=== PATIENT | male | born 1960 | race Caucasian/White ===

== ENCOUNTER → 2018-10-13 | Outpatient (CLI) | payer OTHER ==
--- NOTE | 2018-10-13 15:28 | XR ---
EXAMINATION TYPE: XR shoulder complete RT DATE OF EXAM: 10/13/2018 CLINICAL HISTORY: Right shoulder pain. TECHNIQUE: Three views of the right shoulder are obtained. COMPARISON: None. FINDINGS: There is no acute fracture/dislocation evident in the right shoulder. Moderate narrowing a cromioclavicular joint is present. Distal acromion morphology is unremarkable. Mild to moderate narro wing glenohumeral joint with subchondral cystic change osseous glenoid is identified. The visualized ribs are intact and unremarkable. IMPRESSION: As above.
== END | disposition home or self-care (01) ==
LOC: RADXRMAIN 15:12
PROVIDERS: ATTEND Family Medicine
DX: M25.811 Other specified joint disorders, right shoulder (principal); M85.611 Other cyst of bone, right shoulder

== ENCOUNTER → 2022-03-27 | Outpatient (CLI) | payer BC ==
--- NOTE | 2022-03-27 15:19 | P.SLEEP ---
History of Present Illness DATE: 03/27/2022 CONSULTATION/NEW PATIENT EVALUATION HISTORY OF PRESENT ILLNESS/SLEEP-WAKE EVALUATION: 61year old gentleman had b een evaluated in the sleep center for possible obstructive sleep apnea hypopnea syndrome. SLEEP SCHEDULE: Usually sleep schedule on weekdays 9:30 PM to 7:30 AM, during days off, 10 PM to 8:30 AM. FALLING ASLEEP: No problems with falling asleep. DURING SLEEP: Patient snores loudly and wakes up from sleep 3 times with one episode of nocturia No history of hypnogogical hallucinations, sleep paralysis, or cataplexy. DURING THE DAY/WAKE STATE: In the morning patient wake up tired, has episodes of irritability. Dorena sleepiness scale is 9.. Patient takes 1 nap at 4 PM. PAST MEDICAL HISTORY: . Hypertension, diabetes mellitus, episodes of atrial fibrillation,. Femoral neuropathy. PAST SURGICAL HISTORY: None. MEDICATIONS: , Metformin 500 mg 4 times a day, metoprolol 100 mg once a day, xarelto 20 mg once a day, Lipitor 20 mg once a day, gabapentin 800 mg 3 times a day, Actos. SOCIAL HISTORY: Positive history of smoking cigars , alcohol consumption occasional. FAMILY HISTORY: Hypertension. REVIEW OF SYSTEMS: , Loud snoring, multiple awakenings from sleep. No fevers. No double vision. No recent chest pain. No shortness of breath. No abdominal pain. No bleeding episodes. No blood in urine. No seizure episodes. PHYSICAL EXAMINATION: GENERAL: A pleasant patient without any distress. VITAL SIGNS: BP 149/61 , HR , 53 , RR 16 , weight 263.8 pounds, height 5 foot 9-1/2 inches, body mass index 38.2 . HEENT: PERRLA, EOMI. Evaluation of oropharynx showed tongue protrudes midline, low position of soft palate Mallampati 4. NECK: Supple. No JVD. Thyroid is not palpable. 21-1/2 inches in circumference. LUNGS: Clear to percussion and to auscultation. Good air exchange. No wheezing or rhonchi. HEART: S1, S2 regular. No murmurs, gallops or rubs. ABDOMEN: Soft and nontender. Bowel sounds are present. No organomegaly appreciated. Obese EXTREMITIES: No clubbing or cyanosis. SHAKE FEEDER: Awake, alert, and oriented x3. Cranial nerves 2 to 7 intact. There is no fasciculation or atrophy noted. No focal deficits observed. ASSESSMENT: 1. . Loud snoring, multiple awakenings from sleep, extremely low position of soft palate Mallampati 4, extremely wide neck 21-1/2 inches in circumference, episodes of sleepiness. Obstructive sleep apnea hypopnea syndrome. 2. Obesity, BMI 38.2. 3 Hypertension. 4. History of atrial fibrillation. 5 diabetes mellitus. 6. Peripheral neuropathy. PLAN: 1. Polysomnography for evaluation of patient's breathing during sleep. 2. CPAP/BiPAP titration if sleep study confirms obstructive sleep apnea- hypopnea syndrome. 3. Preferable position during sleep on the side. 4. No driving if patient feels any sleepiness. Patient is aware of civil and criminal liability for unsafe driving. 5. Sleep hygiene with regular sleep time for at least 7.5-8 hours. 6. Watching and losing weight. Thank you very much for referring this patient for consultation. Sincerely, Ángel Lane MD, PhD, FAASM. Diplomat of [place] [employer], Sleep Medicine Board by [place] [employer] [place] [employer] [facility] Past Medical History Past Medical History: Atrial Fibrillation, Diabetes Mellitus, Hypertension Additional Past Medical History / Comment(s): 08/03/14 EPISODE OF A-FIB, TACHYCARDIA, W/U NL. NIDDM. OFF HTN RX NOW. BENIGN COLON POLYPS 2012. History of Any Multi-Drug Resistant Organisms: None Reported Past Surgical History: Adenoidectomy, Tonsillectomy Additional Past Surgical History / Comment(s): Tailbone Cystectomy. Vasectomy. COLONOSCOPY. Past Anesthesia/Blood Transfusion Reactions: No Reported Reaction Additional Past Anesthesia/Blood Transfusion Reaction / Comment(s): Pt has never recieved blood. Past Psychological History: No Psychological Hx Reported Past Alcohol Use History: Daily Additional Past Alcohol Use History / Comment(s): OCC CIGAR USE, STOPPED RECENTLY. 1 ALCOHOL DRINK DAILY. Past Drug Use History: None Reported - Past Family History Father Family Medical History: Congestive Heart Failure (CHF) Additional Family Medical History / Comment(s): Father of CHF Mother Additional Family Medical History / Comment(s): Mother had cirrhosis of the liver. Medications and Allergies Home Medications Medication Instructions Recorded Confirmed Type Cholecalciferol [Vitamin D3 (25 1 tab PO DAILY 02/19/15 05/10/16 History Mcg = 1000 Iu)] Gabapentin [Neurontin] 800 mg PO TID 08/03/14 10/23/15 History Vitamin B Complex 1 each PO DAILY 08/03/14 10/23/15 History sitaGLIPtin PHOSPHATE [Januvia] 100 mg PO DAILY 08/03/14 10/23/15 History Atorvastatin Calcium [Lipitor] 40 mg PO HS #30 tab 08/04/14 10/23/15 Rx Aspirin 81 mg PO HS 10/23/15 10/23/15 History Empagliflozin [Jardiance] 25 mg PO AC-SUPPER 10/23/15 10/23/15 History Metoprolol Tartrate [Lopressor] 25 mg PO DAILY 10/23/15 10/23/15 History Rivaroxaban [Xarelto] 20 mg PO HS 10/23/15 10/23/15 History metFORMIN HCL [Glucophage] 1,000 mg PO AC-SUPPER 10/23/15 10/23/15 History metFORMIN HCL [Glucophage] 1,000 mg PO AC-SUPPER 10/23/15 10/23/15 History Allergies Allergy/AdvReac Type Severity Reaction Status Date / Time clarithromycin [From Biaxin] Allergy Severe Rash/Hives Verified 10/23/15 10:32 Sleep Note - Sleep Note Sleep Note: Temperature: Pulse Rate: Respiratory Rate: Blood Pressure: SpO2: Height: Weight: BMI: Neck Circumference:
== END | disposition home or self-care (01) ==
LOC: SLEEP 14:20
PROVIDERS: ATTEND Internal Medicine
DX: G47.33 Obstructive sleep apnea (adult) (pediatric) (principal); I10 Essential (primary) hypertension; I48.91 Unspecified atrial fibrillation; E66.9 Obesity, unspecified; Z68.38 Body mass index [BMI] 38.0-38.9, adult; E11.42 Type 2 diabetes mellitus with diabetic polyneuropathy; Z87.891 Personal history of nicotine dependence; Z88.1 Allergy status to other antibiotic agents
CPT/HCPCS: 99202

== ENCOUNTER 2022-09-04 12:35 | Inpatient (IN) | payer BC ==
[2022-09-04] MEDS ORDERED: DILTIAZEM DRIP BOLUS FROM BAG 1 MG SOLN IV ONE (13:06)
[2022-09-04] MEDS: MORPHINE SULFATE 4 MG/ML SYRINGE IV STA ×2 (13:08→15:16)
[2022-09-04] MEDS ORDERED: DILTIAZEM 125 MG in SODIUM CHLORIDE 0.9% 100 ML IV SCH (13:15)
[2022-09-04 13:45] LABS: Basophils % (A) 0 %; Eosinophils # (A) 0.1 k/uL (0-0.7); Eosinophils % (A) 1 %; HCT 40.9 % (39.0-53.0); HGB 13.4 gm/dL (13.0-17.5); Hypochromasia Slight; Lymphocytes # (A) 1.3 k/uL (1.0-4.8); Lymphocytes % (A) 13 %; MCHC 32.7 g/dL (31.0-37.0); Mean Platelet Volume 8.5; Monocytes # (A) 0.6 k/uL (0-1.0); Monocytes % (A) 6 %; Neutrophils # (A) 7.6 k/uL (1.3-7.7); Neutrophils % (A) 77 %; Platelet Count 302 k/uL (150-450); RBC 4.45 m/uL (4.30-5.90); RDW 14.4 % (11.5-15.5); WBC 9.8 k/uL (3.8-10.6)
[2022-09-04] MEDS ORDERED: fentaNYL (PF) 50 MCG/ML 2 ML AMP IVP STA (13:56)
--- NOTE | 2022-09-04 14:02 | ED ---
General Adult HPI - General Chief complaint: Chest Pain Stated complaint: revisit- lt sided abd pain Time Seen by Provider: 09/04/22 12:50 Source: patient, family, RN notes reviewed, old records reviewed Mode of arrival: wheelchair Limitations: no limitations - History of Present Illness Initial comments: 61-year-old male presenting for evaluation of left-sided lateral chest pain which is been present for the past week. Patient states that he was discharged from the hospital with new diagnosis of atrial fibrillation. He was started on multiple medications which she's been compliant with. He developed the left- sided chest pain shortly after this admission and it has been constant since that time. No fever or cough, mild dyspnea. Pain does not radiate. - Related Data Home Medications Medication Instructions Recorded Confirmed Rivaroxaban [Xarelto] 20 mg PO DAILY 10/23/15 09/04/22 Aspirin EC [Ecotrin Low Dose] 81 mg PO DAILY 08/13/22 09/04/22 Atorvastatin [Lipitor] 20 mg PO HS 08/13/22 09/04/22 Linagliptin [Tradjenta] 5 mg PO DAILY 08/13/22 09/04/22 Lisinopril-Hctz 20-12.5 mg 1 tab PO DAILY 08/13/22 09/04/22 [Zestoretic 20-12.5] Metoprolol Succinate (ER) [Toprol 100 mg PO HS 08/13/22 09/04/22 XL] Pioglitazone [Actos] 45 mg PO DAILY 08/13/22 09/04/22 [id number] 2 tab PO Q6H PRN 09/04/22 09/04/22 [Excedrin] Midodrine [ProAmatine] 10 mg PO TID@0730,1200,1730 09/04/22 09/04/22 Tamsulosin [Flomax] 0.4 mg PO HS 09/04/22 09/04/22 Previous Rx's Medication Instructions Recorded Amiodarone [Cordarone] 400 mg PO BID 30 Days #60 tab 08/29/22 Dapagliflozin Propanediol [Farxiga] 10 mg PO DAILY 30 Days #30 tab 08/29/22 Gabapentin [Neurontin] 200 mg PO BID 5 Days #20 cap 08/29/22 Spironolactone [Aldactone] 12.5 mg PO DAILY 30 Days #30 tab 08/29/22 Allergies Allergy/AdvReac Type Severity Reaction Status Date / Time clarithromycin [From Biaxin] Allergy Severe Rash/Hives Verified 09/04/22 13:44 Review of Systems ROS Statement: Those systems with pertinent positive or pertinent negative responses have been documented in the HPI. ROS Other: All systems not noted in ROS Statement are negative. Past Medical History Past Medical History: Atrial Fibrillation, Diabetes Mellitus, Hypertension Additional Past Medical History / Comment(s): 08/03/14 EPISODE OF A-FIB, TACHYCARDIA, W/U NL. NIDDM. OFF HTN RX NOW. BENIGN COLON POLYPS 2012. History of Any Multi-Drug Resistant Organisms: None Reported Past Surgical History: Adenoidectomy, Tonsillectomy Additional Past Surgical History / Comment(s): Tailbone Cystectomy. Vasectomy. COLONOSCOPY. Past Anesthesia/Blood Transfusion Reactions: No Reported Reaction Additional Past Anesthesia/Blood Transfusion Reaction / Comment(s): Pt has never recieved blood. Past Psychological History: No Psychological Hx Reported Smoking Status: Former smoker Past Alcohol Use History: Daily Past Drug Use History: None Reported - Past Family History Father Family Medical History: Congestive Heart Failure (CHF) Additional Family Medical History / Comment(s): Father of CHF Mother Additional Family Medical History / Comment(s): Mother had cirrhosis of the liver. General Exam Limitations: no limitations General appearance: alert, in distress Head exam: Present: atraumatic, normocephalic Eye exam: Present: normal appearance, PERRL ENT exam: Present: normal exam Neck exam: Present: normal inspection. Absent: tenderness, meningismus Respiratory exam: Present: normal lung sounds bilaterally. Absent: respiratory distress, wheezes Cardiovascular Exam: Present: tachycardia, irregular rhythm GI/Abdominal exam: Present: soft. Absent: distended, tenderness, guarding Extremities exam: Present: normal inspection, normal capillary refill. Absent: pedal edema Neurological exam: Present: alert, oriented X3, CN II-XII intact. Absent: motor sensory deficit Psychiatric exam: Present: normal affect, normal mood Skin exam: Present: warm, dry, intact, normal color. Absent: cyanosis, diaphoretic Course Vital Signs 09/04/22 09/04/22 09/04/22 12:37 13:40 14:00 Temperature 97.9 F Pulse Rate 66 133 H 117 H Respiratory 20 19 20 Rate Blood Pressure 99/60 88/73 102/69 O2 Sat by Pulse 99 96 96 Oximetry EKG Findings - EKG Comments: EKG Findings:: EKG: Atrial fibrillation with RVR rate 140 QRS duration 117, QTC [address] segment elevation Medical Decision Making - Medical Decision Making Was pt. sent in by a medical professional or institution (, PA, THERMO PROCESSOR, urgent care, hospital, or longterm...) When possible be specific @ -No Did you speak to anyone other than the patient for history (EMS, parent, family, police, friend...)? What history was obtained from this source @ -No Did you review nursing and triage notes (agree or disagree)? Why? @ -I reviewed and agree with nursing and triage notes Were old charts reviewed (outside hosp., previous admission, EMS record, old EKG, old radiological studies, urgent care reports/EKG's, longterm records)? Report findings @ -Reviewed previous laboratory testing, previous EKGs, previous x-rays Differential Diagnosis (chest pain, altered mental status, abdominal pain women, abdominal pain men, vaginal bleeding, weakness, fever, dyspnea, syncope, headache, dizziness, GI bleed, back pain, seizure, CVA, palpatations, mental health, musculoskeletal)? @ -Differential Chest Pain: Stable Angina, Unstable Angina, STEMI, NSTEMI Aortic Dissection, Pneumothorax, Musculoskeletal, Esophageal Spasm GERD, Cholecystitis, Pancreatitis, Zoster, this is not meant to be an all-inclusive list. EKG interpreted by me (3pts min.). @ -As above X-rays interpreted by me (1pt min.). @ -Chest x-ray showing a left-sided pleural effusion improved aeration. CT interpreted by me (1pt min.). @ -None done U/S interpreted by me (1pt. min.). @ -None done What testing was considered but not performed or refused? (CT, X-rays, U/S, labs)? Why? @ -None What meds were considered but not given or refused? Why? @ -None Did you discuss the management of the patient with other professionals (professionals i.e. , GUILLAUME, THERMO PROCESSOR, lab, RT, psych nurse, social work manager, 911 telecommunicator, teacher, legal compliance officer, home health care case manager)? Give summary @ -Case discussed with the admitting physician Dr. Beatty Was smoking cessation discussed for >3mins.? @ -No Was critical care preformed (if so, how long)? @ -No Were there social determinants of health that impacted care today? How? (Homelessness, low income, unemployed, alcoholism, drug addiction, transportat ion, low edu. Level, literacy, decrease access to med. care, half-way, rehab)? @ -No Was there de-escalation of care discussed even if they declined (Discuss DNR or withdrawal of care, Hospice)? DNR status @ -No What co-morbidities impacted this encounter? (DM, HTN, Smoking, COPD, CAD, Cancer, CVA, ARF, Chemo, Hep., AIDS, mental health diagnosis, sleep apnea, morbid obesity)? @ -Hypertension, chronic kidney disease, H fibrillation Was patient admitted / discharged? Hospital course, mention meds given and route, prescriptions, significant lab abnormalities, going to OR and other perti nent info. @ -61-year-old male presenting with left lateral chest pain. Pain is atypical. EKG is atrial fibrillation with RVR. The patient is anticoagulated at baseline. Repeat chest x-ray shows left-sided pleural effusion which is likely the cause of patient's pain. He has significant rate improvement on Cardizem with all in the emergency department. Laboratory testing is stable including improved kidney function, stable hemoglobin, negative troponin he will be admitted to internal medicine with cardiology on consult Undiagnosed new problem with uncertain prognosis? @ -No Drug Therapy requiring intensive monitoring for toxicity (Heparin, Nitro, Insulin, Cardizem)? @ -No Were any procedures done? @ -No Diagnosis/symptom? @ -A fibrillation with RVR, pleural effusion Acute, or Chronic, or Acute on Chronic? @ -acute Uncomplicated (without systemic symptoms) or Complicated (systemic symptoms)? @ -complicated Side effects of treatment? @ -No Exacerbation, Progression, or Severe Exacerbation? @ -No Poses a threat to life or bodily function? How? (Chest pain, [place], MT, pneumonia, PE, COPD, DKA, ARF, appy, cholecystitis, CVA, Diverticulitis, Homicidal, Suicidal, threat to staff... and all critical care pts) @ -yes, arrhythmia, hypoperfusion - Lab Data Result diagrams: 09/04/22 13:16 09/04/22 13:16 Lab Results 09/04/22 09/04/22 09/04/22 Range/Units 13:16 13:16 13:16 WBC 9.8 (3.8-10.6) k/uL RBC 4.45 (4.30-5.90) m/uL Hgb 13.4 (13.0-17.5) gm/dL Hct 40.9 (39.0-53.0) % MCV 92.0 (80.0-100.0) fL MCH 30.0 (25.0-35.0) pg MCHC 32.7 (31.0-37.0) g/dL RDW 14.4 (11.5-15.5) % Plt Count 302 (150-450) k/uL MPV 8.5 Neutrophils % 77 % Lymphocytes % 13 % Monocytes % 6 % Eosinophils % 1 % Basophils % 0 % Neutrophils # 7.6 (1.3-7.7) k/uL Lymphocytes # 1.3 (1.0-4.8) k/uL Monocytes # 0.6 (0-1.0) k/uL Eosinophils # 0.1 (0-0.7) k/uL Basophils # 0.0 (0-0.2) k/uL Hypochromasia Slight PT 17.4 H (9.0-12.0) sec INR 1.8 H (<1.2) APTT 42.0 H (22.0-30.0) sec Sodium 133 L (137-145) mmol/L Potassium 4.2 (3.5-5.1) mmol/L Chloride 91 L (98-107) mmol/L Carbon Dioxide 32 H (22-30) mmol/L Anion Gap 10 mmol/L BUN 42 H (9-20) mg/dL Creatinine 1.67 H (0.66-1.25) mg/dL Est GFR (CKD-EPI)AfAm 50 (>60 ml/min/1.73 sqM) Est GFR (CKD-EPI)NonAf 43 (>60 ml/min/1.73 sqM) Glucose 152 H (74-99) mg/dL Calcium 10.0 (8.4-10.2) mg/dL Magnesium 1.9 (1.6-2.3) mg/dL Total Bilirubin 1.6 H (0.2-1.3) mg/dL AST 39 (17-59) U/L ALT 76 H (4-49) U/L Alkaline Phosphatase 128 H (38-126) U/L Troponin I (0.000-0.034) ng/mL NT-Pro-B Natriuret Pep pg/mL Total Protein 7.3 (6.3-8.2) g/dL Albumin 4.1 (3.5-5.0) g/dL 09/04/22 09/04/22 Range/Units 13:16 13:16 WBC (3.8-10.6) k/uL RBC (4.30-5.90) m/uL Hgb (13.0-17.5) gm/dL Hct (39.0-53.0) % MCV (80.0-100.0) fL MCH (25.0-35.0) pg MCHC (31.0-37.0) g/dL RDW (11.5-15.5) % Plt Count (150-450) k/uL MPV Neutrophils % % Lymphocytes % % Monocytes % % Eosinophils % % Basophils % % Neutrophils # (1.3-7.7) k/uL Lymphocytes # (1.0-4.8) k/uL Monocytes # (0-1.0) k/uL Eosinophils # (0-0.7) k/uL Basophils # (0-0.2) k/uL Hypochromasia PT (9.0-12.0) sec INR (<1.2) APTT (22.0-30.0) sec Sodium (137-145) mmol/L Potassium (3.5-5.1) mmol/L Chloride (98-107) mmol/L Carbon Dioxide (22-30) mmol/L Anion Gap mmol/L BUN (9-20) mg/dL Creatinine (0.66-1.25) mg/dL Est GFR (CKD-EPI)AfAm (>60 ml/min/1.73 sqM) Est GFR (CKD-EPI)NonAf (>60 ml/min/1.73 sqM) Glucose (74-99) mg/dL Calcium (8.4-10.2) mg/dL Magnesium (1.6-2.3) mg/dL Total Bilirubin (0.2-1.3) mg/dL AST (17-59) U/L ALT (4-49) U/L Alkaline Phosphatase (38-126) U/L Troponin I <0.012 (0.000-0.034) ng/mL NT-Pro-B Natriuret Pep 3240 pg/mL Total Protein (6.3-8.2) g/dL Albumin (3.5-5.0) g/dL Disposition Clinical Impression: Atrial fibrillation with rapid ventricular response Disposition: ADMITTED IP TO THIS HOSP Condition: Stable Is patient prescribed a controlled substance at d/c from ED?: No Referrals: Vargas Vann DO [Primary Care Provider] - 1-2 days Time of Disposition: 14:54
[2022-09-04 14:05] LABS: INR 1.8 (<1.2); Prothrombin Time 17.4 sec (9.0-12.0)
[2022-09-04] MEDS ORDERED: ONDANSETRON 4 MG/2 ML VIAL IVP STA (14:27)
--- NOTE | 2022-09-04 14:27 | XR ---
EXAMINATION TYPE: XR chest 2V DATE OF EXAM: 09/04/2022 2:22 PM COMPARISON: Chest radiographs from 08/20/2022 TECHNIQUE: XR chest 2V Frontal and lateral views of the chest. CLINICAL INDICATION:Male, 61 years old with history of Chest Pain; FINDINGS: Lungs/Pleura: Small left pleural effusion with adjacent airspace opacity. No pneumothorax. Improved a eration of the right base from earlier examination on 08/20/2022. Pulmonary vascularity: Unremarkable. Heart/mediastinum: Cardiomediastinal silhouette is unremarkable. Musculoskeletal: No acute osseous pathology. IMPRESSION: Similar small left pleural effusion with adjacent airspace opacity which may represent atelectasis an d/or infiltrate. Improved aeration in the right lung base from prior examination on 08/20/2022.
[2022-09-04 14:38] LABS: Albumin 4.1 g/dL (3.5-5.0); Magnesium 1.9 mg/dL (1.6-2.3); Potassium 4.2 mmol/L (3.5-5.1); Total Bilirubin 1.6 mg/dL (0.2-1.3); Total Protein 7.3 g/dL (6.3-8.2)
[2022-09-04] MEDS ORDERED: NALOXONE 0.4 MG/ML 1 ML VIAL IV PRN (14:44)
[2022-09-04] MEDS ORDERED: ACETAMINOPHEN TAB 325 MG TAB PO STA (14:50)
[2022-09-04] MEDS ORDERED: SODIUM CHLORIDE 0.9% 500 ML 500 ML IV ONE (15:38)
[2022-09-04] MEDS: HYDROmorphone 0.5 MG/0.5 ML SYRINGE IVP PRN ×2 (15:41→21:52)
[2022-09-04] MEDS ORDERED: ASPIRIN-ACET-CAFF 250-250-65MG 1 EACH TAB PO PRN (15:47)
[2022-09-04] MEDS ORDERED: DEXTROSE 50% SYRINGE 50 ML IVP PRN ×2 (15:50)
[2022-09-04] MEDS ORDERED: AMIODARONE 200 MG TAB PO STA (17:12)
[2022-09-04 17:32] LABS: Glucose,Whole Blood 128 mg/dL (70-110)
[2022-09-04] MEDS: INSULIN ASPART (NovoLOG) 100 UNIT/ML VIAL SQ SCH ×2 (17:36→21:01)
[2022-09-04] MEDS: MIDODRINE 5 MG TAB PO SCH (17:56)
[2022-09-04] MEDS: HYDROcodone/APAP 5-325MG 1 EACH TAB PO PRN ×2 (17:57→23:50)
--- NOTE | 2022-09-04 18:16 | CT ---
EXAMINATION TYPE: CT chest abdomen wo con DATE OF EXAM: 09/04/2022 COMPARISON: CT chest 08/03/2014 HISTORY: left side pleural effusion CT DLP: 864.6 mGycm Automated exposure control for dose reduction was used. Images obtained from the thoracic inlet to the iliac crests with no contrast. There is mild left pleural effusion. There is left lower lobe airspace 8 cm consolidation and atelect asis posteriorly and laterally. The right lung is clear. No mediastinal adenopathy. There are no nelly r masses. Thoracic aorta is intact. No aneurysm. There is some mild coronary artery calcification. Th e ascending aorta measures 3.6 cm. Liver spleen and stomach pancreas appear intact. Gallbladder is intact. The bile base are not dilated . There is no adrenal mass. Kidneys have normal size and contour. No hydronephrosis. Ureters are not di lated. No retroperitoneal adenopathy. There is no mesenteric edema. No ascites or free air. No sign of a bowel obstruction. No intestinal w all thickening. The thoracic and lumbar vertebra appear intact. There is multilevel lumbar spondylotic changes with d isc space narrowing and vacuum disc. No compression fracture. No focal bone destruction. Sternum is i ntact. No evidence of rib fracture. IMPRESSION: There is left pleural effusion and left lower lobe airspace consolidation and atelectasis. Lung abnor malities appear new compared to old exam. No significant abnormality within the abdomen.
[2022-09-04 19:55] LABS: Glucose,Whole Blood 124 mg/dL (70-110)
[2022-09-04] MEDS ORDERED: METOPROLOL SUCCINATE (ER) 100 MG TAB.ER.24H PO SCH (21:00)
[2022-09-04] MEDS: TAMSULOSIN 0.4 MG CAP.ER.24H PO SCH (21:06)
[2022-09-04] MEDS: AMIODARONE 200 MG TAB PO SCH (21:06)
[2022-09-04] MEDS: GABAPENTIN 100 MG CAP PO SCH (21:06)
[2022-09-04] MEDS: ATORVASTATIN 20 MG TAB PO SCH (21:06)
[2022-09-05] MEDS ORDERED: LACTATED RINGERS 1,000 ML IV ONE (00:16)
--- NOTE | 2022-09-05 02:58 | HP ---
HISTORY AND PHYSICAL CHIEF COMPLAINT: Atrial fibrillation with fast ventricular rate, hypotension as well as left-sided chest pain and left pleural effusion. HISTORY OF PRESENT ILLNESS: This is a 61-year-old gentleman with a past medical history of multiple medical problems, was recently admitted with atrial fibrillation associated complications. The patient apparently was cardioverted. The patient also had a cardiomyopathy, ejection fraction of 30% to 35%. Currently, the patient is complaining of left-sided chest pain, which is acute on chronic in character of the left lower chest on the lateral part. The patient was found to have atrial fibrillation with fast ventricular rate and some hypotension. Cardizem was initiated. The patient is closely monitored at this time. There is no history of any fever, rigors, or chills at this time. Chest x-ray showed left pleural effusion. PAST MEDICAL HISTORY: Reviewed include atrial fibrillation, diabetes mellitus. The rest of the history and rest of the chart is also noted. HOME MEDICATIONS: Reviewed include Flomax, dose and rest of medication noted. ALLERGIES: Reviewed include Biaxin. FAMILY HISTORY: History of CHF. SOCIAL HISTORY: Previous history of smoking. REVIEW OF SYSTEMS: Fourteen-point review of systems negative except as mentioned earlier. PHYSICAL EXAMINATION: VITAL SIGNS: Pulse is 112 and irregular, blood pressure 90/70, respirations 20. HEENT: Conjunctivae normal. NECK: No jugular venous distention. CARDIOVASCULAR: S1, S2 muffled. RESPIRATIONS: Breath sounds diminished at the bases. A few scattered rhonchi and crackles. ABDOMEN: Soft, nontender. LEGS: No edema. NERVOUS SYSTEM: No focal deficits. Some tenderness in the left lower chest also present. LABORATORY DATA: Labs are reviewed. ASSESSMENT: 1. Atrial fibrillation with fast ventricular rate with hypotension. 2. Left-sided chest pain. 3. Left pleural effusion. 4. Chronic kidney disease, stage 3. 5. Diabetes mellitus, type 2. 6. Hypertension. 7. Multiple medical issues. 8. Cardiomyopathy with ejection fraction of 30% to 35%. RECOMMENDATIONS: This is a 61-year-old gentleman who presented with multiple complex medical issues. We will continue the current medications. Continue symptomatic treatment. Otherwise, I would also recommend a CT scan of the chest and monitor blood sugars closely. The patient is on Cardizem. I would recommend fluid bolus of 500 mL and if the patient's blood pressure is not improving, the patient might be a candidate for amiodarone drip and we will closely follow with Cardiology. Discussed with staff. Discussed with family. Further recommendations to follow. MMODL / IJN: [id number] /
[2022-09-05] MEDS: HYDROmorphone 0.5 MG/0.5 ML SYRINGE IVP PRN ×3 (03:40→16:35)
[2022-09-05 06:04] LABS: Glucose,Whole Blood 145 mg/dL (70-110)
[2022-09-05] MEDS: INSULIN ASPART (NovoLOG) 100 UNIT/ML VIAL SQ SCH ×4 (06:04→22:00)
[2022-09-05] MEDS: MIDODRINE 5 MG TAB PO SCH ×3 (06:14→16:43)
[2022-09-05 07:56] LABS: Basophils # (A) 0.1 k/uL (0-0.2); Basophils % (A) 1 %; Eosinophils # (A) 0.1 k/uL (0-0.7); Eosinophils % (A) 1 %; HCT 40.4 % (39.0-53.0); Hypochromasia Slight; Lymphocytes # (A) 1.4 k/uL (1.0-4.8); Lymphocytes % (A) 16 %; MCH 29.9 pg (25.0-35.0); MCHC 32.1 g/dL (31.0-37.0); MCV 93.2 fL (80.0-100.0); Monocytes # (A) 0.6 k/uL (0-1.0); Monocytes % (A) 7 %; Neutrophils # (A) 6.4 k/uL (1.3-7.7); Neutrophils % (A) 73 %; Platelet Count 262 k/uL (150-450); RBC 4.33 m/uL (4.30-5.90); RDW 14.8 % (11.5-15.5); WBC 8.8 k/uL (3.8-10.6)
[2022-09-05 08:18] LABS: Calcium 9.9 mg/dL (8.4-10.2); Potassium 4.2 mmol/L (3.5-5.1)
[2022-09-05] MEDS ORDERED: RIVAROXABAN 20 MG TAB PO SCH (09:00)
[2022-09-05] MEDS: ASPIRIN 81 MG PO SCH (09:03)
[2022-09-05] MEDS: GABAPENTIN 100 MG CAP PO SCH ×2 (09:03→22:00)
[2022-09-05] MEDS: ONDANSETRON 4 MG/2 ML VIAL IVP PRN ×2 (09:03→16:58)
[2022-09-05] MEDS: SPIRONOLACTONE 25 MG TAB PO SCH (09:04)
[2022-09-05] MEDS: HYDROcodone/APAP 5-325MG 1 EACH TAB PO PRN ×2 (09:04→16:35)
[2022-09-05] MEDS: PIOGLITAZONE 45 MG TAB PO SCH (09:04)
[2022-09-05] MEDS: AMIODARONE 200 MG TAB PO SCH ×2 (09:04→22:00)
[2022-09-05] MEDS: LINAGLIPTIN 5 MG TABLET PO SCH (09:04)
[2022-09-05] MEDS: DAPAGLIFLOZIN PROPANEDIOL 10 MG TABLET PO SCH (09:05)
--- NOTE | 2022-09-05 10:15 | P.CRDCN ---
History of Present Illness Consult date: 09/05/22 History of present illness: HISTORY OF PRESENT ILLNESS: This is a 61-year-old male with a past medical history significant for paroxysmal atrial fibrillation, hyperlipidemia, hypertension, and diabetes. Patient was last seen in the office by Dr. Robert in 2014. We have been asked to see the patient in consultation for chest pain. Patient examined at the bedside. Patient presented to the hospital with a chief complaint of back pain. Patient was found to be in A. fib with RVR. Patient was started on IV Cardizem. This morning the patient remains in atrial fibrillation with a heart rate in the 80s. * EKG reveals atrial fibrillation with RVR with heart rate of 140 * Chest xray similar small left pleural effusion with adjacent airspace opacity which may represent atelectasis and/or infiltrate. Improved aeration in the right lung base from prior exam * Laboratory data: W BC 8.8. Hemoglobin 13.0. Platelet count 262. INR 1.8. Sodium 133. Potassium 4.2. BUN 42. Creatinine 1.67. ProBNP 3420. Troponin negative 1. * Current home cardiac medications include amiodarone 400 mg twice a day, aspirin 81 mg twice a day, Zestoretic 20-12.5mg daily, Xarelto 20 mg daily, spironolactone 2.5 mg daily, Lipitor 20mg at night, metoprolol succinate 100 mg at night, and Midodrine 10mg BID * Most recent echocardiogram obtained in August 2022 revealed ejection fraction 30-35% REVIEW OF SYSTEMS: At the time of my exam: CONSTITUTIONAL: Denies fever or chills. HEENT: Denies blurred vision, vision changes, or eye pain. Denies hemoptysis CARDIOVASCULAR: Denies chest pain. Denies orthopnea. Denies PND. Denies pal pitations RESPIRATORY: Denies shortness of breath. GASTROINTESTINAL: Denies abdominal pain. Denies nausea or vomiting. HEMATOLOGIC: Denies bleeding disorders. GENITOURINARY: Denies any blood in urine. SKIN: Denies pruitis. Denies rash. PHYSICAL EXAM: VITAL SIGNS: Reviewed. GENERAL: Well-developed in no acute distress. HEENT: Head is normocephalic. Pupils are equal, round. Sclerae anicteric. Mucous membranes of the mouth are moist. Neck supple. No JVD or thyromegaly LUNGS: Respirations even and unlabored. Lungs essentially clear to auscultation bilaterally. HEART: Irregular rate and rhythm. S1 and S2 heard. ABDOMEN: Soft. Nondistended. Nontender. EXTREMITIES: Normal range of motion. No clubbing or cyanosis. Peripheral pulses intact. Trace bilateral lower extremity edema NEUROLOGIC: Awake and alert. Oriented x 3. ASSESSMENT: Back pain, noncardiac Paroxysmal atrial fibrillation Recent A. fib cardioversion, 08/13/2022 Cardiomyopathy, ejection fraction 3035%, possibly tachycardia induced Chronic heart failure with reduced EF Acute kidney injury Hypertension Hyperlipidemia Diabetes PLAN: No need to repeat echocardiogram Increase metoprolol tartrate to 100 mg twice a day Discontinue IV Cardizem Continue telemetry monitoring Further recommendations pending patient's course Nurse practitioner note has been reviewed by physician. Signing provider agrees with the documented findings, assessment, and plan of care. Past Medical History Past Medical History: Atrial Fibrillation, Diabetes Mellitus, Hypertension Additional Past Medical History / Comment(s): 08/03/14 EPISODE OF A-FIB, TACHYCARDIA, W/U NL. NIDDM. OFF HTN RX NOW. BENIGN COLON POLYPS 2012. History of Any Multi-Drug Resistant Organisms: None Reported Past Surgical History: Adenoidectomy, Tonsillectomy Additional Past Surgical History / Comment(s): Tailbone Cystectomy. Vasectomy. COLONOSCOPY. Past Anesthesia/Blood Transfusion Reactions: No Reported Reaction Additional Past Anesthesia/Blood Transfusion Reaction / Comment(s): Pt has never recieved blood. Past Psychological History: No Psychological Hx Reported Additional Psychological History / Comment(s): Pt lives in his home with his . Pt is independent. He drives a car. Smoking Status: Former smoker Past Alcohol Use History: Daily Additional Past Alcohol Use History / Comment(s): OCC CIGAR USE, STOPPED RECENTLY. 1 ALCOHOL DRINK DAILY. Past Drug Use History: None Reported - Past Family History Father Family Medical History: Congestive Heart Failure (CHF) Additional Family Medical History / Comment(s): Father of CHF Mother Additional Family Medical History / Comment(s): Mother had cirrhosis of the liver. Medications and Allergies Home Medications Medication Instructions Recorded Confirmed Type Rivaroxaban [Xarelto] 20 mg PO DAILY 10/23/15 09/04/22 History Aspirin EC [Ecotrin Low Dose] 81 mg PO DAILY 08/13/22 09/04/22 History Atorvastatin [Lipitor] 20 mg PO HS 08/13/22 09/04/22 History Linagliptin [Tradjenta] 5 mg PO DAILY 08/13/22 09/04/22 History Lisinopril-Hctz 20-12.5 mg 1 tab PO DAILY 08/13/22 09/04/22 History [Zestoretic 20-12.5] Metoprolol Succinate (ER) [Toprol 100 mg PO HS 08/13/22 09/04/22 History XL] Pioglitazone [Actos] 45 mg PO DAILY 08/13/22 09/04/22 History Amiodarone [Cordarone] 400 mg PO BID 30 Days #60 tab 08/29/22 09/04/22 Rx Dapagliflozin Propanediol [Farxiga] 10 mg PO DAILY 30 Days #30 tab 08/29/22 09/04/22 Rx Gabapentin [Neurontin] 200 mg PO BID 5 Days #20 cap 08/29/22 09/04/22 Rx Spironolactone [Aldactone] 12.5 mg PO DAILY 30 Days #30 tab 08/29/22 09/04/22 Rx [id number]-Gpdj-Vvyd [id number] 2 tab PO Q6H PRN 09/04/22 09/04/22 History [Excedrin] Midodrine [ProAmatine] 10 mg PO TID@0730,1200,1730 09/04/22 09/04/22 History Tamsulosin [Flomax] 0.4 mg PO HS 09/04/22 09/04/22 History Allergies Allergy/AdvReac Type Severity Reaction Status Date / Time clarithromycin [From Biaxin] Allergy Severe Rash/Hives Verified 09/04/22 13:44 Physical Exam Vitals: Vital Signs Temp Pulse Pulse Resp BP BP Pulse Ox 09/05/22 07:35 97.5 F L 88 20 111/48 98 09/05/22 03:34 97.9 F 105 H 20 96/59 96 09/05/22 01:05 20 09/04/22 23:49 98.0 F 106 H 20 99/64 96 09/04/22 21:20 110 H 20 09/04/22 20:00 97.9 F 110 H 20 101/61 98 09/04/22 16:10 97.4 F L 131 H 16 104/55 98 09/04/22 15:34 124 H 20 90/71 98 09/04/22 15:22 112 H 19 84/55 98 09/04/22 14:00 117 H 20 102/69 96 09/04/22 13:40 133 H 19 88/73 96 09/04/22 12:37 97.9 F 66 20 99/60 99 Intake and Output 09/04/22 09/05/22 09/05/22 22:59 06:59 14:59 Intake Total 236 Balance 236 Intake: Oral 236 Other: Voiding Method Toilet Toilet # Voids 1 1 Weight 110.677 kg 110 kg Results 09/05/22 07:21 09/05/22 07:21 Cardiac Enzymes 09/04/22 09/04/22 Range/Units 13:16 13:16 AST 39 (17-59) U/L Troponin I <0.012 (0.000-0.034) ng/mL Coagulation 09/04/22 Range/Units 13:16 PT 17.4 H (9.0-12.0) sec APTT 42.0 H (22.0-30.0) sec CBC 09/04/22 09/05/22 Range/Units 13:16 07:21 WBC 9.8 8.8 (3.8-10.6) k/uL RBC 4.45 4.33 (4.30-5.90) m/uL Hgb 13.4 13.0 (13.0-17.5) gm/dL Hct 40.9 40.4 (39.0-53.0) % Plt Count 302 262 (150-450) k/uL Comprehensive Metabolic Panel 09/04/22 Range/Units 13:16 Sodium 133 L (137-145) mmol/L Potassium 4.2 (3.5-5.1) mmol/L Chloride 91 L (98-107) mmol/L Carbon Dioxide 32 H (22-30) mmol/L BUN 42 H (9-20) mg/dL Creatinine 1.67 H (0.66-1.25) mg/dL Glucose 152 H (74-99) mg/dL Calcium 10.0 (8.4-10.2) mg/dL AST 39 (17-59) U/L ALT 76 H (4-49) U/L Alkaline Phosphatase 128 H (38-126) U/L Total Protein 7.3 (6.3-8.2) g/dL Albumin 4.1 (3.5-5.0) g/dL Current Medications Generic Name Dose Route Start Last Admin Trade Name Freq PRN Reason Stop Dose Admin Acetaminophen/Aspirin/Caffeine 2 each 09/04/22 15:47 Oegefvg-[id number]-Pxpc [id number] 1 Each Tab PO Q6H PRN Headache Hydrocodone Bitart/Acetaminophen 1 each 09/04/22 15:51 09/04/22 23:50 Hydrocodone/Apap 5-325mg 1 Each Tab PO 1 each Q6HR PRN Administration Pain Amiodarone HCl 400 mg 09/04/22 21:00 09/04/22 21:06 Amiodarone 200 Mg Tab PO 400 mg BID [facility]O Administration Aspirin 81 mg 09/05/22 09:00 Aspirin 81 Mg PO DAILY [facility] Atorvastatin Calcium 20 mg 09/04/22 21:00 09/04/22 21:06 Atorvastatin 20 Mg Tab PO 20 mg HS [facility]O Administration Dapagliflozin 10 mg 09/05/22 09:00 Dapagliflozin Propanediol 10 Mg Tablet PO DAILY [facility] Dextrose/Water 25 ml 09/04/22 15:50 Dextrose 50% Syringe 50 Ml IVP PER PROTOCOL PRN Hypoglycemia Protocol Dextrose/Water 50 ml 09/04/22 15:50 Dextrose 50% Syringe 50 Ml IVP PER PROTOCOL PRN Hypoglycemia Protocol Gabapentin 200 mg 09/04/22 21:00 09/04/22 21:06 Gabapentin 100 Mg Cap PO 200 mg BID [facility]O Administration Hydromorphone HCl 0.5 mg 09/04/22 15:38 09/05/22 03:40 Hydromorphone 0.5 Mg/0.5 Ml Syringe IVP 0.5 mg Q6HR PRN Administration Pain Diltiazem HCl 125 mg/ Sodium 125 mls @ 5 mls/hr 09/04/22 13:15 09/04/22 13:37 Chloride IV 5 mg/hr .Q24H AL[facility]O 5 mls/hr Administration 5 MG/HR Insulin Aspart 0 unit 09/04/22 17:30 09/05/22 06:04 Insulin Aspart (Novolog) 100 Unit/Ml Vial SQ Not Given ACHS [facility] Protocol Linagliptin 5 mg 09/05/22 09:00 Linagliptin 5 Mg Tablet PO DAILY [facility] Metoprolol Succinate 100 mg 09/04/22 21:00 09/04/22 21:05 Metoprolol Succinate (Er) 100 Mg Tab.Er.24h PO 100 mg HS [facility] Administration Midodrine 10 mg 09/04/22 17:30 09/05/22 06:14 Midodrine 5 Mg Tab PO 10 mg TID@0730,1200,1730 [facility] Administration Naloxone HCl 0.2 mg 09/04/22 14:44 Naloxone 0.4 Mg/Ml 1 Ml Vial IV Q2M PRN Opioid Reversal Pioglitazone HCl 45 mg 09/05/22 09:00 Pioglitazone 45 Mg Tab PO DAILY [facility] Rivaroxaban 20 mg 09/05/22 09:00 Rivaroxaban 20 Mg Tab PO DAILY [facility] Protocol Spironolactone 12.5 mg 09/05/22 09:00 Spironolactone 25 Mg Tab PO DAILY [facility] Tamsulosin HCl 0.4 mg 09/04/22 21:00 09/04/22 21:06 Tamsulosin 0.4 Mg Cap.Er.24h PO 0.4 mg HS [facility]VARO Administration Intake and Output 09/04/22 09/05/22 09/05/22 22:59 06:59 14:59 Intake Total 236 Balance 236 Intake: Oral 236 Other: Voiding Method Toilet Toilet # Voids 1 1 Weight 110.677 kg 110 kg 09/05/22 07:21 09/04/22 13:16
[2022-09-05 11:52] LABS: Glucose,Whole Blood 142 mg/dL (70-110)
[2022-09-05 13:25] LABS: Erythrocyte Sedimentation Rate 69 mm/hr (0-15)
[2022-09-05] MEDS: METOPROLOL TARTRATE 50 MG TAB PO SCH ×2 (13:33→16:32)
[2022-09-05 16:45] LABS: Glucose,Whole Blood 179 mg/dL (70-110)
[2022-09-05] MEDS ORDERED: RX INFO: IV CONTRAST WAS GIVEN 1 EACH MISC MISCELLANE PRN (17:30)
[2022-09-05 18:03] LABS: Glucose,Whole Blood 183 mg/dL (70-110)
[2022-09-05 18:29] LABS: Glucose,Whole Blood 181 mg/dL (70-110)
[2022-09-05] MEDS ORDERED: HUMAN PROTHROMBIN COMPLX 500 UNIT/16 ML VIAL IV ONE (19:30)
[2022-09-05] MEDS ORDERED: Kcentra PER PHARMACY 1 EACH MISC MISCELLANE PRN (19:32)
[2022-09-05] MEDS ORDERED: EMPTY BAG 1 BAG with HUMAN PROTHROMBIN COMPLX 2,220 UNIT IV STA (19:37)
[2022-09-05] MEDS ORDERED: HYDROmorphone 1 MG/ML 1 ML SYRINGE IVP STA (19:59)
[2022-09-05 20:01] LABS: Basophils % (A) 0 %; Eosinophils # (A) 0.1 k/uL (0-0.7); Eosinophils % (A) 1 %; HCT 49.3 % (39.0-53.0); HGB 15.6 gm/dL (13.0-17.5); Hypochromasia Slight; Lymphocytes # (A) 0.6 k/uL (1.0-4.8); Lymphocytes % (A) 7 %; MCHC 31.6 g/dL (31.0-37.0); MCV 94.9 fL (80.0-100.0); Mean Platelet Volume 9.4; Monocytes # (A) 0.2 k/uL (0-1.0); Monocytes % (A) 2 %; Neutrophils # (A) 7.9 k/uL (1.3-7.7); Neutrophils % (A) 89 %; Platelet Count 306 k/uL (150-450); RBC 5.19 m/uL (4.30-5.90); RDW 14.6 % (11.5-15.5); WBC 8.9 k/uL (3.8-10.6)
[2022-09-05 20:03] LABS: Calcium 9.5 mg/dL (8.4-10.2); Potassium 4.4 mmol/L (3.5-5.1)
[2022-09-05] MEDS ORDERED: DILTIAZEM DRIP BOLUS FROM BAG 1 MG SOLN IV ONE (20:17)
[2022-09-05] MEDS ORDERED: NOREPINEPHRIN 4 MG-0.9% NS PMX 4 MG/250 ML ML IV ONE (20:17)
[2022-09-05] MEDS: NOREPINEPHRINE 4 MG in SODIUM CHLORIDE 0.9% 250 ML IV SCH ×2 (20:20→22:52)
--- NOTE | 2022-09-05 20:49 | XR ---
EXAMINATION TYPE: XR chest 1V portable DATE OF EXAM: 09/05/2022 COMPARISON: Yesterday HISTORY: Chest pain TECHNIQUE: FINDINGS: There is some blunting left costophrenic angle. There is evidence of airspace infiltrate an d atelectasis left lung base. Right lung is clear. There is old right-sided healed rib fractures. The re are no hilar masses. There is left-sided central venous catheter with tip in the superior vena cav a. IMPRESSION: Left lower lobe infiltrate and atelectasis without change. Catheter appears in good posit ion.
[2022-09-05] MEDS: DILTIAZEM 125 MG in SODIUM CHLORIDE 0.9% 100 ML IV SCH (20:57)
[2022-09-05 21:44] LABS: Glucose,Whole Blood 181 mg/dL (70-110)
[2022-09-05] MEDS: ATORVASTATIN 20 MG TAB PO SCH (22:00)
[2022-09-05] MEDS: TAMSULOSIN 0.4 MG CAP.ER.24H PO SCH (22:00)
[2022-09-06] MEDS: NOREPINEPHRINE 32 MG in SODIUM CHLORIDE 0.9% 218 ML IV SCH ×3 (00:11→18:00)
[2022-09-06] MEDS: LACTATED RINGERS 1,000 ML IV SCH ×3 (00:12→00:16)
[2022-09-06] MEDS: VASOPRESSIN 60 UNIT in SODIUM CHLORIDE 0.9% 150 ML IV SCH ×2 (00:12→18:04)
[2022-09-06 00:49] LABS: Appearance,Urine Cloudy (Clear); Bacteria,Urine Rare /hpf; Bilirubin,Urine 1+ (Negative); Blood,Urine Small (Negative); Color,Urine Dark Brown; Glucose,Urine (UA) 3+ (Negative); Hyaline Casts,Urine 29 /lpf (0-2); Ketones,Urine Negative (Negative); Leukocyte Esterase,Urine Negative (Negative); Mucus,Urine Few /hpf; Nitrite,Urine Negative (Negative); Protein,Urine 1+ (Negative); RBC,Urine 2 /hpf (0-5); Specific Gravity,Urine 1.023 (1.001-1.035); Squamous Epithelial Cell,Urine 1 /hpf (0-4); WBC,Urine 4 /hpf (0-5)
--- NOTE | 2022-09-06 03:17 | OP ---
OPERATIVE REPORT DATE OF SERVICE : These are two procedures. FIRST PROCEDURE: A right radial arterial line. PREOPERATIVE DIAGNOSIS: Hypotension. POSTOPERATIVE DIAGNOSIS: Hypotension. ARTERIAL LINE PLACEMENT: Indications: Hemodynamic monitoring. A time-out was completed verifying correct patient, procedure, site, positioning, and implant(s) or special equipment if applicable. Chuck's test was performed to ensure adequate perfusion. The patient's right/left wrist or right/left groin was prepped and draped in sterile fashion. 1% Lidocaine was used to anesthetize the area. An 18G Arrow arterial line was introduced into the radial/femoral artery. The catheter was threaded over the guide wire and the needle was removed with appropriate pulsatile blood return. Blood loss was minimal. The catheter was then sutured in place to the skin and a sterile dressing applied. Perfusion to the extremity distal to the point of catheter insertion was checked and found to be adequate. There was good blood return and waveform. The catheter was sutured in place. There was no immediate complication. Again, the patient tolerated the procedure well without any complication. SECOND PROCEDURE: A left internal jugular triple-lumen catheter. PREOPERATIVE DIAGNOSES: Hypotension, fluid administration, pressors. POSTOPERATIVE DIAGNOSES: Hypotension, fluid administration, pressors. There was informed consent and universal timeout. We used the left internal jugular vein. TRIPLE LUMEN CATHETER PLACEMENT: Indication: Hemodynamic monitoring/Intravenous access. A time-out was completed verifying correct patient, procedure, site, positioning, and implant(s) or special equipment if applicable. The patient was placed in a dependent position appropriate for triple lumen catheter placement based on the vein to be cannulated. The patient's right/left shoulder or right/left neck or right/left groin was prepped and draped in sterile fashion. 1% Lidocaine was used to anesthetize the surrounding skin area. A triple lumen 9F Cordis catheter was introduced into the left subclavian or internal jugular or common femoral vein using Seldinger technique. The catheter was threaded smoothly over the guide wire and appropriate blood return was obtained. Each lumen of the catheter was evacuated of air and flushed with sterile saline. The catheter was then sutured in place to the skin and a sterile dressing applied. Perfusion to the extremity distal to the point of catheter insertion was checked and found to be adequate. We went via the posterior approach. There was no immediate complication. There was good blood return from all 3 ports. The catheter was sutured in place. Sterile dressing was applied by the nurse. The tip of the catheter was seen in the superior vena cava, right atrium. Again, there was no immediate complication. Chest x-ray was ordered. BETHANY / JENNIFER: [id number] /
--- NOTE | 2022-09-06 03:21 | CT ---
EXAMINATION TYPE: CT brain wo con DATE OF EXAM: 09/06/2022 COMPARISON: None HISTORY: Syncope with fall CT DLP: 1202.1 mGycm Automated exposure control for dose reduction was used. Images of the brain obtained with no contrast. Ventricles of normal size. There is no mass effect or midline shift. No sign of intracranial hemorrha ge. No evidence of cerebral edema. Calvarium is intact. Skull base is intact. There are small mucous retention cyst left maxillary sinus. IMPRESSION: Negative unenhanced head CT scan.
--- NOTE | 2022-09-06 04:31 | PN ---
PROGRESS NOTE DATE OF SERVICE: 09/05/2022 SUBJECTIVE: This is a 61-year-old gentleman admitted with atrial fibrillation with fast ventricular rate with hypotension, also had some significant chest pain. CAT scan of the abdomen and pelvis which I reviewed personally showed pleural effusions, some consolidation. Otherwise, no other abnormalities have been noted. PAST MEDICAL HISTORY: Reviewed. REVIEW OF SYSTEMS: A 14-point review is negative as mentioned. MEDICATIONS: Reviewed. PHYSICAL EXAMINATION: VITAL SIGNS: Pulse is 68, blood pressure n, respirations 18. HEENT: Conjunctivae normal. NECK: No JVD. CARDIOVASCULAR: S1, S2. RESPIRATIONS: Breath sounds diminished at the bases. A few scattered rhonchi. ABDOMEN: Soft, nontender. NERVOUS SYSTEM: No focal deficits. LABORATORY DATA: Creatinine 1.5. The rest of the labs are noted. ASSESSMENT: 1. Atrial fibrillation with fast ventricular rate, hypotension. 2. Left-sided chest pain. 3. Left pleural effusion. 4. Chronic kidney disease, stage 3. 5. Diabetes mellitus, type 2. 6. Hypertension. 7. Multiple medical issues. 8. Cardiomyopathy with ejection fraction of 30% to 35%. 9. Rule out pneumonia. RECOMMENDATIONS: Recommend to continue current medications. Continue symptomatic treatment. Recommend pulmonary consultation for the left pleural effusion and possible pneumonia. Continue the rest of the medications that the patient is on. Check 8 a.m. cortisol as well. MMODL / IJN: [id number] / MTDD
[2022-09-06 04:56] LABS: Basophils % (A) 0 %; Eosinophils % (A) 0 %; HCT 43.5 % (39.0-53.0); HGB 13.6 gm/dL (13.0-17.5); Lymphocytes # (A) 0.7 k/uL (1.0-4.8); Lymphocytes % (A) 5 %; MCH 28.8 pg (25.0-35.0); MCHC 31.2 g/dL (31.0-37.0); MCV 92.2 fL (80.0-100.0); Monocytes # (A) 1.4 k/uL (0-1.0); Monocytes % (A) 9 %; Neutrophils # (A) 13.5 k/uL (1.3-7.7); Neutrophils % (A) 85 %; Platelet Count 317 k/uL (150-450); RBC 4.72 m/uL (4.30-5.90); RDW 14.7 % (11.5-15.5)
[2022-09-06 05:05] LABS: Calcium 8.8 mg/dL (8.4-10.2); Potassium 4.2 mmol/L (3.5-5.1)
[2022-09-06] MEDS: MIDODRINE 5 MG TAB PO SCH ×3 (06:49→16:42)
[2022-09-06 06:50] LABS: Glucose,Whole Blood 186 mg/dL (70-110)
[2022-09-06] MEDS: INSULIN ASPART (NovoLOG) 100 UNIT/ML VIAL SQ SCH ×4 (06:53→20:34)
[2022-09-06] MEDS ORDERED: PIPERACILLIN-TAZOBACTAM 3.375 GM in SODIUM CHLORIDE 0.9% 100 ML IVPB SCH (07:00)
[2022-09-06] MEDS: DILTIAZEM 125 MG in SODIUM CHLORIDE 0.9% 100 ML IV SCH ×2 (07:15→18:00)
--- NOTE | 2022-09-06 07:57 | XR ---
EXAMINATION TYPE: XR chest 1V portable DATE OF EXAM: 09/06/2022 COMPARISON: 09/05/2022 INDICATION: Above baseline O2 demands,: TECHNIQUE: Single frontal view of the chest is obtained. FINDINGS: The heart size is enlarged. The pulmonary vasculature is normal. Mild infiltrates at the left base. This appears similar to comparison. Left central venous catheter i s present in superior vena cava region. IMPRESSION: 1. Mild stable left lower lobe infiltrate. 2. Left central venous catheter.
--- NOTE | 2022-09-06 08:05 | P.PN ---
Subjective Progress Note Date: 09/06/22 Principal diagnosis: Persistent atrial fibrillation The patient is a pleasant 62-year-old gentleman who is known to our service from before with a past medical history significant for persistent atrial fibrillation status post cardioversion recently as well as history of cardiom yopathy likely to be nonischemic as well as multiple comorbid conditions who was admitted to the hospital initially with back pain and he was found to be in A. fib with RVR. Subsequently he developed gastrointestinal bleeding of for that reason was transferred to the intensive care unit. September 062022 The patient remains in atrial fibrillation with uncontrolled heart rate. Currently is on Cardizem IV and his annual by mouth and metoprolol by mouth. Anticoagulation is on hold at this point giving the GI bleeding and the patient is in process of being evaluated by the surgical team. Knowing the patient from before the only way to control his heart rate is performed cardioversion which we cannot do at this point giving that anticoagulation is on hold. We'll await for the surgical evaluation and further recommendation to follow that. Assessment Gastrointestinal bleeding Atrial fibrillation with uncontrolled heart rate Nonischemic cardiomyopathy Multiple comorbid conditions Plan Await the surgical evaluation regarding the workup/ regarding the gastrointestinal bleeding Further recommendations to follow Meanwhile continue the current medical regimen Objective - Vital Signs Vital signs: Vital Signs Temp 100.2 F H 09/06/22 04:00 Pulse 137 H 09/06/22 07:15 Resp 21 09/06/22 07:15 BP 118/66 09/05/22 23:45 Pulse Ox 98 09/06/22 07:15 FiO2 Intake & Output 09/05/22 09/06/22 09/06/22 18:59 06:59 18:59 Intake Total 240 1026.616 133.5 Output Total 665 210 Balance 240 361.616 -76.5 Weight 115.7 kg Intake: IV 300 36 Arterial & CVP Lines 60 6 KVO 240 30 Intake, IV Titration 526.616 97.5 Amount Diltiazem 125 mg In 2.75 97.5 Sodium Chloride 0.9% 100 ml @ Per Protocol IV .Q0M ALVARO Rx#:[id number] Norepinephrine 32 mg In 140.853 Sodium Chloride 0.9% 218 ml @ 0.5 MCG/KG/MIN 25. 781 mls/hr IV .Q9H42M [facility]VARO Rx#:[id number] Norepinephrine 4 mg In 383.013 Sodium Chloride 0.9% 250 ml @ 0.03 MCG/KG/MIN 12. 573 mls/hr IV .[id number] [facility] Rx#:[id number] Oral 240 200 Output: Urine 665 210 Other: # Bowel Movements 1 ABP, PAP, CO, CI - Last Documented Arterial Blood Pressure 94/54 - Labs CBC & Chem 7: 09/06/22 04:30 09/06/22 04:30 Labs: Abnormal Lab Results - Last 24 Hours (Table) 09/05/22 09/05/22 09/05/22 Range/Units 06:59 07:21 07:21 WBC (3.8-10.6) k/uL Neutrophils # (1.3-7.7) k/uL Lymphocytes # (1.0-4.8) k/uL Monocytes # (0-1.0) k/uL ESR 69 H (0-15) mm/hr Sodium 134 L (137-145) mmol/L Chloride 94 L (98-107) mmol/L Carbon Dioxide 31 H (22-30) mmol/L BUN 42 H (9-20) mg/dL Creatinine 1.57 H (0.66-1.25) mg/dL Glucose 122 H (74-99) mg/dL POC Glucose (mg/dL) (70-110) mg/dL Hemoglobin A1c 8.3 H (0.0-6.0) % Plasma Lactic Acid Manolo (0.7-2.0) mmol/L Procalcitonin (0.02-0.09) ng/mL Urine Protein (Negative) Urine Glucose (UA) (Negative) Urine Blood (Negative) Urine Bilirubin (Negative) Urine Bacteria (None) /hpf Hyaline Casts (0-2) /lpf Urine Mucus (None) /hpf Coronavirus (PCR) (Not Detectd) Crossmatch 09/05/22 09/05/22 09/05/22 Range/Units 11:50 15:08 16:43 WBC (3.8-10.6) k/uL Neutrophils # (1.3-7.7) k/uL Lymphocytes # (1.0-4.8) k/uL Monocytes # (0-1.0) k/uL ESR (0-15) mm/hr Sodium (137-145) mmol/L Chloride (98-107) mmol/L Carbon Dioxide (22-30) mmol/L BUN (9-20) mg/dL Creatinine (0.66-1.25) mg/dL Glucose (74-99) mg/dL POC Glucose (mg/dL) 142 H 179 H (70-110) mg/dL Hemoglobin A1c (0.0-6.0) % Plasma Lactic Acid Manolo (0.7-2.0) mmol/L Procalcitonin 0.30 H (0.02-0.09) ng/mL Urine Protein (Negative) Urine Glucose (UA) (Negative) Urine Blood (Negative) Urine Bilirubin (Negative) Urine Bacteria (None) /hpf Hyaline Casts (0-2) /lpf Urine Mucus (None) /hpf Coronavirus (PCR) (Not Detectd) Crossmatch 09/05/22 09/05/22 09/05/22 Range/Units 18:00 18:27 18:50 WBC (3.8-10.6) k/uL Neutrophils # (1.3-7.7) k/uL Lymphocytes # (1.0-4.8) k/uL Monocytes # (0-1.0) k/uL ESR (0-15) mm/hr Sodium (137-145) mmol/L Chloride (98-107) mmol/L Carbon Dioxide (22-30) mmol/L BUN (9-20) mg/dL Creatinine (0.66-1.25) mg/dL Glucose (74-99) mg/dL POC Glucose (mg/dL) 183 H 181 H (70-110) mg/dL Hemoglobin A1c (0.0-6.0) % Plasma Lactic Acid Manolo (0.7-2.0) mmol/L Procalcitonin (0.02-0.09) ng/mL Urine Protein (Negative) Urine Glucose (UA) (Negative) Urine Blood (Negative) Urine Bilirubin (Negative) Urine Bacteria (None) /hpf Hyaline Casts (0-2) /lpf Urine Mucus (None) /hpf Coronavirus (PCR) Detected A (Not Detectd) Crossmatch 09/05/22 09/05/22 09/05/22 Range/Units 19:10 19:10 19:10 WBC (3.8-10.6) k/uL Neutrophils # 7.9 H (1.3-7.7) k/uL Lymphocytes # 0.6 L (1.0-4.8) k/uL Monocytes # (0-1.0) k/uL ESR (0-15) mm/hr Sodium 131 L (137-145) mmol/L Chloride 86 L (98-107) mmol/L Carbon Dioxide (22-30) mmol/L BUN 51 H (9-20) mg/dL Creatinine 2.34 H (0.66-1.25) mg/dL Glucose 207 H (74-99) mg/dL POC Glucose (mg/dL) (70-110) mg/dL Hemoglobin A1c (0.0-6.0) % Plasma Lactic Acid Manolo (0.7-2.0) mmol/L Procalcitonin (0.02-0.09) ng/mL Urine Protein (Negative) Urine Glucose (UA) (Negative) Urine Blood (Negative) Urine Bilirubin (Negative) Urine Bacteria (None) /hpf Hyaline Casts (0-2) /lpf Urine Mucus (None) /hpf Coronavirus (PCR) (Not Detectd) Crossmatch See Detail 09/05/22 09/05/22 09/06/22 Range/Units 19:10 21:43 00:00 WBC (3.8-10.6) k/uL Neutrophils # (1.3-7.7) k/uL Lymphocytes # (1.0-4.8) k/uL Monocytes # (0-1.0) k/uL ESR (0-15) mm/hr Sodium (137-145) mmol/L Chloride (98-107) mmol/L Carbon Dioxide (22-30) mmol/L BUN (9-20) mg/dL Creatinine (0.66-1.25) mg/dL Glucose (74-99) mg/dL POC Glucose (mg/dL) 181 H (70-110) mg/dL Hemoglobin A1c (0.0-6.0) % Plasma Lactic Acid Manolo 7.2 H* (0.7-2.0) mmol/L Procalcitonin (0.02-0.09) ng/mL Urine Protein 1+ H (Negative) Urine Glucose (UA) 3+ H (Negative) Urine Blood Small H (Negative) Urine Bilirubin 1+ H (Negative) Urine Bacteria Rare H (None) /hpf Hyaline Casts 29 H (0-2) /lpf Urine Mucus Few H (None) /hpf Coronavirus (PCR) (Not Detectd) Crossmatch 09/06/22 09/06/22 09/06/22 Range/Units 04:30 04:30 06:49 WBC 16.0 H (3.8-10.6) k/uL Neutrophils # 13.5 H (1.3-7.7) k/uL Lymphocytes # 0.7 L (1.0-4.8) k/uL Monocytes # 1.4 H (0-1.0) k/uL ESR (0-15) mm/hr Sodium 131 L (137-145) mmol/L Chloride 95 L (98-107) mmol/L Carbon Dioxide (22-30) mmol/L BUN 51 H (9-20) mg/dL Creatinine 2.19 H (0.66-1.25) mg/dL Glucose 206 H (74-99) mg/dL POC Glucose (mg/dL) 186 H (70-110) mg/dL Hemoglobin A1c (0.0-6.0) % Plasma Lactic Acid Manolo (0.7-2.0) mmol/L Procalcitonin (0.02-0.09) ng/mL Urine Protein (Negative) Urine Glucose (UA) (Negative) Urine Blood (Negative) Urine Bilirubin (Negative) Urine Bacteria (None) /hpf Hyaline Casts (0-2) /lpf Urine Mucus (None) /hpf Coronavirus (PCR) (Not Detectd) Crossmatch
[2022-09-06] MEDS: GABAPENTIN 100 MG CAP PO SCH ×2 (08:56→20:33)
[2022-09-06] MEDS: ASPIRIN 81 MG PO SCH (08:56)
[2022-09-06] MEDS: DAPAGLIFLOZIN PROPANEDIOL 10 MG TABLET PO SCH (08:56)
[2022-09-06] MEDS: AMIODARONE 200 MG TAB PO SCH ×2 (08:56→20:33)
[2022-09-06] MEDS: SPIRONOLACTONE 25 MG TAB PO SCH (08:57)
[2022-09-06] MEDS: PIOGLITAZONE 45 MG TAB PO SCH (08:57)
[2022-09-06] MEDS: METOPROLOL TARTRATE 50 MG TAB PO SCH ×2 (08:57→20:34)
[2022-09-06] MEDS ORDERED: LACTATED RINGERS 1,500 ML IV ONE (09:15)
[2022-09-06] MEDS: ACETAMINOPHEN TAB 325 MG TAB PO PRN ×3 (09:26→23:08)
[2022-09-06] MEDS: LINAGLIPTIN 5 MG TABLET PO SCH (09:27)
[2022-09-06] MEDS: SODIUM CHLORIDE 0.9% 1,000 ML IV SCH (09:28)
--- NOTE | 2022-09-06 11:03 | P.CNPUL ---
History of Present Illness Consult date: 09/06/22 Requesting physician: Marcel E Nick Reason for consult: dyspnea, hypoxemia, pneumonia, abnormal CXR/CT, other Chief complaint: GI bleed, pneumonia, atrial fibrillation with RVR. History of present illness: Pulmonary/critical care consult dated 09/06/2022. 61-year-old male who was initially seen in the emergency department, on September 04. We were consulted yesterday late. The patient apparently came to the emergency room, complaining of left-sided lateral chest pain, which is been going on for quite some time. In addition, the patient apparently developed some GI bleeding on the floor, which is when I was called. The patient was having atrial fibrillation with RVR, GI bleeding, and also having some respiratory difficulty. We decided to move him to the ICU. I came in last like to put in a right radial art line, and a left internal jugular triple-lumen catheter. Currently, he's seen in room 257. He's on 4 L of oxygen. He is getting Cardizem at 10 mg an hour, vasopressin at 0.04 units per minute, norepinephrine at 31 mcg/m, and saline at KVO. I added Zosyn this morning for pneumonia, and we will check a pro-calcitonin level. The patient will get 1-1/2 L of lactated Ringer's, his baseline IV will be increased to 75 mL an hour of saline, and we'll check blood urine and sputum cultures. CAT scan show what appeared to be some consolidation in the left lower lobe. The patient has a history of atrial fibrillation, diabetes, and hypertension. White count 16, with a normal hemoglobin, hematocrit, and platelet count. Sodium 131, potassium 4.2, chlorides 95, CO2 25, anion gap normal, BUN 51, and creatinine 2.19. Review of Systems REVIEW OF SYSTEMS: CONSTITUTIONAL: Weakness. NEUROLOGIC: [ Negative.] HEENT: [ Negative.] CARDIAC: Rapid heartbeat, palpitations. PULMONARY: Shortness of breath, chest congestion, and cough. GI: GI bleed. : [Negative.] RHEUMATOLOGIC: [ Negative.] IMMUNOLOGIC: [ Negative.] ENDOCRINE: [Negative. ] DERMATOLOGIC: [Negative.] Past Medical History Past Medical History: Atrial Fibrillation, Diabetes Mellitus, Hypertension Additional Past Medical History / Comment(s): 08/03/14 EPISODE OF A-FIB, TACHYCARDIA, W/U NL. NIDDM. OFF HTN RX NOW. BENIGN COLON POLYPS 2012. History of Any Multi-Drug Resistant Organisms: None Reported Past Surgical History: Adenoidectomy, Tonsillectomy Additional Past Surgical History / Comment(s): Tailbone Cystectomy. Vasectomy. COLONOSCOPY. Past Anesthesia/Blood Transfusion Reactions: No Reported Reaction Additional Past Anesthesia/Blood Transfusion Reaction / Comment(s): Pt has never recieved blood. Past Psychological History: No Psychological Hx Reported Additional Psychological History / Comment(s): Pt lives in his home with his . Pt is independent. He drives a car. Smoking Status: Former smoker Past Alcohol Use History: Daily Additional Past Alcohol Use History / Comment(s): OCC CIGAR USE, STOPPED RECENTLY. 1 ALCOHOL DRINK DAILY. Past Drug Use History: None Reported - Past Family History Father Family Medical History: Congestive Heart Failure (CHF) Additional Family Medical History / Comment(s): Father of CHF Mother Additional Family Medical History / Comment(s): Mother had cirrhosis of the liver. Medications and Allergies Home Medications Medication Instructions Recorded Confirmed Type Rivaroxaban [Xarelto] 20 mg PO DAILY 10/23/15 09/04/22 History Aspirin EC [Ecotrin Low Dose] 81 mg PO DAILY 08/13/22 09/04/22 History Atorvastatin [Lipitor] 20 mg PO HS 08/13/22 09/04/22 History Linagliptin [Tradjenta] 5 mg PO DAILY 08/13/22 09/04/22 History Lisinopril-Hctz 20-12.5 mg 1 tab PO DAILY 08/13/22 09/04/22 History [Zestoretic 20-12.5] Metoprolol Succinate (ER) [Toprol 100 mg PO HS 08/13/22 09/04/22 History XL] Pioglitazone [Actos] 45 mg PO DAILY 08/13/22 09/04/22 History Amiodarone [Cordarone] 400 mg PO BID 30 Days #60 tab 08/29/22 09/04/22 Rx Dapagliflozin Propanediol [Farxiga] 10 mg PO DAILY 30 Days #30 tab 08/29/22 09/04/22 Rx Gabapentin [Neurontin] 200 mg PO BID 5 Days #20 cap 08/29/22 09/04/22 Rx Spironolactone [Aldactone] 12.5 mg PO DAILY 30 Days #30 tab 08/29/22 09/04/22 Rx [id number]-[id number] [id number] 2 tab PO Q6H PRN 09/04/22 09/04/22 History [Excedrin] Midodrine [ProAmatine] 10 mg PO TID@0730,1200,1730 09/04/22 09/04/22 History Tamsulosin [Flomax] 0.4 mg PO HS 09/04/22 09/04/22 History Allergies Allergy/AdvReac Type Severity Reaction Status Date / Time clarithromycin [From Biaxin] Allergy Severe Rash/Hives Verified 09/04/22 13:44 Physical Exam Osteopathic Statement: *. No significant issues noted on an osteopathic structural exam other than those noted in the History and Physical/Consult. Vitals: Vital Signs Temp Pulse Pulse Resp BP BP Pulse Ox 09/06/22 09:00 131 H 4 L 99 09/06/22 08:45 133 H 20 99 09/06/22 08:32 99 09/06/22 08:30 117 H 17 100 09/06/22 08:15 163 H 10 L 98 09/06/22 08:00 99.9 F H 154 H 11 L 97 09/06/22 07:45 149 H 17 99 09/06/22 07:30 144 H 12 98 09/06/22 07:15 137 H 21 98 09/06/22 07:00 137 H 16 98 09/06/22 06:45 151 H 20 98 09/06/22 06:30 149 H 15 98 09/06/22 06:15 151 H 16 98 09/06/22 06:00 141 H 14 98 09/06/22 05:45 144 H 16 98 09/06/22 05:30 158 H 14 98 09/06/22 05:15 135 H 16 98 09/06/22 05:00 137 H 15 98 09/06/22 04:45 138 H 15 98 09/06/22 04:30 147 H 16 98 09/06/22 04:15 158 H 13 98 09/06/22 04:00 100.2 F H 161 H 14 94 L 09/06/22 03:45 151 H 13 96 09/06/22 03:30 152 H 14 93 L 09/06/22 03:15 141 H 14 96 09/06/22 02:30 158 H 14 98 09/06/22 02:15 142 H 14 98 09/06/22 02:00 156 H 16 98 09/06/22 01:45 156 H 16 99 09/06/22 01:30 144 H 16 97 09/06/22 01:15 134 H 16 98 09/06/22 01:00 144 H 18 99 09/06/22 00:45 156 H 16 96 09/06/22 00:30 147 H 14 99 09/06/22 00:15 163 H 15 98 09/06/22 00:00 100.2 F H 158 H 15 96 09/05/22 23:45 156 H 18 118/66 98 09/05/22 23:30 172 H 19 98 09/05/22 23:15 151 H 22 99 09/05/22 23:00 152 H 18 99 09/05/22 22:45 147 H 20 99 09/05/22 22:30 161 H 15 98 09/05/22 22:15 160 H 14 99 09/05/22 22:00 152 H 14 99 09/05/22 21:45 138 H 14 100 09/05/22 21:30 131 H 16 100 09/05/22 21:15 135 H 18 95 09/05/22 21:00 131 H 16 100 09/05/22 20:45 154 H 14 95/58 100 09/05/22 20:30 130 H 18 72/61 100 09/05/22 20:15 147 H 15 76/52 100 09/05/22 20:00 102.3 F H 140 H 15 100 09/05/22 19:45 135 H 14 09/05/22 19:30 137 H 21 09/05/22 19:00 152 H 19 100/77 09/05/22 18:30 98.1 F 135 H 17 102/72 09/05/22 18:22 18 09/05/22 16:00 97.5 F L 122 H 18 138/93 98 09/05/22 13:32 68 09/05/22 12:00 97.3 F L 68 18 82/46 Intake and Output 09/05/22 09/06/22 09/06/22 22:59 06:59 14:59 Intake Total 342.720 683.896 180.422 Output Total 665 210 Balance 342.720 18.896 -29.578 Intake: IV 72 228 36 Arterial & CVP Lines 12 48 6 KVO 60 180 30 Intake, IV Titration 270.720 255.896 144.422 Amount Diltiazem 125 mg In 2.75 97.5 Sodium Chloride 0.9% 100 ml @ Per Protocol IV .Q0M ALVARO Rx#:[id number] Norepinephrine 32 mg In 140.853 46.922 Sodium Chloride 0.9% 218 ml @ 0.5 MCG/KG/MIN 25. 781 mls/hr IV .[id number] ALVARO Rx#:[id number] Norepinephrine 4 mg In 267.970 115.043 Sodium Chloride 0.9% 250 ml @ 0.03 MCG/KG/MIN 12. 573 mls/hr IV .[id number] ALVARO Rx#:[id number] Oral 200 Output: Urine 665 210 Other: # Bowel Movements 1 1 Weight 115.7 kg ABP, PAP, CO, CI - Last 8 Hours Arterial Blood Pressure 100/62 Arterial Blood Pressure 96/57 Arterial Blood Pressure 94/55 Arterial Blood Pressure 91/57 Arterial Blood Pressure 90/54 Arterial Blood Pressure 107/57 Arterial Blood Pressure 100/54 Arterial Blood Pressure 94/54 Arterial Blood Pressure 107/62 Arterial Blood Pressure 104/60 Arterial Blood Pressure 99/57 Arterial Blood Pressure 98/57 Arterial Blood Pressure 103/57 Arterial Blood Pressure 110/56 Arterial Blood Pressure 101/54 Arterial Blood Pressure 105/57 Arterial Blood Pressure 100/53 Arterial Blood Pressure 112/56 Arterial Blood Pressure 117/60 Arterial Blood Pressure 110/58 Arterial Blood Pressure 110/58 Arterial Blood Pressure 109/57 Arterial Blood Pressure 93/54 Arterial Blood Pressure 122/60 No acute distress, oriented 3. Currently on 4 L of oxygen. No audible wheezing, use of accessory muscles, or conversational dyspnea. HEENT examination is grossly unremarkable. Neck supple. Full range of motion. No adenopathy thyromegaly or neck vein distention. Cardiovascular examination reveals an irregular rhythm and rate. S1-S2 normal. No S3 or S4. No discernible murmur noted. Heart rate 131 bpm. Heart sounds are distant. Lungs reveal scattered bilateral rhonchi. Breath sounds equal. No wheezes. Minimal scattered basilar crackles. Saturations are 98%. Abdomen soft bowel sounds are heard. No masses or tenderness. Extremities are intact. No cyanosis clubbing or edema. Skin is without rash or lesion. Neurologic examination is brief but nonfocal. Results - Laboratory Findings CBC and BMP: 09/06/22 04:30 09/06/22 04:30 PT/INR, D-dimer PT 17.4 sec (9.0-12.0) H 09/04/22 13:16 INR 1.8 (<1.2) H 09/04/22 13:16 Abnormal lab findings: Abnormal Labs 09/04/22 09/04/22 09/04/22 13:16 13:16 13:16 WBC Neutrophils # Lymphocytes # Monocytes # ESR PT 17.4 H INR 1.8 H APTT 42.0 H Sodium 133 L Chloride 91 L Carbon Dioxide 32 H BUN 42 H Creatinine 1.67 H Glucose 152 H POC Glucose (mg/dL) Hemoglobin A1c Plasma Lactic Acid Manolo Total Bilirubin 1.6 H ALT 76 H Alkaline Phosphatase 128 H C-Reactive Protein 7.5 H Procalcitonin Urine Protein Urine Glucose (UA) Urine Blood Urine Bilirubin Urine Bacteria Hyaline Casts Urine Mucus Coronavirus (PCR) Crossmatch 09/04/22 09/04/22 09/05/22 17:31 19:49 06:03 WBC Neutrophils # Lymphocytes # Monocytes # ESR PT INR APTT Sodium Chloride Carbon Dioxide BUN Creatinine Glucose POC Glucose (mg/dL) 128 H 124 H 145 H Hemoglobin A1c Plasma Lactic Acid Manolo Total Bilirubin ALT Alkaline Phosphatase C-Reactive Protein Procalcitonin Urine Protein Urine Glucose (UA) Urine Blood Urine Bilirubin Urine Bacteria Hyaline Casts Urine Mucus Coronavirus (PCR) Crossmatch 09/05/22 09/05/22 09/05/22 06:59 07:21 07:21 WBC Neutrophils # Lymphocytes # Monocytes # ESR 69 H PT INR APTT Sodium 134 L Chloride 94 L Carbon Dioxide 31 H BUN 42 H Creatinine 1.57 H Glucose 122 H POC Glucose (mg/dL) Hemoglobin A1c 8.3 H Plasma Lactic Acid Manolo Total Bilirubin ALT Alkaline Phosphatase C-Reactive Protein Procalcitonin Urine Protein Urine Glucose (UA) Urine Blood Urine Bilirubin Urine Bacteria Hyaline Casts Urine Mucus Coronavirus (PCR) Crossmatch 09/05/22 09/05/22 09/05/22 11:50 15:08 16:43 WBC Neutrophils # Lymphocytes # Monocytes # ESR PT INR APTT Sodium Chloride Carbon Dioxide BUN Creatinine Glucose POC Glucose (mg/dL) 142 H 179 H Hemoglobin A1c Plasma Lactic Acid Manolo Total Bilirubin ALT Alkaline Phosphatase C-Reactive Protein Procalcitonin 0.30 H Urine Protein Urine Glucose (UA) Urine Blood Urine Bilirubin Urine Bacteria Hyaline Casts Urine Mucus Coronavirus (PCR) Crossmatch 09/05/22 09/05/22 09/05/22 18:00 18:27 18:50 WBC Neutrophils # Lymphocytes # Monocytes # ESR PT INR APTT Sodium Chloride Carbon Dioxide BUN Creatinine Glucose POC Glucose (mg/dL) 183 H 181 H Hemoglobin A1c Plasma Lactic Acid Manolo Total Bilirubin ALT Alkaline Phosphatase C-Reactive Protein Procalcitonin Urine Protein Urine Glucose (UA) Urine Blood Urine Bilirubin Urine Bacteria Hyaline Casts Urine Mucus Coronavirus (PCR) Detected A Crossmatch 09/05/22 09/05/22 09/05/22 19:10 19:10 19:10 WBC Neutrophils # 7.9 H Lymphocytes # 0.6 L Monocytes # ESR PT INR APTT Sodium 131 L Chloride 86 L Carbon Dioxide BUN 51 H Creatinine 2.34 H Glucose 207 H POC Glucose (mg/dL) Hemoglobin A1c Plasma Lactic Acid Manolo Total Bilirubin ALT Alkaline Phosphatase C-Reactive Protein Procalcitonin Urine Protein Urine Glucose (UA) Urine Blood Urine Bilirubin Urine Bacteria Hyaline Casts Urine Mucus Coronavirus (PCR) Crossmatch See Detail 09/05/22 09/05/22 09/06/22 19:10 21:43 00:00 WBC Neutrophils # Lymphocytes # Monocytes # ESR PT INR APTT Sodium Chloride Carbon Dioxide BUN Creatinine Glucose POC Glucose (mg/dL) 181 H Hemoglobin A1c Plasma Lactic Acid Manolo 7.2 H* Total Bilirubin ALT Alkaline Phosphatase C-Reactive Protein Procalcitonin Urine Protein 1+ H Urine Glucose (UA) 3+ H Urine Blood Small H Urine Bilirubin 1+ H Urine Bacteria Rare H Hyaline Casts 29 H Urine Mucus Few H Coronavirus (PCR) Crossmatch 09/06/22 09/06/22 09/06/22 04:30 04:30 06:49 WBC 16.0 H Neutrophils # 13.5 H Lymphocytes # 0.7 L Monocytes # 1.4 H ESR PT INR APTT Sodium 131 L Chloride 95 L Carbon Dioxide BUN 51 H Creatinine 2.19 H Glucose 206 H POC Glucose (mg/dL) 186 H Hemoglobin A1c Plasma Lactic Acid Manolo Total Bilirubin ALT Alkaline Phosphatase C-Reactive Protein Procalcitonin Urine Protein Urine Glucose (UA) Urine Blood Urine Bilirubin Urine Bacteria Hyaline Casts Urine Mucus Coronavirus (PCR) Crossmatch - Diagnostic Findings Chest x-ray: image reviewed CT scan - chest: image reviewed Assessment and Plan Assessment: Hypotension, likely secondary to GI bleed, atrial fibrillation with RVR, and sepsis, secondary to left-sided pneumonia. Acute gastrointestinal bleed. Acute atrial fibrillation with RVR. Acute on chronic kidney disease. Coronavirus infection. History of diabetes mellitus. History of hypertension. History of benign colon polyps. Previous history of tobacco use. Plan: Plan dated 09/06/2022. The patient remains on Cardizem at 10 mg an hour, for his atrial fibrillation with RVR. In addition, the patient was placed on Zosyn, for possible pneumonia left lower lobe. He will get some additional fluid in the form of lactated Ringer's, 1.5 L. We'll bump up his basic IV to saline at 75 mL an hour. His pro-calcitonin level is 0.3. We'll make sure that he has blood urine and sputum cultures. He he continues on vasopressin at 0.04 units per minute, and norepinephrine at 31 mcg/m. Prognosis is guarded. We will continue to follow make recommendations were appropriate. Last time I came in and placed a right radial art line, and a left internal jugular triple-lumen catheter. Time with Patient: Greater than 30
--- NOTE | 2022-09-06 11:09 | P.GSCN ---
History of Present Illness Consult date: 09/06/22 Reason for Consult: GI bleed History of present illness: 61-year-old male in the ICU for hypotension and sepsis. Case was discussed with Dr. Fair of this morning. We were consulted last night for acute GI bleed. Patient presented to the hospital with left-sided chest pain. He was found to be in atrial fibrillation with rapid rate. He was maintained on blood thinners which she apparently takes at home in the form of Xarelto. Yesterday evening the patient had an episode of bloody stool. He was transferred to the ICU. He was found to be hypotensive. White blood cell count and lactic acid are elevated. Being treated currently for a lower lobe pneumonia. He is Covid positive. Patient has a history of previous alcohol use. Some degree of liver dysfunction suspected. INR on admission 1.8. Last night the patient had a central line and an arterial line placed. Still having some intermittent bright red blood per rectum. Per nursing staff this is not dark in color. History of previous colonoscopy a few years ago he says was normal. No history of previous ulcer or varices. Was never told he had liver dysfunction. Review of Systems The patient denies any acute changes in vision or hearing, no dysphagia or odynophagia, no dysuria or hematuria, no headache, no runny nose, no unexplained weight loss Past Medical History Past Medical History: Atrial Fibrillation, Diabetes Mellitus, Hypertension Additional Past Medical History / Comment(s): 08/03/14 EPISODE OF A-FIB, TACHYCARDIA, W/U NL. NIDDM. OFF HTN RX NOW. BENIGN COLON POLYPS 2012. History of Any Multi-Drug Resistant Organisms: None Reported Past Surgical History: Adenoidectomy, Tonsillectomy Additional Past Surgical History / Comment(s): Tailbone Cystectomy. Vasectomy. COLONOSCOPY. Past Anesthesia/Blood Transfusion Reactions: No Reported Reaction Additional Past Anesthesia/Blood Transfusion Reaction / Comm: Pt has never recieved blood. Past Psychological History: No Psychological Hx Reported Additional Psychological History / Comment(s): Pt lives in his home with his . Pt is independent. He drives a car. Smoking Status: Former smoker Past Alcohol Use History: Daily Additional Past Alcohol Use History / Comment(s): OCC CIGAR USE, STOPPED RECENTLY. 1 ALCOHOL DRINK DAILY. Past Drug Use History: None Reported - Past Family History Father Family Medical History: Congestive Heart Failure (CHF) Additional Family Medical History / Comment(s): Father of CHF Mother Additional Family Medical History / Comment(s): Mother had cirrhosis of the liver. Medications and Allergies Home Medications Medication Instructions Recorded Confirmed Type Rivaroxaban [Xarelto] 20 mg PO DAILY 10/23/15 09/04/22 History Aspirin EC [Ecotrin Low Dose] 81 mg PO DAILY 08/13/22 09/04/22 History Atorvastatin [Lipitor] 20 mg PO HS 08/13/22 09/04/22 History Linagliptin [Tradjenta] 5 mg PO DAILY 08/13/22 09/04/22 History Lisinopril-Hctz 20-12.5 mg 1 tab PO DAILY 08/13/22 09/04/22 History [Zestoretic 20-12.5] Metoprolol Succinate (ER) [Toprol 100 mg PO HS 08/13/22 09/04/22 History XL] Pioglitazone [Actos] 45 mg PO DAILY 08/13/22 09/04/22 History Amiodarone [Cordarone] 400 mg PO BID 30 Days #60 tab 08/29/22 09/04/22 Rx Dapagliflozin Propanediol [Farxiga] 10 mg PO DAILY 30 Days #30 tab 08/29/22 0 09/04/22 Rx Gabapentin [Neurontin] 200 mg PO BID 5 Days #20 cap 08/29/22 09/04/22 Rx Spironolactone [Aldactone] 12.5 mg PO DAILY 30 Days #30 tab 08/29/22 09/04/22 Rx Krmrpkt-[id number]-Olvg [id number] 2 tab PO Q6H PRN 09/04/22 09/04/22 History [Excedrin] Midodrine [ProAmatine] 10 mg PO TID@0730,1200,1730 09/04/22 09/04/22 History Tamsulosin [Flomax] 0.4 mg PO HS 09/04/22 09/04/22 History Allergies Allergy/AdvReac Type Severity Reaction Status Date / Time clarithromycin [From Biaxin] Allergy Severe Rash/Hives Verified 09/04/22 13:44 Surgical - Exam Vital Signs Temp Pulse Resp BP Pulse Ox 97.9 F 66 20 99/60 99 09/04/22 12:37 09/04/22 12:37 09/04/22 12:37 09/04/22 12:37 09/04/22 12:37 Physical exam: Patient sitting upright in bed in the ICU, no distress currently General: Well-developed, well-nourished HEENT: Normocephalic, sclerae nonicteric Abdomen: Nontender, nondistended Extremities: Mild bilateral lower extremity edema Neuro: Alert and oriented Results - Labs 09/06/22 04:30 09/06/22 04:30 Abnormal Lab Results - Last 24 Hours (Table) 09/05/22 09/05/22 09/05/22 Range/Units 07:21 11:50 15:08 WBC (3.8-10.6) k/uL Neutrophils # (1.3-7.7) k/uL Lymphocytes # (1.0-4.8) k/uL Monocytes # (0-1.0) k/uL ESR 69 H (0-15) mm/hr Sodium (137-145) mmol/L Chloride (98-107) mmol/L BUN (9-20) mg/dL Creatinine (0.66-1.25) mg/dL Glucose (74-99) mg/dL POC Glucose (mg/dL) 142 H (70-110) mg/dL Plasma Lactic Acid Manolo (0.7-2.0) mmol/L Procalcitonin 0.30 H (0.02-0.09) ng/mL Urine Protein (Negative) Urine Glucose (UA) (Negative) Urine Blood (Negative) Urine Bilirubin (Negative) Urine Bacteria (None) /hpf Hyaline Casts (0-2) /lpf Urine Mucus (None) /hpf Coronavirus (PCR) (Not Detectd) Crossmatch 09/05/22 09/05/22 09/05/22 Range/Units 16:43 18:00 18:27 WBC (3.8-10.6) k/uL Neutrophils # (1.3-7.7) k/uL Lymphocytes # (1.0-4.8) k/uL Monocytes # (0-1.0) k/uL ESR (0-15) mm/hr Sodium (137-145) mmol/L Chloride (98-107) mmol/L BUN (9-20) mg/dL Creatinine (0.66-1.25) mg/dL Glucose (74-99) mg/dL POC Glucose (mg/dL) 179 H 183 H 181 H (70-110) mg/dL Plasma Lactic Acid Manolo (0.7-2.0) mmol/L Procalcitonin (0.02-0.09) ng/mL Urine Protein (Negative) Urine Glucose (UA) (Negative) Urine Blood (Negative) Urine Bilirubin (Negative) Urine Bacteria (None) /hpf Hyaline Casts (0-2) /lpf Urine Mucus (None) /hpf Coronavirus (PCR) (Not Detectd) Crossmatch 09/05/22 09/05/22 09/05/22 Range/Units 18:50 19:10 19:10 WBC (3.8-10.6) k/uL Neutrophils # 7.9 H (1.3-7.7) k/uL Lymphocytes # 0.6 L (1.0-4.8) k/uL Monocytes # (0-1.0) k/uL ESR (0-15) mm/hr Sodium (137-145) mmol/L Chloride (98-107) mmol/L BUN (9-20) mg/dL Creatinine (0.66-1.25) mg/dL Glucose (74-99) mg/dL POC Glucose (mg/dL) (70-110) mg/dL Plasma Lactic Acid Manolo (0.7-2.0) mmol/L Procalcitonin (0.02-0.09) ng/mL Urine Protein (Negative) Urine Glucose (UA) (Negative) Urine Blood (Negative) Urine Bilirubin (Negative) Urine Bacteria (None) /hpf Hyaline Casts (0-2) /lpf Urine Mucus (None) /hpf Coronavirus (PCR) Detected A (Not Detectd) Crossmatch See Detail 09/05/22 09/05/22 09/05/22 Range/Units 19:10 19:10 21:43 WBC (3.8-10.6) k/uL Neutrophils # (1.3-7.7) k/uL Lymphocytes # (1.0-4.8) k/uL Monocytes # (0-1.0) k/uL ESR (0-15) mm/hr Sodium 131 L (137-145) mmol/L Chloride 86 L (98-107) mmol/L BUN 51 H (9-20) mg/dL Creatinine 2.34 H (0.66-1.25) mg/dL Glucose 207 H (74-99) mg/dL POC Glucose (mg/dL) 181 H (70-110) mg/dL Plasma Lactic Acid Manolo 7.2 H* (0.7-2.0) mmol/L Procalcitonin (0.02-0.09) ng/mL Urine Protein (Negative) Urine Glucose (UA) (Negative) Urine Blood (Negative) Urine Bilirubin (Negative) Urine Bacteria (None) /hpf Hyaline Casts (0-2) /lpf Urine Mucus (None) /hpf Coronavirus (PCR) (Not Detectd) Crossmatch 09/06/22 09/06/22 09/06/22 Range/Units 00:00 04:30 04:30 WBC 16.0 H (3.8-10.6) k/uL Neutrophils # 13.5 H (1.3-7.7) k/uL Lymphocytes # 0.7 L (1.0-4.8) k/uL Monocytes # 1.4 H (0-1.0) k/uL ESR (0-15) mm/hr Sodium 131 L (137-145) mmol/L Chloride 95 L (98-107) mmol/L BUN 51 H (9-20) mg/dL Creatinine 2.19 H (0.66-1.25) mg/dL Glucose 206 H (74-99) mg/dL POC Glucose (mg/dL) (70-110) mg/dL Plasma Lactic Acid Manolo (0.7-2.0) mmol/L Procalcitonin (0.02-0.09) ng/mL Urine Protein 1+ H (Negative) Urine Glucose (UA) 3+ H (Negative) Urine Blood Small H (Negative) Urine Bilirubin 1+ H (Negative) Urine Bacteria Rare H (None) /hpf Hyaline Casts 29 H (0-2) /lpf Urine Mucus Few H (None) /hpf Coronavirus (PCR) (Not Detectd) Crossmatch 09/06/22 Range/Units 06:49 WBC (3.8-10.6) k/uL Neutrophils # (1.3-7.7) k/uL Lymphocytes # (1.0-4.8) k/uL Monocytes # (0-1.0) k/uL ESR (0-15) mm/hr Sodium (137-145) mmol/L Chloride (98-107) mmol/L BUN (9-20) mg/dL Creatinine (0.66-1.25) mg/dL Glucose (74-99) mg/dL POC Glucose (mg/dL) 186 H (70-110) mg/dL Plasma Lactic Acid Manolo (0.7-2.0) mmol/L Procalcitonin (0.02-0.09) ng/mL Urine Protein (Negative) Urine Glucose (UA) (Negative) Urine Blood (Negative) Urine Bilirubin (Negative) Urine Bacteria (None) /hpf Hyaline Casts (0-2) /lpf Urine Mucus (None) /hpf Coronavirus (PCR) (Not Detectd) Crossmatch Diabetes panel 09/05/22 09/06/22 Range/Units 19:10 04:30 Sodium 131 L 131 L (137-145) mmol/L Potassium 4.4 4.2 (3.5-5.1) mmol/L Chloride 86 L 95 L (98-107) mmol/L Carbon Dioxide 28 25 (22-30) mmol/L BUN 51 H 51 H (9-20) mg/dL Creatinine 2.34 H 2.19 H (0.66-1.25) mg/dL Glucose 207 H 206 H (74-99) mg/dL Calcium 9.5 8.8 (8.4-10.2) mg/dL Calcium panel 09/05/22 09/06/22 Range/Units 19:10 04:30 Calcium 9.5 8.8 (8.4-10.2) mg/dL Pituitary panel 09/05/22 09/06/22 Range/Units 19:10 04:30 Sodium 131 L 131 L (137-145) mmol/L Potassium 4.4 4.2 (3.5-5.1) mmol/L Chloride 86 L 95 L (98-107) mmol/L Carbon Dioxide 28 25 (22-30) mmol/L BUN 51 H 51 H (9-20) mg/dL Creatinine 2.34 H 2.19 H (0.66-1.25) mg/dL Glucose 207 H 206 H (74-99) mg/dL Calcium 9.5 8.8 (8.4-10.2) mg/dL Adrenal panel 09/05/22 09/06/22 Range/Units 19:10 04:30 Sodium 131 L 131 L (137-145) mmol/L Potassium 4.4 4.2 (3.5-5.1) mmol/L Chloride 86 L 95 L (98-107) mmol/L Carbon Dioxide 28 25 (22-30) mmol/L BUN 51 H 51 H (9-20) mg/dL Creatinine 2.34 H 2.19 H (0.66-1.25) mg/dL Glucose 207 H 206 H (74-99) mg/dL Calcium 9.5 8.8 (8.4-10.2) mg/dL Assessment and Plan (1) GI bleed Narrative/Plan: 61-year-old male with GI bleed. Etiology unclear. He was given [facility] last night. Case discussed with pulmonary. Still on pressors currently. Hemoglobin has been stable however. Etiology for hypotension thought to be more related to sepsis then hemorrhagic shock. Continue to follow hemoglobin closely. Continue antiacids. Hold anticoagulation. No immediate plans for endoscopy. We'll follow closely. Current Visit: Yes Status: Acute Code(s): K92.2 - GASTROINTESTINAL HEMORRHAGE, UNSPECIFIED SNOMED Code(s): 33596179
[2022-09-06 11:52] LABS: Glucose,Whole Blood 167 mg/dL (70-110)
[2022-09-06] MEDS: PANTOPRAZOLE 40 MG/10 ML VIAL IVP SCH ×2 (11:56→20:34)
--- NOTE | 2022-09-06 12:33 | PN ---
PROGRESS NOTE DATE OF SERVICE: 09/06/2022 SUBJECTIVE: This is a 61-year-old gentleman who was admitted with atrial fibrillation with fast ventricular rate, had an episode of hypotension and GI bleed yesterday. The patient was monitored and transferred to ICU. Hemoglobin is holding around 13.2, but the patient had multiple episodes of small amount of brownish stools. Creatinine is 2.19. Multiple consults following the patient closely. PAST MEDICAL HISTORY: Reviewed. REVIEW OF SYSTEMS: 14-point review is negative as mentioned. CURRENT MEDICATIONS: Reviewed include Cordarone. Doses and rest of medication noted. PHYSICAL EXAMINATION: VITAL SIGNS: Pulse is 133, regular. Blood pressure 90/50, respirations 20. HEENT: Conjunctivae normal. NECK: No JVD. CARDIOVASCULAR: S1 and S2. Tachycardic. ABDOMEN: Soft, obese. No guarding. No rigidity. NERVOUS SYSTEM: No focal deficits. LABORATORY DATA: Reviewed as mentioned earlier. ASSESSMENT: 1. Atrial fibrillation with fast ventricular rate, present on admission. 2. Hypotension. 3. Gastrointestinal bleed, acute. 4. Left-sided chest pain. 5. Left pleural effusion. 6. Chronic kidney disease, stage 3. 7. Diabetes mellitus, type 2. 8. Hypertension. 9. Multiple medical issues. 10.Cardiomyopathy, ejection fraction 30% to 35%. 11.Rule out pneumonia. RECOMMENDATIONS: Recommend to continue current management and symptomatic treatment. Monitor blood pressure closely. Continue with amiodarone, other than that the patient is on Levophed drip at this time. Broad spectrum IV antibiotics and I would also recommend hold antiplatelets and anticoagulants. Prognosis extremely guarded because of multiple complex medical issues as mentioned earlier. The patient is at high risk and we will continue to monitor in ICU. MMODL / IJN: [id number] /
[2022-09-06 16:34] LABS: Glucose,Whole Blood 160 mg/dL (70-110)
[2022-09-06] MEDS: PIPERACILLIN-TAZOBACTAM 3.375 GM in SODIUM CHLORIDE 0.9% 100 ML IVPB SCH (16:41)
[2022-09-06 17:39] LABS: HGB 12.5 gm/dL (13.0-17.5); Hypochromasia Slight; MCH 29.8 pg (25.0-35.0); MCV 93.1 fL (80.0-100.0); Mean Platelet Volume 9.2; Platelet Count 306 k/uL (150-450); RBC 4.19 m/uL (4.30-5.90); RDW 14.6 % (11.5-15.5); WBC 8.4 k/uL (3.8-10.6)
[2022-09-06 20:19] LABS: Glucose,Whole Blood 168 mg/dL (70-110)
[2022-09-06] MEDS: ATORVASTATIN 20 MG TAB PO SCH (20:33)
[2022-09-06] MEDS: TAMSULOSIN 0.4 MG CAP.ER.24H PO SCH (20:34)
[2022-09-07] MEDS: PIPERACILLIN-TAZOBACTAM 3.375 GM in SODIUM CHLORIDE 0.9% 100 ML IVPB SCH ×3 (00:19→15:45)
[2022-09-07] MEDS: SODIUM CHLORIDE 0.9% 1,000 ML IV SCH ×2 (00:19→11:07)
[2022-09-07 05:03] LABS: HCT 35.3 % (39.0-53.0); HGB 11.3 gm/dL (13.0-17.5); Hypochromasia Slight; MCH 29.6 pg (25.0-35.0); MCV 92.5 fL (80.0-100.0); Platelet Count 290 k/uL (150-450); RBC 3.82 m/uL (4.30-5.90); RDW 14.6 % (11.5-15.5); WBC 8.4 k/uL (3.8-10.6)
[2022-09-07 05:10] LABS: Albumin 2.9 g/dL (3.5-5.0); Calcium 8.9 mg/dL (8.4-10.2); Potassium 4.3 mmol/L (3.5-5.1); Total Bilirubin 1.2 mg/dL (0.2-1.3); Total Protein 5.6 g/dL (6.3-8.2)
[2022-09-07] MEDS: ACETAMINOPHEN TAB 325 MG TAB PO PRN ×2 (05:42→15:25)
[2022-09-07 06:47] LABS: Glucose,Whole Blood 153 mg/dL (70-110)
[2022-09-07] MEDS: DILTIAZEM 125 MG in SODIUM CHLORIDE 0.9% 100 ML IV SCH (07:05)
[2022-09-07] MEDS: INSULIN ASPART (NovoLOG) 100 UNIT/ML VIAL SQ SCH ×4 (07:12→21:02)
[2022-09-07] MEDS: MIDODRINE 5 MG TAB PO SCH ×3 (07:15→16:47)
[2022-09-07] MEDS: NOREPINEPHRINE 32 MG in SODIUM CHLORIDE 0.9% 218 ML IV SCH ×2 (08:24→15:32)
--- NOTE | 2022-09-07 08:59 | XR ---
EXAMINATION TYPE: XR chest 1V portable DATE OF EXAM: 09/07/2022 COMPARISON: 09/06/2022 INDICATION: Collated TECHNIQUE: Single frontal view of the chest is obtained. FINDINGS: The heart size is enlarged. The pulmonary vasculature is normal. Left lower lobe infiltrate is present. Findings are increasing from comparison. There is a left central venous catheter with the tip in the distal superior vena cava IMPRESSION: 1. Worsening left lower lobe infiltrate. 2. Cardiomegaly
[2022-09-07] MEDS: DAPAGLIFLOZIN PROPANEDIOL 10 MG TABLET PO SCH (09:14)
[2022-09-07] MEDS: LINAGLIPTIN 5 MG TABLET PO SCH (09:14)
[2022-09-07] MEDS: AMIODARONE 200 MG TAB PO SCH ×2 (09:14→20:51)
[2022-09-07] MEDS: GABAPENTIN 100 MG CAP PO SCH ×2 (09:14→20:51)
[2022-09-07] MEDS: SPIRONOLACTONE 25 MG TAB PO SCH (09:15)
[2022-09-07] MEDS: PIOGLITAZONE 45 MG TAB PO SCH (09:15)
[2022-09-07] MEDS: PANTOPRAZOLE 40 MG/10 ML VIAL IVP SCH ×2 (09:15→20:50)
[2022-09-07] MEDS: METOPROLOL TARTRATE 50 MG TAB PO SCH ×2 (09:15→20:51)
--- NOTE | 2022-09-07 09:28 | P.CNNES ---
History of Present Illness Consult date: 09/06/22 Requesting physician: Lou Chahal Reason for Consult: Ringing ears, blurred vision, dizzy History of Present Illness: Patient is a 61-year-old male came to the hospital 2 days ago on 09/04/2022 at 12:35 PM for left-sided abdominal pain. Patient states that 3 weeks ago he came to the hospital because he had pain between the ribs which was excruciating pain. He was found to have atrial fibrillation. He states that he was seen by Dr. Robert cardiology, who felt it was musculoskeletal pain, as it was hurting when that area was pressed. He was told that there is no clouding of the lungs. He was sent home. His medications were adjusted for atrial fibrillation, as it was affecting his heart rate. He came to the hospital this time for the same left-sided abdominal pain. Vital signs on arrival blood pressure 99/60, which came down to 88/73. Pulse rate 66 temperature 97.9. Blood test shows normal CBC, INR 1.8, PTT 42.0. Sodium 133, potassium is normal, BUN 42 creatinine 1.67. AST normal, but ALT 76. Troponin negative. Hemoglobin A1c 8.3. Lactate is 7.2. Patient is positive for allen virus. Patient's stool occult blood is positive. UA is negative. CT abdomen and pelvis revealed left pleural effusion and left lower lobe airspace consolidation and atelectasis. Lung abnormalities appear new compared to old exam. EKG shows atrial fibrillation with rapid ventricular rate. CT head is normal. I personally reviewed CT head, agree with the findings. Visualized paranasal sinuses are mostly clear. Chest x-ray revealed mild stable left lower lobe infiltrate. Neurology was consulted for blurred vision, tinnitus and dizziness. Patient denies headache, any numbness or tingling or any focal weakness. Patient in the hospital had some diarrhea, and also suffered from a fall. Therefore he was transferred to ICU. At present patient states that he has no blurred vision, no dizziness, no ringing in the ears. Patient states that yesterday he was "out of it" and he might have said something about those symptoms. He states he gets tinnitus "once in a while". He believes it was because of low blood pressure and perhaps related to his Covid infection. Patient was hypotensive, therefore still on Levophed at 0.28. Patient takes Xarelto. Also on aspirin 81 mg. patient also on midodrine 10 mg 3 times a day. Xarelto on hold because of GI bleed. Surgery has been consulted. Review of Systems Pertinent positive and negative mentioned in the HPI. All systems: negative Past Medical History Past Medical History: Atrial Fibrillation, Diabetes Mellitus, Hypertension Additional Past Medical History / Comment(s): 08/03/14 EPISODE OF A-FIB, TACHYCARDIA, W/U NL. NIDDM. OFF HTN RX NOW. BENIGN COLON POLYPS 2012. History of Any Multi-Drug Resistant Organisms: None Reported Past Surgical History: Adenoidectomy, Tonsillectomy Additional Past Surgical History / Comment(s): Tailbone Cystectomy. Vasectomy. COLONOSCOPY. Past Anesthesia/Blood Transfusion Reactions: No Reported Reaction Additional Past Anesthesia/Blood Transfusion Reaction / Comment(s): Pt has never recieved blood. Past Psychological History: No Psychological Hx Reported Additional Psychological History / Comment(s): Pt lives in his home with his . Pt is independent. He drives a car. Smoking Status: Former smoker Past Alcohol Use History: Daily Additional Past Alcohol Use History / Comment(s): OCC CIGAR USE, STOPPED RECENTLY. 1 ALCOHOL DRINK DAILY. Past Drug Use History: None Reported - Past Family History Father Family Medical History: Congestive Heart Failure (CHF) Additional Family Medical History / Comment(s): Father of CHF Mother Additional Family Medical History / Comment(s): Mother had cirrhosis of the liver. Medications and Allergies Home Medications Medication Instructions Recorded Confirmed Type Rivaroxaban [Xarelto] 20 mg PO DAILY 10/23/15 09/04/22 History Aspirin EC [Ecotrin Low Dose] 81 mg PO DAILY 08/13/22 09/04/22 History Atorvastatin [Lipitor] 20 mg PO HS 08/13/22 09/04/22 History Linagliptin [Tradjenta] 5 mg PO DAILY 08/13/22 09/04/22 History Lisinopril-Hctz 20-12.5 mg 1 tab PO DAILY 08/13/22 09/04/22 History [Zestoretic 20-12.5] Metoprolol Succinate (ER) [Toprol 100 mg PO HS 08/13/22 09/04/22 History XL] Pioglitazone [Actos] 45 mg PO DAILY 08/13/22 09/04/22 History Amiodarone [Cordarone] 400 mg PO BID 30 Days #60 tab 08/29/22 09/04/22 Rx Dapagliflozin Propanediol [Farxiga] 10 mg PO DAILY 30 Days #30 tab 08/29/22 09/04/22 Rx Gabapentin [Neurontin] 200 mg PO BID 5 Days #20 cap 08/29/22 09/04/22 Rx Spironolactone [Aldactone] 12.5 mg PO DAILY 30 Days #30 tab 08/29/22 09/04/22 Rx [id number] [id number] 2 tab PO Q6H PRN 09/04/22 09/04/22 History [Excedrin] Midodrine [ProAmatine] 10 mg PO TID@0730,1200,1730 09/04/22 09/04/22 History Tamsulosin [Flomax] 0.4 mg PO HS 09/04/22 09/04/22 History Allergies Allergy/AdvReac Type Severity Reaction Status Date / Time clarithromycin [From Biaxin] Allergy Severe Rash/Hives Verified 09/04/22 13:44 Physical Examination - Vital Signs Vital Signs: Vital Signs Temp Pulse Pulse Resp BP BP Pulse Ox 09/06/22 13:00 130 H 15 117/73 92 L 09/06/22 12:45 122 H 10 L 117/73 93 L 09/06/22 12:30 120 H 18 117/73 93 L 09/06/22 12:15 120 H 15 117/73 94 L 09/06/22 12:00 99.7 F H 117 H 13 94 L 09/06/22 11:45 109 H 17 93 L 09/06/22 11:30 131 H 10 L 94 L 09/06/22 11:15 114 H 15 112/74 94 L 09/06/22 11:00 117 H 7 L 93 L 09/06/22 10:45 118 H 14 96 09/06/22 10:30 129 H 18 96 09/06/22 10:15 120 H 17 113/75 95 09/06/22 10:00 111 H 18 09/06/22 09:45 124 H 16 116/79 96 09/06/22 09:30 129 H 12 116/79 99 09/06/22 09:15 131 H 8 L 116/79 100 09/06/22 09:00 131 H 4 L 99 09/06/22 08:45 133 H 20 99 09/06/22 08:32 99 09/06/22 08:30 117 H 17 100 09/06/22 08:15 163 H 10 L 98 09/06/22 08:00 99.9 F H 154 H 11 L 97 09/06/22 07:45 149 H 17 99 09/06/22 07:30 144 H 12 98 09/06/22 07:15 137 H 21 98 09/06/22 07:00 137 H 16 98 09/06/22 06:45 151 H 20 98 09/06/22 06:30 149 H 15 98 09/06/22 06:15 151 H 16 98 09/06/22 06:00 141 H 14 98 09/06/22 05:45 144 H 16 98 09/06/22 05:30 158 H 14 98 09/06/22 05:15 135 H 16 98 09/06/22 05:00 137 H 15 98 09/06/22 04:45 138 H 15 98 09/06/22 04:30 147 H 16 98 09/06/22 04:15 158 H 13 98 09/06/22 04:00 100.2 F H 161 H 14 94 L 09/06/22 03:45 151 H 13 96 09/06/22 03:30 152 H 14 93 L 09/06/22 03:15 141 H 14 96 09/06/22 02:30 158 H 14 98 09/06/22 02:15 142 H 14 98 09/06/22 02:00 156 H 16 98 09/06/22 01:45 156 H 16 99 09/06/22 01:30 144 H 16 97 09/06/22 01:15 134 H 16 98 09/06/22 01:00 144 H 18 99 09/06/22 00:45 156 H 16 96 09/06/22 00:30 147 H 14 99 09/06/22 00:15 163 H 15 98 09/06/22 00:00 100.2 F H 158 H 15 96 09/05/22 23:45 156 H 18 118/66 98 09/05/22 23:30 172 H 19 98 09/05/22 23:15 151 H 22 99 03/24/23 23:00 152 H 18 99 03/24/23 22:45 147 H 20 99 09/05/22 22:30 161 H 15 98 09/05/22 22:15 160 H 14 99 09/05/22 22:00 152 H 14 99 09/05/22 21:45 138 H 14 100 09/05/22 21:30 131 H 16 100 09/05/22 21:15 135 H 18 95 09/05/22 21:00 131 H 16 100 09/05/22 20:45 154 H 14 95/58 100 09/05/22 20:30 130 H 18 72/61 100 09/05/22 20:15 147 H 15 76/52 100 09/05/22 20:00 102.3 F H 140 H 15 100 09/05/22 19:45 135 H 14 09/05/22 19:30 137 H 21 09/05/22 19:00 152 H 19 100/77 09/05/22 18:30 98.1 F 135 H 17 102/72 09/05/22 18:22 18 09/05/22 16:00 97.5 F L 122 H 18 138/93 98 Intake and Output 09/05/22 09/06/22 09/06/22 22:59 06:59 14:59 Intake Total 342.720 622.997 6444.911 Output Total 665 860 Balance 342.720 18.896 1342.911 Intake: IV 72 228 1986 0.9 60 180 350 Arterial & CVP Lines 12 48 36 Lactated Ringers 1,500 ml 1500 @ 999 mls/hr IV .Q1H31M [facility] Rx#:[id number] Piperacillin-Tazobactam 3 100 .375 gm In Sodium Chloride 0.9% 100 ml @ 25 mls/hr IVPB Q8HR [facility] Rx# :[id number] Intake, IV Titration 270.720 255.896 216.911 Amount Diltiazem 125 mg In 2.75 97.5 Sodium Chloride 0.9% 100 ml @ Per Protocol IV .Q0M [facility] Rx#:[id number] Norepinephrine 32 mg In 140.853 119.411 Sodium Chloride 0.9% 218 ml @ 0.5 MCG/KG/MIN 25. 781 mls/hr IV .Q9H42M [facility] Rx#:[id number] Norepinephrine 4 mg In 267.970 115.043 Sodium Chloride 0.9% 250 ml @ 0.03 MCG/KG/MIN 12. 573 mls/hr IV .[id number] [facility] Rx#:[id number] Oral 200 Output: Urine 665 860 Other: # Bowel Movements 1 1 1 Weight 115.7 kg ABP, PAP, CO, CI - Last 8 Hours Arterial Blood Pressure 118/64 Arterial Blood Pressure 114/63 Arterial Blood Pressure 110/61 Arterial Blood Pressure 113/61 Arterial Blood Pressure 111/62 Arterial Blood Pressure 111/60 Arterial Blood Pressure 111/62 Arterial Blood Pressure 116/60 Arterial Blood Pressure 107/61 Arterial Blood Pressure 98/57 Arterial Blood Pressure 108/60 Arterial Blood Pressure 100/57 Arterial Blood Pressure 93/58 Arterial Blood Pressure 95/60 Arterial Blood Pressure 103/61 Arterial Blood Pressure 104/61 Arterial Blood Pressure 100/62 Arterial Blood Pressure 96/57 Arterial Blood Pressure 94/55 Arterial Blood Pressure 91/57 Arterial Blood Pressure 90/54 Arterial Blood Pressure 107/57 Arterial Blood Pressure 100/54 Arterial Blood Pressure 94/54 Arterial Blood Pressure 107/62 Arterial Blood Pressure 104/60 Arterial Blood Pressure 99/57 Arterial Blood Pressure 98/57 Arterial Blood Pressure 103/57 Arterial Blood Pressure 110/56 Patient is a late middle aged male, in no acute distress. Patient is alert awake oriented to time place and person. Patient knows it is August 2022 and that he is in [facility]. Speech and language functions are normal. Patient can name and repeat very well. No aphasia or dysarthria. Attention, concentration and fund of knowledge is adequate. On cranial nerve examination, pupils are equal, round and reacting to light, vis ual jackson are full on confrontation, with no neglect on double simultaneous stimulation. Extraocular muscles are intact with no nystagmus. Face is symmetric, tongue protrudes to the midline. Palatal elevation and sensation normal, hearing and shoulder shrug normal, facial sensation normal. On muscle strength testing, there is no pronator drift and the strength is normal in arms and legs distally and proximally. Deep tendon reflexes are symmetric but hypoactive and plantars downgoing. Sensory to touch is equal with no neglect on double simultaneous stimulation. Cerebellar function showed no ataxia for [id number] testing. No dysdiadochokinesia. No ataxia for [id number] testing on either side. Tone and bulk of muscles normal. Gait deferred.. On general examination, there is no carotid bruit or murmur, S1-S2 audible. Chest is clear on consultation. Abdomen is soft nontender. No organomegaly, bowel sounds present. Peripheral pulses are present. No edema. Results - Laboratory Findings CBC and BMP: 09/07/22 04:43 09/07/22 04:43 Abnormal Lab Findings: Abnormal Labs 09/04/22 09/04/22 09/04/22 13:16 13:16 13:16 WBC Neutrophils # Lymphocytes # Monocytes # ESR PT 17.4 H INR 1.8 H APTT 42.0 H Sodium 133 L Chloride 91 L Carbon Dioxide 32 H BUN 42 H Creatinine 1.67 H Glucose 152 H POC Glucose (mg/dL) Hemoglobin A1c Plasma Lactic Acid Manolo Total Bilirubin 1.6 H ALT 76 H Alkaline Phosphatase 128 H C-Reactive Protein 7.5 H Procalcitonin Urine Protein Urine Glucose (UA) Urine Blood Urine Bilirubin Urine Bacteria Hyaline Casts Urine Mucus Coronavirus (PCR) Crossmatch 09/04/22 09/04/22 09/05/22 17:31 19:49 06:03 WBC Neutrophils # Lymphocytes # Monocytes # ESR PT INR APTT Sodium Chloride Carbon Dioxide BUN Creatinine Glucose POC Glucose (mg/dL) 128 H 124 H 145 H Hemoglobin A1c Plasma Lactic Acid Manolo Total Bilirubin ALT Alkaline Phosphatase C-Reactive Protein Procalcitonin Urine Protein Urine Glucose (UA) Urine Blood Urine Bilirubin Urine Bacteria Hyaline Casts Urine Mucus Coronavirus (PCR) Crossmatch 09/05/22 09/05/22 09/05/22 06:59 07:21 07:21 WBC Neutrophils # Lymphocytes # Monocytes # ESR 69 H PT INR APTT Sodium 134 L Chloride 94 L Carbon Dioxide 31 H BUN 42 H Creatinine 1.57 H Glucose 122 H POC Glucose (mg/dL) Hemoglobin A1c 8.3 H Plasma Lactic Acid Manolo Total Bilirubin ALT Alkaline Phosphatase C-Reactive Protein Procalcitonin Urine Protein Urine Glucose (UA) Urine Blood Urine Bilirubin Urine Bacteria Hyaline Casts Urine Mucus Coronavirus (PCR) Crossmatch 09/05/22 09/05/22 09/05/22 11:50 15:08 16:43 WBC Neutrophils # Lymphocytes # Monocytes # ESR PT INR APTT Sodium Chloride Carbon Dioxide BUN Creatinine Glucose POC Glucose (mg/dL) 142 H 179 H Hemoglobin A1c Plasma Lactic Acid Manolo Total Bilirubin ALT Alkaline Phosphatase C-Reactive Protein Procalcitonin 0.30 H Urine Protein Urine Glucose (UA) Urine Blood Urine Bilirubin Urine Bacteria Hyaline Casts Urine Mucus Coronavirus (PCR) Crossmatch 09/05/22 09/05/22 09/05/22 18:00 18:27 18:50 WBC Neutrophils # Lymphocytes # Monocytes # ESR PT INR APTT Sodium Chloride Carbon Dioxide BUN Creatinine Glucose POC Glucose (mg/dL) 183 H 181 H Hemoglobin A1c Plasma Lactic Acid Manolo Total Bilirubin ALT Alkaline Phosphatase C-Reactive Protein Procalcitonin Urine Protein Urine Glucose (UA) Urine Blood Urine Bilirubin Urine Bacteria Hyaline Casts Urine Mucus Coronavirus (PCR) Detected A Crossmatch 09/05/22 09/05/22 09/05/22 19:10 19:10 19:10 WBC Neutrophils # 7.9 H Lymphocytes # 0.6 L Monocytes # ESR PT INR APTT Sodium 131 L Chloride 86 L Carbon Dioxide BUN 51 H Creatinine 2.34 H Glucose 207 H POC Glucose (mg/dL) Hemoglobin A1c Plasma Lactic Acid Manolo Total Bilirubin ALT Alkaline Phosphatase C-Reactive Protein Procalcitonin Urine Protein Urine Glucose (UA) Urine Blood Urine Bilirubin Urine Bacteria Hyaline Casts Urine Mucus Coronavirus (PCR) Crossmatch See Detail 09/05/22 09/05/22 09/06/22 19:10 21:43 00:00 WBC Neutrophils # Lymphocytes # Monocytes # ESR PT INR APTT Sodium Chloride Carbon Dioxide BUN Creatinine Glucose POC Glucose (mg/dL) 181 H Hemoglobin A1c Plasma Lactic Acid Manolo 7.2 H* Total Bilirubin ALT Alkaline Phosphatase C-Reactive Protein Procalcitonin Urine Protein 1+ H Urine Glucose (UA) 3+ H Urine Blood Small H Urine Bilirubin 1+ H Urine Bacteria Rare H Hyaline Casts 29 H Urine Mucus Few H Coronavirus (PCR) Crossmatch 09/06/22 09/06/22 09/06/22 04:30 04:30 06:49 WBC 16.0 H Neutrophils # 13.5 H Lymphocytes # 0.7 L Monocytes # 1.4 H ESR PT INR APTT Sodium 131 L Chloride 95 L Carbon Dioxide BUN 51 H Creatinine 2.19 H Glucose 206 H POC Glucose (mg/dL) 186 H Hemoglobin A1c Plasma Lactic Acid Manolo Total Bilirubin ALT Alkaline Phosphatase C-Reactive Protein Procalcitonin Urine Protein Urine Glucose (UA) Urine Blood Urine Bilirubin Urine Bacteria Hyaline Casts Urine Mucus Coronavirus (PCR) Crossmatch 09/06/22 11:51 WBC Neutrophils # Lymphocytes # Monocytes # ESR PT INR APTT Sodium Chloride Carbon Dioxide BUN Creatinine Glucose POC Glucose (mg/dL) 167 H Hemoglobin A1c Plasma Lactic Acid Manolo Total Bilirubin ALT Alkaline Phosphatase C-Reactive Protein Procalcitonin Urine Protein Urine Glucose (UA) Urine Blood Urine Bilirubin Urine Bacteria Hyaline Casts Urine Mucus Coronavirus (PCR) Crossmatch Assessment and Plan Assessment: * Blurred vision, tinnitus, dizziness, likely related to hypotension/arrhythmia/sepsis/GI bleed or Covid infection. All symptoms have resolved. * Acute Covid 19 infection * Acute renal insufficiency * Atrial fibrillation, on Xarelto. * Diabetes * Acute GI bleed with stool occult blood positive. Plan: * Patient's all neurological symptoms including dizziness, blurred vision and tinnitus have resolved. * No other neurological workup indicated. * Xarelto on hold because of positive stool for occult blood. Resume Xarelto if no medical contraindication. * Medical management as per IM, critical care and other specialties. * Neurology will sign off. Please reconsult if any other concerns. Time with Patient: Less than 30
--- NOTE | 2022-09-07 09:55 | P.PN ---
Subjective Progress Note Date: 09/07/22 Principal diagnosis: Persistent atrial fibrillation The patient is a pleasant 62-year-old gentleman who is known to our service from before with a past medical history significant for persistent atrial fibrillation status post cardioversion recently as well as history of cardiom yopathy likely to be nonischemic as well as multiple comorbid conditions who was admitted to the hospital initially with back pain and he was found to be in A. fib with RVR. Subsequently he developed gastrointestinal bleeding of for that reason was transferred to the intensive care unit. September 062022 The patient remains in atrial fibrillation with uncontrolled heart rate. Currently is on Cardizem IV and his annual by mouth and metoprolol by mouth. Anticoagulation is on hold at this point giving the GI bleeding and the patient is in process of being evaluated by the surgical team. Knowing the patient from before the only way to control his heart rate is performed cardioversion which we cannot do at this point giving that anticoagulation is on hold. We'll await for the surgical evaluation and further recommendation to follow that. September 072022 The patient was seen and evaluated this morning. Overall he stated that he is feeling better. He still unstable requiring small doses of norepinephrine. The heart rate is under good control on the current dose of Cardizem IV as well as amiodarone by mouth. Oral anticoagulation is on hold right now because of the GI bleeding which continues. The hemoglobin has been trending down. He was seen by the surgical service and the plan is to undergo upper and lower endoscopy in the next 24 hours. On examination he does have irregular rhythm with overall controlled heart rate and diminished breathing sounds bilaterally and no lower extremities edema noted Assessment Gastrointestinal bleeding Atrial fibrillation with controlled heart rate now Nonischemic cardiomyopathy Hypotension required norepinephrine COVID-19 infection Plan Upper and lower endoscopy in the next 24 hours Continue holding anticoagulation Continue monitor the hemoglobin Decrease the dose of Cardizem and continue monitor the heart rate Continue oral amiodarone Follow-up with the patient Objective - Vital Signs Vital signs: Vital Signs Temp 99.9 F H 09/07/22 04:00 Pulse 84 09/07/22 07:00 Resp 16 09/07/22 07:00 BP 106/87 09/06/22 18:30 Pulse Ox 93 L 09/07/22 08:23 FiO2 Intake & Output 09/06/22 09/07/22 09/07/22 18:59 06:59 18:59 Intake Total 2980.101 1389.205 206 Output Total 1885 1790 140 Balance 1095.101 -400.795 66 Weight 108.2 kg Intake: IV 2472 972 81 0.9 800 900 75 Arterial & CVP Lines 72 72 6 Lactated Ringers 1,500 ml 1500 @ 999 mls/hr IV .Q1H31M [facility] Rx#:[id number] Piperacillin-Tazobactam 3 100 .375 gm In Sodium Chloride 0.9% 100 ml @ 25 mls/hr IVPB Q8HR [facility] Rx# :[id number] Intake, IV Titration 508.101 117.205 125 Amount Diltiazem 125 mg In 205.0 125 Sodium Chloride 0.9% 100 ml @ Per Protocol IV .Q0M [facility] Rx#:[id number] Norepinephrine 32 mg In 193.757 117.205 Sodium Chloride 0.9% 218 ml @ 0.5 MCG/KG/MIN 25. 781 mls/hr IV .Q9H42M [facility] Rx#:[id number] Vasopressin 60 unit In 109.344 Sodium Chloride 0.9% 150 ml @ 0.04 UNITS/MIN 6.12 mls/hr IV .Q24H [facility] Rx#: [id number] Oral 300 Output: Urine 1885 1790 140 Other: # Bowel Movements 1 1 ABP, PAP, CO, CI - Last Documented Arterial Blood Pressure 122/50 - Labs CBC & Chem 7: 09/07/22 04:43 09/07/22 04:43 Labs: Abnormal Lab Results - Last 24 Hours (Table) 09/06/22 09/06/22 09/06/22 Range/Units 04:43 11:51 16:32 RBC (4.30-5.90) m/uL Hgb (13.0-17.5) gm/dL Hct (39.0-53.0) % Sodium (137-145) mmol/L BUN (9-20) mg/dL Creatinine (0.66-1.25) mg/dL Glucose (74-99) mg/dL POC Glucose (mg/dL) 167 H 160 H (70-110) mg/dL Total Protein (6.3-8.2) g/dL Albumin (3.5-5.0) g/dL Procalcitonin 22.20 H (0.02-0.09) ng/mL 09/06/22 09/06/22 09/07/22 Range/Units 16:47 20:18 04:43 RBC 4.19 L 3.82 L (4.30-5.90) m/uL Hgb 12.5 L 11.3 L (13.0-17.5) gm/dL Hct 35.3 L (39.0-53.0) % Sodium (137-145) mmol/L BUN (9-20) mg/dL Creatinine (0.66-1.25) mg/dL Glucose (74-99) mg/dL POC Glucose (mg/dL) 168 H (70-110) mg/dL Total Protein (6.3-8.2) g/dL Albumin (3.5-5.0) g/dL Procalcitonin (0.02-0.09) ng/mL 09/07/22 09/07/22 Range/Units 04:43 06:45 RBC (4.30-5.90) m/uL Hgb (13.0-17.5) gm/dL Hct (39.0-53.0) % Sodium 135 L (137-145) mmol/L BUN 36 H (9-20) mg/dL Creatinine 1.31 H (0.66-1.25) mg/dL Glucose 132 H (74-99) mg/dL POC Glucose (mg/dL) 153 H (70-110) mg/dL Total Protein 5.6 L (6.3-8.2) g/dL Albumin 2.9 L (3.5-5.0) g/dL Procalcitonin (0.02-0.09) ng/mL Microbiology - Last 24 Hours (Table) 09/06/22 12:10 Urine Culture - Preliminary Urine,Catheterized
--- NOTE | 2022-09-07 10:03 | P.PN ---
Subjective Progress Note Date: 09/07/22 Principal diagnosis: GI bleed Patient is doing better today. He has A. fib RVR has resolved. Hemoglobin is 11.3 from 12.5. Still having brownish red stools. Denies abdominal pain. Pressor requirements decreased. Objective - Vital Signs Vital signs: Vital Signs Temp 99.9 F H 09/07/22 04:00 Pulse 84 09/07/22 07:00 Resp 16 09/07/22 07:00 BP 106/87 09/06/22 18:30 Pulse Ox 93 L 09/07/22 08:23 FiO2 Intake & Output 09/06/22 09/07/22 09/07/22 18:59 06:59 18:59 Intake Total 2980.101 1389.205 234.833 Output Total 1885 1790 140 Balance 1095.101 -400.795 94.833 Weight 108.2 kg Intake: IV 2472 972 81 0.9 800 900 75 Arterial & CVP Lines 72 72 6 Lactated Ringers 1,500 ml 1500 @ 999 mls/hr IV .Q1H31M [facility] Rx#:[id number] Piperacillin-Tazobactam 3 100 .375 gm In Sodium Chloride 0.9% 100 ml @ 25 mls/hr IVPB Q8HR [facility] Rx# :[id number] Intake, IV Titration 508.101 117.205 153.833 Amount Diltiazem 125 mg In 205.0 153.833 Sodium Chloride 0.9% 100 ml @ Per Protocol IV .Q0M [facility] Rx#:[id number] Norepinephrine 32 mg In 193.757 117.205 Sodium Chloride 0.9% 218 ml @ 0.5 MCG/KG/MIN 25. 781 mls/hr IV .Q9H42M [facility] Rx#:[id number] Vasopressin 60 unit In 109.344 Sodium Chloride 0.9% 150 ml @ 0.04 UNITS/MIN 6.12 mls/hr IV .Q24H [facility] Rx#: [id number] Oral 300 Output: Urine 1885 1790 140 Other: # Bowel Movements 1 1 ABP, PAP, CO, CI - Last Documented Arterial Blood Pressure 122/50 - Exam Abdomen: Soft, nontender, nondistended - Labs CBC & Chem 7: 09/07/22 04:43 09/07/22 04:43 Labs: Abnormal Lab Results - Last 24 Hours (Table) 09/06/22 09/06/22 09/06/22 Range/Units 04:43 11:51 16:32 RBC (4.30-5.90) m/uL Hgb (13.0-17.5) gm/dL Hct (39.0-53.0) % Sodium (137-145) mmol/L BUN (9-20) mg/dL Creatinine (0.66-1.25) mg/dL Glucose (74-99) mg/dL POC Glucose (mg/dL) 167 H 160 H (70-110) mg/dL Total Protein (6.3-8.2) g/dL Albumin (3.5-5.0) g/dL Procalcitonin 22.20 H (0.02-0.09) ng/mL 09/06/22 09/06/22 09/07/22 Range/Units 16:47 20:18 04:43 RBC 4.19 L 3.82 L (4.30-5.90) m/uL Hgb 12.5 L 11.3 L (13.0-17.5) gm/dL Hct 35.3 L (39.0-53.0) % Sodium (137-145) mmol/L BUN (9-20) mg/dL Creatinine (0.66-1.25) mg/dL Glucose (74-99) mg/dL POC Glucose (mg/dL) 168 H (70-110) mg/dL Total Protein (6.3-8.2) g/dL Albumin (3.5-5.0) g/dL Procalcitonin (0.02-0.09) ng/mL 09/07/22 09/07/22 Range/Units 04:43 06:45 RBC (4.30-5.90) m/uL Hgb (13.0-17.5) gm/dL Hct (39.0-53.0) % Sodium 135 L (137-145) mmol/L BUN 36 H (9-20) mg/dL Creatinine 1.31 H (0.66-1.25) mg/dL Glucose 132 H (74-99) mg/dL POC Glucose (mg/dL) 153 H (70-110) mg/dL Total Protein 5.6 L (6.3-8.2) g/dL Albumin 2.9 L (3.5-5.0) g/dL Procalcitonin (0.02-0.09) ng/mL Microbiology - Last 24 Hours (Table) 09/06/22 12:10 Urine Culture - Preliminary Urine,Catheterized Assessment and Plan (1) GI bleed Narrative/Plan: Overall patient is doing much better. Continue to follow hemoglobin. Recheck coags at this time. We'll tentatively plan upper and lower endoscopy on Thursday. Current Visit: Yes Status: Acute Code(s): K92.2 - GASTROINTESTINAL HEMORRHAGE, UNSPECIFIED SNOMED Code(s): 61465368
[2022-09-07 10:24] LABS: INR 1.2 (<1.2); Partial Thromboplastin Time 26.4 sec (22.0-30.0); Prothrombin Time 12.2 sec (9.0-12.0)
--- NOTE | 2022-09-07 11:02 | P.PN ---
Subjective Progress Note Date: 09/07/22 Principal diagnosis: Hypotension, atrial fibrillation. Pulmonary/critical care consult dated 09/06/2022. 61-year-old male who was initially seen in the emergency department, on September 04. We were consulted yesterday late. The patient apparently came to the emergency room, complaining of left-sided lateral chest pain, which is been going on for quite some time. In addition, the patient apparently developed some GI bleeding on the floor, which is when I was called. The patient was having atrial fibrillation with RVR, GI bleeding, and also having some respiratory difficulty. We decided to move him to the ICU. I came in last like to put in a right radial art line, and a left internal jugular triple-lumen catheter. Currently, he's seen in room 257. He's on 4 L of oxygen. He is getting Cardizem at 10 mg an hour, vasopressin at 0.04 units per minute, norepinephrine at 31 mcg/m, and saline at KVO. I added Zosyn this morning for pneumonia, and we will check a pro-calcitonin level. The patient will get 1-1/2 L of lactated Ringer's, his baseline IV will be increased to 75 mL an hour of saline, and we'll check blood urine and sputum cultures. CAT scan show what appeared to be some consolidation in the left lower lobe. The patient has a history of atrial fibrillation, diabetes, and hypertension. White count 16, with a normal hemoglobin, hematocrit, and platelet count. Sodium 131, potassium 4.2, chlorides 95, CO2 25, anion gap normal, BUN 51, and creatinine 2.19. Progress note dated 09/07/2022. The patient was seen in consultation yesterday. He is seen today in room 257. He was admitted with a diagnosis of atrial fibrillation with RVR, hypotension, secondary to sepsis, and gastrointestinal bleeding. He is on room air. He is receiving vasopressin at 0.04 units per minute, Cardizem drip at 10 mg hour, to be turned down to 5 mg an hour, and norepinephrine, she's at 13.2 mcg/m. The patient's getting saline at 75 mL an hour. Pro-calcitonin level is 22.2. The patient will likely have an EGD and/or colonoscopy on September 09. White count of 8.4, hemoglobin 11.3, hematocrit 35.3, normal platelet count. Sodium 135, potassium 4.3, chlorides 102, CO2 23, BUN 36, creatinine 1.31. Anion gap is normal. Chest x-ray shows a worsening left lower lobe infiltrate. The patient remains on Zosyn. Objective - Vital Signs Vital signs: Vital Signs Temp 98.8 F 09/07/22 08:00 Pulse 90 09/07/22 10:00 Resp 11 L 09/07/22 10:00 BP 106/87 09/06/22 18:30 Pulse Ox 94 L 09/07/22 10:00 FiO2 Intake & Output 09/06/22 09/07/22 09/07/22 18:59 06:59 18:59 Intake Total 2980.101 1389.205 677.833 Output Total 1885 1790 630 Balance 1095.101 -400.795 47.833 Weight 108.2 kg Intake: IV 2472 972 424 0.9 800 900 300 Arterial & CVP Lines 72 72 24 Lactated Ringers 1,500 ml 1500 @ 999 mls/hr IV .Q1H31M [facility] Rx#:[id number] Piperacillin-Tazobactam 3 100 100 .375 gm In Sodium Chloride 0.9% 100 ml @ 25 mls/hr IVPB Q8HR [facility] Rx# :[id number] Intake, IV Titration 508.101 117.205 153.833 Amount Diltiazem 125 mg In 205.0 153.833 Sodium Chloride 0.9% 100 ml @ Per Protocol IV .Q0M [facility] Rx#:[id number] Norepinephrine 32 mg In 193.757 117.205 Sodium Chloride 0.9% 218 ml @ 0.5 MCG/KG/MIN 25. 781 mls/hr IV .Q9H42M [facility] Rx#:[id number] Vasopressin 60 unit In 109.344 Sodium Chloride 0.9% 150 ml @ 0.04 UNITS/MIN 6.12 mls/hr IV .Q24H [facility] Rx#: [id number] Oral 300 100 Output: Urine 1885 1790 630 Other: # Bowel Movements 1 1 1 ABP, PAP, CO, CI - Last Documented Arterial Blood Pressure 118/51 - Exam No acute distress, oriented 3. Currently on room air. No audible wheezing, use of accessory muscles, or conversational dyspnea. HEENT examination is grossly unremarkable. Neck supple. Full range of motion. No adenopathy thyromegaly or neck vein distention. Cardiovascular examination reveals an irregular rhythm and rate. S1-S2 normal. No S3 or S4. No discernible murmur noted. Heart rate 90 bpm. Heart sounds are distant. Lungs reveal scattered bilateral rhonchi. Breath sounds equal. No wheezes. Minimal scattered basilar crackles. Saturations are 94 %. Abdomen soft bowel sounds are heard. No masses or tenderness. Extremities are intact. No cyanosis clubbing or edema. Skin is without rash or lesion. Neurologic examination is brief but nonfocal. - Labs CBC & Chem 7: 09/07/22 04:43 09/07/22 04:43 Labs: Abnormal Lab Results - Last 24 Hours (Table) 09/06/22 09/06/22 09/06/22 Range/Units 04:43 11:51 16:32 RBC (4.30-5.90) m/uL Hgb (13.0-17.5) gm/dL Hct (39.0-53.0) % PT (9.0-12.0) sec INR (<1.2) Sodium (137-145) mmol/L BUN (9-20) mg/dL Creatinine (0.66-1.25) mg/dL Glucose (74-99) mg/dL POC Glucose (mg/dL) 167 H 160 H (70-110) mg/dL Total Protein (6.3-8.2) g/dL Albumin (3.5-5.0) g/dL Procalcitonin 22.20 H (0.02-0.09) ng/mL 09/06/22 09/06/22 09/07/22 Range/Units 16:47 20:18 04:43 RBC 4.19 L 3.82 L (4.30-5.90) m/uL Hgb 12.5 L 11.3 L (13.0-17.5) gm/dL Hct 35.3 L (39.0-53.0) % PT (9.0-12.0) sec INR (<1.2) Sodium (137-145) mmol/L BUN (9-20) mg/dL Creatinine (0.66-1.25) mg/dL Glucose (74-99) mg/dL POC Glucose (mg/dL) 168 H (70-110) mg/dL Total Protein (6.3-8.2) g/dL Albumin (3.5-5.0) g/dL Procalcitonin (0.02-0.09) ng/mL 09/07/22 09/07/22 09/07/22 Range/Units 04:43 06:45 10:00 RBC (4.30-5.90) m/uL Hgb (13.0-17.5) gm/dL Hct (39.0-53.0) % PT 12.2 H (9.0-12.0) sec INR 1.2 H (<1.2) Sodium 135 L (137-145) mmol/L BUN 36 H (9-20) mg/dL Creatinine 1.31 H (0.66-1.25) mg/dL Glucose 132 H (74-99) mg/dL POC Glucose (mg/dL) 153 H (70-110) mg/dL Total Protein 5.6 L (6.3-8.2) g/dL Albumin 2.9 L (3.5-5.0) g/dL Procalcitonin (0.02-0.09) ng/mL Microbiology - Last 24 Hours (Table) 09/06/22 12:10 Urine Culture - Preliminary Urine,Catheterized Assessment and Plan Assessment: Hypotension, likely secondary to GI bleed, atrial fibrillation with RVR, and sepsis, secondary to left-sided pneumonia. Acute gastrointestinal bleed. Acute atrial fibrillation with RVR. Acute on chronic kidney disease. Coronavirus infection. History of diabetes mellitus. History of hypertension. History of benign colon polyps. Previous history of tobacco use. Plan: Plan dated 09/06/2022. The patient remains on Cardizem at 10 mg an hour, for his atrial fibrillation with RVR. In addition, the patient was placed on Zosyn, for possible pneumonia left lower lobe. He will get some additional fluid in the form of lactated Ringer's, 1.5 L. We'll bump up his basic IV to saline at 75 mL an hour. His pro-calcitonin level is 0.3. We'll make sure that he has blood urine and sputum cultures. He he continues on vasopressin at 0.04 units per minute, and norepinephrine at 31 mcg/m. Prognosis is guarded. We will continue to follow make recommendations were appropriate. Last time I came in and placed a right radial art line, and a left internal jugular triple-lumen catheter. Plan dated 09/07/2022. The patient was seen by the surgeon. The patient will likely end up with an EGD and colonoscopy on September 09. The patient continues on Zosyn for the left lower lobe pneumonia. The patient's vasopressin is 0.04 units per minute, and the norepinephrine is at 13.2 mcg/m. The patient's Cardizem will be dropped down to 5 mg an hour. We will continue to follow the patient make recommendatio ns along the way. Labs, x-rays, and medications are reviewed. Prognosis is certainly guarded. Time with Patient: Greater than 30
[2022-09-07 11:50] LABS: Glucose,Whole Blood 137 mg/dL (70-110)
--- NOTE | 2022-09-07 14:24 | P.PN ---
Subjective Progress Note Date: 09/07/22 61-year-old male who was initially seen in the emergency department, on September 04. We were consulted yesterday late. The patient apparently came to the emergency room, complaining of left-sided lateral chest pain, which is been going on for quite some time. In addition, the patient apparently developed some GI bleeding on the floor, which is when I was called. The patient was having atrial fibrillation with RVR, GI bleeding, and also having some respiratory difficulty. We decided to move him to the ICU. I came in last like to put in a right radial art line, and a left internal jugular triple-lumen catheter. Currently, he's seen in room 257. He's on 4 L of oxygen. He is getting Cardizem at 10 mg an hour, vasopressin at 0.04 units per minute, norepinephrine at 31 mcg/m, and saline at KVO. I added Zosyn this morning for pneumonia, and we will check a pro-calcitonin level. The patient will get 1-1/2 L of lactated Ringer's, his baseline IV will be increased to 75 mL an hour of saline, and we'll check blood urine and sputum cultures. CAT scan show what appeared to be some consolidation in the left lower lobe. The patient has a history of atrial fibrillation, diabetes, and hypertension. White count 16, with a normal hemoglobin, hematocrit, and platelet count. Sodium 131, potassium 4.2, chlorides 95, CO2 25, anion gap normal, BUN 51, and creatinine 2.19. 09/07. Patient seen and examined. Sitting upright in the chair. Had a small bowel movement with blood in it. Patient is being weaned off the pressors REVIEW OF SYSTEMS: CONSTITUTIONAL: No fever, no malaise,. CARDIOVASCULAR: No chest pain, no palpitations, no syncope. PULMONARY: No shortness of breath, no cough, GASTROINTESTINAL: No diarrhea, no nausea, no vomiting, no abdominal pain. NEUROLOGICAL: No headaches, no weakness, PHYSICAL EXAMINATION: GENERAL: The patient is alert and oriented x3, not in any acute distress. Well developed, well nourished. HEENT: Pupils are round and equally reacting to light. EOMI. No scleral icterus. No conjunctival pallor. Normocephalic, atraumatic. No pharyngeal erythema. No thyromegaly. CARDIOVASCULAR: S1 and S2 present. No murmurs, rubs, or gallops. PULMONARY: Chest is clear to auscultation, no wheezing or crackles. ABDOMEN: Soft, nontender, nondistended, normoactive bowel sounds. No palpable organomegaly. MUSCULOSKELETAL: No joint swelling or deformity. EXTREMITIES: No cyanosis, clubbing, or pedal edema. NEUROLOGICAL: Gross neurological examination did not reveal any focal deficits. SKIN: No rashes. Assessment and plan Hypotension, likely secondary to GI bleed, atrial fibrillation with RVR, and sepsis, secondary to left-sided pneumonia. Sepsis Bacterial pneumonia Acute gastrointestinal bleed. Acute atrial fibrillation with RVR. Nonischemic cardiomyopathy Acute on chronic kidney disease. Coronavirus infection. History of diabetes mellitus. History of hypertension. History of benign colon polyps. Plan; Monitor vital signs Monitor CBC Monitor CMP continue telemetry monitoring Follow-up blood cultures Continue IV Zosyn Continue IV Cardizem continue Lopressor Anticoagulation on hold secondary GI bleed Currently on Levothroid drip and vasopressin per ICU Follow-up on cardiology recommendations Follow-up on critical-care recommendations General surgery evaluated the patient , recommend monitoring CBC and holding anticoagulation at this time, possible EGD on Thursday Objective - Vital Signs Vital signs: Vital Signs Temp 99.9 F H 09/07/22 04:00 Pulse 84 09/07/22 07:00 Resp 16 09/07/22 07:00 BP 106/87 09/06/22 18:30 Pulse Ox 93 L 09/07/22 08:23 FiO2 Intake & Output 09/06/22 09/07/22 09/07/22 18:59 06:59 18:59 Intake Total 2980.101 1389.205 206 Output Total 1885 1790 140 Balance 1095.101 -400.795 66 Weight 108.2 kg Intake: IV 2472 972 81 0.9 800 900 75 Arterial & CVP Lines 72 72 6 Lactated Ringers 1,500 ml 1500 @ 999 mls/hr IV .Q1H31M [facility] Rx#:[id number] Piperacillin-Tazobactam 3 100 .375 gm In Sodium Chloride 0.9% 100 ml @ 25 mls/hr IVPB Q8HR [facility] Rx# :[id number] Intake, IV Titration 508.101 117.205 125 Amount Diltiazem 125 mg In 205.0 125 Sodium Chloride 0.9% 100 ml @ Per Protocol IV .Q0M [facility] Rx#:[id number] Norepinephrine 32 mg In 193.757 117.205 Sodium Chloride 0.9% 218 ml @ 0.5 MCG/KG/MIN 25. 781 mls/hr IV .Q9H42M [facility] Rx#:[id number] Vasopressin 60 unit In 109.344 Sodium Chloride 0.9% 150 ml @ 0.04 UNITS/MIN 6.12 mls/hr IV .Q24H [facility] Rx#: [id number] Oral 300 Output: Urine 1885 1790 140 Other: # Bowel Movements 1 1 ABP, PAP, CO, CI - Last Documented Arterial Blood Pressure 122/50 - Labs CBC & Chem 7: 09/07/22 04:43 09/07/22 04:43 Labs: Abnormal Lab Results - Last 24 Hours (Table) 09/06/22 09/06/22 09/06/22 Range/Units 11:51 16:32 16:47 RBC 4.19 L (4.30-5.90) m/uL Hgb 12.5 L (13.0-17.5) gm/dL Hct (39.0-53.0) % Sodium (137-145) mmol/L BUN (9-20) mg/dL Creatinine (0.66-1.25) mg/dL Glucose (74-99) mg/dL POC Glucose (mg/dL) 167 H 160 H (70-110) mg/dL Total Protein (6.3-8.2) g/dL Albumin (3.5-5.0) g/dL 09/06/22 09/07/22 09/07/22 Range/Units 20:18 04:43 04:43 RBC 3.82 L (4.30-5.90) m/uL Hgb 11.3 L (13.0-17.5) gm/dL Hct 35.3 L (39.0-53.0) % Sodium 135 L (137-145) mmol/L BUN 36 H (9-20) mg/dL Creatinine 1.31 H (0.66-1.25) mg/dL Glucose 132 H (74-99) mg/dL POC Glucose (mg/dL) 168 H (70-110) mg/dL Total Protein 5.6 L (6.3-8.2) g/dL Albumin 2.9 L (3.5-5.0) g/dL 09/07/22 Range/Units 06:45 RBC (4.30-5.90) m/uL Hgb (13.0-17.5) gm/dL Hct (39.0-53.0) % Sodium (137-145) mmol/L BUN (9-20) mg/dL Creatinine (0.66-1.25) mg/dL Glucose (74-99) mg/dL POC Glucose (mg/dL) 153 H (70-110) mg/dL Total Protein (6.3-8.2) g/dL Albumin (3.5-5.0) g/dL Microbiology - Last 24 Hours (Table) 09/06/22 12:10 Urine Culture - Preliminary Urine,Catheterized
[2022-09-07] MEDS: VASOPRESSIN 60 UNIT in SODIUM CHLORIDE 0.9% 150 ML IV SCH (15:25)
[2022-09-07 16:46] LABS: Glucose,Whole Blood 196 mg/dL (70-110)
[2022-09-07] MEDS: TAMSULOSIN 0.4 MG CAP.ER.24H PO SCH (20:51)
[2022-09-07] MEDS: ATORVASTATIN 20 MG TAB PO SCH (20:51)
[2022-09-07 21:00] LABS: Glucose,Whole Blood 199 mg/dL (70-110)
[2022-09-07] MEDS: MELATONIN 3 MG TABLET PO PRN (21:03)
[2022-09-08] MEDS: PIPERACILLIN-TAZOBACTAM 3.375 GM in SODIUM CHLORIDE 0.9% 100 ML IVPB SCH ×3 (00:01→16:22)
[2022-09-08] MEDS: DILTIAZEM 125 MG in SODIUM CHLORIDE 0.9% 100 ML IV SCH (03:23)
[2022-09-08] MEDS: ACETAMINOPHEN TAB 325 MG TAB PO PRN (04:02)
[2022-09-08 05:56] LABS: Basophils % (A) 0 %; Eosinophils # (A) 0.1 k/uL (0-0.7); Eosinophils % (A) 1 %; HCT 34.6 % (39.0-53.0); HGB 10.7 gm/dL (13.0-17.5); Hypochromasia Slight; Lymphocytes # (A) 0.9 k/uL (1.0-4.8); Lymphocytes % (A) 10 %; MCH 28.4 pg (25.0-35.0); MCHC 30.9 g/dL (31.0-37.0); MCV 91.8 fL (80.0-100.0); Monocytes # (A) 0.6 k/uL (0-1.0); Monocytes % (A) 7 %; Neutrophils # (A) 6.5 k/uL (1.3-7.7); Neutrophils % (A) 79 %; Platelet Count 259 k/uL (150-450); RBC 3.77 m/uL (4.30-5.90); RDW 14.7 % (11.5-15.5); WBC 8.3 k/uL (3.8-10.6)
[2022-09-08 06:10] LABS: ALT 38 U/L (4-49); AST 34 U/L (17-59); African American GFR (CKD) >90 (>60 ml/min/1.73 sqM); Albumin 2.9 g/dL (3.5-5.0); Alkaline Phosphatase 97 U/L (38-126); Anion Gap 6 mmol/L; Blood Urea Nitrogen 24 mg/dL (9-20); Calcium 8.7 mg/dL (8.4-10.2); Carbon Dioxide 25 mmol/L (22-30); Chloride 104 mmol/L (98-107); Glucose 228 mg/dL (74-99); Non-African American GFR(CKD) 80 (>60 ml/min/1.73 sqM); Potassium 3.9 mmol/L (3.5-5.1); Sodium 135 mmol/L (137-145); Total Bilirubin 0.9 mg/dL (0.2-1.3); Total Protein 5.6 g/dL (6.3-8.2)
[2022-09-08] MEDS: MIDODRINE 5 MG TAB PO SCH ×3 (07:05→18:22)
[2022-09-08 07:14] LABS: Glucose,Whole Blood 182 mg/dL (70-110)
[2022-09-08] MEDS: INSULIN ASPART (NovoLOG) 100 UNIT/ML VIAL SQ SCH ×4 (07:15→19:58)
--- NOTE | 2022-09-08 08:10 | P.PN ---
Subjective Progress Note Date: 09/08/22 61-year-old male patient hospitalized for hypotension along with itchy fibrillation with rapid ventricular response. He also had some GI bleeding on the floor prior to him coming to the intensive care unit. The patient as such was brought into the ICU with A. fib RVR and GI bleed. Subsequently, he turnout to be Covid positive also. Chest x-ray showing cardiomegaly, increased interstitial markings in addition to a left lower lobe consolidation. This is an x-ray that was done yesterday. His chest x-ray at the time of admission looks essentially the same. Based on all this, the patient was brought into the intensive care unit. His itchy fibrillation is currently controlled with Cardizem drip which is running at 5 mg an hour. The patient is also on amiodarone by mouth at a dose of 100 mg twice a day. The patient is on no anticoagulation as the patient was having GI bleeding. The patient was having episodic GI bleed with bright red blood per rectum which progressively became more dark and this morning it's greenish black. As such, no antigravity which has been provided and the patient is likely going to require a EGD/colonoscopy and this is scheduled to be done by general surgeon within the next 24 hours. Meanwhile, he was resuscitated with IV fluids. IV fluids are currently running 0.9 at the rate of 75 mL an hours. He is currently on pressors with norepinephrine at 0.12 microvascular kilogram per minute and vasopressin and physiologic dose. He had an acute kidney injury and the creatinine was as high as 2.34 which is essentially recovered and the creatinine is essentially normalized. No cultures are available. His pro calcitonin level is at 22 and the patient is currently on IV Zosyn. He is known to have an underlying cardiomyopathy with systolic heart failure and previous admissions has shown impaired LV function with an ejection fraction of 30-35%. Noted the CAT scan of the abdomen and the chest that was done at time of admission showed an extensive consolidation of the lateral segment and the posterior segment of the left lower lobe in addition to development of a small left-sided pleural effusion. His abdomen was essentially within normal limits. Noted the patient also had a hemoglobin drop from 13.4 at time of admission which came up to 15.6 and subsequently dropped down to 10.7 this morning. The patient has not required any packed RBC transfusions. Review of previous echocardiogram that was done on 08/14/2022 showed systolic heart failure, global decrease in the contractility with an ejection fraction of 30-35%. Objective - Vital Signs Vital signs: Vital Signs Temp 97.7 F 09/08/22 00:00 Pulse 121 H 09/08/22 07:00 Resp 10 L 09/08/22 07:00 BP 106/87 09/06/22 18:30 Pulse Ox 92 L 09/08/22 07:00 FiO2 Intake & Output 09/07/22 09/08/22 09/08/22 18:59 06:59 18:59 Intake Total 5453.384 8493.964 81 Output Total 1665 1285 145 Balance 156.913 162.964 -64 Weight 113 kg Intake: IV 1172 1072 81 0.9 900 900 75 Arterial & CVP Lines 72 72 6 Piperacillin-Tazobactam 3 200 100 .375 gm In Sodium Chloride 0.9% 100 ml @ 25 mls/hr IVPB Q8HR [facility] Rx# :[id number] Intake, IV Titration 349.913 125.964 Amount Diltiazem 125 mg In 153.833 87.083 Sodium Chloride 0.9% 100 ml @ Per Protocol IV .Q0M [facility] Rx#:[id number] Norepinephrine 32 mg In 65.418 38.881 Sodium Chloride 0.9% 218 ml @ 0.5 MCG/KG/MIN 25. 781 mls/hr IV .Q9H42M [facility] Rx#:[id number] Vasopressin 60 unit In 130.662 Sodium Chloride 0.9% 150 ml @ 0.04 UNITS/MIN 6.12 mls/hr IV .Q24H [facility] Rx#: [id number] Oral 300 250 Output: Urine 1665 1285 145 Other: # Bowel Movements 1 ABP, PAP, CO, CI - Last Documented Arterial Blood Pressure 128/59 - Exam No acute distress, oriented 3. Currently on room air. No audible wheezing, use of accessory muscles, or conversational dyspnea. HEENT examination is grossly unremarkable. Neck supple. Full range of motion. No adenopathy thyromegaly or neck vein distention. Cardiovascular examination reveals an irregular rhythm and rate. S1-S2 normal. No S3 or S4. No discernible murmur noted. Lungs reveal scattered bilateral rhonchi. Breath sounds equal. No wheezes. Minimal scattered basilar crackles. Abdomen soft bowel sounds are heard. No masses or tenderness. Extremities are intact. No cyanosis clubbing or edema. Skin is without rash or lesion. Neurologic examination is brief but nonfocal. - Labs CBC & Chem 7: 09/08/22 05:36 09/08/22 05:36 Labs: Abnormal Lab Results - Last 24 Hours (Table) 09/06/22 09/07/22 09/07/22 Range/Units 04:43 10:00 11:49 RBC (4.30-5.90) m/uL Hgb (13.0-17.5) gm/dL Hct (39.0-53.0) % MCHC (31.0-37.0) g/dL Lymphocytes # (1.0-4.8) k/uL PT 12.2 H (9.0-12.0) sec INR 1.2 H (<1.2) Sodium (137-145) mmol/L BUN (9-20) mg/dL Glucose (74-99) mg/dL POC Glucose (mg/dL) 137 H (70-110) mg/dL Total Protein (6.3-8.2) g/dL Albumin (3.5-5.0) g/dL Procalcitonin 22.20 H (0.02-0.09) ng/mL 09/07/22 09/07/22 09/08/22 Range/Units 16:44 20:58 05:36 RBC 3.77 L (4.30-5.90) m/uL Hgb 10.7 L (13.0-17.5) gm/dL Hct 34.6 L (39.0-53.0) % MCHC 30.9 L (31.0-37.0) g/dL Lymphocytes # 0.9 L (1.0-4.8) k/uL PT (9.0-12.0) sec INR (<1.2) Sodium (137-145) mmol/L BUN (9-20) mg/dL Glucose (74-99) mg/dL POC Glucose (mg/dL) 196 H 199 H (70-110) mg/dL Total Protein (6.3-8.2) g/dL Albumin (3.5-5.0) g/dL Procalcitonin (0.02-0.09) ng/mL 09/08/22 09/08/22 Range/Units 05:36 07:12 RBC (4.30-5.90) m/uL Hgb (13.0-17.5) gm/dL Hct (39.0-53.0) % MCHC (31.0-37.0) g/dL Lymphocytes # (1.0-4.8) k/uL PT (9.0-12.0) sec INR (<1.2) Sodium 135 L (137-145) mmol/L BUN 24 H (9-20) mg/dL Glucose 228 H (74-99) mg/dL POC Glucose (mg/dL) 182 H (70-110) mg/dL Total Protein 5.6 L (6.3-8.2) g/dL Albumin 2.9 L (3.5-5.0) g/dL Procalcitonin (0.02-0.09) ng/mL Microbiology - Last 24 Hours (Table) 09/06/22 12:10 Urine Culture - Final Urine,Catheterized 09/06/22 11:24 Blood Culture - Preliminary Blood No Growth after 24 hours 09/06/22 11:24 Blood Culture - Preliminary Blood No Growth after 24 hours Assessment and Plan Plan: Acute left lower lobe pneumonia with extensive consolidation of the left lower lobe posterior and lateral segment was small left-sided pleural effusion, pro calcitonin level was elevated and the patient was septic at the time of admission with hypotension and GI bleed. The patient is still on pressors. The patient is currently covered with IV Zosyn. Fortunately, no major respiratory distress and the patient is currently on room air oxygen Covid 19 infection, incidental finding, probably not related to the current presentation Sepsis/hypotension, pressor dependent, still on norepinephrine running at 0.12 microvascular kilogram per minute and the patient has been also some physiologic dose of vasopressin. He has a triple lumen cath in his left IJ Chronic atrial fibrillation with RVR, and sepsis, secondary to left-sided pneumonia. The patient's rate is under better control with a combination of Cardizem drip and oral amiodarone and the patient is also on Lopressor at a dose of 150 mg by mouth twice a day. The patient is currently off anticoagulation Cardiac myopathy with systolic heart failure and ejection fraction of 3035% Acute gastrointestinal bleed, hemoglobin has dropped onto 10.3 and the patient has not required any packed RBC transfusion. Awaiting colonoscopies Acute kidney injury, recovered Severe obstructive sleep apnea, with an AHI of 40.7 worse during REM sleep. Diagnosed back in May 2022 and subsequently the patient underwent a titration and given an APAP machine pressures of 6/15 cm of water. History of diabetes mellitus. History of hypertension. History of benign colon polyps. Previous history of tobacco use. Plan: Repeat chest x-ray today provide incentive spirometer Repeat pro-calcitonin level Continue IV Zosyn and consider stepping up antibiotics pressure that is ongoing elevation of the pro calcitonin level on or worsening of the chest x-ray findi ngs Check a Legionella urine antigen The Covid 19 infection was essentially an incidental finding Continue IV fluids at 75 mL an hour Repeat echocardiogram today 2-D evaluate LV function Continue oral amiodarone Continue the metoprolol at a dose of 150 twice a day, amiodarone 400 mg by mouth twice a day, and consider discontinuing the Cardizem drip and switching this patient to oral Cardizem. This will be done once the patient's hypotension is essentially recovered No anticoagulants for now EGD colonoscopy on aspirin Blood sugar management I was asked The patient to bring in his own CPAP machine from home which is an APAP unit pressures of 6/15 cm of water We'll continue to follow Critical care evaluation, >30 min Time with Patient: Greater than 30
[2022-09-08] MEDS: SPIRONOLACTONE 25 MG TAB PO SCH (08:47)
[2022-09-08] MEDS: PANTOPRAZOLE 40 MG/10 ML VIAL IVP SCH ×2 (08:47→19:57)
[2022-09-08] MEDS: GABAPENTIN 100 MG CAP PO SCH ×2 (08:48→19:57)
[2022-09-08] MEDS: AMIODARONE 200 MG TAB PO SCH ×2 (08:48→19:57)
[2022-09-08] MEDS: METOPROLOL TARTRATE 50 MG TAB PO SCH ×2 (08:48→19:57)
[2022-09-08] MEDS: DAPAGLIFLOZIN PROPANEDIOL 10 MG TABLET PO SCH (08:49)
[2022-09-08] MEDS: LINAGLIPTIN 5 MG TABLET PO SCH (08:49)
--- NOTE | 2022-09-08 09:13 | XR ---
EXAMINATION TYPE: XR chest 1V portable DATE OF EXAM: 09/08/2022 HISTORY: Shortness of breath. COMPARISON: 09/07/2022 TECHNIQUE: Single view of the chest is submitted. FINDINGS: Demonstrated are scattered senescent parenchymal change. Persistent left lower lobe infiltrate with developing right lower lobe infiltrate. The heart is stable. Hilar and mediastinal structures are within normal limits. Degenerative changes are seen of the dorsal spine. IMPRESSION: 1. Persistent left lower lobe infiltrate with developing right lower lobe infiltrate.
--- NOTE | 2022-09-08 09:21 | P.PN ---
Subjective Progress Note Date: 09/08/22 The patient is a 61-year-old male who is currently admitted with acute COVID-19 infection and pneumonia. He initially presented with back pain. Cardiology was consulted for A. fib with RVR. He has a history of A. fib with RVR and was recently cardioverted. He also has a known history of nonischemic car diomyopathy with EF around 30-35%. Over the course of his admission he has also found to have an acute GI bleed with colonoscopy and upper endoscopy pending. He is currently on Cardizem drip, oral beta richard, and oral amiodarone. VITALS: Blood pressure 128/59, pulse 121, respiratory rate 22, SpO2 92% TELEMETRY: Atrial fibrillation with heart rates in the 120s LABS: WBC 8.3, hemoglobin 10.7, hematocrit 34.6, platelet 259, sodium 135, potassium 3.9, BUN 24, creatinine 1.0, AST 34, ALT 38 IMPRESSION: A. fib with RVR Nonischemic cardiomyopathy, EF 30-35% Acute left lower lobe pneumonia Acute GI bleed Acute COVID-19 infection PLAN: Continue to hold anticoagulation Upper and lower endoscopy pending Wean off of Cardizem drip as tolerated Further recommendations to be based upon clinical course I am dictating on behalf of Dr Cayden Bernstein's history/physical and assessment/plan. Objective - Vital Signs Vital signs: Vital Signs Temp 97.7 F 09/08/22 00:00 Pulse 121 H 09/08/22 07:00 Resp 10 L 09/08/22 07:00 BP 106/87 09/06/22 18:30 Pulse Ox 93 L 09/08/22 07:56 FiO2 Intake & Output 09/07/22 09/08/22 09/08/22 18:59 06:59 18:59 Intake Total 9919.597 4666.964 81 Output Total 1665 1285 145 Balance 156.913 162.964 -64 Weight 113 kg Intake: IV 1172 1072 81 0.9 900 900 75 Arterial & CVP Lines 72 72 6 Piperacillin-Tazobactam 3 200 100 .375 gm In Sodium Chloride 0.9% 100 ml @ 25 mls/hr IVPB Q8HR [facility] Rx# :[id number] Intake, IV Titration 349.913 125.964 Amount Diltiazem 125 mg In 153.833 87.083 Sodium Chloride 0.9% 100 ml @ Per Protocol IV .Q0M [facility] Rx#:[id number] Norepinephrine 32 mg In 65.418 38.881 Sodium Chloride 0.9% 218 ml @ 0.5 MCG/KG/MIN 25. 781 mls/hr IV .Q9H42M [facility] Rx#:[id number] Vasopressin 60 unit In 130.662 Sodium Chloride 0.9% 150 ml @ 0.04 UNITS/MIN 6.12 mls/hr IV .Q24H [facility] Rx#: [id number] Oral 300 250 Output: Urine 1665 1285 145 Other: # Bowel Movements 1 ABP, PAP, CO, CI - Last Documented Arterial Blood Pressure 128/59 - Labs CBC & Chem 7: 09/08/22 05:36 09/08/22 05:36 Labs: Abnormal Lab Results - Last 24 Hours (Table) 09/06/22 09/07/22 09/07/22 Range/Units 04:43 10:00 11:49 RBC (4.30-5.90) m/uL Hgb (13.0-17.5) gm/dL Hct (39.0-53.0) % MCHC (31.0-37.0) g/dL Lymphocytes # (1.0-4.8) k/uL PT 12.2 H (9.0-12.0) sec INR 1.2 H (<1.2) Sodium (137-145) mmol/L BUN (9-20) mg/dL Glucose (74-99) mg/dL POC Glucose (mg/dL) 137 H (70-110) mg/dL Total Protein (6.3-8.2) g/dL Albumin (3.5-5.0) g/dL Procalcitonin 22.20 H (0.02-0.09) ng/mL 09/07/22 09/07/22 09/08/22 Range/Units 16:44 20:58 05:36 RBC 3.77 L (4.30-5.90) m/uL Hgb 10.7 L (13.0-17.5) gm/dL Hct 34.6 L (39.0-53.0) % MCHC 30.9 L (31.0-37.0) g/dL Lymphocytes # 0.9 L (1.0-4.8) k/uL PT (9.0-12.0) sec INR (<1.2) Sodium (137-145) mmol/L BUN (9-20) mg/dL Glucose (74-99) mg/dL POC Glucose (mg/dL) 196 H 199 H (70-110) mg/dL Total Protein (6.3-8.2) g/dL Albumin (3.5-5.0) g/dL Procalcitonin (0.02-0.09) ng/mL 09/08/22 09/08/22 Range/Units 05:36 07:12 RBC (4.30-5.90) m/uL Hgb (13.0-17.5) gm/dL Hct (39.0-53.0) % MCHC (31.0-37.0) g/dL Lymphocytes # (1.0-4.8) k/uL PT (9.0-12.0) sec INR (<1.2) Sodium 135 L (137-145) mmol/L BUN 24 H (9-20) mg/dL Glucose 228 H (74-99) mg/dL POC Glucose (mg/dL) 182 H (70-110) mg/dL Total Protein 5.6 L (6.3-8.2) g/dL Albumin 2.9 L (3.5-5.0) g/dL Procalcitonin (0.02-0.09) ng/mL Microbiology - Last 24 Hours (Table) 09/06/22 12:10 Urine Culture - Final Urine,Catheterized 09/06/22 11:24 Blood Culture - Preliminary Blood No Growth after 24 hours 09/06/22 11:24 Blood Culture - Preliminary Blood No Growth after 24 hours
[2022-09-08] MEDS: PIOGLITAZONE 45 MG TAB PO SCH (09:47)
[2022-09-08 11:16] LABS: Glucose,Whole Blood 222 mg/dL (70-110)
--- NOTE | 2022-09-08 12:17 | P.PN ---
Subjective Progress Note Date: 09/08/22 CHIEF COMPLAINT: GI bleed HISTORY OF PRESENT ILLNESS: Patient hospitalized with hypotension, pneumonia, A. fib RVR. The patient had GI bleeding on the floor prior to coming to the ICU. He is off of anticoagulation. Patient requiring Levophed and vasopressin. Stools have turned more black/green. He had 3 bowel movements through the night. He denies abdominal pain. Afebrile. WBC is 8.3 Hgb 11.3 down to 10.7 platelets 259 sodium 135 potassium 3.9 creatinine 1.00 PHYSICAL EXAM: VITAL SIGNS: Reviewed. GENERAL: Well-developed in no acute distress. HEENT: No sclera icterus. Extraocular movements grossly intact. Moist buccal mucosa. Head is atraumatic, normocephalic. ABDOMEN: Soft. Nondistended. Nontender. NEUROLOGIC: Alert and oriented. Cranial nerves II through XII grossly intact. ASSESSMENT: 1. GI bleed PLAN: -We'll hold off on EGD and colonoscopy at this time until patient is medically stable. He is still requiring Levophed and vasopressin -Continue to monitor hemoglobin -Continue to monitor signs and symptoms of bleeding -Continue supportive -No anticoagulants -Continue clear liquid diet Physician Tagman note has been reviewed by physician. Signing provider agrees with the documented findings, assessment, and plan of care. I have personally seen and examined the patient, reviewed the WIRE INSPECTOR /PAs history, exam and MDM and agree with the assessment and plan as written. Based on total visit time, I have performed more than 50% of the visit. As above: Patient doing better today. Stools are more bilious in color. Hemoglobin 11.3. Still on pressors. Clinically improving. Hold upper and lower endoscopy until hemostatically stable off of pressors since bleeding has stopped. Objective - Vital Signs Vital signs: Vital Signs Temp 98.2 F 09/08/22 09:00 Pulse 120 H 09/08/22 09:00 Resp 18 09/08/22 09:00 BP 106/87 09/06/22 18:30 Pulse Ox 93 L 09/08/22 09:00 FiO2 Intake & Output 09/07/22 09/08/22 09/08/22 18:59 06:59 18:59 Intake Total 1302.871 6146.964 885.817 Output Total 1665 1285 395 Balance 156.913 162.964 490.817 Weight 113 kg Intake: IV 1172 1072 343 0.9 900 900 225 Arterial & CVP Lines 72 72 18 Piperacillin-Tazobactam 3 200 100 100 .375 gm In Sodium Chloride 0.9% 100 ml @ 25 mls/hr IVPB Q8HR [facility] Rx# :[id number] Intake, IV Titration 349.913 125.964 62.817 Amount Diltiazem 125 mg In 153.833 87.083 Sodium Chloride 0.9% 100 ml @ Per Protocol IV .Q0M [facility] Rx#:[id number] Norepinephrine 32 mg In 65.418 38.881 62.817 Sodium Chloride 0.9% 218 ml @ 0.5 MCG/KG/MIN 25. 781 mls/hr IV .Q9H42M [facility] Rx#:[id number] Vasopressin 60 unit In 130.662 Sodium Chloride 0.9% 150 ml @ 0.04 UNITS/MIN 6.12 mls/hr IV .Q24H [facility] Rx#: [id number] Oral 300 250 480 Output: Urine 1665 1285 395 Other: # Bowel Movements 1 ABP, PAP, CO, CI - Last Documented Arterial Blood Pressure 136/52 - Labs CBC & Chem 7: 09/08/22 05:36 09/08/22 05:36 Labs: Abnormal Lab Results - Last 24 Hours (Table) 09/07/22 09/07/22 09/07/22 Range/Units 11:49 16:44 20:58 RBC (4.30-5.90) m/uL Hgb (13.0-17.5) gm/dL Hct (39.0-53.0) % MCHC (31.0-37.0) g/dL Lymphocytes # (1.0-4.8) k/uL Sodium (137-145) mmol/L BUN (9-20) mg/dL Glucose (74-99) mg/dL POC Glucose (mg/dL) 137 H 196 H 199 H (70-110) mg/dL Total Protein (6.3-8.2) g/dL Albumin (3.5-5.0) g/dL 09/08/22 09/08/22 09/08/22 Range/Units 05:36 05:36 07:12 RBC 3.77 L (4.30-5.90) m/uL Hgb 10.7 L (13.0-17.5) gm/dL Hct 34.6 L (39.0-53.0) % MCHC 30.9 L (31.0-37.0) g/dL Lymphocytes # 0.9 L (1.0-4.8) k/uL Sodium 135 L (137-145) mmol/L BUN 24 H (9-20) mg/dL Glucose 228 H (74-99) mg/dL POC Glucose (mg/dL) 182 H (70-110) mg/dL Total Protein 5.6 L (6.3-8.2) g/dL Albumin 2.9 L (3.5-5.0) g/dL 09/08/22 Range/Units 11:14 RBC (4.30-5.90) m/uL Hgb (13.0-17.5) gm/dL Hct (39.0-53.0) % MCHC (31.0-37.0) g/dL Lymphocytes # (1.0-4.8) k/uL Sodium (137-145) mmol/L BUN (9-20) mg/dL Glucose (74-99) mg/dL POC Glucose (mg/dL) 222 H (70-110) mg/dL Total Protein (6.3-8.2) g/dL Albumin (3.5-5.0) g/dL Microbiology - Last 24 Hours (Table) 09/06/22 12:10 Urine Culture - Final Urine,Catheterized 09/06/22 11:24 Blood Culture - Preliminary Blood No Growth after 24 hours 09/06/22 11:24 Blood Culture - Preliminary Blood No Growth after 24 hours
--- NOTE | 2022-09-08 14:09 | P.PN ---
Subjective Progress Note Date: 09/08/22 61-year-old male who was initially seen in the emergency department, on September 04. We were consulted yesterday late. The patient apparently came to the emergency room, complaining of left-sided lateral chest pain, which is been going on for quite some time. In addition, the patient apparently developed some GI bleeding on the floor, which is when I was called. The patient was having atrial fibrillation with RVR, GI bleeding, and also having some respiratory difficulty. We decided to move him to the ICU. I came in last like to put in a right radial art line, and a left internal jugular triple-lumen catheter. Currently, he's seen in room 257. He's on 4 L of oxygen. He is getting Cardizem at 10 mg an hour, vasopressin at 0.04 units per minute, norepinephrine at 31 mcg/m, and saline at KVO. I added Zosyn this morning for pneumonia, and we will check a pro-calcitonin level. The patient will get 1-1/2 L of lactated Ringer's, his baseline IV will be increased to 75 mL an hour of saline, and we'll check blood urine and sputum cultures. CAT scan show what appeared to be some consolidation in the left lower lobe. The patient has a history of atrial fibrillation, diabetes, and hypertension. White count 16, with a normal hemoglobin, hematocrit, and platelet count. Sodium 131, potassium 4.2, chlorides 95, CO2 25, anion gap normal, BUN 51, and creatinine 2.19. 09/07. Patient seen and examined. Sitting upright in the chair. Had a small bowel movement with blood in it. Patient is being weaned off the pressors 09/08. Patient seen and examined. No acute issues overnight. Vital signs stable REVIEW OF SYSTEMS: CONSTITUTIONAL: No fever, no malaise,. CARDIOVASCULAR: No chest pain, no palpitations, no syncope. PULMONARY: No shortness of breath, no cough, GASTROINTESTINAL: No diarrhea, no nausea, no vomiting, no abdominal pain. NEUROLOGICAL: No headaches, no weakness, PHYSICAL EXAMINATION: GENERAL: The patient is alert and oriented x3, not in any acute distress. Well developed, well nourished. HEENT: Pupils are round and equally reacting to light. EOMI. No scleral icterus. No conjunctival pallor. Normocephalic, atraumatic. No pharyngeal erythema. No thyromegaly. CARDIOVASCULAR: S1 and S2 present. No murmurs, rubs, or gallops. PULMONARY: Chest is clear to auscultation, no wheezing or crackles. ABDOMEN: Soft, nontender, nondistended, normoactive bowel sounds. No palpable organomegaly. MUSCULOSKELETAL: No joint swelling or deformity. EXTREMITIES: No cyanosis, clubbing, or pedal edema. NEUROLOGICAL: Gross neurological examination did not reveal any focal deficits. SKIN: No rashes. Assessment and plan Hypotension, likely secondary to GI bleed, atrial fibrillation with RVR, and sepsis, secondary to left-sided pneumonia. Sepsis Bacterial pneumonia Acute gastrointestinal bleed. Acute atrial fibrillation with RVR. Nonischemic cardiomyopathy Acute on chronic kidney disease. Coronavirus infection. History of diabetes mellitus. History of hypertension. History of benign colon polyps. Plan; Monitor vital signs Monitor CBC Monitor CMP continue telemetry monitoring Follow-up blood cultures Continue IV Zosyn Continue IV Cardizem , ween off as tolerated continue Lopressor Anticoagulation on hold secondary GI bleed Currently on Levothroid drip and vasopressin per ICU Follow-up on cardiology recommendations Follow-up on critical-care recommendations General surgery evaluated the patient , recommend monitoring CBC and holding anticoagulation at this time, endoscopy once patient is off the pressors Objective - Vital Signs Vital signs: Vital Signs Temp 98.2 F 09/08/22 09:00 Pulse 120 H 09/08/22 09:00 Resp 18 09/08/22 09:00 BP 106/87 09/06/22 18:30 Pulse Ox 93 L 09/08/22 09:00 FiO2 Intake & Output 09/07/22 09/08/22 09/08/22 18:59 06:59 18:59 Intake Total 1699.445 3830.964 885.817 Output Total 1665 1285 395 Balance 156.913 162.964 490.817 Weight 113 kg Intake: IV 1172 1072 343 0.9 900 900 225 Arterial & CVP Lines 72 72 18 Piperacillin-Tazobactam 3 200 100 100 .375 gm In Sodium Chloride 0.9% 100 ml @ 25 mls/hr IVPB Q8HR [facility] Rx# :[id number] Intake, IV Titration 349.913 125.964 62.817 Amount Diltiazem 125 mg In 153.833 87.083 Sodium Chloride 0.9% 100 ml @ Per Protocol IV .Q0M [facility] Rx#:[id number] Norepinephrine 32 mg In 65.418 38.881 62.817 Sodium Chloride 0.9% 218 ml @ 0.5 MCG/KG/MIN 25. 781 mls/hr IV .Q9H42M [facility] Rx#:[id number] Vasopressin 60 unit In 130.662 Sodium Chloride 0.9% 150 ml @ 0.04 UNITS/MIN 6.12 mls/hr IV .Q24H [facility] Rx#: [id number] Oral 300 250 480 Output: Urine 1665 1285 395 Other: # Bowel Movements 1 ABP, PAP, CO, CI - Last Documented Arterial Blood Pressure 136/52 - Labs CBC & Chem 7: 09/08/22 05:36 09/08/22 05:36 Labs: Abnormal Lab Results - Last 24 Hours (Table) 09/07/22 09/07/22 09/07/22 Range/Units 11:49 16:44 20:58 RBC (4.30-5.90) m/uL Hgb (13.0-17.5) gm/dL Hct (39.0-53.0) % MCHC (31.0-37.0) g/dL Lymphocytes # (1.0-4.8) k/uL Sodium (137-145) mmol/L BUN (9-20) mg/dL Glucose (74-99) mg/dL POC Glucose (mg/dL) 137 H 196 H 199 H (70-110) mg/dL Total Protein (6.3-8.2) g/dL Albumin (3.5-5.0) g/dL 09/08/22 09/08/22 09/08/22 Range/Units 05:36 05:36 07:12 RBC 3.77 L (4.30-5.90) m/uL Hgb 10.7 L (13.0-17.5) gm/dL Hct 34.6 L (39.0-53.0) % MCHC 30.9 L (31.0-37.0) g/dL Lymphocytes # 0.9 L (1.0-4.8) k/uL Sodium 135 L (137-145) mmol/L BUN 24 H (9-20) mg/dL Glucose 228 H (74-99) mg/dL POC Glucose (mg/dL) 182 H (70-110) mg/dL Total Protein 5.6 L (6.3-8.2) g/dL Albumin 2.9 L (3.5-5.0) g/dL Microbiology - Last 24 Hours (Table) 09/06/22 12:10 Urine Culture - Final Urine,Catheterized 09/06/22 11:24 Blood Culture - Preliminary Blood No Growth after 24 hours 09/06/22 11:24 Blood Culture - Preliminary Blood No Growth after 24 hours
[2022-09-08] MEDS ORDERED: HYDROcodone/APAP 5-325MG 1 EACH TAB PO PRN (15:39)
[2022-09-08] MEDS: traMADol 50 MG TAB PO PRN ×2 (16:23→20:20)
[2022-09-08] MEDS: VASOPRESSIN 60 UNIT in SODIUM CHLORIDE 0.9% 150 ML IV SCH (16:31)
[2022-09-08 16:36] LABS: Glucose,Whole Blood 193 mg/dL (70-110)
[2022-09-08] MEDS: NOREPINEPHRINE 32 MG in SODIUM CHLORIDE 0.9% 218 ML IV SCH ×3 (19:03)
[2022-09-08 19:54] LABS: Glucose,Whole Blood 211 mg/dL (70-110)
[2022-09-08] MEDS: ATORVASTATIN 20 MG TAB PO SCH (19:57)
[2022-09-08] MEDS: TAMSULOSIN 0.4 MG CAP.ER.24H PO SCH (19:57)
[2022-09-08] MEDS: MELATONIN 3 MG TABLET PO PRN (20:20)
[2022-09-09] MEDS: PIPERACILLIN-TAZOBACTAM 3.375 GM in SODIUM CHLORIDE 0.9% 100 ML IVPB SCH ×4 (00:55→23:44)
[2022-09-09 05:55] LABS: Basophils % (A) 0 %; Eosinophils # (A) 0.1 k/uL (0-0.7); Eosinophils % (A) 1 %; HCT 34.3 % (39.0-53.0); HGB 10.8 gm/dL (13.0-17.5); Hypochromasia Slight; Lymphocytes % (A) 13 %; MCH 29.5 pg (25.0-35.0); MCHC 31.5 g/dL (31.0-37.0); MCV 93.7 fL (80.0-100.0); Mean Platelet Volume 9.5; Monocytes # (A) 0.4 k/uL (0-1.0); Monocytes % (A) 5 %; Neutrophils # (A) 6.1 k/uL (1.3-7.7); Neutrophils % (A) 78 %; Platelet Count 270 k/uL (150-450); RBC 3.66 m/uL (4.30-5.90); RDW 14.6 % (11.5-15.5); WBC 7.8 k/uL (3.8-10.6)
[2022-09-09 06:04] LABS: African American GFR (CKD) >90 (>60 ml/min/1.73 sqM); Anion Gap 8 mmol/L; Blood Urea Nitrogen 14 mg/dL (9-20); Calcium 8.9 mg/dL (8.4-10.2); Carbon Dioxide 23 mmol/L (22-30); Chloride 105 mmol/L (98-107); Glucose 151 mg/dL (74-99); Non-African American GFR(CKD) >90 (>60 ml/min/1.73 sqM); Potassium 3.9 mmol/L (3.5-5.1); Sodium 136 mmol/L (137-145)
[2022-09-09 06:31] LABS: Glucose,Whole Blood 145 mg/dL (70-110)
[2022-09-09] MEDS: MIDODRINE 5 MG TAB PO SCH ×3 (06:38→16:56)
[2022-09-09] MEDS: SODIUM CHLORIDE 0.9% 1,000 ML IV SCH ×4 (06:40→16:09)
[2022-09-09] MEDS: NOREPINEPHRINE 32 MG in SODIUM CHLORIDE 0.9% 218 ML IV SCH ×2 (07:32→15:28)
[2022-09-09] MEDS: INSULIN ASPART (NovoLOG) 100 UNIT/ML VIAL SQ SCH ×4 (07:44→21:09)
[2022-09-09] MEDS: traMADol 50 MG TAB PO PRN ×2 (07:55→20:44)
--- NOTE | 2022-09-09 08:14 | XR ---
EXAMINATION TYPE: XR chest 1V portable DATE OF EXAM: 09/09/2022 HISTORY: Shortness of breath. COMPARISON: 09/08/2022 TECHNIQUE: Single view of the chest is submitted. FINDINGS: Demonstrated are scattered senescent parenchymal change. Increased density left lower lobe likely reflects a combination of effusion, infiltrate and/or atelec tasis. Additional patchy infiltrate right lower lobe. Overall stable appearance of the chest. The heart is stable. Hilar and mediastinal structures are within normal limits. Degenerative changes are seen of the dorsal spine. IMPRESSION: 1. Stable chest with basilar infiltrates and left-sided effusion.
--- NOTE | 2022-09-09 08:14 | P.PN ---
Subjective Progress Note Date: 09/09/22 61-year-old male patient hospitalized for hypotension along with itchy fibrillation with rapid ventricular response. He also had some GI bleeding on the floor prior to him coming to the intensive care unit. The patient as such was brought into the ICU with A. fib RVR and GI bleed. Subsequently, he turnout to be Covid positive also. Chest x-ray showing cardiomegaly, increased interstitial markings in addition to a left lower lobe consolidation. This is an x-ray that was done yesterday. His chest x-ray at the time of admission looks essentially the same. Based on all this, the patient was brought into the intensive care unit. His itchy fibrillation is currently controlled with Cardizem drip which is running at 5 mg an hour. The patient is also on amiodarone by mouth at a dose of 100 mg twice a day. The patient is on no anticoagulation as the patient was having GI bleeding. The patient was having episodic GI bleed with bright red blood per rectum which progressively became more dark and this morning it's greenish black. As such, no antigravity which has been provided and the patient is likely going to require a EGD/colonoscopy and this is scheduled to be done by general surgeon within the next 24 hours. Meanwhile, he was resuscitated with IV fluids. IV fluids are currently running 0.9 at the rate of 75 mL an hours. He is currently on pressors with norepinephrine at 0.12 microvascular kilogram per minute and vasopressin and physiologic dose. He had an acute kidney injury and the creatinine was as high as 2.34 which is essentially recovered and the creatinine is essentially normalized. No cultures are available. His pro calcitonin level is at 22 and the patient is currently on IV Zosyn. He is known to have an underlying cardiomyopathy with systolic heart failure and previous admissions has shown impaired LV function with an ejection fraction of 30-35%. Noted the CAT scan of the abdomen and the chest that was done at time of admission showed an extensive consolidation of the lateral segment and the posterior segment of the left lower lobe in addition to development of a small left-sided pleural effusion. His abdomen was essentially within normal limits. Noted the patient also had a hemoglobin drop from 13.4 at time of admission which came up to 15.6 and subsequently dropped down to 10.7 this morning. The patient has not required any packed RBC transfusions. Review of previous echocardiogram that was done on 08/14/2022 showed systolic heart failure, global decrease in the contractility with an ejection fraction of 30-35%. On today's evaluation of 09/09/2022, the patient is being seen for a follow-up. The patient is being treated for a extensive left lower lobe pneumonia, sepsis, hypotension, itchy fibrillation with RVR and GI bleed. The patient also Covid 19 positive. Chest x-ray still showing consolidation of the lower lobes or so o n the left. No major interval change compared to yesterday. The white cell count at 7.8. Cultures have been negative. Legionella urine antigen was also negative. The patient had a pro-calcitonin level of 8.7 and this was obtained yesterday and the level is obviously improving and as such no further antibiotic modifications was done and the patient was Zosyn As the Pro Calcitonin Level Has Been Improving. As Far As Pressor Requirements, the Patient Is on Vasopressin Physiologic Dose and Norepinephrine Which Is Running at 0.04 mcg/kg/m. As such, the pressor requirements have improved considerably over the past 24 hours. The patient is able sit up on a chair. The patient is still in atrial fibrillation. The patient is still tachycardic. In terms of A. fib, the patient is on amiodarone 400 mg by mouth twice a day, he is on metoprolol 150 mg by mouth twice a day, and he is also on Cardizem which has been switched to oral 30 mg by mouth 3 times a day. He is on no anticoagulants as the patient presented originally with GI bleeding. Note that he is scheduled to have EGD and colo noscopy over the next 24-48 hours. The patient's hemoglobin meanwhile has remained stable at 10.8 and the patient has not had any further episode of GI bleeding. In terms of his acute kidney injury, this is recovered and the creatinine is down to 0.8. Sodium level is at 136 and the chloride is 105. The patient is awake and alert and communicating. He is on oxygen at 2 L/m nasal cannula. His echocardiogram from 08/14/2022 so it systolic heart failure with an ejection fraction of 30-35%. No angina. No palpitations. No other significant events overnight. Objective - Vital Signs Vital signs: Vital Signs Temp 97.7 F 03/27/23 20:00 Pulse 133 H 09/09/22 07:00 Resp 14 09/09/22 07:00 BP 105/62 09/09/22 02:00 Pulse Ox 94 L 09/09/22 07:00 FiO2 Intake & Output 09/08/22 09/09/22 09/09/22 18:59 06:59 18:59 Intake Total 2861.625 1373.580 83.648 Output Total 1645 1020 75 Balance 1216.625 353.580 8.648 Weight 112 kg Intake: IV 1172 972 81 0.9 900 900 75 Arterial & CVP Lines 72 72 6 Piperacillin-Tazobactam 3 200 .375 gm In Sodium Chloride 0.9% 100 ml @ 25 mls/hr IVPB Q8HR [facility] Rx# :[id number] Intake, IV Titration 271.625 151.580 2.648 Amount Diltiazem 125 mg In 30.583 Sodium Chloride 0.9% 100 ml @ Per Protocol IV .Q0M [facility] Rx#:[id number] Norepinephrine 32 mg In 99.772 51.580 2.648 Sodium Chloride 0.9% 218 ml @ 0.5 MCG/KG/MIN 25. 781 mls/hr IV .Q9H42M [facility] Rx#:[id number] Piperacillin-Tazobactam 3 100 .375 gm In Sodium Chloride 0.9% 100 ml @ 25 mls/hr IVPB Q8HR [facility] Rx# :[id number] Vasopressin 60 unit In 141.27 Sodium Chloride 0.9% 150 ml @ 0.04 UNITS/MIN 6.12 mls/hr IV .Q24H [facility] Rx#: [id number] Oral 1418 250 Output: Urine 1645 1020 75 Other: Voiding Method Toilet Indwelling Catheter ABP, PAP, CO, CI - Last Documented Arterial Blood Pressure 112/63 - Exam No acute distress, oriented 3. Currently on room air. No audible wheezing, use of accessory muscles, or conversational dyspnea. HEENT examination is grossly unremarkable. Neck supple. Full range of motion. No adenopathy thyromegaly or neck vein d istention. Cardiovascular examination reveals an irregular rhythm and rate. S1-S2 normal. No S3 or S4. No discernible murmur noted. Lungs reveal scattered bilateral rhonchi. Breath sounds equal. No wheezes. Minimal scattered basilar crackles. Abdomen soft bowel sounds are heard. No masses or tenderness. Extremities are intact. No cyanosis clubbing or edema. Skin is without rash or lesion. Neurologic examination is brief but nonfocal. - Labs CBC & Chem 7: 09/09/22 05:41 09/09/22 05:41 Labs: Abnormal Lab Results - Last 24 Hours (Table) 09/08/22 09/08/22 09/08/22 Range/Units 09:15 11:14 16:34 RBC (4.30-5.90) m/uL Hgb (13.0-17.5) gm/dL Hct (39.0-53.0) % Sodium (137-145) mmol/L Glucose (74-99) mg/dL POC Glucose (mg/dL) 222 H 193 H (70-110) mg/dL Procalcitonin 8.70 H (0.02-0.09) ng/mL 09/08/22 09/09/22 09/09/22 Range/Units 19:53 05:41 05:41 RBC 3.66 L (4.30-5.90) m/uL Hgb 10.8 L (13.0-17.5) gm/dL Hct 34.3 L (39.0-53.0) % Sodium 136 L (137-145) mmol/L Glucose 151 H (74-99) mg/dL POC Glucose (mg/dL) 211 H (70-110) mg/dL Procalcitonin (0.02-0.09) ng/mL 09/09/22 Range/Units 06:29 RBC (4.30-5.90) m/uL Hgb (13.0-17.5) gm/dL Hct (39.0-53.0) % Sodium (137-145) mmol/L Glucose (74-99) mg/dL POC Glucose (mg/dL) 145 H (70-110) mg/dL Procalcitonin (0.02-0.09) ng/mL Microbiology - Last 24 Hours (Table) 09/06/22 11:24 Blood Culture - Preliminary Blood No Growth after 48 hours 09/06/22 11:24 Blood Culture - Preliminary Blood No Growth after 48 hours Assessment and Plan Plan: Acute left lower lobe pneumonia with extensive consolidation of the left lower lobe posterior and lateral segment was small left-sided pleural effusion, pro calcitonin level was elevated and the patient was septic at the time of admission with hypotension and GI bleed. The chest x-ray findings are stable. The patient has bilateral lower lobe consolidation worse on the left. Pro- calcitonin level is improving. The patient remains on Zosyn. Pressor requirements have improved and based on that The patient on same antibiotic coverage which is IV Zosyn. Acute hypoxic respiratory failure, currently ranging between room air oxygen 2 L/m nasal cannula Covid 19 infection, incidental finding, probably not related to the current presentation Sepsis/hypotension, pressor dependent, still on norepinephrine running at 0.04 mcg/kg/m in addition to physiologic dose of vasopressin Chronic atrial fibrillation with RVR, and sepsis, secondary to left-sided pneumonia. The patient's rate is under better control with a combination of Cardizem web mobile designer in addition to metoprolol and amiodarone orally. No anticoagulants. The patient's heart rate is still in the 120s, irregular and the patient has underlying cardiac myopathy with an ejection fraction of 30-35% Cardiomyopathy with systolic heart failure and ejection fraction of 3035% Acute gastrointestinal bleed, hemoglobin is stable at 10.8 and the patient has not required any packed RBC transfusion. Awaiting colonoscopies Acute kidney injury, recovered Severe obstructive sleep apnea, with an AHI of 40.7 worse during REM sleep. Diagnosed back in May 2022 and subsequently the patient underwent a titration and given an APAP machine pressures of 6/15 cm of water. History of diabetes mellitus. History of hypertension. History of benign colon polyps. Previous history of tobacco use. Plan: Repeat chest x-ray today is stable consolidation provide incentive spirometer Repeat pro-calcitonin level from yesterday showed that the levels have been improving and the patient will be kept on the same antibiotic coverage Continue IV Zosyn Check a Legionella urine antigen was checked and the levels came back negative The Covid 19 infection was essentially an incidental finding Continue IV fluids at 75 mL an hour, will continue IV fluids until the patient is off pressors. We should be able to discontinue the vasopressin physiologic dose today. Repeat echocardiogram today 2-D evaluate LV function Continue oral amiodarone Continue the metoprolol at a dose of 150 twice a day, amiodarone 400 mg by mouth twice a day, and oral Cardizem 30 mg by mouth 3 times a day. No anticoagulants No anticoagulants for now EGD colonoscopy probably the next 24 hours Blood sugar management I was asked The patient to bring in his own CPAP machine from home which is an APAP unit pressures of 6/15 cm of water We'll continue to follow Critical care evaluation, >30 min Time with Patient: Greater than 30
[2022-09-09] MEDS: AMIODARONE 200 MG TAB PO SCH ×2 (09:13→20:41)
[2022-09-09] MEDS: PANTOPRAZOLE 40 MG/10 ML VIAL IVP SCH ×2 (09:13→20:41)
[2022-09-09] MEDS: DILTIAZEM ORAL 30 MG TAB PO SCH ×3 (09:13→21:10)
[2022-09-09] MEDS: METOPROLOL TARTRATE 50 MG TAB PO SCH ×2 (09:14→20:44)
[2022-09-09] MEDS: DAPAGLIFLOZIN PROPANEDIOL 10 MG TABLET PO SCH (09:14)
[2022-09-09] MEDS: LINAGLIPTIN 5 MG TABLET PO SCH (09:14)
[2022-09-09] MEDS: SPIRONOLACTONE 25 MG TAB PO SCH (09:14)
[2022-09-09] MEDS: PIOGLITAZONE 45 MG TAB PO SCH (09:14)
[2022-09-09] MEDS: GABAPENTIN 100 MG CAP PO SCH ×2 (09:14→20:42)
--- NOTE | 2022-09-09 09:33 | CA ---
Transthoracic Echo Report Name: Kaylen Majano Age: 61 Gender: M : 1960 Exam Date: 09/08/2022 12:35 Exam Location: [place] Echo Ht (in): 70 Wt (lb): 240 Ordering Physician: Xavier Ramírez MD Attending/Referring Phys: Radio Repairman Holley Carpenter RDCS Procedure CPT: Indications: covid, PNA Cardiac Hx: Technical Quality: Technically difficult study Contrast 1: Total Dose (mL): Contrast 2: Total Dose (mL): MEASUREMENTS (Male / Female) Normal Values 2D ECHO LV Diastolic Diameter PLAX 6.1 cm 4.2 - 5.9 / 3.9 - 5.3 cm LV Systolic Diameter PLAX 5.9 cm IVS Diastolic Thickness 1.0 cm 0.6 - 1.0 / 0.6 - 0.9 cm LVPW Diastolic Thickness 1.0 cm 0.6 - 1.0 / 0.6 - 0.9 cm LV Relative Wall Thickness 0.3 RV Internal Dim ED PLAX 3.7 cm DOPPLER TR Peak Velocity 151.4 cm/s TR Peak Gradient 9.2 mmHg FINDINGS Left Ventricle Mildly increased left ventricular diastolic diameter. Left ventricular ejection fraction is estimated at 20%. Right Ventricle Right ventricular dilatation. Right Atrium Right atrial dilatation. Left Atrium Left atrial dilatation. Mitral Valve Aortic Valve Trileaflet aortic valve. Diffuse thickening (sclerosis) of the aortic valve cusps. No aortic stenosis. Tricuspid Valve Pulmonic Valve Pericardium Aorta CONCLUSIONS Left ventricular ejection fraction 20% Mild increased left ventricular diameter Mild biatrial dilation Aortic sclerosis without significant aortic stenosis Previewed by: Dr. Eron Echavarria DO (Electronically Signed) Final Date: 09 September 2022 09:33
--- NOTE | 2022-09-09 10:24 | P.PN ---
Subjective Progress Note Date: 09/09/22 CHIEF COMPLAINT: GI bleed HISTORY OF PRESENT ILLNESS: Patient hospitalized with hypotension, pneumonia, A. fib RVR. The patient had GI bleeding on the floor prior to coming to the ICU. He is off of anticoagulation. Patient remains in the ICU. He did have a dark bowel movement this morning. He's not having stools as frequently. Denies any abdominal pain. He is off of vasopressin and they are trying to wean off Levophed. Afebrile. Tachycardic. WBC 7.8 Hgb 10.8 platelets 270 sodium is 136 potassium 3.9 creatinine 0.86 PHYSICAL EXAM: VITAL SIGNS: Reviewed. GENERAL: Well-developed in no acute distress. HEENT: No sclera icterus. Extraocular movements grossly intact. Moist buccal mucosa. Head is atraumatic, normocephalic. ABDOMEN: Soft. Nondistended. Nontender. NEUROLOGIC: Alert and oriented. Cranial nerves II through XII grossly intact. ASSESSMENT: 1. GI bleed 2. Pneumonia 3. Covid positive 4. A. fib PLAN: -We'll proceed with EGD and colonoscopy when patient is medically stable -Continue to monitor hemoglobin -Continue to monitor signs and symptoms of bleeding -Continue supportive -No anticoagulants -Continue clear liquid diet Physician Evidence Technician note has been reviewed by physician. Signing provider agrees with the documented findings, assessment, and plan of care. I have personally seen and examined the patient, reviewed the [employer] /PAs history, exam and MDM and agree with the assessment and plan as written. Based on total visit time, I have performed more than 50% of the visit. As above: Patient with a dark or stool today. Denies pain. Hemoglobin stable. Now off pressors. We'll prep tomorrow for upper and lower endoscopy on . Objective - Vital Signs Vital signs: Vital Signs Temp 97.8 F 09/09/22 08:00 Pulse 125 H 09/09/22 10:00 Resp 14 09/09/22 10:00 BP 105/62 09/09/22 02:00 Pulse Ox 94 L 09/09/22 10:00 FiO2 Intake & Output 09/08/22 09/09/22 09/09/22 18:59 06:59 18:59 Intake Total 2861.625 1373.580 547.648 Output Total 1645 1020 275 Balance 1216.625 353.580 272.648 Weight 112 kg Intake: IV 1172 972 243 0.9 900 900 225 Arterial & CVP Lines 72 72 18 Piperacillin-Tazobactam 3 200 .375 gm In Sodium Chloride 0.9% 100 ml @ 25 mls/hr IVPB Q8HR [facility] Rx# :[id number] Intake, IV Titration 271.625 151.580 104.648 Amount Diltiazem 125 mg In 30.583 Sodium Chloride 0.9% 100 ml @ Per Protocol IV .Q0M [facility] Rx#:[id number] Norepinephrine 32 mg In 99.772 51.580 2.648 Sodium Chloride 0.9% 218 ml @ 0.5 MCG/KG/MIN 25. 781 mls/hr IV .Q9H42M [facility] Rx#:[id number] Piperacillin-Tazobactam 3 100 .375 gm In Sodium Chloride 0.9% 100 ml @ 25 mls/hr IVPB Q8HR [facility] Rx# :[id number] Vasopressin 60 unit In 141.27 102 Sodium Chloride 0.9% 150 ml @ 0.04 UNITS/MIN 6.12 mls/hr IV .Q24H [facility] Rx#: [id number] Oral 1418 250 200 Output: Urine 1645 1020 275 Other: Voiding Method Toilet Indwelling Catheter Indwelling Catheter ABP, PAP, CO, CI - Last Documented Arterial Blood Pressure 94/54 - Labs CBC & Chem 7: 09/09/22 05:41 09/09/22 05:41 Labs: Abnormal Lab Results - Last 24 Hours (Table) 09/08/22 09/08/22 09/08/22 Range/Units 09:15 11:14 16:34 RBC (4.30-5.90) m/uL Hgb (13.0-17.5) gm/dL Hct (39.0-53.0) % Sodium (137-145) mmol/L Glucose (74-99) mg/dL POC Glucose (mg/dL) 222 H 193 H (70-110) mg/dL Procalcitonin 8.70 H (0.02-0.09) ng/mL 09/08/22 09/09/22 09/09/22 Range/Units 19:53 05:41 05:41 RBC 3.66 L (4.30-5.90) m/uL Hgb 10.8 L (13.0-17.5) gm/dL Hct 34.3 L (39.0-53.0) % Sodium 136 L (137-145) mmol/L Glucose 151 H (74-99) mg/dL POC Glucose (mg/dL) 211 H (70-110) mg/dL Procalcitonin (0.02-0.09) ng/mL 09/09/22 Range/Units 06:29 RBC (4.30-5.90) m/uL Hgb (13.0-17.5) gm/dL Hct (39.0-53.0) % Sodium (137-145) mmol/L Glucose (74-99) mg/dL POC Glucose (mg/dL) 145 H (70-110) mg/dL Procalcitonin (0.02-0.09) ng/mL Microbiology - Last 24 Hours (Table) 09/06/22 11:24 Blood Culture - Preliminary Blood No Growth after 48 hours 09/06/22 11:24 Blood Culture - Preliminary Blood No Growth after 48 hours
--- NOTE | 2022-09-09 11:07 | P.PN ---
Progress Note - Text Patient remains in atrial fibrillation with RVR despite amiodarone and metoprolol Currently has Covid 19 infection No nonischemic adenopathy Known dysautonomia Acute GI bleeding as well as left lower lobe pneumonia Covid 19 infection IMPRESSION: A. fib with RVR Nonischemic cardiomyopathy, EF 30-35% Acute left lower lobe pneumonia Acute GI bleed Acute COVID-19 infection Add diltiazem 30 mg 3 times a day by mouth to current regimen We'll try weaning of IV Cardizem tomorrow This patient is not a candidate for an A. fib ablation
[2022-09-09 11:36] LABS: Glucose,Whole Blood 112 mg/dL (70-110)
--- NOTE | 2022-09-09 13:11 | P.PN ---
Subjective Progress Note Date: 09/09/22 61-year-old male who was initially seen in the emergency department, on September 04. We were consulted yesterday late. The patient apparently came to the emergency room, complaining of left-sided lateral chest pain, which is been going on for quite some time. In addition, the patient apparently developed some GI bleeding on the floor, which is when I was called. The patient was having atrial fibrillation with RVR, GI bleeding, and also having some respiratory difficulty. We decided to move him to the ICU. I came in last like to put in a right radial art line, and a left internal jugular triple-lumen catheter. Currently, he's seen in room 257. He's on 4 L of oxygen. He is getting Cardizem at 10 mg an hour, vasopressin at 0.04 units per minute, norepinephrine at 31 mcg/m, and saline at KVO. I added Zosyn this morning for pneumonia, and we will check a pro-calcitonin level. The patient will get 1-1/2 L of lactated Ringer's, his baseline IV will be increased to 75 mL an hour of saline, and we'll check blood urine and sputum cultures. CAT scan show what appeared to be some consolidation in the left lower lobe. The patient has a history of atrial fibrillation, diabetes, and hypertension. White count 16, with a normal hemoglobin, hematocrit, and platelet count. Sodium 131, potassium 4.2, chlorides 95, CO2 25, anion gap normal, BUN 51, and creatinine 2.19. 09/07. Patient seen and examined. Sitting upright in the chair. Had a small bowel movement with blood in it. Patient is being weaned off the pressors 09/08. Patient seen and examined. No acute issues overnight. Vital signs stable 09/09. Patient seen and examined. Patient pressors requirements have improved, patient has been weaned off the pressors. Hemoglobin continues to be stable at 11.8. No further episodes of blood in the stools. Denies any nausea or vomiting REVIEW OF SYSTEMS: CONSTITUTIONAL: No fever, no malaise,. CARDIOVASCULAR: No chest pain, no palpitations, no syncope. PULMONARY: No shortness of breath, no cough, GASTROINTESTINAL: No diarrhea, no nausea, no vomiting, no abdominal pain. NEUROLOGICAL: No headaches, no weakness, PHYSICAL EXAMINATION: GENERAL: The patient is alert and oriented x3, not in any acute distress. Well developed, well nourished. HEENT: Pupils are round and equally reacting to light. EOMI. No scleral icterus. No conjunctival pallor. Normocephalic, atraumatic. No pharyngeal erythema. No thyromegaly. CARDIOVASCULAR: S1 and S2 present. No murmurs, rubs, or gallops. PULMONARY: Chest is clear to auscultation, no wheezing or crackles. ABDOMEN: Soft, nontender, nondistended, normoactive bowel sounds. No palpable organomegaly. MUSCULOSKELETAL: No joint swelling or deformity. EXTREMITIES: No cyanosis, clubbing, or pedal edema. NEUROLOGICAL: Gross neurological examination did not reveal any focal deficits. SKIN: No rashes. Assessment and plan Hypotension, likely secondary to GI bleed, atrial fibrillation with RVR, and sepsis, secondary to left-sided pneumonia. Sepsis Bacterial pneumonia Acute gastrointestinal bleed. Acute atrial fibrillation with RVR. Nonischemic cardiomyopathy Acute on chronic kidney disease. Coronavirus infection. History of diabetes mellitus. History of hypertension. History of benign colon polyps. Plan; Monitor vital signs Monitor CBC Monitor CMP continue telemetry monitoring Follow-up blood cultures Continue IV Zosyn IV Cardizem and has been switched to oral Cardizem 30 mg 3 times daily Continue amiodarone 400 mg twice a day continue Lopressor Anticoagulation on hold secondary GI bleed Pressors weaned off Follow-up on cardiology recommendations Follow-up on critical-care recommendations General surgery evaluated the patient , recommend monitoring CBC and holding anticoagulation at this time, endoscopy possible tomorrow, currently on clear liquid diet Objective - Vital Signs Vital signs: Vital Signs Temp 97.7 F 09/08/22 20:00 Pulse 133 H 09/09/22 07:00 Resp 14 09/09/22 07:00 BP 105/62 09/09/22 02:00 Pulse Ox 95 09/09/22 09:16 FiO2 Intake & Output 09/08/22 09/09/22 09/09/22 18:59 06:59 18:59 Intake Total 2861.625 1373.580 185.648 Output Total 1645 1020 75 Balance 1216.625 353.580 110.648 Weight 112 kg Intake: IV 1172 972 81 0.9 900 900 75 Arterial & CVP Lines 72 72 6 Piperacillin-Tazobactam 3 200 .375 gm In Sodium Chloride 0.9% 100 ml @ 25 mls/hr IVPB Q8HR [facility] Rx# :[id number] Intake, IV Titration 271.625 151.580 104.648 Amount Diltiazem 125 mg In 30.583 Sodium Chloride 0.9% 100 ml @ Per Protocol IV .Q0M [facility] Rx#:[id number] Norepinephrine 32 mg In 99.772 51.580 2.648 Sodium Chloride 0.9% 218 ml @ 0.5 MCG/KG/MIN 25. 781 mls/hr IV .Q9H42M [facility] Rx#:[id number] Piperacillin-Tazobactam 3 100 .375 gm In Sodium Chloride 0.9% 100 ml @ 25 mls/hr IVPB Q8HR [facility] Rx# :[id number] Vasopressin 60 unit In 141.27 102 Sodium Chloride 0.9% 150 ml @ 0.04 UNITS/MIN 6.12 mls/hr IV .Q24H [facility] Rx#: [id number] Oral 1418 250 Output: Urine 1645 1020 75 Other: Voiding Method Toilet Indwelling Catheter ABP, PAP, CO, CI - Last Documented Arterial Blood Pressure 112/63 - Labs CBC & Chem 7: 09/09/22 05:41 09/09/22 05:41 Labs: Abnormal Lab Results - Last 24 Hours (Table) 09/08/22 09/08/22 09/08/22 Range/Units 09:15 11:14 16:34 RBC (4.30-5.90) m/uL Hgb (13.0-17.5) gm/dL Hct (39.0-53.0) % Sodium (137-145) mmol/L Glucose (74-99) mg/dL POC Glucose (mg/dL) 222 H 193 H (70-110) mg/dL Procalcitonin 8.70 H (0.02-0.09) ng/mL 09/08/22 09/09/22 09/09/22 Range/Units 19:53 05:41 05:41 RBC 3.66 L (4.30-5.90) m/uL Hgb 10.8 L (13.0-17.5) gm/dL Hct 34.3 L (39.0-53.0) % Sodium 136 L (137-145) mmol/L Glucose 151 H (74-99) mg/dL POC Glucose (mg/dL) 211 H (70-110) mg/dL Procalcitonin (0.02-0.09) ng/mL 09/09/22 Range/Units 06:29 RBC (4.30-5.90) m/uL Hgb (13.0-17.5) gm/dL Hct (39.0-53.0) % Sodium (137-145) mmol/L Glucose (74-99) mg/dL POC Glucose (mg/dL) 145 H (70-110) mg/dL Procalcitonin (0.02-0.09) ng/mL Microbiology - Last 24 Hours (Table) 09/06/22 11:24 Blood Culture - Preliminary Blood No Growth after 48 hours 09/06/22 11:24 Blood Culture - Preliminary Blood No Growth after 48 hours
[2022-09-09] MEDS: ACETAMINOPHEN TAB 325 MG TAB PO PRN (16:19)
[2022-09-09 16:29] LABS: Glucose,Whole Blood 136 mg/dL (70-110)
[2022-09-09 16:57] LABS: Glucose,Whole Blood 148 mg/dL (70-110)
[2022-09-09 20:03] LABS: Glucose,Whole Blood 224 mg/dL (70-110)
[2022-09-09] MEDS: TAMSULOSIN 0.4 MG CAP.ER.24H PO SCH (20:42)
[2022-09-09] MEDS: ATORVASTATIN 20 MG TAB PO SCH (20:42)
[2022-09-09] MEDS: MELATONIN 3 MG TABLET PO PRN (21:10)
[2022-09-10] MEDS: traMADol 50 MG TAB PO PRN ×3 (04:42→20:42)
[2022-09-10 05:40] LABS: Basophils % (A) 0 %; Eosinophils # (A) 0.2 k/uL (0-0.7); Eosinophils % (A) 3 %; HGB 11.1 gm/dL (13.0-17.5); Hypochromasia Slight; Lymphocytes # (A) 1.2 k/uL (1.0-4.8); Lymphocytes % (A) 15 %; MCH 30.1 pg (25.0-35.0); MCHC 32.5 g/dL (31.0-37.0); MCV 92.6 fL (80.0-100.0); Mean Platelet Volume 9.9; Monocytes # (A) 0.4 k/uL (0-1.0); Monocytes % (A) 5 %; Neutrophils # (A) 5.7 k/uL (1.3-7.7); Neutrophils % (A) 75 %; Platelet Count 277 k/uL (150-450); RBC 3.67 m/uL (4.30-5.90); RDW 14.9 % (11.5-15.5); WBC 7.6 k/uL (3.8-10.6)
[2022-09-10 05:55] LABS: Potassium 3.3 mmol/L (3.5-5.1)
[2022-09-10 05:56] LABS: African American GFR (CKD) >90 (>60 ml/min/1.73 sqM); Anion Gap 2 mmol/L; Blood Urea Nitrogen 11 mg/dL (9-20); Calcium 8.5 mg/dL (8.4-10.2); Carbon Dioxide 26 mmol/L (22-30); Chloride 107 mmol/L (98-107); Glucose 111 mg/dL (74-99); Non-African American GFR(CKD) >90 (>60 ml/min/1.73 sqM); Sodium 135 mmol/L (137-145)
[2022-09-10] MEDS ORDERED: Potassium Replacement Protocol 1 EACH MISC MISCELLANE PRN (06:07)
[2022-09-10 06:37] LABS: Glucose,Whole Blood 100 mg/dL (70-110)
[2022-09-10] MEDS: MIDODRINE 5 MG TAB PO SCH ×3 (06:38→16:54)
[2022-09-10] MEDS: POTASSIUM CHLORIDE ER 20 MEQ TAB.ER PO SCH ×2 (06:38→07:55)
[2022-09-10] MEDS: INSULIN ASPART (NovoLOG) 100 UNIT/ML VIAL SQ SCH ×4 (06:39→20:42)
[2022-09-10] MEDS ORDERED: POTASSIUM CHLORIDE ER 20 MEQ TAB.ER PO SCH (07:00)
[2022-09-10] MEDS: NOREPINEPHRINE 32 MG in SODIUM CHLORIDE 0.9% 218 ML IV SCH ×2 (07:42→11:44)
[2022-09-10] MEDS: SODIUM CHLORIDE 0.9% 1,000 ML IV SCH ×2 (07:42→13:10)
[2022-09-10] MEDS: PIPERACILLIN-TAZOBACTAM 3.375 GM in SODIUM CHLORIDE 0.9% 100 ML IVPB SCH ×2 (07:55→15:52)
[2022-09-10] MEDS: ACETAMINOPHEN TAB 325 MG TAB PO PRN (07:55)
[2022-09-10] MEDS: METOPROLOL TARTRATE 50 MG TAB PO SCH ×3 (08:53→21:30)
[2022-09-10] MEDS: PANTOPRAZOLE 40 MG/10 ML VIAL IVP SCH ×2 (08:53→20:42)
[2022-09-10] MEDS: LINAGLIPTIN 5 MG TABLET PO SCH (08:53)
[2022-09-10] MEDS: AMIODARONE 200 MG TAB PO SCH ×2 (08:53→20:45)
[2022-09-10] MEDS: GABAPENTIN 100 MG CAP PO SCH ×2 (08:53→20:42)
[2022-09-10] MEDS: DAPAGLIFLOZIN PROPANEDIOL 10 MG TABLET PO SCH (08:53)
[2022-09-10] MEDS: DILTIAZEM ORAL 30 MG TAB PO SCH ×3 (08:54→21:30)
[2022-09-10] MEDS: SPIRONOLACTONE 25 MG TAB PO SCH (08:54)
[2022-09-10] MEDS: PIOGLITAZONE 45 MG TAB PO SCH (08:54)
--- NOTE | 2022-09-10 09:22 | P.PN ---
Subjective Progress Note Date: 09/10/22 61-year-old male patient hospitalized for hypotension along with itchy fibrillation with rapid ventricular response. He also had some GI bleeding on the floor prior to him coming to the intensive care unit. The patient as such was brought into the ICU with A. fib RVR and GI bleed. Subsequently, he turnout to be Covid positive also. Chest x-ray showing cardiomegaly, increased interstitial markings in addition to a left lower lobe consolidation. This is an x-ray that was done yesterday. His chest x-ray at the time of admission looks essentially the same. Based on all this, the patient was brought into the intensive care unit. His itchy fibrillation is currently controlled with Cardizem drip which is running at 5 mg an hour. The patient is also on amiodarone by mouth at a dose of 100 mg twice a day. The patient is on no anticoagulation as the patient was having GI bleeding. The patient was having episodic GI bleed with bright red blood per rectum which progressively became more dark and this morning it's greenish black. As such, no antigravity which has been provided and the patient is likely going to require a EGD/colonoscopy and this is scheduled to be done by general surgeon within the next 24 hours. Meanwhile, he was resuscitated with IV fluids. IV fluids are currently running 0.9 at the rate of 75 mL an hours. He is currently on pressors with norepinephrine at 0.12 microvascular kilogram per minute and vasopressin and physiologic dose. He had an acute kidney injury and the creatinine was as high as 2.34 which is essentially recovered and the creatinine is essentially normalized. No cultures are available. His pro calcitonin level is at 22 and the patient is currently on IV Zosyn. He is known to have an underlying cardiomyopathy with systolic heart failure and previous admissions has shown impaired LV function with an ejection fraction of 30-35%. Noted the CAT scan of the abdomen and the chest that was done at time of admission showed an extensive consolidation of the lateral segment and the posterior segment of the left lower lobe in addition to development of a small left-sided pleural effusion. His abdomen was essentially within normal limits. Noted the patient also had a hemoglobin drop from 13.4 at time of admission which came up to 15.6 and subsequently dropped down to 10.7 this morning. The patient has not required any packed RBC transfusions. Review of previous echocardiogram that was done on 08/14/2022 showed systolic heart failure, global decrease in the contractility with an ejection fraction of 30-35%. On today's evaluation of 09/09/2022, the patient is being seen for a follow-up. The patient is being treated for a extensive left lower lobe pneumonia, sepsis, hypotension, itchy fibrillation with RVR and GI bleed. The patient also Covid 19 positive. Chest x-ray still showing consolidation of the lower lobes or so o n the left. No major interval change compared to yesterday. The white cell count at 7.8. Cultures have been negative. Legionella urine antigen was also negative. The patient had a pro-calcitonin level of 8.7 and this was obtained yesterday and the level is obviously improving and as such no further antibiotic modifications was done and the patient was Zosyn As the Pro Calcitonin Level Has Been Improving. As Far As Pressor Requirements, the Patient Is on Vasopressin Physiologic Dose and Norepinephrine Which Is Running at 0.04 mcg/kg/m. As such, the pressor requirements have improved considerably over the past 24 hours. The patient is able sit up on a chair. The patient is still in atrial fibrillation. The patient is still tachycardic. In terms of A. fib, the patient is on amiodarone 400 mg by mouth twice a day, he is on metoprolol 150 mg by mouth twice a day, and he is also on Cardizem which has been switched to oral 30 mg by mouth 3 times a day. He is on no anticoagulants as the patient presented originally with GI bleeding. Note that he is scheduled to have EGD and colo noscopy over the next 24-48 hours. The patient's hemoglobin meanwhile has remained stable at 10.8 and the patient has not had any further episode of GI bleeding. In terms of his acute kidney injury, this is recovered and the creatinine is down to 0.8. Sodium level is at 136 and the chloride is 105. The patient is awake and alert and communicating. He is on oxygen at 2 L/m nasal cannula. His echocardiogram from 08/14/2022 so it systolic heart failure with an ejection fraction of 30-35%. No angina. No palpitations. No other significant events overnight. On today's evaluation of 09/10/2022, the patient is sitting up on a chair and he is on room air oxygen. Repeat pro-calcitonin level is pending from today. He is being treated for extensive left lower lobe pneumonia and also had some right basilar pulmonary infiltrates and a most recent chest x-ray. No chest x-rays available from today. The white cell count is down to 7.6 with a hemoglobin of 11.1. Rest of the electrolytes are all stable and the patient remains on IV Zosyn for now. As mentioned, all of the cultures were essentially negative. In terms of his cardiac status, he has a cardiomyopathy with ejection fraction of 30-35% and the patient also has issues with a atiral fibrillation with rapid ventricular response. This was exacerbated time of his pneumonia and sepsis. The patient is under better control in terms of atrial fibrillation. Currently is on a combination of metoprolol 100 mg by mouth 3 times a day, Cardizem 30 mg by mouth 3 times a day, amiodarone 400 mg by mouth 3 times a day and is not rece iving any anticoagulation due to concerns of GI bleed. Noted no active GI bleed has been witnessed over the past 48 hours. His hemoglobin remained stable. The patient is going to be going to undergo his bowel prep today, and the patient is going to have an EGD and colonoscopy tomorrow. He is using the incentive spirometer. His calm and comfortable. No significant respiratory distress. No cough or congestion. He was weaned off the FiO2 and currently is on room air oxygen. In terms of his hemodynamics, the patient is still requiring low-dose norepinephrine. Vasopressin was discontinued and the patient is only on 0.02 microvascular kilogram per minute of norepinephrine infusion to support his blood pressure. I'm hoping that this will be discontinued also today. Objective - Vital Signs Vital signs: Vital Signs Temp 97.5 F L 09/10/22 01:00 Pulse 117 H 09/10/22 07:00 Resp 15 09/10/22 07:00 BP 96/68 09/10/22 07:00 Pulse Ox 97 09/10/22 05:00 FiO2 Intake & Output 09/09/22 09/10/22 09/10/22 18:59 06:59 18:59 Intake Total 2244.312 8491.085 78 Output Total 1080 1195 100 Balance 772.947 -1.915 -22 Weight 112 kg 114.7 kg Intake: IV 1045 936 78 0.9 900 900 75 Arterial & CVP Lines 45 36 3 Piperacillin-Tazobactam 3 100 .375 gm In Sodium Chloride 0.9% 100 ml @ 25 mls/hr IVPB Q8HR [facility] Rx# :[id number] Intake, IV Titration 107.947 17.085 0 Amount Norepinephrine 32 mg In 5.947 17.085 0 Sodium Chloride 0.9% 218 ml @ 0.5 MCG/KG/MIN 25. 781 mls/hr IV .Q9H42M [facility] Rx#:[id number] Vasopressin 60 unit In 102 Sodium Chloride 0.9% 150 ml @ 0.04 UNITS/MIN 6.12 mls/hr IV .Q24H [facility] Rx#: [id number] Oral 450 240 Tube Feeding 250 Output: Urine 1080 1195 100 Other: Voiding Method Indwelling Catheter Indwelling Catheter ABP, PAP, CO, CI - Last Documented Arterial Blood Pressure 96/50 - Exam No acute distress, oriented 3. Currently on room air. No audible wheezing, use of accessory muscles, or conversational dyspnea. The patient is currently on room air oxygen. HEENT examination is grossly unremarkable. Neck supple. Full range of motion. No adenopathy thyromegaly or neck vein distention. Cardiovascular examination reveals an irregular rhythm and rate. S1-S2 normal. No S3 or S4. No discernible murmur noted. Lungs reveal scattered bilateral rhonchi. Breath sounds equal. No wheezes. Minimal scattered basilar crackles. Abdomen soft bowel sounds are heard. No masses or tenderness. Extremities are intact. No cyanosis clubbing or edema. Skin is without rash or lesion. Neurologic examination is brief but nonfocal. - Labs CBC & Chem 7: 09/10/22 05:17 09/10/22 05:17 Labs: Abnormal Lab Results - Last 24 Hours (Table) 09/09/22 09/09/22 09/09/22 Range/Units 11:35 16:27 16:55 RBC (4.30-5.90) m/uL Hgb (13.0-17.5) gm/dL Hct (39.0-53.0) % Sodium (137-145) mmol/L Potassium (3.5-5.1) mmol/L Glucose (74-99) mg/dL POC Glucose (mg/dL) 112 H 136 H 148 H (70-110) mg/dL 09/09/22 09/10/22 09/10/22 Range/Units 20:01 05:17 05:17 RBC 3.67 L (4.30-5.90) m/uL Hgb 11.1 L (13.0-17.5) gm/dL Hct 34.0 L (39.0-53.0) % Sodium 135 L (137-145) mmol/L Potassium 3.3 L (3.5-5.1) mmol/L Glucose 111 H (74-99) mg/dL POC Glucose (mg/dL) 224 H (70-110) mg/dL Microbiology - Last 24 Hours (Table) 09/06/22 11:24 Blood Culture - Preliminary Blood No Growth after 72 hours 09/06/22 11:24 Blood Culture - Preliminary Blood No Growth after 72 hours Assessment and Plan Plan: Acute left lower lobe pneumonia with extensive consolidation of the left lower lobe posterior and lateral segment was small left-sided pleural effusion, pro calcitonin level was elevated and the patient was septic at the time of admi ssion with hypotension and GI bleed. The chest x-ray findings are stable. The patient has bilateral lower lobe consolidation worse on the left. Pro- calcitonin level is improving. The patient remains on Zosyn. Pressor requirements have improved and based on that The patient on same antibiotic co verage which is IV Zosyn. The patient is doing well. No x-rays from today. Repeat pro-calcitonin level is pending. Is currently on room air oxygen. Acute hypoxic respiratory failure, currently on room air oxygen and the patient's occupation is improved Covid 19 infection, incidental finding, probably not related to the current presentation Sepsis/hypotension, pressor dependent, still on norepinephrine running at 0.04 mcg/kg/m and the patient is currently off vasopressin, attempts to wean off the norepinephrine still being done. Chronic atrial fibrillation with RVR, and sepsis, secondary to left-sided pneumonia. The patient's rate is under better control with a combination of Cardizem semiconductor packages leak tester in addition to metoprolol and amiodarone orally. No anticoagulants. The patient's heart rate is less tachycardic, irregular and the patient has underlying cardiac myopathy with an ejection fraction of 30-35% Cardiomyopathy with systolic heart failure and ejection fraction of 30 35% Acute gastrointestinal bleed, hemoglobin is stable at 11 and the patient has not required any packed RBC transfusion. Awaiting colonoscopies Acute kidney injury, recovered Severe obstructive sleep apnea, with an AHI of 40.7 worse during REM sleep. Diagnosed back in May 2022 and subsequently the patient underwent a titration and given an APAP machine pressures of 6/15 cm of water. History of diabetes mellitus. History of hypertension. History of benign colon polyps. Previous history of tobacco use. Plan: Repeat provide incentive spirometer Repeat pro-calcitonin level today is pending. The trend was essentially going down as the patient was improving. Continue IV Zosyn Check a Legionella urine antigen was checked and the levels came back negative The Covid 19 infection was essentially an incidental finding Change IV fluids to KVO Wean off pressors and discontinue The bowel prep to be done today and EGD and colonoscopy tomorrow. Once cleared, the patient can start also on anticoagulation Continue oral amiodarone Continue the metoprolol at a dose of 100mg TID a day, amiodarone 400 mg by mouth twice a day, and oral Cardizem 30 mg by mouth 3 times a day. No anticoagulants for now EGD colonoscopy probably the next 24 hours Blood sugar management using his own CPAP machine from home which is an APAP unit pressures of 6/15 cm of water We'll continue to follow
--- NOTE | 2022-09-10 09:56 | P.PN ---
Subjective Progress Note Date: 09/10/22 The patient is a 61-year-old male who is currently admitted with acute COVID-19 infection and pneumonia. He initially presented with back pain. Cardiology was consulted for A. fib with RVR. He has a history of A. fib with RVR and was recently cardioverted. He also has a known history of nonischemic car diomyopathy with EF around 30-35%. Over the course of his admission he has also found to have an acute GI bleed with colonoscopy and upper endoscopy pending. Throughout his ICU admission he has been on and off Levophed and vasopressin. According to nursing staff, his Levophed was discontinued this morning and he is currently on no vasopressors. His heart rate is currently in the 120s on oral a miodarone, oral Cardizem, and oral beta richard. Nursing staff states that his blood pressure will typically decline after his a.m. and p.m. dose of medications. Upper and lower endoscopy is currently on hold until blood pressure stabilizes. VITALS: Blood pressure 96/50, heart rate 117, respiratory rate 15, SpO2 97% on 2 L nasal cannula TELEMETRY: Atrial fibrillation with heart rates in the 120s LABS: WBC 7.6, hemoglobin 11.1, hematocrit 34.0, platelet 277, sodium 135, potassium 3.3, BUN 11, creatinine 0.70 IMPRESSION: A. fib with RVR Nonischemic cardiomyopathy, EF 30-35% Acute left lower lobe pneumonia Acute GI bleed Acute COVID-19 infection PLAN: Switch to metoprolol tartrate 100 mg 3 times a day Proceed with upper and lower endoscopy when stable Further recommendations to be based upon clinical course I am dictating on behalf of Dr Cayden Bernstein's history/physical and assessme nt/plan. Objective - Vital Signs Vital signs: Vital Signs Temp 97.5 F L 09/10/22 01:00 Pulse 117 H 09/10/22 07:00 Resp 15 09/10/22 07:00 BP 96/68 09/10/22 07:00 Pulse Ox 97 09/10/22 05:00 FiO2 Intake & Output 09/09/22 09/10/22 09/10/22 18:59 06:59 18:59 Intake Total 6411.987 3079.085 78 Output Total 1080 1195 100 Balance 772.947 -1.915 -22 Weight 112 kg 114.7 kg Intake: IV 1045 936 78 0.9 900 900 75 Arterial & CVP Lines 45 36 3 Piperacillin-Tazobactam 3 100 .375 gm In Sodium Chloride 0.9% 100 ml @ 25 mls/hr IVPB Q8HR [facility] Rx# :[id number] Intake, IV Titration 107.947 17.085 0 Amount Norepinephrine 32 mg In 5.947 17.085 0 Sodium Chloride 0.9% 218 ml @ 0.5 MCG/KG/MIN 25. 781 mls/hr IV .Q9H42M [facility] Rx#:[id number] Vasopressin 60 unit In 102 Sodium Chloride 0.9% 150 ml @ 0.04 UNITS/MIN 6.12 mls/hr IV .Q24H [facility] Rx#: [id number] Oral 450 240 Tube Feeding 250 Output: Urine 1080 1195 100 Other: Voiding Method Indwelling Catheter Indwelling Catheter ABP, PAP, CO, CI - Last Documented Arterial Blood Pressure 96/50 - Labs CBC & Chem 7: 09/10/22 05:17 09/10/22 05:17 Labs: Abnormal Lab Results - Last 24 Hours (Table) 09/09/22 09/09/22 09/09/22 Range/Units 11:35 16:27 16:55 RBC (4.30-5.90) m/uL Hgb (13.0-17.5) gm/dL Hct (39.0-53.0) % Sodium (137-145) mmol/L Potassium (3.5-5.1) mmol/L Glucose (74-99) mg/dL POC Glucose (mg/dL) 112 H 136 H 148 H (70-110) mg/dL 09/09/22 09/10/22 09/10/22 Range/Units 20:01 05:17 05:17 RBC 3.67 L (4.30-5.90) m/uL Hgb 11.1 L (13.0-17.5) gm/dL Hct 34.0 L (39.0-53.0) % Sodium 135 L (137-145) mmol/L Potassium 3.3 L (3.5-5.1) mmol/L Glucose 111 H (74-99) mg/dL POC Glucose (mg/dL) 224 H (70-110) mg/dL Microbiology - Last 24 Hours (Table) 09/06/22 11:24 Blood Culture - Preliminary Blood No Growth after 72 hours 09/06/22 11:24 Blood Culture - Preliminary Blood No Growth after 72 hours
--- NOTE | 2022-09-10 10:28 | CDI ---
Documentation Clarification Form Date: 09/09/2022 7:16:00 PM From: Ai Dueñas RN, CCDS Admit Date: 09/04/2022 2:45:00 PM Patient Name: Kaylen Majano Visit Number: [id number] Discharge Date: ATTENTION: The Clinical Documentation Specialists (CDI) and [facility] Coding Staff appreciate your assistance in clarifying documentation. Please respond to the clarification below the line at the bottom and electronically sign. The CDI & [facility] Coding staff will review the response and follow-up if needed. Please note: Queries are made part of the Legal Health Record. If you have any questions, please contact the author of this message via ITS. Dr. Jason Lamb The patient was admitted on 09/04/22, has sepsis documented in pulmonary progress notes starting on 09/06 and attending progress notes starting on 09/07/22. Based on this information and the findings below, is there an additional diagnosis that is clinically appropriate for this patient? 09/08 Pulmonary progress notes: Acute left lower lobe pneumonia with extensive consolidation of the left lower lobe posterior lateral segment was small left- sided pleural effusion, procalcitonin level was elevated and the patient was septic at the time of admission with hypotension and GI bleed. History/Risk Factors: Atrial fibrillation, Diabetes, Hypertension Clinical Indicators: 61-year-old male present on 09/04/22 with left sided chest pain, developed GI bleeding and having some respiratory difficulty. He was in atrial fibrillation with RVR. 09/04 CT scan chest: Left pleural effusion and left lower lobe airspace consolidation and atelectasis. 09/04 CXR: Similar small left pleural effusion with adjacent airspace opacity may represent atelectasis and/or infiltrate 09/04 WBC 9.8, Total Bili 1.6, ALT 76, BUN 46, CR 1.67, C - reactive protein 7.5, BNP 3240 COVID-19 Positive Procalcitonin 0.30 09/06 Blood cultures: Pending, No growth after 72 hours 09/04 Vital signs: 99/60 66 20 97.9, 88/73 133 19 96 % RA 09/05 Vital signs: 76/52 140 15 102.3 100 % NRB Treatment: Public Health Dentist/Telemetry Zosyn 3.375 GM IVPB Q 12 HRS 09/06-09/10 .9 NS 500 ML IV Bolus 09/04 Levophed drip (per orders 09/05-09/10 Is there an additional diagnosis that is clinically appropriate for this patient? [ ] Sepsis, present on admission [ ] Sepsis, developed during stay, not present on admission [ ] Severe Sepsis with organ failure (specify) [ ] Sepsis, POA, and developed Septic Shock [ ] Other, please specify [ ] Unable to determine SIRS Criteria: 2 or more of the following may indicate SIRS Temperature < 96.8F (36C) or > 101.0F (38.3C) Heart Rate > 90 bpm Respiratory Rate > 20 breaths/min or PaCO2 < 32 mmHg White Blood Cell Count > 12,000 or < 4,000 cells/mm3 or > 10% bands (Template Last Reviewed: June 2022) 09/08 Acute left lower lobe pneumonia with extensive consolidation of the left lower lobe posterior and lateral segment was small left-sided pleural effusion, pro calcitonin level was elevated and the patient was septic at the time of admission with hypotension and GI bleed.The patient is still on pressors Dictated By: Xavier Ramírez MD Signed By: <Electronically signed by Xavier Ramírez MD> 09/08/22 0810 MTDD
[2022-09-10 11:47] LABS: Glucose,Whole Blood 205 mg/dL (70-110)
[2022-09-10] MEDS ORDERED: PEG 3350 (236 GM/BTL) + LYTES 4,000 ML BOTTLE PO ONE (12:34)
--- NOTE | 2022-09-10 12:36 | P.PN ---
Subjective Progress Note Date: 09/10/22 CHIEF COMPLAINT: GI bleed HISTORY OF PRESENT ILLNESS: Patient hospitalized with hypotension, pneumonia, A. fib RVR. The patient had GI bleeding on the floor prior to coming to the ICU. He is off of anticoagulation. Patient remains in the ICU. Patient's last BM was yesterday it was brown in color. He continues to have no abdominal pain. Denies any nausea or vomiting. Currently on a clear liquid diet. Patient is on a small amount of Levophed. They're trying to wean it off today. Afebrile. H eart rate 104 BP 98/72. WBC 7.6 HGB 11.1 K 3.3 PHYSICAL EXAM: VITAL SIGNS: Reviewed. GENERAL: Well-developed in no acute distress. HEENT: No sclera icterus. Extraocular movements grossly intact. Moist buccal mucosa. Head is atraumatic, normocephalic. ABDOMEN: Soft. Nondistended. Nontender. NEUROLOGIC: Alert and oriented. Cranial nerves II through XII grossly intact. ASSESSMENT: 1. GI bleed 2. Pneumonia 3. Covid positive 4. A. fib PLAN: -EGD and colonoscopy scheduled for tomorrow, 09/11/[address] Hylton -continue clear liquids -Start GoLYTELY bowel prep -Nothing by mouth after midnight -Potassium being replaced -Continue to monitor hemoglobin -Continue to monitor signs and symptoms of bleeding -No anticoagulants Physician Director Of Restaurants note has been reviewed by physician. Signing provider agrees with the documented findings, assessment, and plan of care. Objective - Vital Signs Vital signs: Vital Signs Temp 97.7 F 09/10/22 08:00 Pulse 104 H 09/10/22 10:00 Resp 14 09/10/22 10:00 BP 98/72 09/10/22 10:00 Pulse Ox 96 09/10/22 10:00 FiO2 Intake & Output 09/09/22 09/10/22 09/10/22 18:59 06:59 18:59 Intake Total 9036.198 0418.085 507 Output Total 1080 1195 360 Balance 772.947 -1.915 147 Weight 112 kg 114.7 kg Intake: IV 1045 936 257 0.9 900 900 245 Arterial & CVP Lines 45 36 12 Piperacillin-Tazobactam 3 100 .375 gm In Sodium Chloride 0.9% 100 ml @ 25 mls/hr IVPB Q8HR [facility] Rx# :[id number] Intake, IV Titration 107.947 17.085 0 Amount Norepinephrine 32 mg In 5.947 17.085 0 Sodium Chloride 0.9% 218 ml @ 0.5 MCG/KG/MIN 25. 781 mls/hr IV .Q9H42M [facility] Rx#:[id number] Vasopressin 60 unit In 102 Sodium Chloride 0.9% 150 ml @ 0.04 UNITS/MIN 6.12 mls/hr IV .Q24H [facility] Rx#: [id number] Oral 450 240 250 Tube Feeding 250 Output: Urine 1080 1195 360 Other: Voiding Method Indwelling Catheter Indwelling Catheter Indwelling Catheter ABP, PAP, CO, CI - Last Documented Arterial Blood Pressure 87/53 - Labs CBC & Chem 7: 09/10/22 05:17 09/10/22 05:17 Labs: Abnormal Lab Results - Last 24 Hours (Table) 09/09/22 09/09/22 09/09/22 Range/Units 11:35 16:27 16:55 RBC (4.30-5.90) m/uL Hgb (13.0-17.5) gm/dL Hct (39.0-53.0) % Sodium (137-145) mmol/L Potassium (3.5-5.1) mmol/L Glucose (74-99) mg/dL POC Glucose (mg/dL) 112 H 136 H 148 H (70-110) mg/dL Procalcitonin (0.02-0.09) ng/mL 09/09/22 09/10/22 09/10/22 Range/Units 20:01 05:17 05:17 RBC 3.67 L (4.30-5.90) m/uL Hgb 11.1 L (13.0-17.5) gm/dL Hct 34.0 L (39.0-53.0) % Sodium (137-145) mmol/L Potassium (3.5-5.1) mmol/L Glucose (74-99) mg/dL POC Glucose (mg/dL) 224 H (70-110) mg/dL Procalcitonin 2.03 H (0.02-0.09) ng/mL 09/10/22 Range/Units 05:17 RBC (4.30-5.90) m/uL Hgb (13.0-17.5) gm/dL Hct (39.0-53.0) % Sodium 135 L (137-145) mmol/L Potassium 3.3 L (3.5-5.1) mmol/L Glucose 111 H (74-99) mg/dL POC Glucose (mg/dL) (70-110) mg/dL Procalcitonin (0.02-0.09) ng/mL Microbiology - Last 24 Hours (Table) 09/06/22 11:24 Blood Culture - Preliminary Blood No Growth after 72 hours 09/06/22 11:24 Blood Culture - Preliminary Blood No Growth after 72 hours
--- NOTE | 2022-09-10 15:17 | P.PN ---
Subjective Progress Note Date: 09/10/22 61-year-old male who was initially seen in the emergency department, on September 04. We were consulted yesterday late. The patient apparently came to the emergency room, complaining of left-sided lateral chest pain, which is been going on for quite some time. In addition, the patient apparently developed some GI bleeding on the floor, which is when I was called. The patient was having atrial fibrillation with RVR, GI bleeding, and also having some respiratory difficulty. We decided to move him to the ICU. I came in last like to put in a right radial art line, and a left internal jugular triple-lumen catheter. Currently, he's seen in room 257. He's on 4 L of oxygen. He is getting Cardizem at 10 mg an hour, vasopressin at 0.04 units per minute, norepinephrine at 31 mcg/m, and saline at KVO. I added Zosyn this morning for pneumonia, and we will check a pro-calcitonin level. The patient will get 1-1/2 L of lactated Ringer's, his baseline IV will be increased to 75 mL an hour of saline, and we'll check blood urine and sputum cultures. CAT scan show what appeared to be some consolidation in the left lower lobe. The patient has a history of atrial fibrillation, diabetes, and hypertension. White count 16, with a normal hemoglobin, hematocrit, and platelet count. Sodium 131, potassium 4.2, chlorides 95, CO2 25, anion gap normal, BUN 51, and creatinine 2.19. 09/07. Patient seen and examined. Sitting upright in the chair. Had a small bowel movement with blood in it. Patient is being weaned off the pressors 09/08. Patient seen and examined. No acute issues overnight. Vital signs stable 09/09. Patient seen and examined. Patient pressors requirements have improved, patient has been weaned off the pressors. Hemoglobin continues to be stable at 11.8. No further episodes of blood in the stools. Denies any nausea or vomiting 09/10. Patient seen and examined. Patient was off the pressors yesterday but overnight had to be resumed back on small amount of Levophed. Currently maintaining his map, not symptomatic. Hemoglobin is stable REVIEW OF SYSTEMS: CONSTITUTIONAL: No fever, no malaise,. CARDIOVASCULAR: No chest pain, no palpitations, no syncope. PULMONARY: No shortness of breath, no cough, GASTROINTESTINAL: No diarrhea, no nausea, no vomiting, no abdominal pain. NEUROLOGICAL: No headaches, no weakness, PHYSICAL EXAMINATION: GENERAL: The patient is alert and oriented x3, not in any acute distress. Well developed, well nourished. HEENT: Pupils are round and equally reacting to light. EOMI. No scleral icterus. No conjunctival pallor. Normocephalic, atraumatic. No pharyngeal erythema. No thyromegaly. CARDIOVASCULAR: S1 and S2 present. No murmurs, rubs, or gallops. PULMONARY: Chest is clear to auscultation, no wheezing or crackles. ABDOMEN: Soft, nontender, nondistended, normoactive bowel sounds. No palpable organomegaly. MUSCULOSKELETAL: No joint swelling or deformity. EXTREMITIES: No cyanosis, clubbing, or pedal edema. NEUROLOGICAL: Gross neurological examination did not reveal any focal deficits. SKIN: No rashes. Assessment and plan Hypotension, likely secondary to GI bleed, atrial fibrillation with RVR, and sepsis, secondary to left-sided pneumonia. Sepsis Bacterial pneumonia Acute gastrointestinal bleed. Acute atrial fibrillation with RVR. Nonischemic cardiomyopathy Acute on chronic kidney disease. Coronavirus infection. History of diabetes mellitus. History of hypertension. History of benign colon polyps. Plan; Monitor vital signs Monitor CBC Monitor CMP continue telemetry monitoring Follow-up blood cultures Continue IV Zosyn Continue oral Cardizem 30 mg 3 times daily Continue amiodarone 400 mg twice a day continue Lopressor Anticoagulation on hold secondary GI bleed Follow-up on cardiology recommendations Follow-up on critical-care recommendations General surgery evaluated the patient , EGD and colonoscopy scheduled for tomorrow Objective - Vital Signs Vital signs: Vital Signs Temp 97.7 F 09/10/22 12:00 Pulse 112 H 09/10/22 14:00 Resp 11 L 09/10/22 14:00 BP 78/58 09/10/22 14:00 Pulse Ox 97 09/10/22 14:00 FiO2 Intake & Output 09/09/22 09/10/22 09/10/22 18:59 06:59 18:59 Intake Total 2068.151 1597.085 599 Output Total 1080 1195 785 Balance 772.947 -1.915 -186 Weight 112 kg 114.7 kg Intake: IV 1045 936 349 0.9 900 900 325 Arterial & CVP Lines 45 36 24 Piperacillin-Tazobactam 3 100 .375 gm In Sodium Chloride 0.9% 100 ml @ 25 mls/hr IVPB Q8HR [facility] Rx# :[id number] Intake, IV Titration 107.947 17.085 0 Amount Norepinephrine 32 mg In 5.947 17.085 0 Sodium Chloride 0.9% 218 ml @ 0.5 MCG/KG/MIN 25. 781 mls/hr IV .Q9H42M [facility] Rx#:[id number] Vasopressin 60 unit In 102 Sodium Chloride 0.9% 150 ml @ 0.04 UNITS/MIN 6.12 mls/hr IV .Q24H [facility] Rx#: [id number] Oral 450 240 250 Tube Feeding 250 Output: Urine 1080 1195 785 Other: Voiding Method Indwelling Catheter Indwelling Catheter Indwelling Catheter ABP, PAP, CO, CI - Last Documented Arterial Blood Pressure 98/63 - Labs CBC & Chem 7: 09/10/22 05:17 09/10/22 05:17 Labs: Abnormal Lab Results - Last 24 Hours (Table) 09/09/22 09/09/22 09/09/22 Range/Units 16:27 16:55 20:01 RBC (4.30-5.90) m/uL Hgb (13.0-17.5) gm/dL Hct (39.0-53.0) % Sodium (137-145) mmol/L Potassium (3.5-5.1) mmol/L Glucose (74-99) mg/dL POC Glucose (mg/dL) 136 H 148 H 224 H (70-110) mg/dL Procalcitonin (0.02-0.09) ng/mL 09/10/22 09/10/22 09/10/22 Range/Units 05:17 05:17 05:17 RBC 3.67 L (4.30-5.90) m/uL Hgb 11.1 L (13.0-17.5) gm/dL Hct 34.0 L (39.0-53.0) % Sodium 135 L (137-145) mmol/L Potassium 3.3 L (3.5-5.1) mmol/L Glucose 111 H (74-99) mg/dL POC Glucose (mg/dL) (70-110) mg/dL Procalcitonin 2.03 H (0.02-0.09) ng/mL 09/10/22 Range/Units 11:46 RBC (4.30-5.90) m/uL Hgb (13.0-17.5) gm/dL Hct (39.0-53.0) % Sodium (137-145) mmol/L Potassium (3.5-5.1) mmol/L Glucose (74-99) mg/dL POC Glucose (mg/dL) 205 H (70-110) mg/dL Procalcitonin (0.02-0.09) ng/mL Microbiology - Last 24 Hours (Table) 09/06/22 11:24 Blood Culture - Preliminary Blood No Growth after 96 hours 09/06/22 11:24 Blood Culture - Preliminary Blood No Growth after 96 hours
[2022-09-10 16:33] LABS: Glucose,Whole Blood 176 mg/dL (70-110)
[2022-09-10 20:02] LABS: Glucose,Whole Blood 200 mg/dL (70-110)
[2022-09-10] MEDS: MELATONIN 3 MG TABLET PO PRN (20:44)
[2022-09-10] MEDS: ATORVASTATIN 20 MG TAB PO SCH (20:44)
[2022-09-10] MEDS: TAMSULOSIN 0.4 MG CAP.ER.24H PO SCH (20:45)
[2022-09-11] MEDS: PIPERACILLIN-TAZOBACTAM 3.375 GM in SODIUM CHLORIDE 0.9% 100 ML IVPB SCH ×3 (00:33→16:05)
[2022-09-11 04:54] LABS: HGB 10.5 gm/dL (13.0-17.5); Hypochromasia Slight; MCH 29.4 pg (25.0-35.0); MCHC 31.9 g/dL (31.0-37.0); MCV 92.2 fL (80.0-100.0); Mean Platelet Volume 8.6; Platelet Count 326 k/uL (150-450); RBC 3.58 m/uL (4.30-5.90); RDW 15.1 % (11.5-15.5); WBC 8.4 k/uL (3.8-10.6)
[2022-09-11 05:48] LABS: African American GFR (CKD) >90 (>60 ml/min/1.73 sqM); Anion Gap 6 mmol/L; Blood Urea Nitrogen 8 mg/dL (9-20); Calcium 8.4 mg/dL (8.4-10.2); Carbon Dioxide 24 mmol/L (22-30); Chloride 105 mmol/L (98-107); Glucose 99 mg/dL (74-99); Non-African American GFR(CKD) >90 (>60 ml/min/1.73 sqM); Potassium 3.3 mmol/L (3.5-5.1); Sodium 135 mmol/L (137-145)
[2022-09-11] MEDS: MIDODRINE 5 MG TAB PO SCH ×3 (06:55→18:05)
[2022-09-11] MEDS: traMADol 50 MG TAB PO PRN ×2 (07:02→16:04)
[2022-09-11] MEDS: NOREPINEPHRINE 32 MG in SODIUM CHLORIDE 0.9% 218 ML IV SCH ×3 (07:05→17:27)
[2022-09-11 07:06] LABS: Glucose,Whole Blood 112 mg/dL (70-110)
[2022-09-11] MEDS: INSULIN ASPART (NovoLOG) 100 UNIT/ML VIAL SQ SCH ×4 (07:06→21:06)
[2022-09-11] MEDS ORDERED: POTASSIUM CHLORIDE ER 20 MEQ TAB.ER PO STA (07:41)
[2022-09-11] MEDS ORDERED: LIDOCAINE 1% (10MG/ML) FOR IV START INTRADERMA PRN (07:51)
[2022-09-11] MEDS: LACTATED RINGERS 1,000 ML IV SCH (07:55)
[2022-09-11] MEDS: SPIRONOLACTONE 25 MG TAB PO SCH (08:20)
[2022-09-11] MEDS: DILTIAZEM ORAL 30 MG TAB PO SCH ×3 (08:21→20:59)
[2022-09-11] MEDS: GABAPENTIN 100 MG CAP PO SCH ×2 (08:21→21:00)
[2022-09-11] MEDS: AMIODARONE 200 MG TAB PO SCH ×2 (08:21→20:59)
[2022-09-11] MEDS: PIOGLITAZONE 45 MG TAB PO SCH (08:22)
[2022-09-11] MEDS: LINAGLIPTIN 5 MG TABLET PO SCH (08:22)
[2022-09-11] MEDS: POTASSIUM CHLORIDE 20 MEQ in WATER FOR INJECTION 1 100ML.BAG IVPB SCH ×2 (08:22→12:25)
[2022-09-11] MEDS: DAPAGLIFLOZIN PROPANEDIOL 10 MG TABLET PO SCH (08:23)
[2022-09-11] MEDS: METOPROLOL TARTRATE 50 MG TAB PO SCH ×3 (08:26→21:00)
[2022-09-11] MEDS: PANTOPRAZOLE 40 MG/10 ML VIAL IVP SCH ×2 (08:26→20:58)
--- NOTE | 2022-09-11 08:58 | P.PN ---
Subjective Progress Note Date: 09/11/22 The patient is a 61-year-old male who is currently admitted with acute COVID-19 infection and pneumonia. He initially presented with back pain. Cardiology was consulted for A. fib with RVR. He has a history of A. fib with RVR and was recently cardioverted. He also has a known history of nonischemic car diomyopathy with EF around 30-35%. Over the course of his admission he has also found to have an acute GI bleed with colonoscopy and upper endoscopy pending. Throughout his ICU admission he has been on and off Levophed and vasopressin. Yesterday his beta richard was switched to 3 times a day dosing in an effort to keep him off of vasopressors. According to nursing staff it was restarted again overnight, but he is currently off of any blood pressure support. The patient was interviewed, stating he is gradually feeling better. He does have some weakness and fatigue. No chest pain or chest pressure currently. No difficulty breathing at rest. VITALS: Blood pressure 94/50, heart rate 114, afebrile, SpO2 98% on 2 L nasal cannula. TELEMETRY: Atrial fibrillation with heart rates in the one-teens to 120's LABS: WBC 8.4, hemoglobin 10.5, hematocrit 33.0, platelet 326, sodium 135, potassium 3.3, BUN 8, creatinine 0.94 IMPRESSION: A. fib with RVR Nonischemic cardiomyopathy, EF 30-35% Acute left lower lobe pneumonia Acute GI bleed Acute COVID-19 infection PLAN: Continue current medication regimen Proceed with upper and lower endoscopy Further recommendations to be based upon clinical course I am dictating on behalf of Dr Cayden Bernstein's history/physical and assessment/plan. Objective - Vital Signs Vital signs: Vital Signs Temp 97.5 F L 09/11/22 08:00 Pulse 114 H 09/11/22 08:00 Resp 10 L 09/11/22 08:00 BP 78/58 09/11/22 07:00 Pulse Ox 94 L 09/11/22 08:46 FiO2 Intake & Output 09/10/22 09/11/22 09/11/22 18:59 06:59 18:59 Intake Total 4691 862.470 203 Output Total 1335 1465 250 Balance 3356 -602.530 -47 Intake: IV 441 273 203 0.9 405 260 Arterial & CVP Lines 36 13 3 Piperacillin-Tazobactam 3 100 .375 gm In Sodium Chloride 0.9% 100 ml @ 25 mls/hr IVPB Q8HR [facility] Rx# :[id number] Potassium Chloride 20 meq 100 In Water For Injection 1 100ml.bag @ 50 mls/hr IVPB Q2H [facility] Rx#: [id number] Intake, IV Titration 0 19.470 Amount Norepinephrine 32 mg In 0 19.470 Sodium Chloride 0.9% 218 ml @ 0.5 MCG/KG/MIN 25. 781 mls/hr IV .Q9H42M [facility] Rx#:[id number] Oral 4250 570 Output: Urine 1335 1465 250 Other: Voiding Method Indwelling Catheter Indwelling Catheter # Bowel Movements 3 5 ABP, PAP, CO, CI - Last Documented Arterial Blood Pressure 94/50 - Labs CBC & Chem 7: 09/11/22 04:40 09/11/22 04:40 Labs: Abnormal Lab Results - Last 24 Hours (Table) 09/10/22 09/10/22 09/10/22 Range/Units 05:17 11:46 16:33 RBC (4.30-5.90) m/uL Hgb (13.0-17.5) gm/dL Hct (39.0-53.0) % Sodium (137-145) mmol/L Potassium (3.5-5.1) mmol/L BUN (9-20) mg/dL POC Glucose (mg/dL) 205 H 176 H (70-110) mg/dL Procalcitonin 2.03 H (0.02-0.09) ng/mL 09/10/22 09/11/22 09/11/22 Range/Units 20:01 04:40 04:40 RBC 3.58 L (4.30-5.90) m/uL Hgb 10.5 L (13.0-17.5) gm/dL Hct 33.0 L (39.0-53.0) % Sodium 135 L (137-145) mmol/L Potassium 3.3 L (3.5-5.1) mmol/L BUN 8 L (9-20) mg/dL POC Glucose (mg/dL) 200 H (70-110) mg/dL Procalcitonin (0.02-0.09) ng/mL 09/11/22 Range/Units 07:05 RBC (4.30-5.90) m/uL Hgb (13.0-17.5) gm/dL Hct (39.0-53.0) % Sodium (137-145) mmol/L Potassium (3.5-5.1) mmol/L BUN (9-20) mg/dL POC Glucose (mg/dL) 112 H (70-110) mg/dL Procalcitonin (0.02-0.09) ng/mL Microbiology - Last 24 Hours (Table) 09/06/22 11:24 Blood Culture - Preliminary Blood No Growth after 96 hours 09/06/22 11:24 Blood Culture - Preliminary Blood No Growth after 96 hours
--- NOTE | 2022-09-11 09:08 | P.PN ---
Subjective Progress Note Date: 09/11/22 61-year-old male patient hospitalized for hypotension along with itchy fibrillation with rapid ventricular response. He also had some GI bleeding on the floor prior to him coming to the intensive care unit. The patient as such was brought into the ICU with A. fib RVR and GI bleed. Subsequently, he turnout to be Covid positive also. Chest x-ray showing cardiomegaly, increased interstitial markings in addition to a left lower lobe consolidation. This is an x-ray that was done yesterday. His chest x-ray at the time of admission looks essentially the same. Based on all this, the patient was brought into the intensive care unit. His itchy fibrillation is currently controlled with Cardizem drip which is running at 5 mg an hour. The patient is also on amiodarone by mouth at a dose of 100 mg twice a day. The patient is on no anticoagulation as the patient was having GI bleeding. The patient was having episodic GI bleed with bright red blood per rectum which progressively became more dark and this morning it's greenish black. As such, no antigravity which has been provided and the patient is likely going to require a EGD/colonoscopy and this is scheduled to be done by general surgeon within the next 24 hours. Meanwhile, he was resuscitated with IV fluids. IV fluids are currently running 0.9 at the rate of 75 mL an hours. He is currently on pressors with norepinephrine at 0.12 microvascular kilogram per minute and vasopressin and physiologic dose. He had an acute kidney injury and the creatinine was as high as 2.34 which is essentially recovered and the creatinine is essentially normalized. No cultures are available. His pro calcitonin level is at 22 and the patient is currently on IV Zosyn. He is known to have an underlying cardiomyopathy with systolic heart failure and previous admissions has shown impaired LV function with an ejection fraction of 30-35%. Noted the CAT scan of the abdomen and the chest that was done at time of admission showed an extensive consolidation of the lateral segment and the posterior segment of the left lower lobe in addition to development of a small left-sided pleural effusion. His abdomen was essentially within normal limits. Noted the patient also had a hemoglobin drop from 13.4 at time of admission which came up to 15.6 and subsequently dropped down to 10.7 this morning. The patient has not required any packed RBC transfusions. Review of previous echocardiogram that was done on 08/14/2022 showed systolic heart failure, global decrease in the contractility with an ejection fraction of 30-35%. On today's evaluation of 09/09/2022, the patient is being seen for a follow-up. The patient is being treated for a extensive left lower lobe pneumonia, sepsis, hypotension, itchy fibrillation with RVR and GI bleed. The patient also Covid 19 positive. Chest x-ray still showing consolidation of the lower lobes or so o n the left. No major interval change compared to yesterday. The white cell count at 7.8. Cultures have been negative. Legionella urine antigen was also negative. The patient had a pro-calcitonin level of 8.7 and this was obtained yesterday and the level is obviously improving and as such no further antibiotic modifications was done and the patient was Zosyn As the Pro Calcitonin Level Has Been Improving. As Far As Pressor Requirements, the Patient Is on Vasopressin Physiologic Dose and Norepinephrine Which Is Running at 0.04 mcg/kg/m. As such, the pressor requirements have improved considerably over the past 24 hours. The patient is able sit up on a chair. The patient is still in atrial fibrillation. The patient is still tachycardic. In terms of A. fib, the patient is on amiodarone 400 mg by mouth twice a day, he is on metoprolol 150 mg by mouth twice a day, and he is also on Cardizem which has been switched to oral 30 mg by mouth 3 times a day. He is on no anticoagulants as the patient presented originally with GI bleeding. Note that he is scheduled to have EGD and colo noscopy over the next 24-48 hours. The patient's hemoglobin meanwhile has remained stable at 10.8 and the patient has not had any further episode of GI bleeding. In terms of his acute kidney injury, this is recovered and the creatinine is down to 0.8. Sodium level is at 136 and the chloride is 105. The patient is awake and alert and communicating. He is on oxygen at 2 L/m nasal cannula. His echocardiogram from 08/14/2022 so it systolic heart failure with an ejection fraction of 30-35%. No angina. No palpitations. No other significant events overnight. On today's evaluation of 09/10/2022, the patient is sitting up on a chair and he is on room air oxygen. Repeat pro-calcitonin level is pending from today. He is being treated for extensive left lower lobe pneumonia and also had some right basilar pulmonary infiltrates and a most recent chest x-ray. No chest x-rays available from today. The white cell count is down to 7.6 with a hemoglobin of 11.1. Rest of the electrolytes are all stable and the patient remains on IV Zosyn for now. As mentioned, all of the cultures were essentially negative. In terms of his cardiac status, he has a cardiomyopathy with ejection fraction of 30-35% and the patient also has issues with a atiral fibrillation with rapid ventricular response. This was exacerbated time of his pneumonia and sepsis. The patient is under better control in terms of atrial fibrillation. Currently is on a combination of metoprolol 100 mg by mouth 3 times a day, Cardizem 30 mg by mouth 3 times a day, amiodarone 400 mg by mouth 3 times a day and is not rece iving any anticoagulation due to concerns of GI bleed. Noted no active GI bleed has been witnessed over the past 48 hours. His hemoglobin remained stable. The patient is going to be going to undergo his bowel prep today, and the patient is going to have an EGD and colonoscopy tomorrow. He is using the incentive spirometer. His calm and comfortable. No significant respiratory distress. No cough or congestion. He was weaned off the FiO2 and currently is on room air oxygen. In terms of his hemodynamics, the patient is still requiring low-dose norepinephrine. Vasopressin was discontinued and the patient is only on 0.02 microvascular kilogram per minute of norepinephrine infusion to support his blood pressure. I'm hoping that this will be discontinued also today. On 09/11/2022, the patient is sitting up on a chair and is currently on 2 L of oxygen by nasal cannula. His being treated for bilateral pneumonia more extensive on the left and the patient remains on IV Zosyn. A repeat pro- calcitonin level that was done yesterday showed a level was down to 2.03 and as such there is a down trending of the pro calcitonin level. The patient will be kept accordingly on same antibiotic coverage. Hemodynamically, he is off vasopressin and he is off norepinephrine and this was discontinued yesterday. Noted the patient was on minimal dose of norepinephrine to support his blood pressure. His cardiac atrial fibrillation. The patient is still tachycardic. He is on rate control with a combination of Cardizem, metoprolol and amiodarone. No anticoagulation yet. He is going to undergo a colonoscopy today to assess his risk for recurrent GI bleed and based on that will make a decision on his anticoagulation. He is tolerating his diet. No focal neurological deficits. Hemoglobin is at 10.5 with a white cell count of 8.4. The BUN is at 8 with a creatinine of 0.7 and a sodium level is at 135. Noted the patient's IV fluids were CUT down to KVO as of yesterday. The patient otherwise has no specific complaints. A repeat chest x-ray will be done today. This was not completed yet. I reviewed the chest x-ray once is completed. No fever. No chills. No chest pain. Blood sugars under better control for now. Objective - Vital Signs Vital signs: Vital Signs Temp 97.5 F L 09/11/22 08:00 Pulse 114 H 09/11/22 08:00 Resp 10 L 09/11/22 08:00 BP 78/58 09/11/22 07:00 Pulse Ox 94 L 09/11/22 08:46 FiO2 Intake & Output 09/10/22 09/11/22 09/11/22 18:59 06:59 18:59 Intake Total 4691 862.470 203 Output Total 1335 1465 250 Balance 3356 -602.530 -47 Intake: IV 441 273 203 0.9 405 260 Arterial & CVP Lines 36 13 3 Piperacillin-Tazobactam 3 100 .375 gm In Sodium Chloride 0.9% 100 ml @ 25 mls/hr IVPB Q8HR [facility] Rx# :[id number] Potassium Chloride 20 meq 100 In Water For Injection 1 100ml.bag @ 50 mls/hr IVPB Q2H [facility] Rx#: [id number] Intake, IV Titration 0 19.470 Amount Norepinephrine 32 mg In 0 19.470 Sodium Chloride 0.9% 218 ml @ 0.5 MCG/KG/MIN 25. 781 mls/hr IV .Q9H42M [facility] Rx#:[id number] Oral 4250 570 Output: Urine 1335 1465 250 Other: Voiding Method Indwelling Catheter Indwelling Catheter # Bowel Movements 3 5 ABP, PAP, CO, CI - Last Documented Arterial Blood Pressure 94/50 - Exam No acute distress, oriented 3. Currently on 2 L of oxygen nasal cannula. No audible wheezing, use of accessory muscles, or conversational dyspnea. The patient is currently on room air oxygen. HEENT examination is grossly unremarkable. Neck supple. Full range of motion. No adenopathy thyromegaly or neck vein distention. Cardiovascular examination reveals an irregular rhythm and rate. S1-S2 normal. No S3 or S4. No discernible murmur noted. Lungs reveal scattered bilateral rhonchi. Breath sounds equal. No wheezes. Minimal scattered basilar crackles. Abdomen soft bowel sounds are heard. No masses or tenderness. Extremities are intact. No cyanosis clubbing or edema. Skin is without rash or lesion. Neurologic examination is brief but nonfocal. - Labs CBC & Chem 7: 09/11/22 04:40 09/11/22 04:40 Labs: Abnormal Lab Results - Last 24 Hours (Table) 09/10/22 09/10/22 09/10/22 Range/Units 05:17 11:46 16:33 RBC (4.30-5.90) m/uL Hgb (13.0-17.5) gm/dL Hct (39.0-53.0) % Sodium (137-145) mmol/L Potassium (3.5-5.1) mmol/L BUN (9-20) mg/dL POC Glucose (mg/dL) 205 H 176 H (70-110) mg/dL Procalcitonin 2.03 H (0.02-0.09) ng/mL 09/10/22 09/11/22 09/11/22 Range/Units 20:01 04:40 04:40 RBC 3.58 L (4.30-5.90) m/uL Hgb 10.5 L (13.0-17.5) gm/dL Hct 33.0 L (39.0-53.0) % Sodium 135 L (137-145) mmol/L Potassium 3.3 L (3.5-5.1) mmol/L BUN 8 L (9-20) mg/dL POC Glucose (mg/dL) 200 H (70-110) mg/dL Procalcitonin (0.02-0.09) ng/mL 09/11/22 Range/Units 07:05 RBC (4.30-5.90) m/uL Hgb (13.0-17.5) gm/dL Hct (39.0-53.0) % Sodium (137-145) mmol/L Potassium (3.5-5.1) mmol/L BUN (9-20) mg/dL POC Glucose (mg/dL) 112 H (70-110) mg/dL Procalcitonin (0.02-0.09) ng/mL Microbiology - Last 24 Hours (Table) 09/06/22 11:24 Blood Culture - Preliminary Blood No Growth after 96 hours 09/06/22 11:24 Blood Culture - Preliminary Blood No Growth after 96 hours Assessment and Plan Plan: Acute left lower lobe pneumonia with extensive consolidation of the left lower lobe posterior and lateral segment was small left-sided pleural effusion, pro calcitonin level was elevated and the patient was septic at the time of admission with hypotension and GI bleed. The chest x-ray findings are stable. The patient has bilateral lower lobe consolidation worse on the left. Pro- calcitonin level is improving. The patient remains on Zosyn. Pressor requirements have improved and based on that The patient on same antibiotic coverage which is IV Zosyn. The patient is stable and the pro calcitonin level continues to down trend and the patient will be kept on the same antibiotic coverage and repeat chest x-ray will be obtained for today. 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 Covid 19 infection, incidental finding, probably not related to the current presentation Sepsis/hypotension, recovered and the patient's is normotensive for now. Chronic atrial fibrillation with RVR, and sepsis, secondary to left-sided pneumonia. 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 No anticoag ulants. The patient's heart rate is less tachycardic, irregular and the patient has underlying cardiac myopathy with an ejection fraction of 30-35% Cardiomyopathy with systolic heart failure and ejection fraction of 30 35% Acute gastrointestinal bleed, hemoglobin is stable at 11 and the patient has not required any packed RBC transfusion. Awaiting colonoscopies Acute kidney injury, recovered Severe obstructive sleep apnea, with an AHI of 40.7 worse during REM sleep. Diagnosed back in May 2022 and subsequently the patient underwent a titration and given an APAP machine pressures of 6/15 cm of water. History of diabetes mellitus. History of hypertension. History of benign colon polyps. Previous history of tobacco use. Plan: Repeat provide incentive spirometer pro-calcitonin LEVEL HAS DROPPED SIGNIFICANTLY Repeat chest x-ray today Continue IV Zosyn Check a Legionella urine antigen was checked and the levels came back negative The Covid 19 infection was essentially an incidental finding Change IV fluids to KVO Pressors have been discontinued EGD and colonoscopy today and will decide on anticoagulation accordingly Continue oral amiodarone Continue the metoprolol at a dose of 100mg TID a day, amiodarone 400 mg by mouth twice a day, and oral Cardizem 30 mg by mouth 3 times a day. No anticoagulants for now EGD colonoscopy probably the next 24 hours Blood sugar management using his own CPAP machine from home which is an APAP unit pressures of 6/15 cm of water We'll continue to follow
--- NOTE | 2022-09-11 09:41 | CDI ---
Documentation Clarification Form Date: 09/11/2022 8:54:23 AM From: Ai Dueñas RN, CCDS Admit Date: 09/04/2022 2:45:00 PM Patient Name: Kaylen Majano Visit Number: [id number] Discharge Date: ATTENTION: The Clinical Documentation Specialists (CDI) and [facility] Coding Staff appreciate your assistance in clarifying documentation. Please respond to the clarification below the line at the bottom and electronically sign. The CDI & [facility] Coding staff will review the response and follow-up if needed. Please note: Queries are made part of the Legal Health Record. If you have any questions, please contact the author of this message via ITS. Dr. Xavier Ramírez 09/[address] Hylton: etiology for hypotension thought to be more related to sepsis then hemorrhagic shock. Additional clarification regarding the type of shock is requested. 09/08 Pulmonary progress note: Sepsis/hypotension, pressor dependent, still on norepinephrine running at 0.04 mcg/kg/m in addition to physiologic dose of vasopressin. Patient history/risk factors: Atrial Fibrillation, Diabetes Mellitus Hypertension Clinical Indicators: 61-year-old male present on 09/04/22 with left sided chest pain, developed GI bleeding and having some respiratory difficulty. He was in atrial fibrillation with RVR. 09/04 CT scan chest: Left pleural effusion and left lower lobe airspace consolidation and atelectasis. 09/04 CXR: Similar small left pleural effusion with adjacent airspace opacity may represent atelectasis and/or infiltrate. 09/04 WBC 9.8, Total Bili 1.6, ALT 76, BUN 46, CR 1.67, C - reactive protein 7.5, BNP 3240 Covid-19 positive Procalcitonin 0.30 09/06 Blood cultures: Pending, No growth after 72 hours 09/04 Vital signs: 99/60 66 20 97.9, 88/73 133 19 96 % RA 09/05 Vital signs: 76/52 140 15 102.3 100 % NRB Treatment: ICU/Telemetry Monitoring Zosyn 3.375 GM IVPB Q 12 HRS 09/06-09/10 .9 NS 500 ML IV Bolus 09/04 then @ 75 ML/HR Levophed drip (per orders 3/ Monitor CBC Daily Please further clarify the cause of shock, if known: [ x] Septic Shock [ ] Hypovolemic Shock [ ] Other, please specify [ ] Unable to determine (Template Last Revised: August 2020) MTDD
--- NOTE | 2022-09-11 10:02 | XR ---
EXAMINATION TYPE: XR chest 1V portable DATE OF EXAM: 09/11/2022 COMPARISON: 09/09/2022 INDICATION: Pneumonia TECHNIQUE: Single frontal view of the chest is obtained. FINDINGS: The heart size is normal. The pulmonary vasculature is normal. Left lower lobe infiltrate is present. A small to moderate left pleural effusion is present. Mild inf iltrate remains at the right base slightly improved from comparison. Left central venous catheters pr esent with the tip in the superior vena cava region. IMPRESSION: 1. Stable left lower lobe infiltrate with small to moderate left pleural effusion. 2. Improving infiltrate right lung base. Minimal right pleural effusion is not excluded.
[2022-09-11 11:38] LABS: Glucose,Whole Blood 93 mg/dL (70-110)
[2022-09-11] MEDS ORDERED: PROPOFOL 10 MG/ML 20 ML VIAL IV ONE (14:22)
[2022-09-11] MEDS ORDERED: LIDOCAINE 2% INJ 20 MG/ML (2 ML VIAL) ONE (14:22)
[2022-09-11] MEDS ORDERED: MIDAZOLAM 2 MG/2 ML VIAL ONE (14:22)
[2022-09-11] MEDS ORDERED: KETAMINE 10 MG/ML 20 ML VIAL ONE (14:22)
[2022-09-11] MEDS ORDERED: IV FLUID CONTINUATION 500 ML IV ONE (14:27)
--- NOTE | 2022-09-11 15:18 | P.PN ---
Subjective Progress Note Date: 09/11/22 61-year-old male who was initially seen in the emergency department, on September 04. We were consulted yesterday late. The patient apparently came to the emergency room, complaining of left-sided lateral chest pain, which is been going on for quite some time. In addition, the patient apparently developed some GI bleeding on the floor, which is when I was called. The patient was having atrial fibrillation with RVR, GI bleeding, and also having some respiratory difficulty. We decided to move him to the ICU. I came in last like to put in a right radial art line, and a left internal jugular triple-lumen catheter. Currently, he's seen in room 257. He's on 4 L of oxygen. He is getting Cardizem at 10 mg an hour, vasopressin at 0.04 units per minute, norepinephrine at 31 mcg/m, and saline at KVO. I added Zosyn this morning for pneumonia, and we will check a pro-calcitonin level. The patient will get 1-1/2 L of lactated Ringer's, his baseline IV will be increased to 75 mL an hour of saline, and we'll check blood urine and sputum cultures. CAT scan show what appeared to be some consolidation in the left lower lobe. The patient has a history of atrial fibrillation, diabetes, and hypertension. White count 16, with a normal hemoglobin, hematocrit, and platelet count. Sodium 131, potassium 4.2, chlorides 95, CO2 25, anion gap normal, BUN 51, and creatinine 2.19. 3/26. Patient seen and examined. Sitting upright in the chair. Had a small bowel movement with blood in it. Patient is being weaned off the pressors 09/11/2022 Patient is seen and evaluated in follow-up today with multiple medical consultations following continues in the ICU with close monitoring. Patient is scheduled sometime this afternoon for EGD/colonoscopy to evaluate for GI bleeding. Patient did undergo a bowel prep and is nothing by mouth currently. Recommend continue telemetry monitoring. Follow-up chest x-ray today shows a stable left lower lobe infiltrate with small to moderate left pleural effusion and improving infiltrates at the right lung base. Patient with incentive spirometer at the bedside and encouraged to continue using at least 10 times every hour while awake. Patient also continues with indwelling Lin catheter and will continue for now. After endoscopy patient okay to resume diet and discussing possible downgrade out of the ICU. Hemoglobin remained stable at 10.5 REVIEW OF SYSTEMS: CONSTITUTIONAL: No fever, no malaise,. CARDIOVASCULAR: No chest pain, no palpitations, no syncope. PULMONARY: No shortness of breath, no cough, GASTROINTESTINAL: No diarrhea, no nausea, no vomiting, no abdominal pain. NEUROLOGICAL: No headaches, no weakness PHYSICAL EXAMINATION: GENERAL: The patient is alert and oriented x3, not in any acute distress. Well developed, well nourished. Obese HEENT: Pupils are round and equally reacting to light. EOMI. No scleral icterus. No conjunctival pallor. Normocephalic, atraumatic. No pharyngeal erythema. No thyromegaly. CARDIOVASCULAR: S1 and S2 present. No murmurs, rubs, or gallops. PULMONARY: Chest is clear to auscultation, no wheezing or crackles. ABDOMEN: Soft, nontender, nondistended, normoactive bowel sounds. No palpable organomegaly. MUSCULOSKELETAL: No joint swelling or deformity. EXTREMITIES: No cyanosis, clubbing, or pedal edema. NEUROLOGICAL: Gross neurological examination did not reveal any focal deficits. SKIN: No rashes. Assessment: Hypotension, likely secondary to GI bleed, atrial fibrillation with RVR, and sepsis, secondary to left-sided pneumonia. Sepsis Bacterial pneumonia Severe obstructive sleep apnea Acute hypoxic respiratory failure secondary to pneumonia Acute gastrointestinal bleed. Acute atrial fibrillation with RVR. Currently rate controlled Nonischemic cardiomyopathy Acute on chronic kidney disease. Coronavirus infection. History of diabetes mellitus. History of hypertension. History of benign colon polyps. Plan: Patient is currently maintained in the ICU under close observation with multiple medical consultations following. Gen. surgery Dr. Hylton following with plans for EGD/colonoscopy to evaluate for GI bleed and anticoagulation is on hold currently Recommend continued telemetry monitoring with cardiology and pulmonary and intensive is following. Patient is a possible downgrade out of the ICU if endoscopy is okay Recommend close monitoring of CBC and will follow-up with repeat labs Recommend continue with IV antibiotics and chest x-ray shows some improvement in pneumonia Patient is off pressor support Patient with weakness would recommend physical therapy evaluation Due to multiple complex medical issues, prognosis is guarded and will follow-up after endoscopy report The impression and plan of care has been dictated by Lou Chahal, Nurse Practitioner as directed. Dr. Yobany MD I have performed a history and examination and MDM of this patient, discussed the same with the dictator, and agree with the dictator's assessment and plan as written ,documented as a scribe. Based on total visit time, I have performed more than 50% of the visit. Objective - Vital Signs Vital signs: Vital Signs Temp 97.5 F L 09/11/22 08:00 Pulse 107 H 09/11/22 09:00 Resp 10 L 09/11/22 09:00 BP 78/58 09/11/22 07:00 Pulse Ox 96 09/11/22 09:00 FiO2 Intake & Output 09/10/22 09/11/22 09/11/22 18:59 06:59 18:59 Intake Total 4691 862.470 203 Output Total 1335 1465 250 Balance 3356 -602.530 -47 Intake: IV 441 273 203 0.9 405 260 Arterial & CVP Lines 36 13 3 Piperacillin-Tazobactam 3 100 .375 gm In Sodium Chloride 0.9% 100 ml @ 25 mls/hr IVPB Q8HR [facility] Rx# :[id number] Potassium Chloride 20 meq 100 In Water For Injection 1 100ml.bag @ 50 mls/hr IVPB Q2H [facility] Rx#: [id number] Intake, IV Titration 0 19.470 Amount Norepinephrine 32 mg In 0 19.470 Sodium Chloride 0.9% 218 ml @ 0.5 MCG/KG/MIN 25. 781 mls/hr IV .Q9H42M [facility] Rx#:[id number] Oral 4250 570 Output: Urine 1335 1465 250 Other: Voiding Method Indwelling Catheter Indwelling Catheter Indwelling Catheter # Bowel Movements 3 5 ABP, PAP, CO, CI - Last Documented Arterial Blood Pressure 108/57 - Labs CBC & Chem 7: 09/11/22 04:40 09/11/22 04:40 Labs: Abnormal Lab Results - Last 24 Hours (Table) 09/10/22 09/10/22 09/10/22 Range/Units 05:17 11:46 16:33 RBC (4.30-5.90) m/uL Hgb (13.0-17.5) gm/dL Hct (39.0-53.0) % Sodium (137-145) mmol/L Potassium (3.5-5.1) mmol/L BUN (9-20) mg/dL POC Glucose (mg/dL) 205 H 176 H (70-110) mg/dL Procalcitonin 2.03 H (0.02-0.09) ng/mL 09/10/22 09/11/22 09/11/22 Range/Units 20:01 04:40 04:40 RBC 3.58 L (4.30-5.90) m/uL Hgb 10.5 L (13.0-17.5) gm/dL Hct 33.0 L (39.0-53.0) % Sodium 135 L (137-145) mmol/L Potassium 3.3 L (3.5-5.1) mmol/L BUN 8 L (9-20) mg/dL POC Glucose (mg/dL) 200 H (70-110) mg/dL Procalcitonin (0.02-0.09) ng/mL 09/11/22 Range/Units 07:05 RBC (4.30-5.90) m/uL Hgb (13.0-17.5) gm/dL Hct (39.0-53.0) % Sodium (137-145) mmol/L Potassium (3.5-5.1) mmol/L BUN (9-20) mg/dL POC Glucose (mg/dL) 112 H (70-110) mg/dL Procalcitonin (0.02-0.09) ng/mL Microbiology - Last 24 Hours (Table) 09/06/22 11:24 Blood Culture - Preliminary Blood No Growth after 96 hours 09/06/22 11:24 Blood Culture - Preliminary Blood No Growth after 96 hours
--- NOTE | 2022-09-11 15:42 | P.PCN ---
Date of Procedure: 09/11/22 Procedure(s) Performed: PREOPERATIVE DIAGNOSIS: GI bleeding POSTOPERATIVE DIAGNOSIS: Mild gastritis, mild left sided colitis, diverticulosis PROCEDURE: 1. EGD with biopsy 2. Colonoscopy with biopsy ANESTHESIA: MAC SURGEON: Speedy Hylton M.D. SPECIMENS: Antrum, left colon ENDOSCOPIC PROCEDURE: The patient was on the endoscopy table in the left decubitus position. The Olympus gastroscope was inserted into the oropharynx and passed under direct visualization to the region of the third portion of the duodenum. From that point the scope was slowly withdrawn inspecting all surfaces carefully. There were no neoplastic inflammatory or polypoid lesions throughout the duodenum. The pylorus was widely patent. The stomach was carefully inspected. There was mild gastritis present. A biopsy of the antrum took place to rule out H. pylori. Retroflexion revealed a normal hiatus. The esophagus was then carefully examined. There were no neoplastic inflammatory or polypoid lesions throughout the visualized esophagus. The patient was kept on the endoscopy table in the left decubitus position. The Olympus colonoscope was inserted into the anus and passed under direct visualization to the base of the cecum. The appendiceal orifice was visualized. From that point the scope was slowly withdrawn inspecting all surfaces carefully. There were no neoplastic or polypoid lesions throughout the cecum, ascending, transverse, descending, sigmoid and rectum. In the left colon extending from about 40-25 cm there was patchy erythema with a few superficial plaque-like erosions. Biopsies were taken of a few of these areas. This likely represented the recent source of bleeding and most likely is related to ischemic colitis. There was mild left-sided diverticulosis as well. In the mid rectum there was thought to be a small polyp however as we were manipulating our snare this seemed to flatten out completely. Digital rectal examination was normal. The patient was taken to the recovery room in stable condition per anesthesia guidelines. RECOMMENDATIONS: Await biopsy results. Resume diet. Will follow.
[2022-09-11 16:59] LABS: Glucose,Whole Blood 85 mg/dL (70-110)
[2022-09-11] MEDS: SODIUM CHLORIDE 0.9% 1,000 ML IV SCH (18:05)
[2022-09-11 20:05] LABS: Glucose,Whole Blood 137 mg/dL (70-110)
[2022-09-11] MEDS: TAMSULOSIN 0.4 MG CAP.ER.24H PO SCH (20:59)
[2022-09-11] MEDS: ACETAMINOPHEN TAB 325 MG TAB PO PRN (20:59)
[2022-09-11] MEDS: MELATONIN 3 MG TABLET PO PRN (20:59)
[2022-09-11] MEDS: ATORVASTATIN 20 MG TAB PO SCH (21:00)
[2022-09-12] MEDS: PIPERACILLIN-TAZOBACTAM 3.375 GM in SODIUM CHLORIDE 0.9% 100 ML IVPB SCH ×4 (00:35→23:51)
[2022-09-12] MEDS: NOREPINEPHRINE 32 MG in SODIUM CHLORIDE 0.9% 218 ML IV SCH ×3 (03:44→20:44)
[2022-09-12 04:51] LABS: African American GFR (CKD) >90 (>60 ml/min/1.73 sqM); Anion Gap 5 mmol/L; Blood Urea Nitrogen 9 mg/dL (9-20); Calcium 8.5 mg/dL (8.4-10.2); Carbon Dioxide 24 mmol/L (22-30); Chloride 108 mmol/L (98-107); Glucose 109 mg/dL (74-99); Non-African American GFR(CKD) >90 (>60 ml/min/1.73 sqM); Potassium 3.9 mmol/L (3.5-5.1); Sodium 137 mmol/L (137-145)
[2022-09-12] MEDS: traMADol 50 MG TAB PO PRN ×2 (07:03→21:11)
[2022-09-12] MEDS: MIDODRINE 5 MG TAB PO SCH ×3 (07:03→17:20)
[2022-09-12] MEDS: INSULIN ASPART (NovoLOG) 100 UNIT/ML VIAL SQ SCH ×4 (07:56→21:12)
[2022-09-12] MEDS ORDERED: POTASSIUM CHLORIDE ER 20 MEQ TAB.ER PO SCH (08:00)
--- NOTE | 2022-09-12 09:07 | P.PN ---
Subjective Progress Note Date: 09/12/22 The patient is a 61-year-old male who is currently admitted with acute COVID-19 infection and pneumonia. He initially presented with back pain. Cardiology was consulted for A. fib with RVR. He has a history of A. fib with RVR and was recently cardioverted. He also has a known history of nonischemic car diomyopathy with EF around 30-35%. Over the course of his admission he has also found to have an acute GI bleed. Throughout his ICU admission he has been on and off Levophed and vasopressin. He has now been off of vasopressors for over 24 hours. He underwent upper and lower endoscopy yesterday with Dr. Jang. He was found to have some superficial, plaque-like erosions in his left colon, which was likely the source of his bleed. The patient was interviewed sitting up in the recliner chair. He states he is feeling much better today. He has been up ambulating around his room without dizziness or lightheadedness. No chest pain or chest pressure. No heart racing or fluttering. No difficulty breathing. VITALS: Blood pressure 122/60, heart rate 107, respiratory rate 12, SpO2 94% on room air TELEMETRY: Atrial fibrillation with heart rates in the low 100s LABS: Sodium 137, potassium 3.9, BUN 9, creatinine 0.79 IMPRESSION: A. fib with RVR Nonischemic cardiomyopathy, EF 30-35% Acute left lower lobe pneumonia Acute GI bleed Acute COVID-19 infection PLAN: Continue current medication regimen including anticoagulation Encourage ambulation out of the patient has been off vasopressors for over 24 hours Reduce amiodarone to 400 mg daily at discharge Further recommendations based on clinical course I am dictating on behalf of Dr Cayden Bernstein's history/physical and assessment/pl an. Objective - Vital Signs Vital signs: Vital Signs Temp 97.7 F 09/11/22 16:00 Pulse 107 H 09/12/22 07:00 Resp 12 09/12/22 07:00 BP 117/93 09/12/22 07:00 Pulse Ox 94 L 09/12/22 07:00 FiO2 Intake & Output 09/11/22 09/12/22 09/12/22 18:59 06:59 18:59 Intake Total 1373 759 50 Output Total 1425 990 50 Balance -52 -231 0 Weight 114 kg Intake: IV 773 259 50 0.9 140 240 20 Arterial & CVP Lines 33 19 30 Piperacillin-Tazobactam 3 200 .375 gm In Sodium Chloride 0.9% 100 ml @ 25 mls/hr IVPB Q8HR [facility] Rx# :[id number] Potassium Chloride 20 meq 200 In Water For Injection 1 100ml.bag @ 50 mls/hr IVPB Q2H [facility] Rx#: [id number] Oral 600 500 Output: Urine 1425 990 50 Other: Voiding Method Indwelling Catheter Indwelling Catheter ABP, PAP, CO, CI - Last Documented Arterial Blood Pressure 122/60 - Labs CBC & Chem 7: 09/11/22 04:40 09/12/22 04:15 Labs: Abnormal Lab Results - Last 24 Hours (Table) 09/11/22 09/12/22 Range/Units 20:03 04:15 Chloride 108 H (98-107) mmol/L Glucose 109 H (74-99) mg/dL POC Glucose (mg/dL) 137 H (70-110) mg/dL Microbiology - Last 24 Hours (Table) 09/06/22 11:24 Blood Culture - Preliminary Blood No Growth after 120 hours 09/06/22 11:24 Blood Culture - Preliminary Blood No Growth after 120 hours
[2022-09-12] MEDS: DILTIAZEM ORAL 30 MG TAB PO SCH ×3 (09:15→21:11)
[2022-09-12] MEDS: LINAGLIPTIN 5 MG TABLET PO SCH (09:16)
[2022-09-12] MEDS: AMIODARONE 200 MG TAB PO SCH ×2 (09:16→20:26)
[2022-09-12] MEDS: METOPROLOL TARTRATE 50 MG TAB PO SCH ×3 (09:16→21:12)
[2022-09-12] MEDS: SPIRONOLACTONE 25 MG TAB PO SCH (09:16)
[2022-09-12] MEDS: GABAPENTIN 100 MG CAP PO SCH ×2 (09:16→20:26)
[2022-09-12] MEDS: DAPAGLIFLOZIN PROPANEDIOL 10 MG TABLET PO SCH (09:16)
[2022-09-12] MEDS: PIOGLITAZONE 45 MG TAB PO SCH (09:16)
[2022-09-12] MEDS: LACTATED RINGERS 1,000 ML IV SCH (09:17)
[2022-09-12] MEDS: PANTOPRAZOLE 40 MG/10 ML VIAL IVP SCH ×2 (09:17→20:25)
[2022-09-12 10:22] VITALS: BMI 38.2
--- NOTE | 2022-09-12 10:34 | P.PN ---
Subjective Progress Note Date: 09/12/22 CHIEF COMPLAINT: GI bleed HISTORY OF PRESENT ILLNESS: Patient hospitalized with hypotension, pneumonia, A. fib RVR. The patient had GI bleeding on the floor prior to coming to the ICU. He is off of anticoagulation. Patient is status post EGD and colonoscopy with results showing mild gastritis, mild left-sided colitis and diverticulosis. Biopsies obtained. The left colon had patchy erythema with a few superficial plaque like erosions. This likely represented the recent source of bleeding and is most likely related to ischemic colitis. Patient sitting up at bedside chair. He's had no further bleeding. Denies any abdominal pain. Afebrile. Heart rate 104 blood pressure 117/93 last hemoglobin 10.5 PHYSICAL EXAM: VITAL SIGNS: Reviewed. GENERAL: Well-developed in no acute distress. HEENT: No sclera icterus. Extraocular movements grossly intact. Moist buccal mucosa. Head is atraumatic, normocephalic. ABDOMEN: Soft. Nondistended. Nontender. NEUROLOGIC: Alert and oriented. Cranial nerves II through XII grossly intact. ASSESSMENT: 1. GI bleed likely related to ischemic colitis 2. Pneumonia 3. Covid positive 4. A. fib PLAN: -Continue regular diet -Continue supportive care -Okay to resume anticoagulation tomorrow from surgical standpoint [employer] Representative note has been reviewed by physician. Signing provider agrees with the documented findings, assessment, and plan of care. 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 Based on total visit time, I have performed more than 50% of the visit. As above: Patient doing well today. May resume anticoagulation. Continue regular diet. We'll sign off. Please call if needed. We'll sign off. Please call if needed. Objective - Vital Signs Vital signs: Vital Signs Temp 97.8 F 09/12/22 08:00 Pulse 104 H 09/12/22 09:00 Resp 10 L 09/12/22 09:00 BP 117/93 09/12/22 09:00 Pulse Ox 95 09/12/22 09:00 FiO2 Intake & Output 09/11/22 09/12/22 09/12/22 18:59 06:59 18:59 Intake Total 1373 759 78 Output Total 1425 990 50 Balance -52 -231 28 Weight 114 kg Intake: IV 773 259 78 0.9 140 240 20 Arterial & CVP Lines 33 19 33 Piperacillin-Tazobactam 3 200 25 .375 gm In Sodium Chloride 0.9% 100 ml @ 25 mls/hr IVPB Q8HR [facility] Rx# :[id number] Potassium Chloride 20 meq 200 In Water For Injection 1 100ml.bag @ 50 mls/hr IVPB Q2H [facility] Rx#: [id number] Oral 600 500 Output: Urine 1425 990 50 Other: Voiding Method Indwelling Catheter Indwelling Catheter ABP, PAP, CO, CI - Last Documented Arterial Blood Pressure 102/50 - Labs CBC & Chem 7: 09/11/22 04:40 09/12/22 04:15 Labs: Abnormal Lab Results - Last 24 Hours (Table) 09/11/22 09/12/22 Range/Units 20:03 04:15 Chloride 108 H (98-107) mmol/L Glucose 109 H (74-99) mg/dL POC Glucose (mg/dL) 137 H (70-110) mg/dL Microbiology - Last 24 Hours (Table) 09/06/22 11:24 Blood Culture - Preliminary Blood No Growth after 120 hours 09/06/22 11:24 Blood Culture - Preliminary Blood No Growth after 120 hours
--- NOTE | 2022-09-12 10:43 | P.PN ---
Subjective Progress Note Date: 09/12/22 61-year-old male patient hospitalized for hypotension along with itchy fibrillation with rapid ventricular response. He also had some GI bleeding on the floor prior to him coming to the intensive care unit. The patient as such was brought into the ICU with A. fib RVR and GI bleed. Subsequently, he turnout to be Covid positive also. Chest x-ray showing cardiomegaly, increased interstitial markings in addition to a left lower lobe consolidation. This is an x-ray that was done yesterday. His chest x-ray at the time of admission looks essentially the same. Based on all this, the patient was brought into the intensive care unit. His itchy fibrillation is currently controlled with Cardizem drip which is running at 5 mg an hour. The patient is also on amiodarone by mouth at a dose of 100 mg twice a day. The patient is on no anticoagulation as the patient was having GI bleeding. The patient was having episodic GI bleed with bright red blood per rectum which progressively became more dark and this morning it's greenish black. As such, no antigravity which has been provided and the patient is likely going to require a EGD/colonoscopy and this is scheduled to be done by general surgeon within the next 24 hours. Meanwhile, he was resuscitated with IV fluids. IV fluids are currently running 0.9 at the rate of 75 mL an hours. He is currently on pressors with norepinephrine at 0.12 microvascular kilogram per minute and vasopressin and physiologic dose. He had an acute kidney injury and the creatinine was as high as 2.34 which is essentially recovered and the creatinine is essentially normalized. No cultures are available. His pro calcitonin level is at 22 and the patient is currently on IV Zosyn. He is known to have an underlying cardiomyopathy with systolic heart failure and previous admissions has shown impaired LV function with an ejection fraction of 30-35%. Noted the CAT scan of the abdomen and the chest that was done at time of admission showed an extensive consolidation of the lateral segment and the posterior segment of the left lower lobe in addition to development of a small left-sided pleural effusion. His abdomen was essentially within normal limits. Noted the patient also had a hemoglobin drop from 13.4 at time of admission which came up to 15.6 and subsequently dropped down to 10.7 this morning. The patient has not required any packed RBC transfusions. Review of previous echocardiogram that was done on 08/14/2022 showed systolic heart failure, global decrease in the contractility with an ejection fraction of 30-35%. On today's evaluation of 09/09/2022, the patient is being seen for a follow-up. The patient is being treated for a extensive left lower lobe pneumonia, sepsis, hypotension, itchy fibrillation with RVR and GI bleed. The patient also Covid 19 positive. Chest x-ray still showing consolidation of the lower lobes or so o n the left. No major interval change compared to yesterday. The white cell count at 7.8. Cultures have been negative. Legionella urine antigen was also negative. The patient had a pro-calcitonin level of 8.7 and this was obtained yesterday and the level is obviously improving and as such no further antibiotic modifications was done and the patient was Zosyn As the Pro Calcitonin Level Has Been Improving. As Far As Pressor Requirements, the Patient Is on Vasopressin Physiologic Dose and Norepinephrine Which Is Running at 0.04 mcg/kg/m. As such, the pressor requirements have improved considerably over the past 24 hours. The patient is able sit up on a chair. The patient is still in atrial fibrillation. The patient is still tachycardic. In terms of A. fib, the patient is on amiodarone 400 mg by mouth twice a day, he is on metoprolol 150 mg by mouth twice a day, and he is also on Cardizem which has been switched to oral 30 mg by mouth 3 times a day. He is on no anticoagulants as the patient presented originally with GI bleeding. Note that he is scheduled to have EGD and colo noscopy over the next 24-48 hours. The patient's hemoglobin meanwhile has remained stable at 10.8 and the patient has not had any further episode of GI bleeding. In terms of his acute kidney injury, this is recovered and the creatinine is down to 0.8. Sodium level is at 136 and the chloride is 105. The patient is awake and alert and communicating. He is on oxygen at 2 L/m nasal cannula. His echocardiogram from 08/14/2022 so it systolic heart failure with an ejection fraction of 30-35%. No angina. No palpitations. No other significant events overnight. On today's evaluation of 09/10/2022, the patient is sitting up on a chair and he is on room air oxygen. Repeat pro-calcitonin level is pending from today. He is being treated for extensive left lower lobe pneumonia and also had some right basilar pulmonary infiltrates and a most recent chest x-ray. No chest x-rays available from today. The white cell count is down to 7.6 with a hemoglobin of 11.1. Rest of the electrolytes are all stable and the patient remains on IV Zosyn for now. As mentioned, all of the cultures were essentially negative. In terms of his cardiac status, he has a cardiomyopathy with ejection fraction of 30-35% and the patient also has issues with a atiral fibrillation with rapid ventricular response. This was exacerbated time of his pneumonia and sepsis. The patient is under better control in terms of atrial fibrillation. Currently is on a combination of metoprolol 100 mg by mouth 3 times a day, Cardizem 30 mg by mouth 3 times a day, amiodarone 400 mg by mouth 3 times a day and is not rece iving any anticoagulation due to concerns of GI bleed. Noted no active GI bleed has been witnessed over the past 48 hours. His hemoglobin remained stable. The patient is going to be going to undergo his bowel prep today, and the patient is going to have an EGD and colonoscopy tomorrow. He is using the incentive spirometer. His calm and comfortable. No significant respiratory distress. No cough or congestion. He was weaned off the FiO2 and currently is on room air oxygen. In terms of his hemodynamics, the patient is still requiring low-dose norepinephrine. Vasopressin was discontinued and the patient is only on 0.02 microvascular kilogram per minute of norepinephrine infusion to support his blood pressure. I'm hoping that this will be discontinued also today. On 09/11/2022, the patient is sitting up on a chair and is currently on 2 L of oxygen by nasal cannula. His being treated for bilateral pneumonia more extensive on the left and the patient remains on IV Zosyn. A repeat pro- calcitonin level that was done yesterday showed a level was down to 2.03 and as such there is a down trending of the pro calcitonin level. The patient will be kept accordingly on same antibiotic coverage. Hemodynamically, he is off vasopressin and he is off norepinephrine and this was discontinued yesterday. Noted the patient was on minimal dose of norepinephrine to support his blood pressure. His cardiac atrial fibrillation. The patient is still tachycardic. He is on rate control with a combination of Cardizem, metoprolol and amiodarone. No anticoagulation yet. He is going to undergo a colonoscopy today to assess his risk for recurrent GI bleed and based on that will make a decision on his anticoagulation. He is tolerating his diet. No focal neurological deficits. Hemoglobin is at 10.5 with a white cell count of 8.4. The BUN is at 8 with a creatinine of 0.7 and a sodium level is at 135. Noted the patient's IV fluids were CUT down to KVO as of yesterday. The patient otherwise has no specific complaints. A repeat chest x-ray will be done today. This was not completed yet. I reviewed the chest x-ray once is completed. No fever. No chills. No chest pain. Blood sugars under better control for now. 09/12/2022, the patient is back on room air oxygen. Doing well. Communicating. Denies having any respiratory distress. A repeat chest x-ray was done yester day showed a stable bilateral lower lobe consolidation. The consolidation is worse on the left. Nevertheless, the findings of essentially stable. The pro calcitonin level has been improving. The patient's sepsis is improved. The patient is currently off pressors. Based on all this, I kept him on same antibiotic coverage. He seems to be less tachycardic compared to yesterday. He remains on a combination of Cardizem, metoprolol and amiodarone. He underwent EGD and colonoscopy yesterday which showed mild gastritis, mild left-sided colonic diverticulosis, no evidence of any acute GI bleeding. The patient may be considered to be restarted back on xARELTO.. Blood work from today shows n ormal electrolytes, BUN is at 9 with a creatinine of 0.7. CBC still pending from today. IV fluids are currently at KVO. Objective - Vital Signs Vital signs: Vital Signs Temp 97.8 F 09/12/22 08:00 Pulse 104 H 09/12/22 09:00 Resp 10 L 09/12/22 09:00 BP 117/93 09/12/22 09:00 Pulse Ox 95 09/12/22 09:00 FiO2 Intake & Output 09/11/22 09/12/22 09/12/22 18:59 06:59 18:59 Intake Total 1373 759 106 Output Total 1425 990 50 Balance -52 -231 56 Weight 114 kg 114 kg Intake: IV 773 259 106 0.9 140 240 20 Arterial & CVP Lines 33 19 36 Piperacillin-Tazobactam 3 200 50 .375 gm In Sodium Chloride 0.9% 100 ml @ 25 mls/hr IVPB Q8HR [facility] Rx# :[id number] Potassium Chloride 20 meq 200 In Water For Injection 1 100ml.bag @ 50 mls/hr IVPB Q2H [facility] Rx#: [id number] Oral 600 500 Output: Urine 1425 990 50 Other: Voiding Method Indwelling Catheter Indwelling Catheter Indwelling Catheter ABP, PAP, CO, CI - Last Documented Arterial Blood Pressure 102/50 - Exam No acute distress, oriented 3. Currently on 2 L of oxygen nasal cannula. No audible wheezing, use of accessory muscles, or conversational dyspnea. The patient is currently on room air oxygen. HEENT examination is grossly unremarkable. Neck supple. Full range of motion. No adenopathy thyromegaly or neck vein distention. Cardiovascular examination reveals an irregular rhythm and rate. S1-S2 normal. No S3 or S4. No discernible murmur noted. Lungs reveal scattered bilateral rhonchi. Breath sounds equal. No wheezes. Minimal scattered basilar crackles. Abdomen soft bowel sounds are heard. No masses or tenderness. Extremities are intact. No cyanosis clubbing or edema. Skin is without rash or lesion. Neurologic examination is brief but nonfocal. - Labs CBC & Chem 7: 09/11/22 04:40 09/12/22 04:15 Labs: Abnormal Lab Results - Last 24 Hours (Table) 09/11/22 09/12/22 Range/Units 20:03 04:15 Chloride 108 H (98-107) mmol/L Glucose 109 H (74-99) mg/dL POC Glucose (mg/dL) 137 H (70-110) mg/dL Microbiology - Last 24 Hours (Table) 09/06/22 11:24 Blood Culture - Preliminary Blood No Growth after 120 hours 09/06/22 11:24 Blood Culture - Preliminary Blood No Growth after 120 hours Assessment and Plan Plan: Acute left lower lobe pneumonia with extensive consolidation of the left lower lobe posterior and lateral segment was small left-sided pleural effusion, pro calcitonin level was elevated and the patient was septic at the time of admission with hypotension and GI bleed. The chest x-ray findings are stable. The patient has bilateral lower lobe consolidation worse on the left. Pro- calcitonin level is improving. The patient remains on Zosyn. Pressor requirements have improved and based on that The patient on same antibiotic coverage which is IV Zosyn. The patient is stable and the pro calcitonin level continues to down trend and the patient will be kept on the same antibiotic coverage and repeat chest x-ray from yesterday showed stable bilateral pulmonary consolidation worse on the left. Nevertheless, clinically the patient is improved. Oxygenation is improved. Hemodynamics improved. Pro-calcitonin level is also improving. Acute hypoxic respiratory failure, currently on room air oxygen and the patient's currently is on room air. Covid 19 infection, incidental finding, probably not related to the current presentation Sepsis/hypotension, recovered and the patient's is normotensive for now. Chronic atrial fibrillation with RVR, and sepsis, secondary to left-sided pneumonia. 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 No anticoagulants. The patient's heart rate is less tachycardic, irregular and the patient has underlying cardiac myopathy with an ejection fraction of 30-35% Cardiomyopathy with systolic heart failure and ejection fraction of 30 35% Acute gastrointestinal bleed, hemoglobin is stable at 11 and the patient has not required any packed RBC transfusion. EGD and colonoscopy has been completed Mild left-sided diverticulosis Mild gastritis Acute kidney injury, recovered Severe obstructive sleep apnea, with an AHI of 40.7 worse during REM sleep. Diagnosed back in May 2022 and subsequently the patient underwent a titration and given an APAP machine pressures of 6/15 cm of water. History of diabetes mellitus type 2, currently inactive and stable History of hypertension. History of benign colon polyps. Previous history of tobacco use. Plan: Patient is back on room air oxygen Repeat Chest x-ray from yesterday was noted continue using the incentive spirometer pro-calcitonin LEVEL HAS DROPPED SIGNIFICANTLY Repeat chest x-ray today Continue IV Zosyn Check a Legionella urine antigen was checked and the levels came back negative The Covid 19 infection was essentially an incidental finding Change IV fluids to KVO Pressors have been discontinued EGD and colonoscopy showed no evidence of any acute GI bleed. The patient has chronic left colonic diverticulosis and the patient may be restarted back on anticoagulation. He takes Xarelto outpatient Continue oral amiodarone Continue the metoprolol at a dose of 100mg TID a day, amiodarone 400 mg by mouth twice a day, and oral Cardizem 30 mg by mouth 3 times a day. Obtain clearance from general surgery regarding anticoagulation Blood sugar management using his own CPAP machine from home which is an APAP unit pressures of 6/15 cm of water We'll continue to follow
[2022-09-12 11:15] LABS: Glucose,Whole Blood 141 mg/dL (70-110)
[2022-09-12] MEDS: SODIUM CHLORIDE 0.9% 1,000 ML IV SCH (12:29)
[2022-09-12 17:01] LABS: Glucose,Whole Blood 194 mg/dL (70-110)
[2022-09-12] MEDS: ACETAMINOPHEN TAB 325 MG TAB PO PRN (17:20)
--- NOTE | 2022-09-12 18:58 | P.PN ---
Subjective Progress Note Date: 09/12/22 61-year-old male who was initially seen in the emergency department, on September 04. We were consulted yesterday late. The patient apparently came to the emergency room, complaining of left-sided lateral chest pain, which is been going on for quite some time. In addition, the patient apparently developed some GI bleeding on the floor, which is when I was called. The patient was having atrial fibrillation with RVR, GI bleeding, and also having some respiratory difficulty. We decided to move him to the ICU. I came in last like to put in a right radial art line, and a left internal jugular triple-lumen catheter. Currently, he's seen in room 257. He's on 4 L of oxygen. He is getting Cardizem at 10 mg an hour, vasopressin at 0.04 units per minute, norepinephrine at 31 mcg/m, and saline at KVO. I added Zosyn this morning for pneumonia, and we will check a pro-calcitonin level. The patient will get 1-1/2 L of lactated Ringer's, his baseline IV will be increased to 75 mL an hour of saline, and we'll check blood urine and sputum cultures. CAT scan show what appeared to be some consolidation in the left lower lobe. The patient has a history of atrial fibrillation, diabetes, and hypertension. White count 16, with a normal hemoglobin, hematocrit, and platelet count. Sodium 131, potassium 4.2, chlorides 95, CO2 25, anion gap normal, BUN 51, and creatinine 2.19. 3/26. Patient seen and examined. Sitting upright in the chair. Had a small bowel movement with blood in it. Patient is being weaned off the pressors 09/11/2022 Patient is seen and evaluated in follow-up today with multiple medical consultations following continues in the ICU with close monitoring. Patient is scheduled sometime this afternoon for EGD/colonoscopy to evaluate for GI bleeding. Patient did undergo a bowel prep and is nothing by mouth currently. Recommend continue telemetry monitoring. Follow-up chest x-ray today shows a stable left lower lobe infiltrate with small to moderate left pleural effusion and improving infiltrates at the right lung base. Patient with incentive spirometer at the bedside and encouraged to continue using at least 10 times every hour while awake. Patient also continues with indwelling Lin catheter and will continue for now. After endoscopy patient okay to resume diet and discussing possible downgrade out of the ICU. Hemoglobin remained stable at 10.5 09/12/2022 Patient is seen and evaluated in follow-up continues to be in the ICU although awaiting a downgrade once a bed becomes available stepdown. Patient is status post EGD with colonoscopy with no active bleeding noted was some mild gastritis. Patient will continue on Protonix and okay to resume Xarelto starting 09/13/2022. Patient is off pressor support currently rate controlled maintained on oral medications with cardiology following. Encouraged increased activity as tolerated and will have physical therapy follow the patient. Patient is currently afebrile with no reports of chest pain or shortness of breath. Patient tolerating diet with no reported nausea or vomiting or abdominal pain. REVIEW OF SYSTEMS: CONSTITUTIONAL: No fever, no malaise,. CARDIOVASCULAR: No chest pain, no palpitations, no syncope. PULMONARY: No shortness of breath, no cough, GASTROINTESTINAL: No diarrhea, no nausea, no vomiting, no abdominal pain. NEUROLOGICAL: No headaches, reports some generalized weakness PHYSICAL EXAMINATION: GENERAL: The patient is alert and oriented x3, not in any acute distress. Well developed, well nourished. Obese HEENT: Pupils are round and equally reacting to light. EOMI. No scleral icterus. No conjunctival pallor. Normocephalic, atraumatic. No pharyngeal erythema. No thyromegaly. CARDIOVASCULAR: S1 and S2 present. No murmurs, rubs, or gallops. PULMONARY: Chest is clear to auscultation, no wheezing or crackles. ABDOMEN: Soft, nontender, nondistended, normoactive bowel sounds. No palpable organomegaly. MUSCULOSKELETAL: No joint swelling or deformity. EXTREMITIES: No cyanosis, clubbing, or pedal edema. NEUROLOGICAL: Gross neurological examination did not reveal any focal deficits. SKIN: No rashes. Assessment: Hypotension, likely secondary to GI bleed, atrial fibrillation with RVR, and sepsis, secondary to left-sided pneumonia. Sepsis, secondary to left-sided pneumonia Bacterial pneumonia Severe obstructive sleep apnea Acute hypoxic respiratory failure secondary to pneumonia Acute gastrointestinal bleed. Acute atrial fibrillation with RVR. Currently rate controlled Nonischemic cardiomyopathy Acute on chronic kidney disease. Coronavirus infection. History of diabetes mellitus. History of hypertension. History of benign colon polyps. Plan: Patient is currently maintained in the ICU under close observation with multiple medical consultations following. patient is status post EGD colonoscopy with biopsies obtained showing some gastritis with no active bleeding noted. Xarelto okay to resume on 09/13/2022 Hemoglobin is stable and would recommend following labs closely Patient tolerating diet and encouraged oral intake. recommended PT/OT therapy evaluation as patient does have weakness and has had prolonged hospitalization Recommend continued telemetry monitoring with cardiology and pulmonary following. Patient is a downgrade out of the ICU to stepdown once a bed becomes availablend close monitoring of CBC and will follow-up with repeat labs Recommend continue with IV antibiotics and chest x-ray shows some improvement in pneumonia Due to multiple complex medical issues, prognosis is guarded and will follow-up after endoscopy report The impression and plan of care has been dictated by Lou Chahal, Nurse Practitioner as directed. Dr. Yobany MD I have performed a history and examination and MDM of this patient, discussed the same with the dictator, and agree with the dictator's assessment and plan as written ,documented as a scribe. Based on total visit time, I have performed more than 50% of the visit. Objective - Vital Signs Vital signs: Vital Signs Temp 97.8 F 09/12/22 12:00 Pulse 117 H 09/12/22 12:00 Resp 10 L 09/12/22 12:00 BP 117/93 09/12/22 09:00 Pulse Ox 96 09/12/22 12:00 FiO2 Intake & Output 09/11/22 09/12/22 09/12/22 18:59 06:59 18:59 Intake Total 1373 759 162 Output Total 1425 990 50 Balance -52 -231 112 Weight 114 kg 114 kg Intake: IV 773 259 162 0.9 140 240 20 Arterial & CVP Lines 33 19 42 Piperacillin-Tazobactam 3 200 100 .375 gm In Sodium Chloride 0.9% 100 ml @ 25 mls/hr IVPB Q8HR [facility] Rx# :[id number] Potassium Chloride 20 meq 200 In Water For Injection 1 100ml.bag @ 50 mls/hr IVPB Q2H [facility] Rx#: [id number] Oral 600 500 Output: Urine 1425 990 50 Other: Voiding Method Indwelling Catheter Indwelling Catheter Indwelling Catheter ABP, PAP, CO, CI - Last Documented Arterial Blood Pressure 122/61 - Labs CBC & Chem 7: 09/11/22 04:40 09/12/22 04:15 Labs: Abnormal Lab Results - Last 24 Hours (Table) 09/11/22 09/12/22 09/12/22 Range/Units 20:03 04:15 11:13 Chloride 108 H (98-107) mmol/L Glucose 109 H (74-99) mg/dL POC Glucose (mg/dL) 137 H 141 H (70-110) mg/dL Microbiology - Last 24 Hours (Table) 09/06/22 11:24 Blood Culture - Preliminary Blood No Growth after 120 hours 09/06/22 11:24 Blood Culture - Preliminary Blood No Growth after 120 hours
[2022-09-12] MEDS: TAMSULOSIN 0.4 MG CAP.ER.24H PO SCH (20:26)
[2022-09-12] MEDS: ATORVASTATIN 20 MG TAB PO SCH (20:26)
[2022-09-12 20:40] LABS: Glucose,Whole Blood 193 mg/dL (70-110)
[2022-09-12] MEDS: MELATONIN 3 MG TABLET PO PRN (21:11)
[2022-09-13] MEDS: ACETAMINOPHEN TAB 325 MG TAB PO PRN ×3 (03:16→23:46)
[2022-09-13 06:00] LABS: Glucose,Whole Blood 108 mg/dL (70-110)
[2022-09-13] MEDS: NOREPINEPHRINE 32 MG in SODIUM CHLORIDE 0.9% 218 ML IV SCH (06:04)
[2022-09-13 06:19] LABS: Basophils % (A) 0 %; Eosinophils # (A) 0.2 k/uL (0-0.7); Eosinophils % (A) 2 %; HGB 11.3 gm/dL (13.0-17.5); Hypochromasia Slight; Lymphocytes # (A) 1.5 k/uL (1.0-4.8); Lymphocytes % (A) 19 %; MCH 30.2 pg (25.0-35.0); MCHC 32.2 g/dL (31.0-37.0); MCV 93.8 fL (80.0-100.0); Mean Platelet Volume 8.4; Monocytes # (A) 0.5 k/uL (0-1.0); Monocytes % (A) 7 %; Neutrophils # (A) 5.4 k/uL (1.3-7.7); Neutrophils % (A) 70 %; Platelet Count 407 k/uL (150-450); RBC 3.73 m/uL (4.30-5.90); RDW 15.1 % (11.5-15.5); WBC 7.7 k/uL (3.8-10.6)
[2022-09-13 06:34] LABS: African American GFR (CKD) >90 (>60 ml/min/1.73 sqM); Anion Gap 6 mmol/L; Blood Urea Nitrogen 11 mg/dL (9-20); Carbon Dioxide 28 mmol/L (22-30); Chloride 104 mmol/L (98-107); Glucose 93 mg/dL (74-99); Magnesium 1.8 mg/dL (1.6-2.3); Non-African American GFR(CKD) 81 (>60 ml/min/1.73 sqM); Potassium 5.2 mmol/L (3.5-5.1); Sodium 138 mmol/L (137-145)
[2022-09-13] MEDS: LACTATED RINGERS 1,000 ML IV SCH (06:40)
[2022-09-13] MEDS: MIDODRINE 5 MG TAB PO SCH ×3 (06:40→17:15)
[2022-09-13] MEDS: INSULIN ASPART (NovoLOG) 100 UNIT/ML VIAL SQ SCH ×4 (06:42→20:37)
[2022-09-13] MEDS: traMADol 50 MG TAB PO PRN ×3 (06:47→20:43)
--- NOTE | 2022-09-13 07:55 | P.PN ---
Subjective Progress Note Date: 09/13/22 61-year-old male patient hospitalized for hypotension along with itchy fibrillation with rapid ventricular response. He also had some GI bleeding on the floor prior to him coming to the intensive care unit. The patient as such was brought into the ICU with A. fib RVR and GI bleed. Subsequently, he turnout to be Covid positive also. Chest x-ray showing cardiomegaly, increased interstitial markings in addition to a left lower lobe consolidation. This is an x-ray that was done yesterday. His chest x-ray at the time of admission looks essentially the same. Based on all this, the patient was brought into the intensive care unit. His itchy fibrillation is currently controlled with Cardizem drip which is running at 5 mg an hour. The patient is also on amiodarone by mouth at a dose of 100 mg twice a day. The patient is on no anticoagulation as the patient was having GI bleeding. The patient was having episodic GI bleed with bright red blood per rectum which progressively became more dark and this morning it's greenish black. As such, no antigravity which has been provided and the patient is likely going to require a EGD/colonoscopy and this is scheduled to be done by general surgeon within the next 24 hours. Meanwhile, he was resuscitated with IV fluids. IV fluids are currently running 0.9 at the rate of 75 mL an hours. He is currently on pressors with norepinephrine at 0.12 microvascular kilogram per minute and vasopressin and physiologic dose. He had an acute kidney injury and the creatinine was as high as 2.34 which is essentially recovered and the creatinine is essentially normalized. No cultures are available. His pro calcitonin level is at 22 and the patient is currently on IV Zosyn. He is known to have an underlying cardiomyopathy with systolic heart failure and previous admissions has shown impaired LV function with an ejection fraction of 30-35%. Noted the CAT scan of the abdomen and the chest that was done at time of admission showed an extensive consolidation of the lateral segment and the posterior segment of the left lower lobe in addition to development of a small left-sided pleural effusion. His abdomen was essentially within normal limits. Noted the patient also had a hemoglobin drop from 13.4 at time of admission which came up to 15.6 and subsequently dropped down to 10.7 this morning. The patient has not required any packed RBC transfusions. Review of previous echocardiogram that was done on 08/14/2022 showed systolic heart failure, global decrease in the contractility with an ejection fraction of 30-35%. On today's evaluation of 09/09/2022, the patient is being seen for a follow-up. The patient is being treated for a extensive left lower lobe pneumonia, sepsis, hypotension, itchy fibrillation with RVR and GI bleed. The patient also Covid 19 positive. Chest x-ray still showing consolidation of the lower lobes or so o n the left. No major interval change compared to yesterday. The white cell count at 7.8. Cultures have been negative. Legionella urine antigen was also negative. The patient had a pro-calcitonin level of 8.7 and this was obtained yesterday and the level is obviously improving and as such no further antibiotic modifications was done and the patient was Zosyn As the Pro Calcitonin Level Has Been Improving. As Far As Pressor Requirements, the Patient Is on Vasopressin Physiologic Dose and Norepinephrine Which Is Running at 0.04 mcg/kg/m. As such, the pressor requirements have improved considerably over the past 24 hours. The patient is able sit up on a chair. The patient is still in atrial fibrillation. The patient is still tachycardic. In terms of A. fib, the patient is on amiodarone 400 mg by mouth twice a day, he is on metoprolol 150 mg by mouth twice a day, and he is also on Cardizem which has been switched to oral 30 mg by mouth 3 times a day. He is on no anticoagulants as the patient presented originally with GI bleeding. Note that he is scheduled to have EGD and colo noscopy over the next 24-48 hours. The patient's hemoglobin meanwhile has remained stable at 10.8 and the patient has not had any further episode of GI bleeding. In terms of his acute kidney injury, this is recovered and the creatinine is down to 0.8. Sodium level is at 136 and the chloride is 105. The patient is awake and alert and communicating. He is on oxygen at 2 L/m nasal cannula. His echocardiogram from 08/14/2022 so it systolic heart failure with an ejection fraction of 30-35%. No angina. No palpitations. No other significant events overnight. On today's evaluation of 09/10/2022, the patient is sitting up on a chair and he is on room air oxygen. Repeat pro-calcitonin level is pending from today. He is being treated for extensive left lower lobe pneumonia and also had some right basilar pulmonary infiltrates and a most recent chest x-ray. No chest x-rays available from today. The white cell count is down to 7.6 with a hemoglobin of 11.1. Rest of the electrolytes are all stable and the patient remains on IV Zosyn for now. As mentioned, all of the cultures were essentially negative. In terms of his cardiac status, he has a cardiomyopathy with ejection fraction of 30-35% and the patient also has issues with a atiral fibrillation with rapid ventricular response. This was exacerbated time of his pneumonia and sepsis. The patient is under better control in terms of atrial fibrillation. Currently is on a combination of metoprolol 100 mg by mouth 3 times a day, Cardizem 30 mg by mouth 3 times a day, amiodarone 400 mg by mouth 3 times a day and is not rece iving any anticoagulation due to concerns of GI bleed. Noted no active GI bleed has been witnessed over the past 48 hours. His hemoglobin remained stable. The patient is going to be going to undergo his bowel prep today, and the patient is going to have an EGD and colonoscopy tomorrow. He is using the incentive spirometer. His calm and comfortable. No significant respiratory distress. No cough or congestion. He was weaned off the FiO2 and currently is on room air oxygen. In terms of his hemodynamics, the patient is still requiring low-dose norepinephrine. Vasopressin was discontinued and the patient is only on 0.02 microvascular kilogram per minute of norepinephrine infusion to support his blood pressure. I'm hoping that this will be discontinued also today. On 09/11/2022, the patient is sitting up on a chair and is currently on 2 L of oxygen by nasal cannula. His being treated for bilateral pneumonia more extensive on the left and the patient remains on IV Zosyn. A repeat pro- calcitonin level that was done yesterday showed a level was down to 2.03 and as such there is a down trending of the pro calcitonin level. The patient will be kept accordingly on same antibiotic coverage. Hemodynamically, he is off vasopressin and he is off norepinephrine and this was discontinued yesterday. Noted the patient was on minimal dose of norepinephrine to support his blood pressure. His cardiac atrial fibrillation. The patient is still tachycardic. He is on rate control with a combination of Cardizem, metoprolol and amiodarone. No anticoagulation yet. He is going to undergo a colonoscopy today to assess his risk for recurrent GI bleed and based on that will make a decision on his anticoagulation. He is tolerating his diet. No focal neurological deficits. Hemoglobin is at 10.5 with a white cell count of 8.4. The BUN is at 8 with a creatinine of 0.7 and a sodium level is at 135. Noted the patient's IV fluids were CUT down to KVO as of yesterday. The patient otherwise has no specific complaints. A repeat chest x-ray will be done today. This was not completed yet. I reviewed the chest x-ray once is completed. No fever. No chills. No chest pain. Blood sugars under better control for now. 09/12/2022, the patient is back on room air oxygen. Doing well. Communicating. Denies having any respiratory distress. A repeat chest x-ray was done yester day showed a stable bilateral lower lobe consolidation. The consolidation is worse on the left. Nevertheless, the findings of essentially stable. The pro calcitonin level has been improving. The patient's sepsis is improved. The patient is currently off pressors. Based on all this, I kept him on same antibiotic coverage. He seems to be less tachycardic compared to yesterday. He remains on a combination of Cardizem, metoprolol and amiodarone. He underwent EGD and colonoscopy yesterday which showed mild gastritis, mild left-sided colonic diverticulosis, no evidence of any acute GI bleeding. The patient may be considered to be restarted back on xARELTO.. Blood work from today shows n ormal electrolytes, BUN is at 9 with a creatinine of 0.7. CBC still pending from today. IV fluids are currently at KVO. 09/13/2022, the patient is clinically and hemodynamically stable. He is on room air oxygen. No new complaints. Heart rate is under better control and the patient is going to be started on anticoagulation. A follow-up chest x-ray is to be done today. WBC count 7.7 and hemoglobin is at 11.3. BUN is 11 with a creatinine of 0.99. Sodium is 138, bicarb is 28, potassium is at 5.2. The patient is completing the course of Zosyn. Pro-calcitonin level has dropped. Microbial cultures are all negative. His cardiac rhythm is atrial fibrillation which is under adequate control for now. The patient is on a combination of amiodarone, Cardizem and Toprol. No pressors. Objective - Vital Signs Vital signs: Vital Signs Temp 97.8 F 09/13/22 06:00 Pulse 96 09/13/22 06:00 Resp 13 09/13/22 06:00 BP 120/77 09/13/22 06:00 Pulse Ox 97 09/13/22 06:00 FiO2 Intake & Output 09/12/22 09/13/22 09/13/22 18:59 06:59 18:59 Intake Total 462 600 Output Total 650 850 Balance -188 -250 Weight 114 kg 114.5 kg Intake: IV 162 300 0.9 20 Arterial & CVP Lines 42 Piperacillin-Tazobactam 3 100 300 .375 gm In Sodium Chloride 0.9% 100 ml @ 25 mls/hr IVPB Q8HR [facility] Rx# :[id number] Oral 300 300 Output: Urine 650 850 Other: Voiding Method Indwelling Catheter ABP, PAP, CO, CI - Last Documented Arterial Blood Pressure 122/61 - Exam No acute distress, oriented 3. Currently on 2 L of oxygen nasal cannula. No audible wheezing, use of accessory muscles, or conversational dyspnea. The patient is currently on room air oxygen. HEENT examination is grossly unremarkable. Neck supple. Full range of motion. No adenopathy thyromegaly or neck vein distention. Cardiovascular examination reveals an irregular rhythm and rate. S1-S2 normal. No S3 or S4. No discernible murmur noted. Lungs reveal scattered bilateral rhonchi. Breath sounds equal. No wheezes. Minimal scattered basilar crackles. Abdomen soft bowel sounds are heard. No masses or tenderness. Extremities are intact. No cyanosis clubbing or edema. Skin is without rash or lesion. Neurologic examination is brief but nonfocal. - Labs CBC & Chem 7: 09/13/22 05:31 09/13/22 05:31 Labs: Abnormal Lab Results - Last 24 Hours (Table) 09/12/22 09/12/22 09/12/22 Range/Units 11:13 16:59 20:39 RBC (4.30-5.90) m/uL Hgb (13.0-17.5) gm/dL Hct (39.0-53.0) % Potassium (3.5-5.1) mmol/L POC Glucose (mg/dL) 141 H 194 H 193 H (70-110) mg/dL 09/13/22 09/13/22 Range/Units 05:31 05:31 RBC 3.73 L (4.30-5.90) m/uL Hgb 11.3 L (13.0-17.5) gm/dL Hct 35.0 L (39.0-53.0) % Potassium 5.2 H (3.5-5.1) mmol/L POC Glucose (mg/dL) (70-110) mg/dL Microbiology - Last 24 Hours (Table) 09/06/22 11:24 Blood Culture - Final Blood No Growth after 144 hours 09/06/22 11:24 Blood Culture - Final Blood No Growth after 144 hours Assessment and Plan Plan: Acute left lower lobe pneumonia with extensive consolidation of the left lower lobe posterior and lateral segment was small left-sided pleural effusion, pro calcitonin level was elevated and the patient was septic at the time of admission with hypotension and GI bleed. The chest x-ray findings are stable. The patient has bilateral lower lobe consolidation worse on the left. Pro- calcitonin level is improving. The patient remains on Zosyn. Pressor requirements have improved and based on that The patient on same antibiotic coverage which is IV Zosyn. The patient is stable and the pro calcitonin level continues to down trend and the patient will be kept on the same antibiotic coverage and repeat chest x-ray from yesterday showed stable bilateral pulmonary consolidation worse on the left. Nevertheless, clinically the patient is improved. Oxygenation is improved. Hemodynamics improved. Pro-calcitonin lev el is also improving. Acute hypoxic respiratory failure, currently on room air oxygen and the patie nt's currently is on room air. Covid 19 infection, incidental finding, probably not related to the current presentation Sepsis/hypotension, recovered and the patient's is normotensive for now. Chronic atrial fibrillation with RVR, and sepsis, secondary to left-sided pneumonia. 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 No anticoagulants. The patient's heart rate is less tachycardic, irregular and the patient has underlying cardiomyopathy with an ejection fraction of 30-35% Cardiomyopathy with systolic heart failure and ejection fraction of 30 35% Acute gastrointestinal bleed, hemoglobin is stable at 11.3 and the patient has not required any packed RBC transfusion. EGD and colonoscopy has been completed Mild left-sided diverticulosis Mild gastritis Acute kidney injury, recovered Severe obstructive sleep apnea, with an AHI of 40.7 worse during REM sleep. Diagnosed back in May 2022 and subsequently the patient underwent a titration and given an APAP machine pressures of 6/15 cm of water. History of diabetes mellitus type 2, currently inactive and stable History of hypertension. History of benign colon polyps. Previous history of tobacco use. Plan: Repeat chest x-ray today, films are still pending Patient is back on room air oxygen continue using the incentive spirometer pro-calcitonin LEVEL HAS DROPPED SIGNIFICANTLY Continue IV Zosyn , completing a course of Zosyn The Covid 19 infection was essentially an incidental finding Change IV fluids to KVO Pressors have been discontinued EGD and colonoscopy showed no evidence of any acute GI bleed. The patient has chronic left colonic diverticulosis and the patient may be restarted back on anticoagulation. He takes Xarelto outpatient Continue oral amiodarone *Anticoagulation with Xarelto 20 mg by mouth daily Continue the metoprolol at a dose of 100mg TID a day, amiodarone 400 mg by mouth twice a day, and oral Cardizem 30 mg by mouth 3 times a day. Obtain clearance from general surgery regarding anticoagulation Blood sugar management using his own CPAP machine from home which is an APAP unit pressures of 6/15 cm of water We'll continue to follow
[2022-09-13] MEDS: PIPERACILLIN-TAZOBACTAM 3.375 GM in SODIUM CHLORIDE 0.9% 100 ML IVPB SCH ×2 (08:05→17:18)
--- NOTE | 2022-09-13 09:01 | XR ---
EXAMINATION TYPE: XR chest 1V portable DATE OF EXAM: 09/13/2022 CLINICAL HISTORY: Difficulty breathing and pneumonia. TECHNIQUE: Single AP portable upright view of the chest is obtained. COMPARISON: Chest x-ray from one day earlier and older studies. FINDINGS: Stable left internal jugular central venous catheter. Persistent moderate size left pleura l effusion and associated left basilar opacity. Persistent small to tiny right pleural effusion and r ight basilar opacity. Cardiac silhouette size is stable and mildly enlarged. Osseous structures are i ntact. IMPRESSION: Mild cardiomegaly with moderate-sized left pleural effusion and small tiny right pleural effusion. Left greater than right bibasilar acute infiltrate and/or atelectasis redemonstrated. No si gnificant change from one day earlier.
[2022-09-13] MEDS: PANTOPRAZOLE 40 MG/10 ML VIAL IVP SCH ×2 (09:31→20:37)
[2022-09-13] MEDS: METOPROLOL TARTRATE 50 MG TAB PO SCH ×3 (09:32→20:37)
[2022-09-13] MEDS: PIOGLITAZONE 45 MG TAB PO SCH (09:32)
[2022-09-13] MEDS: SPIRONOLACTONE 25 MG TAB PO SCH (09:32)
[2022-09-13] MEDS: GABAPENTIN 100 MG CAP PO SCH ×2 (09:32→20:37)
[2022-09-13] MEDS: DAPAGLIFLOZIN PROPANEDIOL 10 MG TABLET PO SCH (09:32)
[2022-09-13] MEDS: DILTIAZEM ORAL 30 MG TAB PO SCH ×3 (09:32→20:37)
[2022-09-13] MEDS: AMIODARONE 200 MG TAB PO SCH ×2 (09:32→20:37)
[2022-09-13] MEDS: LINAGLIPTIN 5 MG TABLET PO SCH (09:32)
--- NOTE | 2022-09-13 10:14 | US ---
EXAMINATION TYPE: US chest DATE OF EXAM: 09/13/2022 COMPARISON: CXR from earlier today CLINICAL HISTORY: L. plural effusion. Left effusion TECHNIQUE: Targeted ultrasound of the posterior lower left hemithorax EXAM MEASUREMENTS: Left Pleural Effusion pocket size: 14.2 cm Left skin surface to fluid distance: 5.2 cm Left side marked for possible thoracentesis outside the dept. Pulmonologists are able to review the images in the patient?s EMR. Fairly moderate size left pleural effusion on 3 images saved correlates with same date chest x-ray IMPRESSIONS: As above.
[2022-09-13 11:41] LABS: Glucose,Whole Blood 163 mg/dL (70-110)
[2022-09-13] MEDS: SODIUM CHLORIDE 0.9% 1,000 ML IV SCH (11:47)
--- NOTE | 2022-09-13 12:38 | P.PN ---
Subjective Progress Note Date: 09/13/22 The patient is a 61-year-old male who is currently admitted with acute COVID-19 infection and pneumonia. He initially presented with back pain. Cardiology was consulted for A. fib with RVR. He has a history of A. fib with RVR and was recently cardioverted. He also has a known history of nonischemic car diomyopathy with EF around 30-35%. Over the course of his admission he has also found to have an acute GI bleed. Throughout his ICU admission he has been on and off Levophed and vasopressin, which is now completely resolved. He underwent upper and lower endoscopy yesterday with Dr. Hylton. He was found to have some superficial, plaque-like erosions in his left colon, which was likely the source of his bleed. The patient was interviewed sitting up in the recliner chair. He states he is feeling much better today. He has been up ambulating around his room without dizziness or lightheadedness. No chest pain or chest pressure. No heart racing or fluttering. No difficulty breathing. VITALS: Blood pressure 120/77, heart rate 102, respiratory rate 14, SpO2 96% on room air TELEMETRY: Atrial fibrillation with heart rates in the low 100s LABS: WBC 7.7, hemoglobin 11.3, hematocrit 35.0, platelets 47, sodium 138, potassium 5.2, BUN 11, creatinine 0.99, magnesium 1.8 IMPRESSION: A. fib with RVR Nonischemic cardiomyopathy, EF 30-35% Acute left lower lobe pneumonia Acute GI bleed Acute COVID-19 infection PLAN: Continue current medication regimen including anticoagulation Encourage ambulation and aggressive pulmonary hygiene Outpatient follow-up with primary yarn man I am dictating on behalf of Dr Cayden Bernstein's history/physical and assessment/plan. Objective - Vital Signs Vital signs: Vital Signs Temp 97.8 F 09/13/22 08:00 Pulse 102 H 09/13/22 12:00 Resp 16 09/13/22 12:00 BP 120/77 09/13/22 08:00 Pulse Ox 96 09/13/22 08:00 FiO2 Intake & Output 09/12/22 09/13/22 09/13/22 18:59 06:59 18:59 Intake Total 462 600 100 Output Total 650 850 Balance -188 -250 100 Weight 114 kg 114.5 kg Intake: IV 162 300 100 0.9 20 Arterial & CVP Lines 42 Piperacillin-Tazobactam 3 100 300 100 .375 gm In Sodium Chloride 0.9% 100 ml @ 25 mls/hr IVPB Q8HR [facility] Rx# :[id number] Oral 300 300 Output: Urine 650 850 Other: Voiding Method Indwelling Catheter Toilet Bedside Commode # Voids 1 # Bowel Movements 1 ABP, PAP, CO, CI - Last Documented Arterial Blood Pressure 122/61 - Labs CBC & Chem 7: 09/13/22 05:31 09/13/22 05:31 Labs: Abnormal Lab Results - Last 24 Hours (Table) 09/12/22 09/12/22 09/13/22 Range/Units 16:59 20:39 05:31 RBC 3.73 L (4.30-5.90) m/uL Hgb 11.3 L (13.0-17.5) gm/dL Hct 35.0 L (39.0-53.0) % Potassium (3.5-5.1) mmol/L POC Glucose (mg/dL) 194 H 193 H (70-110) mg/dL 09/13/22 09/13/22 Range/Units 05:31 11:40 RBC (4.30-5.90) m/uL Hgb (13.0-17.5) gm/dL Hct (39.0-53.0) % Potassium 5.2 H (3.5-5.1) mmol/L POC Glucose (mg/dL) 163 H (70-110) mg/dL Microbiology - Last 24 Hours (Table) 09/06/22 11:24 Blood Culture - Final Blood No Growth after 144 hours 09/06/22 11:24 Blood Culture - Final Blood No Growth after 144 hours
[2022-09-13 16:45] LABS: Glucose,Whole Blood 204 mg/dL (70-110)
[2022-09-13] MEDS: RIVAROXABAN 20 MG TAB PO SCH (17:15)
[2022-09-13 20:18] LABS: Glucose,Whole Blood 141 mg/dL (70-110)
[2022-09-13] MEDS: ATORVASTATIN 20 MG TAB PO SCH (20:37)
[2022-09-13] MEDS: TAMSULOSIN 0.4 MG CAP.ER.24H PO SCH (20:37)
[2022-09-13] MEDS: MELATONIN 3 MG TABLET PO PRN (20:43)
[2022-09-14] MEDS: traMADol 50 MG TAB PO PRN ×3 (05:26→21:49)
[2022-09-14 06:21] LABS: Glucose,Whole Blood 118 mg/dL (70-110)
[2022-09-14] MEDS: INSULIN ASPART (NovoLOG) 100 UNIT/ML VIAL SQ SCH ×4 (06:26→21:51)
[2022-09-14] MEDS: MIDODRINE 5 MG TAB PO SCH ×3 (06:29→17:16)
[2022-09-14] MEDS: ACETAMINOPHEN TAB 325 MG TAB PO PRN ×2 (09:14→17:11)
[2022-09-14] MEDS: GABAPENTIN 100 MG CAP PO SCH ×2 (09:15→21:50)
[2022-09-14] MEDS: PIOGLITAZONE 45 MG TAB PO SCH (09:15)
[2022-09-14] MEDS: DILTIAZEM ORAL 30 MG TAB PO SCH ×3 (09:15→21:49)
[2022-09-14] MEDS: AMIODARONE 200 MG TAB PO SCH ×2 (09:15→21:50)
[2022-09-14] MEDS: SPIRONOLACTONE 25 MG TAB PO SCH (09:15)
[2022-09-14] MEDS: LINAGLIPTIN 5 MG TABLET PO SCH (09:15)
[2022-09-14] MEDS: DAPAGLIFLOZIN PROPANEDIOL 10 MG TABLET PO SCH (09:15)
[2022-09-14] MEDS: METOPROLOL TARTRATE 50 MG TAB PO SCH (09:15)
[2022-09-14] MEDS: PANTOPRAZOLE 40 MG/10 ML VIAL IVP SCH ×2 (09:19→21:51)
[2022-09-14 09:20] VITALS: RESP 18
--- NOTE | 2022-09-14 09:30 | P.PN ---
Subjective Progress Note Date: 09/14/22 61-year-old male patient hospitalized for hypotension along with itchy fibrillation with rapid ventricular response. He also had some GI bleeding on the floor prior to him coming to the intensive care unit. The patient as such was brought into the ICU with A. fib RVR and GI bleed. Subsequently, he turnout to be Covid positive also. Chest x-ray showing cardiomegaly, increased interstitial markings in addition to a left lower lobe consolidation. This is an x-ray that was done yesterday. His chest x-ray at the time of admission looks essentially the same. Based on all this, the patient was brought into the intensive care unit. His itchy fibrillation is currently controlled with Cardizem drip which is running at 5 mg an hour. The patient is also on amiodarone by mouth at a dose of 100 mg twice a day. The patient is on no anticoagulation as the patient was having GI bleeding. The patient was having episodic GI bleed with bright red blood per rectum which progressively became more dark and this morning it's greenish black. As such, no antigravity which has been provided and the patient is likely going to require a EGD/colonoscopy and this is scheduled to be done by general surgeon within the next 24 hours. Meanwhile, he was resuscitated with IV fluids. IV fluids are currently running 0.9 at the rate of 75 mL an hours. He is currently on pressors with norepinephrine at 0.12 microvascular kilogram per minute and vasopressin and physiologic dose. He had an acute kidney injury and the creatinine was as high as 2.34 which is essentially recovered and the creatinine is essentially normalized. No cultures are available. His pro calcitonin level is at 22 and the patient is currently on IV Zosyn. He is known to have an underlying cardiomyopathy with systolic heart failure and previous admissions has shown impaired LV function with an ejection fraction of 30-35%. Noted the CAT scan of the abdomen and the chest that was done at time of admission showed an extensive consolidation of the lateral segment and the posterior segment of the left lower lobe in addition to development of a small left-sided pleural effusion. His abdomen was essentially within normal limits. Noted the patient also had a hemoglobin drop from 13.4 at time of admission which came up to 15.6 and subsequently dropped down to 10.7 this morning. The patient has not required any packed RBC transfusions. Review of previous echocardiogram that was done on 08/14/2022 showed systolic heart failure, global decrease in the contractility with an ejection fraction of 30-35%. On today's evaluation of 09/09/2022, the patient is being seen for a follow-up. The patient is being treated for a extensive left lower lobe pneumonia, sepsis, hypotension, itchy fibrillation with RVR and GI bleed. The patient also Covid 19 positive. Chest x-ray still showing consolidation of the lower lobes or so o n the left. No major interval change compared to yesterday. The white cell count at 7.8. Cultures have been negative. Legionella urine antigen was also negative. The patient had a pro-calcitonin level of 8.7 and this was obtained yesterday and the level is obviously improving and as such no further antibiotic modifications was done and the patient was Zosyn As the Pro Calcitonin Level Has Been Improving. As Far As Pressor Requirements, the Patient Is on Vasopressin Physiologic Dose and Norepinephrine Which Is Running at 0.04 mcg/kg/m. As such, the pressor requirements have improved considerably over the past 24 hours. The patient is able sit up on a chair. The patient is still in atrial fibrillation. The patient is still tachycardic. In terms of A. fib, the patient is on amiodarone 400 mg by mouth twice a day, he is on metoprolol 150 mg by mouth twice a day, and he is also on Cardizem which has been switched to oral 30 mg by mouth 3 times a day. He is on no anticoagulants as the patient presented originally with GI bleeding. Note that he is scheduled to have EGD and colo noscopy over the next 24-48 hours. The patient's hemoglobin meanwhile has remained stable at 10.8 and the patient has not had any further episode of GI bleeding. In terms of his acute kidney injury, this is recovered and the creatinine is down to 0.8. Sodium level is at 136 and the chloride is 105. The patient is awake and alert and communicating. He is on oxygen at 2 L/m nasal cannula. His echocardiogram from 08/14/2022 so it systolic heart failure with an ejection fraction of 30-35%. No angina. No palpitations. No other significant events overnight. On today's evaluation of 09/10/2022, the patient is sitting up on a chair and he is on room air oxygen. Repeat pro-calcitonin level is pending from today. He is being treated for extensive left lower lobe pneumonia and also had some right basilar pulmonary infiltrates and a most recent chest x-ray. No chest x-rays available from today. The white cell count is down to 7.6 with a hemoglobin of 11.1. Rest of the electrolytes are all stable and the patient remains on IV Zosyn for now. As mentioned, all of the cultures were essentially negative. In terms of his cardiac status, he has a cardiomyopathy with ejection fraction of 30-35% and the patient also has issues with a atiral fibrillation with rapid ventricular response. This was exacerbated time of his pneumonia and sepsis. The patient is under better control in terms of atrial fibrillation. Currently is on a combination of metoprolol 100 mg by mouth 3 times a day, Cardizem 30 mg by mouth 3 times a day, amiodarone 400 mg by mouth 3 times a day and is not rece iving any anticoagulation due to concerns of GI bleed. Noted no active GI bleed has been witnessed over the past 48 hours. His hemoglobin remained stable. The patient is going to be going to undergo his bowel prep today, and the patient is going to have an EGD and colonoscopy tomorrow. He is using the incentive spirometer. His calm and comfortable. No significant respiratory distress. No cough or congestion. He was weaned off the FiO2 and currently is on room air oxygen. In terms of his hemodynamics, the patient is still requiring low-dose norepinephrine. Vasopressin was discontinued and the patient is only on 0.02 microvascular kilogram per minute of norepinephrine infusion to support his blood pressure. I'm hoping that this will be discontinued also today. On 09/11/2022, the patient is sitting up on a chair and is currently on 2 L of oxygen by nasal cannula. His being treated for bilateral pneumonia more extensive on the left and the patient remains on IV Zosyn. A repeat pro- calcitonin level that was done yesterday showed a level was down to 2.03 and as such there is a down trending of the pro calcitonin level. The patient will be kept accordingly on same antibiotic coverage. Hemodynamically, he is off vasopressin and he is off norepinephrine and this was discontinued yesterday. Noted the patient was on minimal dose of norepinephrine to support his blood pressure. His cardiac atrial fibrillation. The patient is still tachycardic. He is on rate control with a combination of Cardizem, metoprolol and amiodarone. No anticoagulation yet. He is going to undergo a colonoscopy today to assess his risk for recurrent GI bleed and based on that will make a decision on his anticoagulation. He is tolerating his diet. No focal neurological deficits. Hemoglobin is at 10.5 with a white cell count of 8.4. The BUN is at 8 with a creatinine of 0.7 and a sodium level is at 135. Noted the patient's IV fluids were CUT down to KVO as of yesterday. The patient otherwise has no specific complaints. A repeat chest x-ray will be done today. This was not completed yet. I reviewed the chest x-ray once is completed. No fever. No chills. No chest pain. Blood sugars under better control for now. 09/12/2022, the patient is back on room air oxygen. Doing well. Communicating. Denies having any respiratory distress. A repeat chest x-ray was done yester day showed a stable bilateral lower lobe consolidation. The consolidation is worse on the left. Nevertheless, the findings of essentially stable. The pro calcitonin level has been improving. The patient's sepsis is improved. The patient is currently off pressors. Based on all this, I kept him on same antibiotic coverage. He seems to be less tachycardic compared to yesterday. He remains on a combination of Cardizem, metoprolol and amiodarone. He underwent EGD and colonoscopy yesterday which showed mild gastritis, mild left-sided colonic diverticulosis, no evidence of any acute GI bleeding. The patient may be considered to be restarted back on xARELTO.. Blood work from today shows n ormal electrolytes, BUN is at 9 with a creatinine of 0.7. CBC still pending from today. IV fluids are currently at KVO. 09/13/2022, the patient is clinically and hemodynamically stable. He is on room air oxygen. No new complaints. Heart rate is under better control and the patient is going to be started on anticoagulation. A follow-up chest x-ray is to be done today. WBC count 7.7 and hemoglobin is at 11.3. BUN is 11 with a creatinine of 0.99. Sodium is 138, bicarb is 28, potassium is at 5.2. The patient is completing the course of Zosyn. Pro-calcitonin level has dropped. Microbial cultures are all negative. His cardiac rhythm is atrial fibrillation which is under adequate control for now. The patient is on a combination of amiodarone, Cardizem and Toprol. No pressors. On 09/14/2022, the patient is outside intensive care unit. He is feeling well. He sitting up on a chair. He had bilateral pneumonia. I was concerned of a pleural effusion. A ultrasound of the chest was done on the left and there was a 14 cm pocket. I was planning to do a thoracentesis today. Nevertheless, the patient took Xarelto yesterday. As such, I held on the procedure specially the patient is doing extremely well and his pulse ox is up to 97% on room air oxygen. I asked the patient to continue using the incentive spirometer. We'll repeat a chest x-ray tomorrow. If the pleural fluid is still present, we'll proceed with thoracentesis after holding the Xarelto. Otherwise, he remained nature fibrillation. His heart rate is under inadequate control for now. Hemodynamically stable. He completed the course of Zosyn. Is on Lasix 40 mg by mouth daily. Labs from today are still pending. In terms of his defibrillation, the patient is currently on a combination of metoprolol 150 mg by mouth twice a day, Cardizem 30 mg 3 times a day and amiodarone 400 mg by mouth twice a day. Noted the metoprolol dose has been increased today by cardiology. Objective - Vital Signs Vital signs: Vital Signs Temp 97.8 F 09/14/22 09:20 Pulse 136 H 09/14/22 09:20 Resp 18 09/14/22 09:20 BP 120/78 09/14/22 09:20 Pulse Ox 97 09/14/22 09:20 FiO2 Intake & Output 09/13/22 09/14/22 09/14/22 18:59 06:59 18:59 Intake Total 640 240 Balance 640 240 Weight 119.3 kg Intake: IV 100 Piperacillin-Tazobactam 3 100 .375 gm In Sodium Chloride 0.9% 100 ml @ 25 mls/hr IVPB Q8HR [facility] Rx# :[id number] Oral 540 240 Other: Voiding Method Toilet Toilet Bedside Commode Bedside Commode # Voids 2 3 # Bowel Movements 1 ABP, PAP, CO, CI - Last Documented Arterial Blood Pressure 122/61 - Exam No acute distress, oriented 3. Currently on 2 L of oxygen nasal cannula. No audible wheezing, use of accessory muscles, or conversational dyspnea. The patient is currently on room air oxygen. HEENT examination is grossly unremarkable. Neck supple. Full range of motion. No adenopathy thyromegaly or neck vein distention. Cardiovascular examination reveals an irregular rhythm and rate. S1-S2 normal. No S3 or S4. No discernible murmur noted. Lungs reveal scattered bilateral rhonchi. Breath sounds equal. No wheezes. Minimal scattered basilar crackles. Abdomen soft bowel sounds are heard. No masses or tenderness. Extremities are intact. No cyanosis clubbing or edema. Skin is without rash or lesion. Neurologic examination is brief but nonfocal. - Labs CBC & Chem 7: 09/13/22 05:31 09/13/22 05:31 Labs: Abnormal Lab Results - Last 24 Hours (Table) 09/13/22 09/13/22 09/13/22 Range/Units 11:40 16:31 20:16 POC Glucose (mg/dL) 163 H 204 H 141 H (70-110) mg/dL 09/14/22 Range/Units 06:19 POC Glucose (mg/dL) 118 H (70-110) mg/dL Assessment and Plan Plan: Acute left lower lobe pneumonia with extensive consolidation of the left lower lobe posterior and lateral segment was small left-sided pleural effusion, pro calcitonin level was elevated and the patient was septic at the time of admission with hypotension and GI bleed. The chest x-ray findings are stable. The patient has bilateral lower lobe consolidation worse on the left. Pro- calcitonin level is improving. The patient remains on Zosyn. Pressor requirements have improved and based on that The patient on same antibiotic coverage which is IV Zosyn. The patient is stable and the pro calcitonin level continues to down trend and the patient will be kept on the same antibiotic coverage and repeat chest x-ray from yesterday showed stable bilateral pulmonary consolidation worse on the left. Nevertheless, clinically the patient is improved. Oxygenation is improved. Hemodynamics improved. Pro-calcitonin level is also improving. Left-sided pleural effusion, likely parapneumonic, did not do a thoracentesis today as the patient has taken a tablet of Xarelto. Acute hypoxic respiratory failure, currently on room air oxygen and the patient's currently is on room air. Covid 19 infection, incidental finding, probably not related to the current presentation Sepsis/hypotension, recovered and the patient's is normotensive for now. Chronic atrial fibrillation with RVR, and sepsis, secondary to left-sided pneumonia. 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 No antico agulants. The patient's heart rate is less tachycardic, irregular and the patient has underlying cardiomyopathy with an ejection fraction of 30-35% Cardiomyopathy with systolic heart failure and ejection fraction of 30 35% Acute gastrointestinal bleed, hemoglobin is stable at 11.3 and the patient has not required any packed RBC transfusion. EGD and colonoscopy has been completed Mild left-sided diverticulosis Mild gastritis Acute kidney injury, recovered Severe obstructive sleep apnea, with an AHI of 40.7 worse during REM sleep. Diagnosed back in May 2022 and subsequently the patient underwent a titration and given an APAP machine pressures of 6/15 cm of water. History of diabetes mellitus type 2, currently inactive and stable History of hypertension. History of benign colon polyps. Previous history of tobacco use. Plan: Hold Xarelto today Arrange for possible thoracentesis tomorrow Repeat chest x-ray in the morning Patient is back on room air oxygen continue using the incentive spirometer pro-calcitonin LEVEL HAS DROPPED SIGNIFICANTLY Continue IV Zosyn , completing a course of Zosyn The Covid 19 infection was essentially an incidental finding Change IV fluids to KVO Pressors have been discontinued EGD and colonoscopy showed no evidence of any acute GI bleed. The patient has chronic left colonic diverticulosis and the patient may be restarted back on anticoagulation. He takes Xarelto outpatient Continue oral amiodarone Anticoagulation with Xarelto 20 mg by mouth daily, this will be held for tonight Continue the metoprolol at a dose of 150 mg by mouth twice a day, amiodarone 400 mg by mouth twice a day, and oral Cardizem 30 mg by mouth 3 times a day. The patient is being considered for cardioversion on outpatient basis Blood sugar management using his own CPAP machine from home which is an APAP unit pressures of 6/15 cm of water We'll continue to follow
[2022-09-14 09:32] LABS: African American GFR (CKD) >90 (>60 ml/min/1.73 sqM); Anion Gap 11 mmol/L; Blood Urea Nitrogen 9 mg/dL (9-20); Calcium 8.8 mg/dL (8.4-10.2); Carbon Dioxide 22 mmol/L (22-30); Chloride 105 mmol/L (98-107); Glucose 167 mg/dL (74-99); Non-African American GFR(CKD) >90 (>60 ml/min/1.73 sqM); Potassium 3.6 mmol/L (3.5-5.1); Sodium 138 mmol/L (137-145)
--- NOTE | 2022-09-14 11:14 | P.PN ---
Subjective Progress Note Date: 09/14/22 The patient is a 61-year-old male who is currently admitted with acute COVID-19 infection and pneumonia. He initially presented with back pain. Cardiology was consulted for A. fib with RVR. He has a history of A. fib with RVR and was recently cardioverted. He also has a known history of nonischemic ca rdiomyopathy with EF around 30-35%. Over the course of his admission he has also found to have an acute GI bleed. Throughout his ICU admission he has been on and off Levophed and vasopressin, which is now completely resolved. He underwent upper and lower endoscopy yesterday with Dr. Hylton. He was found to have some superficial, plaque-like erosions in his left colon, which was likely the source of his bleed. The patient was interviewed on the cardiac stepdown unit. Patient moved out of ICU yesterday evening. He states he is feeling much better today. He has been up ambulating around his room without dizziness or lightheadedness. No chest pain or chest pressure. No heart racing or fluttering. No difficulty breathing. VITALS: Blood pressure 120/78, heart rate 117 236, SpO2 97% on room air TELEMETRY: Atrial fibrillation with heart rates in the low 100s LABS: Sodium 138, potassium 3.6, BUN 9, creatinine 0.77. IMPRESSION: A. fib with RVR, paroxysmal atrial fibrillation Nonischemic cardiomyopathy, EF 30-35% Acute left lower lobe pneumonia Acute GI bleed Acute COVID-19 infection PLAN: Continue current medication regimen including anticoagulation Toprol-XL increased to 150 mg twice daily Add Lasix 40 mg oral daily Encourage ambulation and aggressive pulmonary hygiene Outpatient follow-up with primary repairer [employer]. Plan for 4 weeks of medical to allow full covering from Covid before next cardioversion. I am dictating on behalf of Dr Cayden Bernstein's history/physical and assessment/plan. Objective - Vital Signs Vital signs: Vital Signs Temp 97.8 F 09/14/22 09:20 Pulse 136 H 09/14/22 09:20 Resp 18 09/14/22 09:20 BP 120/78 09/14/22 09:20 Pulse Ox 97 09/14/22 09:20 FiO2 Intake & Output 09/13/22 09/14/22 09/14/22 18:59 06:59 18:59 Intake Total 640 240 Balance 640 240 Weight 119.3 kg Intake: IV 100 Piperacillin-Tazobactam 3 100 .375 gm In Sodium Chloride 0.9% 100 ml @ 25 mls/hr IVPB Q8HR [facility] Rx# :[id number] Oral 540 240 Other: Voiding Method Toilet Toilet Bedside Commode Bedside Commode # Voids 2 3 # Bowel Movements 1 ABP, PAP, CO, CI - Last Documented Arterial Blood Pressure 122/61 - Labs CBC & Chem 7: 09/13/22 05:31 09/14/22 08:14 Labs: Abnormal Lab Results - Last 24 Hours (Table) 09/13/22 09/13/22 09/13/22 Range/Units 11:40 16:31 20:16 POC Glucose (mg/dL) 163 H 204 H 141 H (70-110) mg/dL 09/14/22 Range/Units 06:19 POC Glucose (mg/dL) 118 H (70-110) mg/dL
[2022-09-14 11:44] LABS: Glucose,Whole Blood 137 mg/dL (70-110)
[2022-09-14] MEDS: LACTATED RINGERS 1,000 ML IV SCH (12:06)
[2022-09-14] MEDS: SODIUM CHLORIDE 0.9% 1,000 ML IV SCH (12:07)
[2022-09-14] MEDS: FUROSEMIDE 40 MG TAB PO SCH (12:11)
[2022-09-14 16:50] LABS: Glucose,Whole Blood 174 mg/dL (70-110)
[2022-09-14] MEDS: RIVAROXABAN 20 MG TAB PO SCH (17:16)
[2022-09-14 20:11] LABS: Glucose,Whole Blood 203 mg/dL (70-110)
[2022-09-14] MEDS: TAMSULOSIN 0.4 MG CAP.ER.24H PO SCH (21:49)
[2022-09-14] MEDS: ATORVASTATIN 20 MG TAB PO SCH (21:50)
[2022-09-14] MEDS: METOPROLOL SUCCINATE (ER) 50 MG TAB.ER.24H PO SCH (21:50)
[2022-09-15] MEDS: ACETAMINOPHEN TAB 325 MG TAB PO PRN ×2 (00:40→09:06)
--- NOTE | 2022-09-15 01:35 | P.PN ---
Subjective Progress Note Date: 09/13/22 61-year-old male who was initially seen in the emergency department, on September 04. We were consulted yesterday late. The patient apparently came to the emergency room, complaining of left-sided lateral chest pain, which is been going on for quite some time. In addition, the patient apparently developed some GI bleeding on the floor, which is when I was called. The patient was having atrial fibrillation with RVR, GI bleeding, and also having some respiratory difficulty. We decided to move him to the ICU. I came in last like to put in a right radial art line, and a left internal jugular triple-lumen catheter. Currently, he's seen in room 257. He's on 4 L of oxygen. He is getting Cardizem at 10 mg an hour, vasopressin at 0.04 units per minute, norepinephrine at 31 mcg/m, and saline at KVO. I added Zosyn this morning for pneumonia, and we will check a pro-calcitonin level. The patient will get 1-1/2 L of lactated Ringer's, his baseline IV will be increased to 75 mL an hour of saline, and we'll check blood urine and sputum cultures. CAT scan show what appeared to be some consolidation in the left lower lobe. The patient has a history of atrial fibrillation, diabetes, and hypertension. White count 16, with a normal hemoglobin, hematocrit, and platelet count. Sodium 131, potassium 4.2, chlorides 95, CO2 25, anion gap normal, BUN 51, and creatinine 2.19. 3/26. Patient seen and examined. Sitting upright in the chair. Had a small bowel movement with blood in it. Patient is being weaned off the pressors 09/11/2022 Patient is seen and evaluated in follow-up today with multiple medical consultations following continues in the ICU with close monitoring. Patient is scheduled sometime this afternoon for EGD/colonoscopy to evaluate for GI bleeding. Patient did undergo a bowel prep and is nothing by mouth currently. Recommend continue telemetry monitoring. Follow-up chest x-ray today shows a stable left lower lobe infiltrate with small to moderate left pleural effusion and improving infiltrates at the right lung base. Patient with incentive spirometer at the bedside and encouraged to continue using at least 10 times every hour while awake. Patient also continues with indwelling Lin catheter and will continue for now. After endoscopy patient okay to resume diet and discussing possible downgrade out of the ICU. Hemoglobin remained stable at 10.5 09/12/2022 Patient is seen and evaluated in follow-up continues to be in the ICU although awaiting a downgrade once a bed becomes available stepdown. Patient is status post EGD with colonoscopy with no active bleeding noted was some mild gastritis. Patient will continue on Protonix and okay to resume Xarelto starting 09/13/2022. Patient is off pressor support currently rate controlled maintained on oral medications with cardiology following. Encouraged increased activity as tolerated and will have physical therapy follow the patient. Patient is currently afebrile with no reports of chest pain or shortness of breath. Patient tolerating diet with no reported nausea or vomiting or abdominal pain. 09/13/2022 Patient is currently resting in bed. Awake alert oriented x3. Currently on room air. Heart rate is better controlled. No complaints of chest pain or shortness of breath. Patient is in atrial fibrillation. Rate is fairly controlled. Currently on amiodarone, Cardizem and Toprol. Also patient is being continued on antibiotics Zosyn. Cultures have been negative. Laboratory data showed WBC 7.7 hemoglobin 11.3 and platelets 407. Sodium 138 potassium 5.2 chloride 104 bicarb is 28 BUN 11 and creatinine 0.99 and magnesium 1.9. Patient is being transferred to medical floor today. REVIEW OF SYSTEMS: CONSTITUTIONAL: No fever, no malaise,. CARDIOVASCULAR: No chest pain, no palpitations, no syncope. PULMONARY: No shortness of breath, no cough, GASTROINTESTINAL: No diarrhea, no nausea, no vomiting, no abdominal pain. NEUROLOGICAL: No headaches, reports some generalized weakness PHYSICAL EXAMINATION: GENERAL: The patient is alert and oriented x3, not in any acute distress. Well developed, well nourished. Obese HEENT: Pupils are round and equally reacting to light. EOMI. No scleral icterus. No conjunctival pallor. Normocephalic, atraumatic. No pharyngeal erythema. No thyromegaly. CARDIOVASCULAR: S1 and S2 present. No murmurs, rubs, or gallops. PULMONARY: Chest is clear to auscultation, no wheezing or crackles. ABDOMEN: Soft, nontender, nondistended, normoactive bowel sounds. No palpable organomegaly. MUSCULOSKELETAL: No joint swelling or deformity. EXTREMITIES: No cyanosis, clubbing, or pedal edema. NEUROLOGICAL: Gross neurological examination did not reveal any focal deficits. SKIN: No rashes. Assessment: Hypotension, likely secondary to GI bleed, atrial fibrillation with RVR, and sepsis, secondary to left-sided pneumonia. Sepsis, secondary to left-sided pneumonia Bacterial pneumonia Severe obstructive sleep apnea Acute hypoxic respiratory failure secondary to pneumonia Acute gastrointestinal bleed. Acute atrial fibrillation with RVR. Currently rate controlled Nonischemic cardiomyopathy Acute on chronic kidney disease. Coronavirus infection. History of diabetes mellitus. History of hypertension. History of benign colon polyps. Plan: Patient is currently maintained in the ICU under close observation with multiple medical consultations following. patient is status post EGD colonoscopy with biopsies obtained showing some gastritis with no active bleeding noted. Xarelto okay to resume on 09/13/2022 Hemoglobin is stable and would recommend following labs closely Patient tolerating diet and encouraged oral intake. recommended PT/OT therapy evaluation as patient does have weakness and has had prolonged hospitalization Recommend continued telemetry monitoring with cardiology and pulmonary following. Patient is a downgrade out of the ICU to stepdown once a bed becomes availablend close monitoring of CBC and will follow-up with repeat labs Recommend continue with IV antibiotics and chest x-ray shows some improvement in pneumonia Due to multiple complex medical issues, prognosis is guarded and will follow-up after endoscopy report Objective - Vital Signs Vital signs: Vital Signs Temp 98.2 F 09/13/22 20:10 Pulse 116 H 09/13/22 20:10 Resp 19 09/13/22 20:10 BP 106/59 09/13/22 20:10 Pulse Ox 97 09/13/22 20:10 FiO2 Intake & Output 09/13/22 09/13/22 09/14/22 06:59 18:59 06:59 Intake Total 600 640 Output Total 850 Balance -250 640 Weight 114.5 kg 119.3 kg Intake: IV 300 100 Piperacillin-Tazobactam 3 300 100 .375 gm In Sodium Chloride 0.9% 100 ml @ 25 mls/hr IVPB Q8HR ALVARO Rx# :[id number] Oral 300 540 Output: Urine 850 Other: Voiding Method Toilet Toilet Bedside Commode Bedside Commode # Voids 2 # Bowel Movements 1 ABP, PAP, CO, CI - Last Documented Arterial Blood Pressure 122/61 - Labs CBC & Chem 7: 09/13/22 05:31 09/14/22 08:14 Labs: Abnormal Lab Results - Last 24 Hours (Table) 09/13/22 09/13/22 09/13/22 Range/Units 05:31 05:31 11:40 RBC 3.73 L (4.30-5.90) m/uL Hgb 11.3 L (13.0-17.5) gm/dL Hct 35.0 L (39.0-53.0) % Potassium 5.2 H (3.5-5.1) mmol/L POC Glucose (mg/dL) 163 H (70-110) mg/dL 09/13/22 09/13/22 Range/Units 16:31 20:16 RBC (4.30-5.90) m/uL Hgb (13.0-17.5) gm/dL Hct (39.0-53.0) % Potassium (3.5-5.1) mmol/L POC Glucose (mg/dL) 204 H 141 H (70-110) mg/dL
--- NOTE | 2022-09-15 01:38 | P.PN ---
Subjective Progress Note Date: 09/14/22 61-year-old male who was initially seen in the emergency department, on September 04. We were consulted yesterday late. The patient apparently came to the emergency room, complaining of left-sided lateral chest pain, which is been going on for quite some time. In addition, the patient apparently developed some GI bleeding on the floor, which is when I was called. The patient was having atrial fibrillation with RVR, GI bleeding, and also having some respiratory difficulty. We decided to move him to the ICU. I came in last like to put in a right radial art line, and a left internal jugular triple-lumen catheter. Currently, he's seen in room 257. He's on 4 L of oxygen. He is getting Cardizem at 10 mg an hour, vasopressin at 0.04 units per minute, norepinephrine at 31 mcg/m, and saline at KVO. I added Zosyn this morning for pneumonia, and we will check a pro-calcitonin level. The patient will get 1-1/2 L of lactated Ringer's, his baseline IV will be increased to 75 mL an hour of saline, and we'll check blood urine and sputum cultures. CAT scan show what appeared to be some consolidation in the left lower lobe. The patient has a history of atrial fibrillation, diabetes, and hypertension. White count 16, with a normal hemoglobin, hematocrit, and platelet count. Sodium 131, potassium 4.2, chlorides 95, CO2 25, anion gap normal, BUN 51, and creatinine 2.19. 3/26. Patient seen and examined. Sitting upright in the chair. Had a small bowel movement with blood in it. Patient is being weaned off the pressors 09/11/2022 Patient is seen and evaluated in follow-up today with multiple medical consultations following continues in the ICU with close monitoring. Patient is scheduled sometime this afternoon for EGD/colonoscopy to evaluate for GI bleeding. Patient did undergo a bowel prep and is nothing by mouth currently. Recommend continue telemetry monitoring. Follow-up chest x-ray today shows a stable left lower lobe infiltrate with small to moderate left pleural effusion and improving infiltrates at the right lung base. Patient with incentive spirometer at the bedside and encouraged to continue using at least 10 times every hour while awake. Patient also continues with indwelling Lin catheter and will continue for now. After endoscopy patient okay to resume diet and discussing possible downgrade out of the ICU. Hemoglobin remained stable at 10.5 09/12/2022 Patient is seen and evaluated in follow-up continues to be in the ICU although awaiting a downgrade once a bed becomes available stepdown. Patient is status post EGD with colonoscopy with no active bleeding noted was some mild gastritis. Patient will continue on Protonix and okay to resume Xarelto starting 09/13/2022. Patient is off pressor support currently rate controlled maintained on oral medications with cardiology following. Encouraged increased activity as tolerated and will have physical therapy follow the patient. Patient is currently afebrile with no reports of chest pain or shortness of breath. Patient tolerating diet with no reported nausea or vomiting or abdominal pain. 09/13/2022 Patient is currently resting in bed. Awake alert oriented x3. Currently on room air. Heart rate is better controlled. No complaints of chest pain or shortness of breath. Patient is in atrial fibrillation. Rate is fairly controlled. Currently on amiodarone, Cardizem and Toprol. Also patient is being continued on antibiotics Zosyn. Cultures have been negative. Laboratory data showed WBC 7.7 hemoglobin 11.3 and platelets 407. Sodium 138 potassium 5.2 chloride 104 bicarb is 28 BUN 11 and creatinine 0.99 and magnesium 1.9. Patient is being transferred to medical floor today. 09/14/2022 Patient is currently sitting in the chair. Awake alert and oriented x3. No co mplaints of dizziness or lightheadedness. No nausea vomiting abdominal pain or diarrhea. Heart rate is better controlled. 101 this morning. Patient is being continued on Cardizem, Toprol and amiodarone. Patient is also on Lasix 40 mg daily. Chest ultrasound yesterday showed fairly moderate size left pleural effusion. Pulmonary was planning to do thoracentesis but patient did take Xarelto yes terday. Recommends to continue incentive spirometry for now. Patient is on room air. Laboratory test showed sodium 138 potassium 3.6 chloride 105 bicarb is 22 BUN 11 and creatinine 0.77. Cardiology and pulmonary is on board. REVIEW OF SYSTEMS: CONSTITUTIONAL: No fever, no malaise,. CARDIOVASCULAR: No chest pain, no palpitations, no syncope. PULMONARY: No shortness of breath, no cough, GASTROINTESTINAL: No diarrhea, no nausea, no vomiting, no abdominal pain. NEUROLOGICAL: No headaches, reports some generalized weakness PHYSICAL EXAMINATION: GENERAL: The patient is alert and oriented x3, not in any acute distress. Well developed, well nourished. Obese HEENT: Pupils are round and equally reacting to light. EOMI. No scleral icterus. No conjunctival pallor. Normocephalic, atraumatic. No pharyngeal erythema. No thyromegaly. CARDIOVASCULAR: S1 and S2 present. No murmurs, rubs, or gallops. PULMONARY: Chest is clear to auscultation, no wheezing or crackles. ABDOMEN: Soft, nontender, nondistended, normoactive bowel sounds. No palpable organomegaly. MUSCULOSKELETAL: No joint swelling or deformity. EXTREMITIES: No cyanosis, clubbing, or pedal edema. NEUROLOGICAL: Gross neurological examination did not reveal any focal deficits. SKIN: No rashes. Assessment: Hypotension, likely secondary to GI bleed, atrial fibrillation with RVR, and sepsis, secondary to left-sided pneumonia. Sepsis, secondary to left-sided pneumonia Bacterial pneumonia Moderate pleural effusion Severe obstructive sleep apnea Acute hypoxic respiratory failure secondary to pneumonia Acute gastrointestinal bleed. Acute atrial fibrillation with RVR. Currently rate controlled Nonischemic cardiomyopathy Acute on chronic kidney disease. Coronavirus infection. History of diabetes mellitus. History of hypertension. History of benign colon polyps. Plan: patient is status post EGD colonoscopy with biopsies obtained showing some gastritis with no active bleeding noted. Xarelto okay to resume on 09/13/2022 Hemoglobin is stable and would recommend following labs closely Patient tolerating diet and encouraged oral intake. recommended PT/OT therapy evaluation as patient does have weakness and has had prolonged hospitalization Recommend continued telemetry monitoring with cardiology and pulmonary following. .close monitoring of CBC and will follow-up with repeat labs Recommend continue with IV antibiotics and chest x-ray shows some improvement in pneumonia Due to multiple complex medical issues, prognosis is guarded and will follow-up after endoscopy report Objective - Vital Signs Vital signs: Vital Signs Temp 97.8 F 09/14/22 17:17 Pulse 116 H 09/14/22 17:17 Resp 18 09/14/22 17:17 BP 134/76 09/14/22 17:17 Pulse Ox 96 09/14/22 17:17 FiO2 Intake & Output 09/14/22 09/14/22 09/15/22 06:59 18:59 06:59 Intake Total 1680 Balance 1680 Intake: Oral 1680 Other: Voiding Method Toilet Toilet Bedside Commode Bedside Commode # Voids 3 ABP, PAP, CO, CI - Last Documented Arterial Blood Pressure 122/61 - Labs CBC & Chem 7: 09/13/22 05:31 09/14/22 08:14 Labs: Abnormal Lab Results - Last 24 Hours (Table) 09/14/22 09/14/22 09/14/22 Range/Units 06:19 08:14 11:37 Glucose 167 H (74-99) mg/dL POC Glucose (mg/dL) 118 H 137 H (70-110) mg/dL 09/14/22 09/14/22 Range/Units 16:47 20:09 Glucose (74-99) mg/dL POC Glucose (mg/dL) 174 H 203 H (70-110) mg/dL
[2022-09-15] MEDS: traMADol 50 MG TAB PO PRN ×2 (06:06→15:16)
[2022-09-15 06:11] LABS: Glucose,Whole Blood 159 mg/dL (70-110)
[2022-09-15] MEDS: MIDODRINE 5 MG TAB PO SCH ×2 (06:38→12:15)
[2022-09-15] MEDS: INSULIN ASPART (NovoLOG) 100 UNIT/ML VIAL SQ SCH ×2 (06:39→12:15)
[2022-09-15 08:07] LABS: Basophils # (A) 0.1 k/uL (0-0.2); Basophils % (A) 1 %; Eosinophils # (A) 0.1 k/uL (0-0.7); Eosinophils % (A) 1 %; HCT 36.9 % (39.0-53.0); HGB 11.9 gm/dL (13.0-17.5); Hypochromasia Slight; Lymphocytes # (A) 1.4 k/uL (1.0-4.8); Lymphocytes % (A) 14 %; MCH 29.5 pg (25.0-35.0); MCHC 32.2 g/dL (31.0-37.0); MCV 91.7 fL (80.0-100.0); Mean Platelet Volume 8.1; Monocytes # (A) 0.4 k/uL (0-1.0); Monocytes % (A) 4 %; Neutrophils # (A) 7.8 k/uL (1.3-7.7); Neutrophils % (A) 78 %; Platelet Count 388 k/uL (150-450); RBC 4.02 m/uL (4.30-5.90); RDW 15.9 % (11.5-15.5)
--- NOTE | 2022-09-15 08:25 | XR ---
EXAMINATION TYPE: XR chest 1V DATE OF EXAM: 09/15/2022 COMPARISON: 09/13/2022 HISTORY: 61-year-old male pleural effusion TECHNIQUE: Single frontal view of the chest is obtained. FINDINGS: Moderate left pleural effusion remains partially obscuring the left heart margin. There has been some interval improvement from prior exam. Previous left CVC has been removed. Old right-sided rib fractu re deformities. Heart remains upper limits of normal in size. Pulmonary vasculature within normal sena its. Previous left-sided thoracotomy. IMPRESSION: A moderate left pleural effusion with adjacent atelectasis and/or consolidation remains, slightly improved from prior.
[2022-09-15 08:50] LABS: African American GFR (CKD) >90 (>60 ml/min/1.73 sqM); Anion Gap 9 mmol/L; Blood Urea Nitrogen 12 mg/dL (9-20); Carbon Dioxide 26 mmol/L (22-30); Chloride 103 mmol/L (98-107); Glucose 152 mg/dL (74-99); Non-African American GFR(CKD) >90 (>60 ml/min/1.73 sqM); Potassium 3.6 mmol/L (3.5-5.1); Sodium 138 mmol/L (137-145)
[2022-09-15] MEDS: LINAGLIPTIN 5 MG TABLET PO SCH (09:05)
[2022-09-15] MEDS: FUROSEMIDE 40 MG TAB PO SCH (09:05)
[2022-09-15] MEDS: SPIRONOLACTONE 25 MG TAB PO SCH (09:05)
[2022-09-15] MEDS: DILTIAZEM ORAL 30 MG TAB PO SCH ×2 (09:05→16:13)
[2022-09-15] MEDS: AMIODARONE 200 MG TAB PO SCH (09:05)
[2022-09-15] MEDS: DAPAGLIFLOZIN PROPANEDIOL 10 MG TABLET PO SCH (09:05)
[2022-09-15] MEDS: PIOGLITAZONE 45 MG TAB PO SCH (09:05)
[2022-09-15] MEDS: METOPROLOL SUCCINATE (ER) 50 MG TAB.ER.24H PO SCH (09:06)
[2022-09-15] MEDS: GABAPENTIN 100 MG CAP PO SCH (09:06)
[2022-09-15] MEDS: PANTOPRAZOLE 40 MG/10 ML VIAL IVP SCH (09:10)
[2022-09-15] MEDS: LACTATED RINGERS 1,000 ML IV SCH (10:47)
[2022-09-15 11:59] LABS: Glucose,Whole Blood 183 mg/dL (70-110)
--- NOTE | 2022-09-15 12:08 | P.PN ---
Subjective Progress Note Date: 09/15/22 HISTORY OF PRESENT ILLNESS: 09/05/2022 This is a 61-year-old male with a past medical history significant for paroxysmal atrial fibrillation, hyperlipidemia, hypertension, and diabetes. Patient was last seen in the office by Dr. Robert in 2014. We have been asked to see the patient in consultation for chest pain. Patient examined at the bedside. Patient presented to the hospital with a chief complaint of back pain. Patient was found to be in A. fib with RVR. Patient was started on IV Cardizem. This morning the patient remains in atrial fibrillation with a heart rate in the 80s. * EKG reveals atrial fibrillation with RVR with heart rate of 140 * Chest xray similar small left pleural effusion with adjacent airspace opacity which may represent atelectasis and/or infiltrate. Improved aeration in the right lung base from prior exam * Laboratory data: W BC 8.8. Hemoglobin 13.0. Platelet count 262. INR 1.8. Sodium 133. Potassium 4.2. BUN 42. Creatinine 1.67. ProBNP 3420. Troponin negative 1. * Current home cardiac medications include amiodarone 400 mg twice a day, aspirin 81 mg twice a day, Zestoretic 20-12.5mg daily, Xarelto 20 mg daily, spironolactone 2.5 mg daily, Lipitor 20mg at night, metoprolol succinate 100 mg at night, and Midodrine 10mg BID * Most recent echocardiogram obtained in August 2022 revealed ejection fraction 30-35% 09/14/2022 The patient is a 61-year-old male who is currently admitted with acute COVID-19 infection and pneumonia. He initially presented with back pain. Cardiology was consulted for A. fib with RVR. He has a history of A. fib with RVR and was recently cardioverted. He also has a known history of nonischemic cardiomyopathy with EF around 30-35%. Over the course of his admission he has also found to have an acute GI bleed. Throughout his ICU admission he has been on and off Levophed and vasopressin, which is now completely resolved. He underwent upper and lower endoscopy yesterday with Dr. Hylton. He was found to have some superficial, plaque-like erosions in his left colon, which was likely the source of his bleed. The patient was interviewed on the cardiac stepdown unit. Patient moved out of ICU yesterday evening. He states he is feeling much better today. He has been up ambulating around his room without dizziness or lightheadedness. No chest pain or chest pressure. No heart racing or fluttering. No difficulty breathing. 09/15/2022 Patient examined this morning at the bedside. Patient denies chest pain or pressure. He denies SOB. Patient converted to sinus mechanism this morning. He is scheduled to undergo thoracentesis today per pulmonary medicine. Vital signs are stable. PHYSICAL EXAM: VITAL SIGNS: Reviewed. GENERAL: Well-developed in no acute distress. HEENT: Head is normocephalic. Pupils are equal, round. Sclerae anicteric. Mucous membranes of the mouth are moist. Neck supple. No JVD or thyromegaly LUNGS: Respirations even and unlabored. Lungs essentially clear to auscultation bilaterally. HEART: Regular rate and rhythm. S1 and S2 heard. ABDOMEN: Soft. Nondistended. Nontender. EXTREMITIES: Normal range of motion. No clubbing or cyanosis. Peripheral pulses intact. Trace bilateral lower extremity edema NEUROLOGIC: Awake and alert. Oriented x 3. ASSESSMENT: Back pain, noncardiac Paroxysmal atrial fibrillation, converted to sinus mechanism this morning Recent A. fib cardioversion, 08/13/2022 Cardiomyopathy, ejection fraction 3035%, possibly tachycardia induced, can not rule out underlying CAD as patient has not had cardiac cath performed Chronic heart failure with reduced EF Acute kidney injury, resolved Hypertension, resolved Hyperlipidemia Diabetes Acute GI bleed Covid 19 infection PLAN: Continue current cardiac medications Patient to undergo thoracentesis today with pulmonary medicine Patient may be discharged home today from a cardiac standpoint Patient to follow up outpatient with Dr. Lau Nurse practitioner note has been reviewed by physician. Signing provider agrees with the documented findings, assessment, and plan of care. Objective - Vital Signs Vital signs: Vital Signs Temp 97.1 F L 09/15/22 04:00 Pulse 68 09/15/22 09:00 Resp 18 09/15/22 09:00 BP 109/65 09/15/22 09:00 Pulse Ox 97 09/15/22 09:00 FiO2 Intake & Output 09/14/22 09/15/22 09/15/22 18:59 06:59 18:59 Intake Total 1680 237 Balance 1680 237 Weight 116.7 kg Intake: Oral 1680 237 Other: Voiding Method Toilet Toilet Toilet Bedside Commode Bedside Commode Bedside Commode # Voids 1 ABP, PAP, CO, CI - Last Documented Arterial Blood Pressure 122/61 - Labs CBC & Chem 7: 09/15/22 07:35 09/15/22 07:35 Labs: Abnormal Lab Results - Last 24 Hours (Table) 09/14/22 09/14/22 09/15/22 Range/Units 16:47 20:09 06:10 RBC (4.30-5.90) m/uL Hgb (13.0-17.5) gm/dL Hct (39.0-53.0) % RDW (11.5-15.5) % Neutrophils # (1.3-7.7) k/uL Glucose (74-99) mg/dL POC Glucose (mg/dL) 174 H 203 H 159 H (70-110) mg/dL 09/15/22 09/15/22 09/15/22 Range/Units 07:35 07:35 11:58 RBC 4.02 L (4.30-5.90) m/uL Hgb 11.9 L (13.0-17.5) gm/dL Hct 36.9 L (39.0-53.0) % RDW 15.9 H (11.5-15.5) % Neutrophils # 7.8 H (1.3-7.7) k/uL Glucose 152 H (74-99) mg/dL POC Glucose (mg/dL) 183 H (70-110) mg/dL
[2022-09-15 12:15] VITALS: BP 110/77; PULSE 65; TEMP 97.8
[2022-09-15] MEDS: SODIUM CHLORIDE 0.9% 1,000 ML IV SCH (12:16)
--- NOTE | 2022-09-15 12:43 | XR ---
EXAMINATION TYPE: XR chest 1V portable DATE OF EXAM: 09/15/2022 COMPARISON: 09/15/2022 INDICATION: Left-sided postthoracentesis TECHNIQUE: Single frontal view of the chest is obtained. FINDINGS: The heart size is normal. The pulmonary vasculature is normal. Left lower lobe infiltrate is present. Small left pleural effusion remains present, diminished from c omparison. No pneumothorax is evident post thoracentesis. IMPRESSION: 1. No pneumothorax post left-sided thoracentesis. 2. Atelectasis and/or pneumonia with residual small left pleural effusion
[2022-09-15 12:46] LABS: Total Protein 6.5 g/dL (6.3-8.2)
--- NOTE | 2022-09-15 14:45 | P.PN ---
Subjective Progress Note Date: 09/15/22 Principal diagnosis: Acute left lower lobe pneumonia with parapneumonic effusion 61-year-old male patient hospitalized for hypotension along with itchy fibrillation with rapid ventricular response. He also had some GI bleeding on the floor prior to him coming to the intensive care unit. The patient as such was brought into the ICU with A. fib RVR and GI bleed. Subsequently, he turnout to be Covid positive also. Chest x-ray showing cardiomegaly, increased interstitial markings in addition to a left lower lobe consolidation. This is an x-ray that was done yesterday. His chest x-ray at the time of admission looks essentially the same. Based on all this, the patient was brought into the intensive care unit. His itchy fibrillation is currently controlled with Cardiz em drip which is running at 5 mg an hour. The patient is also on amiodarone by mouth at a dose of 100 mg twice a day. The patient is on no anticoagulation as the patient was having GI bleeding. The patient was having episodic GI bleed with bright red blood per rectum which progressively became more dark and this morning it's greenish black. As such, no antigravity which has been provided and the patient is likely going to require a EGD/colonoscopy and this is scheduled to be done by general surgeon within the next 24 hours. Meanwhile, he was resuscitated with IV fluids. IV fluids are currently running 0.9 at the rate of 75 mL an hours. He is currently on pressors with norepinephrine at 0.12 microvascular kilogram per minute and vasopressin and physiologic dose. He had an acute kidney injury and the creatinine was as high as 2.34 which is essentially recovered and the creatinine is essentially normalized. No cultures are available. His pro calcitonin level is at 22 and the patient is currently on IV Zosyn. He is known to have an underlying cardiomyopathy with systolic heart failure and previous admissions has shown impaired LV function with an ejection fraction of 30-35%. Noted the CAT scan of the abdomen and the chest that was done at time of admission showed an extensive consolidation of the lateral segment and the posterior segment of the left lower lobe in addition to development of a small left-sided pleural effusion. His abdomen was essentially within normal limits. Noted the patient also had a hemoglobin drop from 13.4 at time of admission which came up to 15.6 and subsequently dropped down to 10.7 this morning. The patient has not required any packed RBC transfusions. Review of previous echocardiogram that was done on 08/14/2022 showed systolic heart failure, global decrease in the contractility with an ejection fraction of 30- 35%. On today's evaluation of 09/09/2022, the patient is being seen for a follow-up. The patient is being treated for a extensive left lower lobe pneumonia, sepsis, hypotension, itchy fibrillation with RVR and GI bleed. The patient also Covid 19 positive. Chest x-ray still showing consolidation of the lower lobes or so on the left. No major interval change compared to yesterday. The white cell count at 7.8. Cultures have been negative. Legionella urine antigen was also negative. The patient had a pro-calcitonin level of 8.7 and this was obtained yesterday and the level is obviously improving and as such no further antibiotic modifications was done and the patient was Zosyn As the Pro Calcitonin Level Has Been Improving. As Far As Pressor Requirements, the Patient Is on Vasopressin Physiologic Dose and Norepinephrine Which Is Running at 0.04 mcg/kg/m. As such, the pressor requirements have improved considerably over the past 24 hours. The patient is able sit up on a chair. The patient is still in atrial fibrillation. The patient is still tachycardic. In terms of A. fib, the patient is on amiodarone 400 mg by mouth twice a day, he is on metoprolol 150 mg by mouth twice a day, and he is also on Cardizem which has been switched to oral 30 mg by mouth 3 times a day. He is on no anticoagulants as the patient presented originally with GI bleeding. Note that he is scheduled to have EGD and colonoscopy over the next 24-48 hours. The patient's hemoglobin meanwhile has remained stable at 10.8 and the patient has not had any further episode of GI bleeding. In terms of his acute kidney injury, this is recovered and the creatinine is down to 0.8. Sodium level is at 136 and the chloride is 105. The patient is awake and alert and communicating. He is on oxygen at 2 L/m nasal cannula. His echocardiogram from 08/14/2022 so it systolic heart failure with an ejection fraction of 30-35%. No angina. No palpitations. No other significant events overnight. On today's evaluation of 09/10/2022, the patient is sitting up on a chair and he is on room air oxygen. Repeat pro-calcitonin level is pending from today. He is being treated for extensive left lower lobe pneumonia and also had some right basilar pulmonary infiltrates and a most recent chest x-ray. No chest x-rays available from today. The white cell count is down to 7.6 with a hemoglobin of 11.1. Rest of the electrolytes are all stable and the patient remains on IV Zosyn for now. As mentioned, all of the cultures were essentially negative. In terms of his cardiac status, he has a cardiomyopathy with ejection fraction of 30-35% and the patient also has issues with a atiral fibrillation with rapid ventricular response. This was exacerbated time of his pneumonia and sepsis. The patient is under better control in terms of atrial fibrillation. Currently is on a combination of metoprolol 100 mg by mouth 3 times a day, Cardizem 30 mg by mouth 3 times a day, amiodarone 400 mg by mouth 3 times a day and is not receiving any anticoagulation due to concerns of GI bleed. Noted no active GI bleed has been witnessed over the past 48 hours. His hemoglobin remained stable. The patient is going to be going to undergo his bowel prep today, and the patient is going to have an EGD and colonoscopy tomorrow. He is using the incentive spirometer. His calm and comfortable. No significant respiratory distress. No cough or congestion. He was weaned off the FiO2 and currently is on room air oxygen. In terms of his hemodynamics, the patient is still requiring low-dose norepinephrine. Vasopressin was discontinued and the patient is only on 0.02 microvascular kilogram per minute of norepinephrine infusion to support his blood pressure. I'm hoping that this will be discontinued also today. On 09/11/2022, the patient is sitting up on a chair and is currently on 2 L of oxygen by nasal cannula. His being treated for bilateral pneumonia more extensive on the left and the patient remains on IV Zosyn. A repeat pro- calcitonin level that was done yesterday showed a level was down to 2.03 and as such there is a down trending of the pro calcitonin level. The patient will be kept accordingly on same antibiotic coverage. Hemodynamically, he is off vasopressin and he is off norepinephrine and this was discontinued yesterday. Noted the patient was on minimal dose of norepinephrine to support his blood pressure. His cardiac atrial fibrillation. The patient is still tachycardic. He is on rate control with a combination of Cardizem, metoprolol and amiodarone. No anticoagulation yet. He is going to undergo a colonoscopy today to assess his risk for recurrent GI bleed and based on that will make a decision on his anticoagulation. He is tolerating his diet. No focal neurological deficits. Hemoglobin is at 10.5 with a white cell count of 8.4. The BUN is at 8 with a creatinine of 0.7 and a sodium level is at 135. Noted the patient's IV fluids were CUT down to KVO as of yesterday. The patient otherwise has no specific complaints. A repeat chest x-ray will be done today. This was not completed yet. I reviewed the chest x-ray once is completed. No fever. No chills. No chest pain. Blood sugars under better control for now. 09/12/2022, the patient is back on room air oxygen. Doing well. Communicating. Denies having any respiratory distress. A repeat chest x-ray was done yesterday showed a stable bilateral lower lobe consolidation. The consolidation is worse on the left. Nevertheless, the findings of essentially stable. The pro calcitonin level has been improving. The patient's sepsis is improved. The patient is currently off pressors. Based on all this, I kept him on same antibiotic coverage. He seems to be less tachycardic compared to yesterday. He remains on a combination of Cardizem, metoprolol and amiodarone. He underwent EGD and colonoscopy yesterday which showed mild gastritis, mild left-sided colonic diverticulosis, no evidence of any acute GI bleeding. The patient may be considered to be restarted back on xARELTO.. Blood work from today shows normal electrolytes, BUN is at 9 with a creatinine of 0.7. CBC still pending from today. IV fluids are currently at KVO. 09/13/2022, the patient is clinically and hemodynamically stable. He is on room air oxygen. No new complaints. Heart rate is under better control and the patient is going to be started on anticoagulation. A follow-up chest x-ray is to be done today. WBC count 7.7 and hemoglobin is at 11.3. BUN is 11 with a creatinine of 0.99. Sodium is 138, bicarb is 28, potassium is at 5.2. The patient is completing the course of Zosyn. Pro-calcitonin level has dropped. Microbial cultures are all negative. His cardiac rhythm is atrial fibrillation which is under adequate control for now. The patient is on a combination of amiodarone, Cardizem and Toprol. No pressors. On 09/14/2022, the patient is outside intensive care unit. He is feeling well. He sitting up on a chair. He had bilateral pneumonia. I was concerned of a pleural effusion. A ultrasound of the chest was done on the left and there was a 14 cm pocket. I was planning to do a thoracentesis today. Nevertheless, the patient took Xarelto yesterday. As such, I held on the procedure specially the patient is doing extremely well and his pulse ox is up to 97% on room air oxygen. I asked the patient to continue using the incentive spirometer. We'll repeat a chest x-ray tomorrow. If the pleural fluid is still present, we'll proceed with thoracentesis after holding the Xarelto. Otherwise, he remained nature fibrillation. His heart rate is under inadequate control for now. Hemodynamically stable. He completed the course of Zosyn. Is on Lasix 40 mg by mouth daily. Labs from today are still pending. In terms of his defibrillation, the patient is currently on a combination of metoprolol 150 mg by mouth twice a day, Cardizem 30 mg 3 times a day and amiodarone 400 mg by mouth twice a day. Noted the metoprolol dose has been increased today by cardiology. Reevaluated today on 09/15/2022, patient is sitting at a bedside chair, on room air, not in any distress, reviewed the results of the ultrasound, clearly the patient has a good sized left-sided pleural effusion, it could be exudative or transudative in nature, I favor parapneumonic effusion, since the patient presentation was a presentation of pneumonia and elevated pro calcitonin level, hence I recommended thoracentesis to be done today, patient was made aware of the pros and cons of thoracentesis, recent benefits, and he agreed to proceed with left sided thoracentesis. This was done, and about 1500 mL of jacek color ed fluid was removed from the left pleural space. This was sent for different diagnostic studies. In the meantime the patient is feeling better, his Xarelto has been on hold, and he has completed a course of Zosyn for presumptive left lower lobe pneumonia and parapneumonic effusion his labs today are basically unremarkable including normal CBC and normal basic metabolic profile, normal renal profile Objective - Vital Signs Vital signs: Vital Signs Temp 97.8 F 09/15/22 12:14 Pulse 65 09/15/22 12:14 Resp 18 09/15/22 12:14 BP 110/77 09/15/22 12:14 Pulse Ox 100 09/15/22 12:14 FiO2 Intake & Output 09/14/22 09/15/22 09/15/22 18:59 06:59 18:59 Intake Total 1680 237 Balance 1680 237 Weight 116.7 kg Intake: Oral 1680 237 Other: Voiding Method Toilet Toilet Toilet Bedside Commode Bedside Commode Bedside Commode # Voids 1 ABP, PAP, CO, CI - Last Documented Arterial Blood Pressure 122/61 - Exam Physical Exam: Revealed a 61-year-old white male in no distress. Head: Atraumatic, normocephalic. HEENT:[Neck is supple.] [No neck masses.] [No thyromegaly.] [No JVD.] Chest: [Right side is clear, diminished breath sounds at the left base and dullness. Cardiac Exam: [Normal S1 and S2, no S3 gallop, no murmur.] Abdomen: [Soft, nontender, no megaly, no rebound, no guarding, normal bowel sounds.] Extremities: [No clubbing, no edema, no cyanosis.] Neurological Exam: [No focal neurologic deficit.] Alert and oriented 3. Psychiatric: Normal mood, affect and normal mental status examination. Skin: No rashes - Labs CBC & Chem 7: 09/15/22 07:35 09/15/22 07:35 Labs: Abnormal Lab Results - Last 24 Hours (Table) 09/14/22 09/14/22 09/15/22 Range/Units 16:47 20:09 06:10 RBC (4.30-5.90) m/uL Hgb (13.0-17.5) gm/dL Hct (39.0-53.0) % RDW (11.5-15.5) % Neutrophils # (1.3-7.7) k/uL Glucose (74-99) mg/dL POC Glucose (mg/dL) 174 H 203 H 159 H (70-110) mg/dL Lactate Dehydrogenase (120-246) U/L 09/15/22 09/15/22 09/15/22 Range/Units 07:35 07:35 11:58 RBC 4.02 L (4.30-5.90) m/uL Hgb 11.9 L (13.0-17.5) gm/dL Hct 36.9 L (39.0-53.0) % RDW 15.9 H (11.5-15.5) % Neutrophils # 7.8 H (1.3-7.7) k/uL Glucose 152 H (74-99) mg/dL POC Glucose (mg/dL) 183 H (70-110) mg/dL Lactate Dehydrogenase (120-246) U/L 09/15/22 Range/Units 12:19 RBC (4.30-5.90) m/uL Hgb (13.0-17.5) gm/dL Hct (39.0-53.0) % RDW (11.5-15.5) % Neutrophils # (1.3-7.7) k/uL Glucose (74-99) mg/dL POC Glucose (mg/dL) (70-110) mg/dL Lactate Dehydrogenase 248 H (120-246) U/L Assessment and Plan Assessment: Impression: Acute left lower lobe pneumonia, community-acquired, and left-sided parap neumonic effusion Acute hypoxic respiratory failure Chronic atrial fibrillation Cardiomyopathy and LV dysfunction with ejection fraction of 30-35% Acute GI bleeding did not require any transfusions, EGD and colonoscopy been completed Left-sided diverticulosis. Mild gastritis. Severe obstructive sleep apnea syndrome Type 2 diabetes Benign essential hypertension Ex-smoker Recommendation: Continue present supportive care measures Thoracentesis was performed, and fluid was sent for different diagnostic studies Completed full course of Zosyn Resume Xarelto after thoracentesis. Continue to use his own BiPAP machine. From home. Consider discharge planning if cleared by other consultants and follow-up on outpatient basis. We will continue to follow Time with Patient: Less than 30
--- NOTE | 2022-09-15 17:35 | OP ---
OPERATIVE REPORT DATE OF SERVICE : PROCEDURE PERFORMED: Left-sided thoracentesis. PREOPERATIVE DIAGNOSIS: Left-sided pleural effusion. POSTOPERATIVE DIAGNOSIS: Left-sided pleural effusion. ANESTHESIA USED: 5 mL of 1% lidocaine. DESCRIPTION OF PROCEDURE: The patient was placed in a sitting upright position leading forward on the table. The area below the left scapula was prepared in a sterile fashion, and drapes were applied. The area of the fluid was earlier localized by ultrasound guidance, and it correlated to the area of the posterior axillary line and the ninth intercostal space. Lidocaine was injected at the site until the area was locally anesthetized. Then, a small tiny incision was made, and a standard thoracentesis catheter and needle were used. The needle was inserted at the same site and advanced into the pleural space. Fluid was obtained. Then, the catheter was advanced over the needle, and the needle was pulled out of the pleural space. Freely flowing fluid was removed. Roughly 1500 mL of jacek- colored fluid was removed from the left pleural space. Fluid was sent for different diagnostic studies. Procedure was well tolerated. No complications. Chest x-ray showed no pneumothorax and significant improvement in the pleural effusion. MMODL / IJN: [id number] /
[2022-09-16 06:10] LABS: Amylase, Fluid Source Thoracentesis; Amylase,Body Fluid 61 U/L; Cholesterol,BF Source Thoracentesis Fluid; Cholesterol,Body Fluid 37 mg/dL; Glucose, BF Source Thoracentesis Fluid; Glucose, Body Fluid 221 mg/dL; LDH, Body Fluid Source Thoracentesis Fluid; T. Protein, Body Fluid Source Thoracentesis Fluid; Total Protein, Body Fluid 2910 mg/dL
[2022-09-16 06:16] LABS: Appearance,BF Cloudy
--- NOTE | 2022-09-17 06:52 | P.DS ---
Providers Date of admission: 09/04/22 14:45 Expected date of discharge: 09/15/22 Attending physician: Marcel Romero MD Consults: 09/04/22 14:44 Consult Physician Routine Consulting Provider: Eron Echavarria Consult Reason/Comments: A-fib with RVR Do you want consulting provider notified?: Yes 09/05/22 14:59 Consult Physician Routine Consulting Provider: Dragan Fair Consult Reason/Comments: pl effusion, pneumonia Do you want consulting provider notified?: Yes 09/05/22 17:29 Consult Physician Routine Consulting Provider: Kaitlin You Consult Reason/Comments: ringing ears, blurred vision, dizzy Do you want consulting provider notified?: Yes 09/10/22 13:32 Consult Physician Routine Consulting Provider: Speedy Hylton Consult Reason/Comments: GIB Do you want consulting provider notified?: Already Contacted Primary care physician: Vargas Vann Hospital Course: Final diagnosis Hypotension, likely secondary to GI bleed, atrial fibrillation with RVR, and sepsis, secondary to left-sided pneumonia. Sepsis, secondary to left-sided pneumonia Bacterial pneumonia Moderate pleural effusion Severe obstructive sleep apnea Acute hypoxic respiratory failure secondary to pneumonia Acute gastrointestinal bleed. Acute atrial fibrillation with RVR. Currently rate controlled Nonischemic cardiomyopathy Acute on chronic kidney disease. Coronavirus infection. History of diabetes mellitus. History of hypertension. History of benign colon polyps. Discharge disposition Patient is being discharged in a stable condition with guarded prognosis to home. Patient will follow-up with Dr. Vann in the outpatient setting upon discharge. Patient is to follow-up with pulmonary, cardiology, general surgery outpatient as scheduled. Okay to resume Xarelto and would recommend follow-up labs of CBC and BMP in the next 2-3 days. Total time taken is greater than 35 minutes. Hospital course This is a 61-year-old male who was recently admitted with atrial fibrillation with RVR along with pneumonia being closely monitored. Patient did have some bleeding noted with concerns of possible GI pain down Xarelto which was on hold and evaluated by general surgery underwent EGD/colonoscopy and okay to resume Xarelto. Patient with multiple medical adjustments made by cardiology recommended close outpatient follow-up. Patient will also need follow-up with pulmonary in the outpatient setting. Patient has been cleared by consultations for discharge today. Please refer to consultation notes for further HPI. Currently no reports of chest pain, shortness of breath, or palpitations. Patient is afebrile. No reports of nausea or vomiting and patient is tolerating diet. Patient will be discharged home today. Guarded prognosis Physical exam: Gen: This is a 61-year-old male who is awake, alert and oriented 3, well- developed, well-nourished, obese HEENT: Head is atraumatic, normocephalic. Pupils equal, round. Sclerae is anicteric. NECK: Supple. No JVD. No lymphadenopathy. No thyromegaly. LUNGS: Clear to auscultation. No wheezes or rhonchi. No intercostal retractions. HEART: Regular rate and rhythm. No murmur. ABDOMEN: Soft. Bowel sounds are present. No masses. No tenderness. EXTREMITIES: No pedal edema. No calf tenderness. NEUROLOGICAL: Patient is awake, alert and oriented x3. Cranial nerves 2 through 12 are grossly intact. Please refer to medication reconciliation sheet for a list of medications. The impression and plan of care has been dictated by Lou Chahal, Nurse Practitioner as directed. Dr. Terry MD I have performed a history and examination and MDM of this patient, discussed the same with the dictator, and agree with the dictator's assessment and plan as written ,documented as a scribe. Based on total visit time, I have performed more than 50% of the visit. Patient Condition at Discharge: Stable Plan - Discharge Summary Discharge Rx Participant: Yes New Discharge Prescriptions: New Furosemide [Lasix] 40 mg PO DAILY #30 tab Pantoprazole [Protonix] 40 mg PO DAILY #15 tab Metoprolol Succinate (ER) [Toprol XL] 150 mg PO BID 30 Days #180 tab Rivaroxaban [Xarelto] 20 mg PO W/SUPPER 30 Days #30 tab Amiodarone [Cordarone] 400 mg PO DAILY 30 Days tablet Diltiazem Oral [Cardizem*] 30 mg PO TID #90 tab Amiodarone [Cordarone] 400 mg PO BID #60 tab Acetaminophen Tab [Tylenol] 650 mg PO Q6HR PRN tab PRN Reason: Fever And/ Or Pain traMADol HCl [Ultram] 50 mg PO TID PRN #9 tab PRN Reason: Breakthrough Pain Continue Linagliptin [Tradjenta] 5 mg PO DAILY Atorvastatin [Lipitor] 20 mg PO HS Spironolactone [Aldactone] 12.5 mg PO DAILY 30 Days #30 tab Gabapentin [Neurontin] 200 mg PO BID 5 Days #20 cap Tamsulosin [Flomax] 0.4 mg PO HS Midodrine [ProAmatine] 10 mg PO TID@0730,1200,1730 [id number] [phone] [Excedrin] 2 tab PO Q6H PRN PRN Reason: Headache Pioglitazone [Actos] 45 mg PO DAILY Dapagliflozin Propanediol [Farxiga] 10 mg PO DAILY 30 Days #30 tab Discontinued Rivaroxaban [Xarelto] 20 mg PO DAILY Lisinopril-Hctz 20-12.5 mg [Zestoretic 20-12.5] 1 tab PO DAILY Amiodarone [Cordarone] 400 mg PO BID 30 Days #60 tab Metoprolol Succinate (ER) [Toprol XL] 100 mg PO HS Aspirin EC [Ecotrin Low Dose] 81 mg PO DAILY Discharge Medication List Atorvastatin [Lipitor] 20 mg PO HS 08/13/22 [History] Linagliptin [Tradjenta] 5 mg PO DAILY 08/13/22 [History] Pioglitazone [Actos] 45 mg PO DAILY 08/13/22 [History] Dapagliflozin Propanediol [Farxiga] 10 mg PO DAILY 30 Days #30 tab 08/29/22 [Rx] Gabapentin [Neurontin] 200 mg PO BID 5 Days #20 cap 08/29/22 [Rx] Spironolactone [Aldactone] 12.5 mg PO DAILY 30 Days #30 tab 08/29/22 [Rx] [id number]-[id number] [phone] [Excedrin] 2 tab PO Q6H PRN 09/04/22 [History] Midodrine [ProAmatine] 10 mg PO TID@0730,1200,1730 09/04/22 [History] Tamsulosin [Flomax] 0.4 mg PO HS 09/04/22 [History] Amiodarone [Cordarone] 400 mg PO DAILY 30 Days tablet 09/13/22 [Rx] Acetaminophen Tab [Tylenol] 650 mg PO Q6HR PRN tab 09/15/22 [Rx] Amiodarone [Cordarone] 400 mg PO BID #60 tab 09/15/22 [Rx] Diltiazem Oral [Cardizem*] 30 mg PO TID #90 tab 09/15/22 [Rx] Furosemide [Lasix] 40 mg PO DAILY #30 tab 09/15/22 [Rx] Metoprolol Succinate (ER) [Toprol XL] 150 mg PO BID 30 Days #180 tab 09/15/22 [Rx] Pantoprazole [Protonix] 40 mg PO DAILY #15 tab 09/15/22 [Rx] Rivaroxaban [Xarelto] 20 mg PO W/SUPPER 30 Days #30 tab 09/15/22 [Rx] traMADol HCl [Ultram] 50 mg PO TID PRN #9 tab 09/15/22 [Rx] Follow up Appointment(s)/Referral(s): Zainab Todd MD [STAFF PHYSICIAN] - 10/03/22 1:45 pm Phillip Lau MD [STAFF PHYSICIAN] - 09/17/22 5:00 pm Vargas Vann DO [Primary Care Provider] - 09/22/22 1:15 pm (Follow up with Lo SHANNON) Ambulatory/Diagnostic Orders: Complete Blood Count w/diff [LAB.AMB] Time Frame: 3 Days, Location: None Selected Patient Instructions/Handouts: A-fib (Atrial Fibrillation) (IP) Activity/Diet/Wound Care/Special Instructions: Activity as tolerated until follow-up Follow-up with primary care provider on discharge Follow-up cardiology outpatient Follow-up with pulmonary outpatient Continue taking medications as prescribed Discharge Disposition: HOME SELF-CARE
--- NOTE | 2022-09-17 09:45 | CDI ---
Documentation Clarification Form Date: 09/17/22 From: Lisha William Admit Date: 09/04/2022 2:45:00 PM Patient Name: Kaylen Majano Visit Number: [id number] Discharge Date: 09/15/2022 4:23:00 PM ATTENTION: The Clinical Documentation Specialists (CDI) and [facility] Coding Staff appreciate your assistance in clarifying documentation. Please respond to the clarification below the line at the bottom and electronically sign. The CDI & [facility] Coding staff will review the response and follow-up if needed. Please note: Queries are made part of the Legal Health Record. If you have any questions, please contact the author of this message via ITS. Dr. Juan Stewart, COVID 19 is documented on 09/[address] Bob consult. For each diagnosis, documentation must be clear to determine if the condition was present at the time of the patients inpatient admission or developed during the hospital stay. Additional clarification regarding the Covid-19 with pneumonia is requested. History/Risk Factors: Persistent atrial fibrillation, sepsis, septic shock, acute hypoxic respiratory failure, ischemic colitis with bleeding, AKU, HTN w chronic systolic CHF and Stage 3 CKD, T2DM w CKD Clinical Indicators: Patient admitted 09/04. Coronavirus (PCR) detected on 09/05 Treatment: No COVID meds given. Received IV antibiotics Definition of Present on Admission (POA): A diagnosis present at the time the order for admission to inpatient status was written. Please clarify if the COVID-19 w pneumonia was POA [ ] Y = Yes, the condition was present at the time of the order for inpatient admission. [ ] N = No, the condition was not present at the time of the order for inpatient admission. [ x ] W = Clinically undetermined if the condition was present at the time of the order for inpatient admission. MTDD
== END 2022-09-15 16:23 | disposition home or self-care (01) | DRG 871 ==
LOC: EC 12:35 → 3SCARD 14:45 → 2SICU 09-05 18:16 → 3SCARD 09-13 12:38
PROVIDERS: ADMIT Internal Medicine; ATTEND Internal Medicine
PROC: 02HV33Z Insertion of Infusion Device into Superior Vena Cava, Percutaneous Approach (ICD-10-PCS; principal; 2022-09-05)
PROC: 3E043XZ Introduction of Vasopressor into Central Vein, Percutaneous Approach (ICD-10-PCS; 2022-09-05)
PROC: 03HY32Z Insertion of Monitoring Device into Upper Artery, Percutaneous Approach (ICD-10-PCS; 2022-09-05)
PROC: 4A133B1 Monitoring of Arterial Pressure, Peripheral, Percutaneous Approach (ICD-10-PCS; 2022-09-05)
PROC: 4A133J1 Monitoring of Arterial Pulse, Peripheral, Percutaneous Approach (ICD-10-PCS; 2022-09-05)
PROC: 30283B1 Transfusion of Nonautologous 4-Factor Prothrombin Complex Concentrate into Vein, Percutaneous Approach (ICD-10-PCS; 2022-09-05)
PROC: 5A09357 Assistance with Respiratory Ventilation, Less than 24 Consecutive Hours, Continuous Positive Airway Pressure (ICD-10-PCS; 2022-09-09)
PROC: 0DB78ZX Excision of Stomach, Pylorus, Via Natural or Artificial Opening Endoscopic, Diagnostic (ICD-10-PCS; 2022-09-11)
PROC: 0DBG8ZX Excision of Left Large Intestine, Via Natural or Artificial Opening Endoscopic, Diagnostic (ICD-10-PCS; 2022-09-11)
PROC: 0W9B3ZX Drainage of Left Pleural Cavity, Percutaneous Approach, Diagnostic (ICD-10-PCS; 2022-09-15)
DX: A41.9 Sepsis, unspecified organism (principal); J12.82 Pneumonia due to coronavirus disease 2019; J15.9 Unspecified bacterial pneumonia; J96.01 Acute respiratory failure with hypoxia; R65.21 Severe sepsis with septic shock; U07.1 COVID-19; K55.9 Vascular disorder of intestine, unspecified; I13.0 Hypertensive heart and chronic kidney disease with heart failure and stage 1 through stage 4 chronic kidney disease, or unspecified chronic kidney disease; I50.22 Chronic systolic (congestive) heart failure; I48.19 Other persistent atrial fibrillation; N17.9 Acute kidney failure, unspecified; I42.8 Other cardiomyopathies; I25.110 Atherosclerotic heart disease of native coronary artery with unstable angina pectoris; J90 Pleural effusion, not elsewhere classified; K51.50 Left sided colitis without complications; J98.11 Atelectasis; E11.22 Type 2 diabetes mellitus with diabetic chronic kidney disease; N18.30 Chronic kidney disease, stage 3 unspecified; G90.1 Familial dysautonomia [Riley-Day]; K76.89 Other specified diseases of liver; K29.70 Gastritis, unspecified, without bleeding; K57.30 Diverticulosis of large intestine without perforation or abscess without bleeding; E78.5 Hyperlipidemia, unspecified; G47.33 Obstructive sleep apnea (adult) (pediatric); H93.19 Tinnitus, unspecified ear; F10.90 Alcohol use, unspecified, uncomplicated; Z79.82 Long term (current) use of aspirin; Z79.84 Long term (current) use of oral hypoglycemic drugs; Z79.01 Long term (current) use of anticoagulants; Z79.899 Other long term (current) drug therapy; Z87.891 Personal history of nicotine dependence; Z88.1 Allergy status to other antibiotic agents; Z82.49 Family history of ischemic heart disease and other diseases of the circulatory system
CPT/HCPCS: 36415; 43239; 45380; 45385; 70450; 71045; 71046; 71250; 74150; 76604; 80048; 80053; 81001; 82150; 82272; 82465; 82533; 82945; 83036; 83605; 83615; 83735; 83880; 84145; 84155; 84157; 84484; 85025; 85027; 85610; 85652; 85730; 86140; 86850; 86900; 86901; 86920; 87040; 87070; 87086; 87102; 87116; 87205; 87206; 87252; 87449; 87496; 87498; 87502; 87529; 87634; 87635; 87798; 88305; 89050; 93005; 93308; 96365; 96366; 96375; 99285

== ENCOUNTER 2022-10-21 10:17 | Day surgery (SDC) | payer BC ==
[2022-10-17 16:35] VITALS: BMI 31.4
[~2022-10-21 10:17] MED LIST: ALPRAZolam 0.25 MG TAB PO PRN; ALPRAZolam 0.5 MG TAB PO PRN; ASPIRIN 325 MG TAB PO ONE; ATORVASTATIN 80 MG TAB PO ONE; HEPARIN SODIUM,PORCINE 10,000 UNIT in SODIUM CHLORIDE 0.9% 1,000 ML IRRIGATION PRN; HEPARIN SODIUM,PORCINE 2,500 UNIT in SODIUM CHLORIDE 0.9% 250 ML IRRIGATION PRN; NITROGLYCERIN SL TABS 0.4 MG TAB SUBLINGUAL PRN; SODIUM CHLORIDE 0.9% 1,000 ML in EMPTY BAG 1 BAG IV SCH
[2022-10-21] MEDS ORDERED: SODIUM CHLORIDE 0.9% 1,000 ML IV ONE (10:28)
[2022-10-21 10:55] LABS: Glucose,Whole Blood 182 mg/dL (70-110)
[2022-10-21 11:08] LABS: Anisocytosis Slight; Basophils # (A) 0.1 k/uL (0-0.2); Basophils % (A) 1 %; Eosinophils # (A) 0.1 k/uL (0-0.7); Eosinophils % (A) 1 %; HGB 12.5 gm/dL (13.0-17.5); Hypochromasia Moderate; Lymphocytes # (A) 1.3 k/uL (1.0-4.8); Lymphocytes % (A) 14 %; MCH 28.2 pg (25.0-35.0); MCHC 29.8 g/dL (31.0-37.0); MCV 94.4 fL (80.0-100.0); Monocytes # (A) 0.6 k/uL (0-1.0); Monocytes % (A) 6 %; Neutrophils # (A) 7.1 k/uL (1.3-7.7); Neutrophils % (A) 76 %; Platelet Count 395 k/uL (150-450); RBC 4.45 m/uL (4.30-5.90); WBC 9.3 k/uL (3.8-10.6)
[2022-10-21 11:14] VITALS: RESP 16; TEMP 98.4
[2022-10-21 11:16] LABS: African American GFR (CKD) >90 (>60 ml/min/1.73 sqM); Anion Gap 12 mmol/L; Blood Urea Nitrogen 15 mg/dL (9-20); Calcium 9.7 mg/dL (8.4-10.2); Carbon Dioxide 28 mmol/L (22-30); Chloride 95 mmol/L (98-107); Glucose 188 mg/dL (74-99); Non-African American GFR(CKD) >90 (>60 ml/min/1.73 sqM); Potassium 4.5 mmol/L (3.5-5.1); Sodium 135 mmol/L (137-145)
[2022-10-21] MEDS ORDERED: fentaNYL (PF) 50 MCG/ML 2 ML AMP ONE ×2 (13:18→13:53)
[2022-10-21] MEDS ORDERED: MIDAZOLAM 2 MG/2 ML VIAL IVP ONE (13:21)
[2022-10-21] MEDS: fentaNYL (PF) 50 MCG/ML 2 ML AMP IVP ONE ×2 (13:21→13:29)
[2022-10-21] MEDS ORDERED: LIDOCAINE 1% INJ 10MG/ML (30 ML VIAL-PF) SQ ONE (13:23)
[2022-10-21] MEDS ORDERED: LIDOCAINE 1% INJ 10MG/ML (20 ML MDV) ONE (13:24)
[2022-10-21] MEDS ORDERED: HYDROmorphone 0.5 MG/0.5 ML SYRINGE IVP ONE (13:30)
[2022-10-21] MEDS ORDERED: IOPAMIDOL-370 200ML BTL INJ ONE (13:32)
[2022-10-21] MEDS ORDERED: RX INFO: IV CONTRAST WAS GIVEN 1 EACH MISC MISCELLANE PRN (13:37)
--- NOTE | 2022-10-21 13:40 | P.PCN ---
Date of Procedure: 10/21/22 Operative Findings: CARDIAC CATHETERIZATION PERFORMING PHYSICIAN: Phillip Lau MD, RPVI PROCEDURE PERFORMED: 1. Selective right and left coronary angiogram 2. Left heart catheterization 3. Ultrasound-guided access of the right common femoral artery. 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 Local anesthesia was performed using lidocaine subcutaneously. The right common femoral artery was cannulated using Seldinger technique, the guidewire passed easily, following that we advanced a 6 Kenyan sheath dilator assembly, the wire and dilator were removed and sheath was flushed. Selective right and left coronary angiogram using a 6-Kenyan JR4 and JL catheters. Following that we did left heart catheterization using 6-Kenyan pigtail catheter. The procedure was completed there was no complication. SELECTIVE CORONARY ANGIOGRAM: The right coronary artery: Is angiographically normal. Left main: Calcified was mild disease only. Bifurcates into LCx and LAD The left circumflex: Large caliber vessel nondominant vessel. Appears to be angiographically normal as well. The left anterior descending artery: The LAD has mild disease only. It gives rise into a diagonal branches and appeared to be angiographically normal HEMODYNAMICS: LVEDP was 20 mmHg was no significant gradient across aortic valve CONCLUSION: 1. Mild coronary artery disease 2. Elevated left-sided filling pressure POSTPROCEDURE MANAGEMENT: Medical treatment and follow-up with the patient
[2022-10-21] MEDS ORDERED: SODIUM CHLORIDE 0.9% 1,000 ML IV SCH (13:45)
[2022-10-21] MEDS ORDERED: fentaNYL (PF) 50 MCG/ML 2 ML AMP IVP ONE (14:05)
[2022-10-21] MEDS ORDERED: traMADol 50 MG TAB PO PRN (14:09)
[2022-10-21] MEDS ORDERED: ACETAMINOPHEN TAB 500 MG TAB PO STA (15:25)
[2022-10-21] MEDS ORDERED: DILTIAZEM ORAL 30 MG TAB PO SCH (16:00)
[2022-10-21 17:59] VITALS: BP 109/78; PULSE 118
[2022-10-21] MEDS ORDERED: AMIODARONE 200 MG TAB PO SCH (21:00)
== END 2022-10-21 17:36 | disposition home or self-care (01) ==
LOC: CATHCVL 10:17
PROVIDERS: ATTEND Internal Medicine Interventional Cardiology
DX: I25.10 Atherosclerotic heart disease of native coronary artery without angina pectoris (principal); I42.9 Cardiomyopathy, unspecified; I11.0 Hypertensive heart disease with heart failure; I50.9 Heart failure, unspecified; I25.9 Chronic ischemic heart disease, unspecified; I48.19 Other persistent atrial fibrillation; E11.9 Type 2 diabetes mellitus without complications; E78.5 Hyperlipidemia, unspecified; F17.210 Nicotine dependence, cigarettes, uncomplicated; Z68.32 Body mass index [BMI] 32.0-32.9, adult; E66.9 Obesity, unspecified; Z79.01 Long term (current) use of anticoagulants; Z79.82 Long term (current) use of aspirin; Z79.84 Long term (current) use of oral hypoglycemic drugs; Z88.8 Allergy status to other drugs, medicaments and biological substances; Z79.899 Other long term (current) drug therapy
CPT/HCPCS: 99152; 93458; 80048; 85025; C1760; C1769 ×2; C1894; J2250; J2001; J3010; J1170; Q9967

== ENCOUNTER → 2022-10-22 | Outpatient (CLI) | payer BC ==
--- NOTE | 2022-10-22 11:37 | XR ---
EXAMINATION TYPE: XR lumbar spine 2 or 3V DATE OF EXAM: 10/22/2022 COMPARISON: None HISTORY: Pain TECHNIQUE: 3 view lumbar spine FINDINGS: There are 5 lumbar-type vertebral bodies. There is attempted sacralization of L5 on the rig ht. The pedicles are intact. There is narrowing of disc height at L3-4 through L5-S1. Spondylosis is present. IMPRESSION: 1. Degenerative disc changes mid and lower lumbar spine. 2. Spondylosis.
--- NOTE | 2022-10-22 12:06 | XR ---
EXAMINATION TYPE: XR thoracic spine complete DATE OF EXAM: 10/22/2022 COMPARISON: None HISTORY: Pain TECHNIQUE: 3 view thoracic spine FINDINGS: There are 12 thoracic type vertebral bodies. The left T7 pedicle is not well visualized. Pe dicles otherwise appear intact. Mild diffuse disc space narrowing is present. Vertebral body heights are preserved. Some spondylosis with anterior thoracic calcification is noted. IMPRESSION: 1. Left T7 pedicle is poorly visualized which may be positional. There is clinical concern for abnor mality such as pain or history of cancer, closer evaluation be performed with whole body bone scan. 2. Degenerative disc changes are within the mid to lower thoracic spine
== END | disposition home or self-care (01) ==
LOC: RADXRMAIN 09:11
PROVIDERS: ATTEND Family Medicine
DX: M51.36 Other intervertebral disc degeneration, lumbar region (principal); M47.816 Spondylosis without myelopathy or radiculopathy, lumbar region
CPT/HCPCS: 72072; 72100

== ENCOUNTER 2022-11-18 16:08 | Inpatient (IN) | payer BC ==
[2022-11-18] MEDS ORDERED: MORPHINE SULFATE 4 MG/ML SYRINGE IV STA (17:19)
[2022-11-18 17:59] LABS: Anisocytosis Slight; Basophils # (A) 0.1 k/uL (0-0.2); Basophils % (A) 0 %; Eosinophils # (A) 0.2 k/uL (0-0.7); Eosinophils % (A) 2 %; HCT 35.7 % (39.0-53.0); HGB 11.2 gm/dL (13.0-17.5); Lymphocytes # (A) 1.4 k/uL (1.0-4.8); Lymphocytes % (A) 13 %; MCH 28.4 pg (25.0-35.0); MCHC 31.5 g/dL (31.0-37.0); MCV 90.2 fL (80.0-100.0); Mean Platelet Volume 8.2; Monocytes # (A) 0.6 k/uL (0-1.0); Monocytes % (A) 5 %; Neutrophils # (A) 8.6 k/uL (1.3-7.7); Neutrophils % (A) 78 %; Platelet Count 532 k/uL (150-450); RBC 3.96 m/uL (4.30-5.90); RDW 16.8 % (11.5-15.5)
[2022-11-18 18:02] LABS: INR 1.4 (<1.2); Partial Thromboplastin Time 29.4 sec (22.0-30.0)
[2022-11-18 18:06] LABS: ALT 29 U/L (4-49); AST 33 U/L (17-59); African American GFR (CKD) >90 (>60 ml/min/1.73 sqM); Albumin 3.4 g/dL (3.5-5.0); Alkaline Phosphatase 116 U/L (38-126); Anion Gap 9 mmol/L; Blood Urea Nitrogen 21 mg/dL (9-20); Calcium 10.6 mg/dL (8.4-10.2); Carbon Dioxide 36 mmol/L (22-30); Chloride 89 mmol/L (98-107); Glucose 169 mg/dL (74-99); Non-African American GFR(CKD) >90 (>60 ml/min/1.73 sqM); Phosphorus 4.5 mg/dL (2.5-4.5); Potassium 3.6 mmol/L (3.5-5.1); Sodium 134 mmol/L (137-145); Total Bilirubin 0.9 mg/dL (0.2-1.3); Total Protein 6.9 g/dL (6.3-8.2)
--- NOTE | 2022-11-18 18:20 | XR ---
EXAMINATION TYPE: XR chest 2V DATE OF EXAM: 11/18/2022 6:12 PM COMPARISON: Chest radiographs from 09/15/2022 TECHNIQUE: XR chest 2V Frontal and lateral views of the chest. CLINICAL INDICATION:Male, 62 years old with history of Weakness; FINDINGS: Lungs/Pleura: Blunting of the left costal angle with left basilar patchy airspace opacity. The right lung is clear. No pneumothorax. Pulmonary vascularity: Unremarkable. Heart/mediastinum: Cardiomediastinal silhouette is unremarkable. Musculoskeletal: No acute osseous pathology. IMPRESSION: Redemonstration of small left pleural effusion with patchy left basilar airspace opacity which may re present atelectasis versus infiltrate.
[2022-11-18 18:32] LABS: Appearance,Urine Clear (Clear); Bilirubin,Urine Negative (Negative); Blood,Urine Negative (Negative); Color,Urine Yellow; Glucose,Urine (UA) 4+ (Negative); Ketones,Urine Negative (Negative); Leukocyte Esterase,Urine Negative (Negative); Nitrite,Urine Negative (Negative); PH, Urine 5.5 (5.0-8.0); Protein,Urine Negative (Negative); Specific Gravity,Urine 1.015 (1.001-1.035)
--- NOTE | 2022-11-18 18:36 | XR ---
EXAMINATION TYPE: XR femur LT, XR Hip Complete LT DATE OF EXAM: 11/18/2022 6:14 PM INDICATION: Patient age:Male; 62 years old; Reason for study: pain; COMPARISON: None TECHNIQUE: The left femur was examined in AP and lateral projections. The left hip was examined in fr ontal and lateral projections. FINDINGS: There is irregular eccentric lucency with irregular borders involving the distal femoral di aphysis laterally. There is involvement of the cortex without periosteal reaction. This grossly measu res up to 3.8 cm. No acute fracture, dislocation, or soft tissue swelling. No joint effusions. Medial joint space narrowing of the hip with acetabular sclerosis and marginal osteophytosis. Suprapatellar spur noted. Vascular sclerosis. IMPRESSION: 1. No acute fracture. 2. Irregular lytic lesion involving the distal left femur. Etiologies include primary bone tumor yasmany nohemi infection. Further evaluation with MRI with IV contrast is recommended. 3. Mild osteoarthritic changes of the left hip.
[2022-11-18] MEDS ORDERED: DILTIAZEM 125 MG in SODIUM CHLORIDE 0.9% 100 ML IV SCH (18:45)
--- NOTE | 2022-11-18 19:41 | ED ---
Weakness HPI - General Chief complaint: Weakness Stated complaint: lt leg weakness Time Seen by Provider: 11/18/22 17:07 Source: patient, family Mode of arrival: wheelchair Limitations: no limitations - History of Present Illness Initial comments: This 62-year-old male presents with a complaint of weakness. This apparently has been present for approximately 3 months. He also is complaining of severe pain into his left hip as well as his left femur region. He states that this pain is unrelenting despite his home pain medications. He states that he has been in the sitting up position for the last several months. He relates that the patient previously was in his right leg but now it is in his left leg. He complains of bilateral lower extremity edema which also is been present since hospitalization 3 months ago. He does complain of some shortness of breath as well. He relates a history of previous left pleural effusion and he had this dr spencer 3 months ago since he was in the hospital. He also has a history of atrial fibrillation which has been fairly persistent for the last 3 months. He's been following up with cardiology and apparently may be undergoing ablation in the near future. He denies any chest pain. He also denies any fevers or chills. He relates that his symptoms essentially have all been present for the last 3 months ever since he was hospitalized. When he was hospitalized see did have pneumonia as well. He denies any other complaints or modifying factors. - Related Data Home Medications Medication Instructions Recorded Confirmed Atorvastatin [Lipitor] 20 mg PO HS 08/13/22 11/18/22 Tamsulosin [Flomax] 0.4 mg PO DAILY 09/04/22 11/18/22 Amiodarone [Cordarone] 200 mg PO DAILY 10/17/22 11/18/22 Metoprolol Succinate [Toprol XL] 100 mg PO DAILY 10/17/22 11/18/22 Rivaroxaban [Xarelto] 20 mg PO DAILY 10/17/22 11/18/22 Dapagliflozin Propanediol [Farxiga] 10 mg PO DAILY 11/18/22 11/18/22 Gabapentin [Neurontin] 400 mg PO TID 11/18/22 11/18/22 HYDROcodone/APAP 7.5-325MG [[place] 1 tab PO Q6H PRN 11/18/22 11/18/22 7.5-325] Metoprolol Succinate (ER) [Toprol 50 mg PO HS@1800 11/18/22 11/18/22 Xl] Semaglutide [Ozempic] 0.25 mg SQ SA 11/18/22 11/18/22 Previous Rx's Medication Instructions Recorded Spironolactone [Aldactone] 12.5 mg PO DAILY 30 Days #30 tab 08/29/22 Furosemide [Lasix] 40 mg PO DAILY #30 tab 09/15/22 Allergies Allergy/AdvReac Type Severity Reaction Status Date / Time clarithromycin [From Biaxin] Allergy Severe Rash/Hives Verified 11/18/22 19:39 Review of Systems ROS Statement: Those systems with pertinent positive or pertinent negative responses have been documented in the HPI. ROS Other: All systems not noted in ROS Statement are negative. Past Medical History Past Medical History: Atrial Fibrillation, Diabetes Mellitus, Hypertension, Osteoarthritis (OA), Sleep Apnea/CPAP/BIPAP Additional Past Medical History / Comment(s): NIDDM., PAST HX OF HTN BUT NOW HAS LOW BLOODPRESSURE., COLON POLYPS, CHRONIC BACK PAIN., HOSPITALIZED AT [facility] AUGUST/SEPTEMBER WITH POSITIVE COVID, TINNITUS, DIZZINESS, BLURRED VISION WITH GI BLEED, PNEUMONIA , THORACENTESIS DONE , EGD AND COLONOSCOPY SHOWED MILD GASTRITIS, COLITIS DIVERTICULITIS., PT STATES SLEEP APNEA BUT HAS NOT BEEN ABLE TO START USING MACHINE YET., SEE CARDIOLOGY H & P. History of Any Multi-Drug Resistant Organisms: None Reported Past Surgical History: Adenoidectomy, Tonsillectomy Additional Past Surgical History / Comment(s): Tailbone Cystectomy. Vasectomy. COLONOSCOPY EGD (09/11/22) ., CARDIOVERSION, THORACENTESIS 09/15/22 Past Anesthesia/Blood Transfusion Reactions: No Reported Reaction Additional Past Anesthesia/Blood Transfusion Reaction / Comment(s): NO HX OF BLOOD TRANSFUSION Past Psychological History: No Psychological Hx Reported Smoking Status: Former smoker Past Alcohol Use History: None Reported Past Drug Use History: None Reported - Past Family History Father Family Medical History: Congestive Heart Failure (CHF) Additional Family Medical History / Comment(s): Father of CHF Mother Additional Family Medical History / Comment(s): Mother had cirrhosis of the liver. General Exam - General Exam Comments Initial Comments: GENERAL: The patient is well nourished and well hydrated. VITAL SIGNS: Heart rate, blood pressure, respiratory rate reviewed as recorded in nurse's notes. EYES: Pupils are round and reactive. Extraocular movements are intact. No conjunctival / lid redness or swelling. ENT: No external evidence of injury, swelling, or ecchymosis. Airway is patent. Throat is clear. NECK: Nontender. No swelling or evidence of injury. No subcutaneous emphysema. Trachea is midline. No thyroid mass. HEART: Tachycardic irregular rhythm. Good peripheral pulses. Significant peripheral edema which apparently is unchanged per patient. LUNGS/CHEST: Breath sounds clear and equal bilaterally. No rales, rhonchi, or wheezes. No ecchymosis, subcutaneous emphysema, or tenderness. ABDOMEN: Abdomen soft without tenderness. No palpable masses or organomegaly. No peritoneal signs. No abdominal wall swelling or ecchymosis. EXTREMITIES: No extremity tenderness. Normal muscle tone and function. No thoracolumbar tenderness. There is tenderness noted into the left hip and left femur. NEUROLOGIC: Sensation is grossly intact. Cranial nerve exam reveals face is symmetrical, tongue is midline, speech is clear. SKIN: No abrasions or ecchymosis is noted. No induration or masses noted. PSYCHIATRIC: Alert and oriented. Appropriate behavior and judgment. Limitations: no limitations Course Vital Signs 11/18/22 11/18/22 11/18/22 16:27 19:10 19:17 Temperature 98.9 F 98.8 F Pulse Rate 161 H 165 H 160 H Respiratory 20 19 19 Rate Blood Pressure 92/61 90/73 105/69 O2 Sat by Pulse 95 95 95 Oximetry 11/18/22 11/18/22 11/18/22 19:20 19:40 20:00 Temperature Pulse Rate 150 H 142 H 167 H Respiratory 19 17 16 Rate Blood Pressure 88/73 76/66 86/47 O2 Sat by Pulse 94 L 95 94 L Oximetry 11/18/22 20:18 Temperature 98.7 F Pulse Rate 170 H Respiratory 17 Rate Blood Pressure 93/77 O2 Sat by Pulse 95 Oximetry Medical Decision Making - Medical Decision Making The patient was seen and examined. All diagnostics are reviewed. IV is established and he is placed on a bruise trimmer. Heart rate does show a heart rate of approximately 160 and irregular. The EKG also was completed and shows atrial fibrillation with rapid ventricular response with heart rate of 158. The patient has some artifact present. There is no ST elevation per my i nterpretation. The QRS is 110 and the QTC intervals 467. The patient has an incomplete right bundle-branch block as well. The patient had a chest x-ray which shows a left plural effusion per minute drip rotation. Radiologist feels as though there also may potentially be some infiltrate of changes to the left chest. Old records are reviewed in detail these do show recent hospitalization in September of this year where he did have atrial fibrillation as well as GI bleeding and pneumonia in the left pleural effusion which was drained. There is no identifiable cytology report. Old records also reviewed that he had x-rays on outpatient basis this past month which showed possible lytic lesion to the spine and patient relates that he is supposed to have a bone scan but this has not been done yet as he states that he cannot lay down flat due to the amount of pain that he is in. The laboratory came back showing elevation of his BNP, hypercalcemia, and anemia. His hemoglobin appears to be stable as compared to previous. X-rays were done of the left hip and pelvis and this does show a nohemi picion for lytic lesion to his left femur. Patient denies any known primary cancer. With this lesion, his back lesion, and recurrent left pleural effusion, it is felt as though cancer certainly is in the differential diagnosis. He is started on a Cardizem drip at a low rate as he is moderately hypotensive. It does appear per old records that he does have cardiomyopathy so he likely does have fairly low blood pressure normally. It is felt as though he would require admission to the hospital for further treatment and multiple specialty consultation. Case is discussed with internal medicine and they are agreeable with admission. He'll be placed in the stepdown telemetry unit. Internal m edicine is agreeable with cardiology consultation as well as pulmonary consultation and requested a computed tomography scan of the thorax to be completed. This is initiated. Patient does receive morphine with moderate relief of pain. Approximately 45 minutes critical care time is utilized and the treatment of the patient. Was pt. sent in by a medical professional or institution (, [facility], [facility], urgent care, hospital, or long term...) When possible be specific @ -Patient was sent in by a home health care worker. Did you speak to anyone other than the patient for history (EMS, parent, family, police, friend...)? What history was obtained from this source @ -[No] Did you review nursing and triage notes (agree or disagree)? Why? @ -[I reviewed and agree with nursing and triage notes] Were old charts reviewed (outside hosp., previous admission, EMS record, old EKG, old radiological studies, urgent care reports/EKG's, long term records)? Report findings @ -Old records were reviewed in detail. Please see above. Differential Diagnosis (chest pain, altered mental status, abdominal pain women, abdominal pain men, vaginal bleeding, weakness, fever, dyspnea, syncope, headache, dizziness, GI bleed, back pain, seizure, CVA, palpatations, mental health, musculoskeletal)? @ -Atrial fibrillation with rapid ventricular rate, recurrent left pleural effusion, lower extremity edema, congestive heart failure, cardiomyopathy, cancer, lung cancer EKG interpreted by me (3pts min.). @ -[As above] X-rays interpreted by me (1pt min.). @ -As above CT interpreted by me (1pt min.). @ -CT is ordered and is pending. U/S interpreted by me (1pt. min.). @ -[None done] What testing was considered but not performed or refused? (CT, X-rays, U/S, labs)? Why? @ -[None] What meds were considered but not given or refused? Why? @ -[None] Did you discuss the management of the patient with other professionals (professionals i.e. , PA, [employer]ER, lab, RT, psych nurse, social organization professor, mathematics department chair, teacher, public information officer, rn case mgr)? Give summary @ -Case is discussed with internal medicine and they're agreeable with admission as above. Was smoking cessation discussed for >3mins.? @ -[No] Was critical care preformed (if so, how long)? @ -Yes, please see above. Were there social determinants of health that impacted care today? How? (Homelessness, low income, unemployed, alcoholism, drug addiction, transportation, low edu. Level, literacy, decrease access to med. care, senior care, rehab)? @ -[No] Was there de-escalation of care discussed even if they declined (Discuss DNR or withdrawal of care, Hospice)? DNR status @ -[No] What co-morbidities impacted this encounter? (DM, HTN, Smoking, COPD, CAD, Cancer, CVA, ARF, Chemo, Hep., AIDS, mental health diagnosis, sleep apnea, mor bid obesity)? @ -Atrial fibrillation, diabetes mellitus, cardiomyopathy Was patient admitted / discharged? Hospital course, mention meds given and route, prescriptions, significant lab abnormalities, going to OR and other pertinent info. @ -Admitted Undiagnosed new problem with uncertain prognosis? @ -[No] Drug Therapy requiring intensive monitoring for toxicity (Heparin, Nitro, Ins ulin, Cardizem)? @ -[No] Were any procedures done? @ -[No] Diagnosis/symptom? @ -Atrial fibrillation with rapid ventricular response, recurrent left pleural effusion, left from oral lytic lesion Acute, or Chronic, or Acute on Chronic? @ -Acute Uncomplicated (without systemic symptoms) or Complicated (systemic symptoms)? @ -Complicated Side effects of treatment? @ -[No] Exacerbation, Progression, or Severe Exacerbation? @ -Exacerbation and progression Poses a threat to life or bodily function? How? (Chest pain, [place], [place], pneumonia, PE, COPD, DKA, ARF, appy, cholecystitis, CVA, Diverticulitis, Homicidal, Suicidal, threat to staff... and all critical care pts) @ -Yes, it is felt as though the atrial fibrillation with rapid ventricular response is a life-threatening condition. - Lab Data Result diagrams: 11/18/22 17:41 11/18/22 17:41 Lab Results 11/18/22 11/18/22 11/18/22 Range/Units 17:41 17:41 17:41 WBC 11.0 H (3.8-10.6) k/uL RBC 3.96 L (4.30-5.90) m/uL Hgb 11.2 L (13.0-17.5) gm/dL Hct 35.7 L (39.0-53.0) % MCV 90.2 (80.0-100.0) fL MCH 28.4 (25.0-35.0) pg MCHC 31.5 (31.0-37.0) g/dL RDW 16.8 H (11.5-15.5) % Plt Count 532 H (150-450) k/uL MPV 8.2 Neutrophils % 78 % Lymphocytes % 13 % Monocytes % 5 % Eosinophils % 2 % Basophils % 0 % Neutrophils # 8.6 H (1.3-7.7) k/uL Lymphocytes # 1.4 (1.0-4.8) k/uL Monocytes # 0.6 (0-1.0) k/uL Eosinophils # 0.2 (0-0.7) k/uL Basophils # 0.1 (0-0.2) k/uL Anisocytosis Slight PT 14.0 H (9.0-12.0) sec INR 1.4 H (<1.2) APTT 29.4 (22.0-30.0) sec Sodium 134 L (137-145) mmol/L Potassium 3.6 (3.5-5.1) mmol/L Chloride 89 L (98-107) mmol/L Carbon Dioxide 36 H (22-30) mmol/L Anion Gap 9 mmol/L BUN 21 H (9-20) mg/dL Creatinine 0.75 (0.66-1.25) mg/dL Est GFR (CKD-EPI)AfAm >90 (>60 ml/min/1.73 sqM) Est GFR (CKD-EPI)NonAf >90 (>60 ml/min/1.73 sqM) Glucose 169 H (74-99) mg/dL Calcium 10.6 H (8.4-10.2) mg/dL Phosphorus 4.5 (2.5-4.5) mg/dL Magnesium 2.0 (1.6-2.3) mg/dL Total Bilirubin 0.9 (0.2-1.3) mg/dL AST 33 (17-59) U/L ALT 29 (4-49) U/L Alkaline Phosphatase 116 (38-126) U/L Troponin I (0.000-0.034) ng/mL NT-Pro-B Natriuret Pep pg/mL Total Protein 6.9 (6.3-8.2) g/dL Albumin 3.4 L (3.5-5.0) g/dL TSH 4.610 (0.465-4.680) mIU/L Urine Color Urine Appearance (Clear) Urine pH (5.0-8.0) Ur Specific [place] (1.001-1.035) Urine Protein (Negative) Urine Glucose (UA) (Negative) Urine Ketones (Negative) Urine Blood (Negative) Urine Nitrite (Negative) Urine Bilirubin (Negative) Urine Urobilinogen (<2.0) mg/dL Ur Leukocyte Esterase (Negative) 11/18/22 11/18/22 11/18/22 Range/Units 17:41 17:41 18:15 WBC (3.8-10.6) k/uL RBC (4.30-5.90) m/uL Hgb (13.0-17.5) gm/dL Hct (39.0-53.0) % MCV (80.0-100.0) fL MCH (25.0-35.0) pg MCHC (31.0-37.0) g/dL RDW (11.5-15.5) % Plt Count (150-450) k/uL MPV Neutrophils % % Lymphocytes % % Monocytes % % Eosinophils % % Basophils % % Neutrophils # (1.3-7.7) k/uL Lymphocytes # (1.0-4.8) k/uL Monocytes # (0-1.0) k/uL Eosinophils # (0-0.7) k/uL Basophils # (0-0.2) k/uL Anisocytosis PT (9.0-12.0) sec INR (<1.2) APTT (22.0-30.0) sec Sodium (137-145) mmol/L Potassium (3.5-5.1) mmol/L Chloride (98-107) mmol/L Carbon Dioxide (22-30) mmol/L Anion Gap mmol/L BUN (9-20) mg/dL Creatinine (0.66-1.25) mg/dL Est GFR (CKD-EPI)AfAm (>60 ml/min/1.73 sqM) Est GFR (CKD-EPI)NonAf (>60 ml/min/1.73 sqM) Glucose (74-99) mg/dL Calcium (8.4-10.2) mg/dL Phosphorus (2.5-4.5) mg/dL Magnesium (1.6-2.3) mg/dL Total Bilirubin (0.2-1.3) mg/dL AST (17-59) U/L ALT (4-49) U/L Alkaline Phosphatase (38-126) U/L Troponin I <0.012 (0.000-0.034) ng/mL NT-Pro-B Natriuret Pep 2210 pg/mL Total Protein (6.3-8.2) g/dL Albumin (3.5-5.0) g/dL TSH (0.465-4.680) mIU/L Urine Color Yellow Urine Appearance Clear (Clear) Urine pH 5.5 (5.0-8.0) Ur Specific [place] 1.015 (1.001-1.035) Urine Protein Negative (Negative) Urine Glucose (UA) 4+ H (Negative) Urine Ketones Negative (Negative) Urine Blood Negative (Negative) Urine Nitrite Negative (Negative) Urine Bilirubin Negative (Negative) Urine Urobilinogen 2.0 (<2.0) mg/dL Ur Leukocyte Esterase Negative (Negative) Disposition Clinical Impression: Atrial fibrillation with RVR, Pleural effusion, Lytic bone lesion of femur, Weakness, Left leg pain, Hypotension, Anemia, Hypercalcemia, Lower extremity edema, Cardiomyopathy Disposition: ADMITTED IP TO THIS [facility] Condition: Fair Is patient prescribed a controlled substance at d/c from ED?: No Time of Disposition: 19:40 Decision Date: 11/18/22 Decision Time: 19:41
[2022-11-18] MEDS ORDERED: NALOXONE 0.4 MG/ML 1 ML VIAL IV PRN (19:42)
[2022-11-18] MEDS ORDERED: ONDANSETRON 4 MG/2 ML VIAL IVP PRN (19:42)
[2022-11-18] MEDS ORDERED: RX INFO: IV CONTRAST WAS GIVEN 1 EACH MISC MISCELLANE PRN (20:32)
[2022-11-18] MEDS: GABAPENTIN 400 MG CAP PO SCH (21:08)
[2022-11-18] MEDS: ATORVASTATIN 20 MG TAB PO SCH (21:08)
--- NOTE | 2022-11-18 22:02 | CT ---
EXAMINATION TYPE: CT chest w con CT DLP: 748.6 mGycm, Automated exposure control for dose reduction was used. DATE OF EXAM: 11/18/2022 9:13 PM COMPARISON: 09/04/2022 CLINICAL INDICATION:Male, 62 years old with history of shortness of breath; PHH , SOB, recurrent effusion TECHNIQUE: Multiple axial images were obtained through the chest. Sagittal and coronal reformats were created for review. Contrast used:100 cc mL of Isovue 300 with IV Contrast Oral contrast used: none. FINDINGS: LUNGS/ PLEURA: Left lower lung consolidation which is increased from prior now with postobstructive a telectasis and small left pleural effusion. Areas of pleural thickening felt to be present including the right lower lung medially measuring 3.9 x 1.9 cm. (Series 201 image 48)r. On the left pleural thi ckenings felt to be next the destructive changes of the left sixth rib. AIRWAY: Patent and unremarkable. HEART: Size within normal limits. MEDIASTINUM: Enlarged right low articular lymph node measuring up to 19 mm in short axis, first a 10 mm. Subcarinal lymph node measuring up to 36 x 24 mm, previously 29 x 14 mm. Increased soft tissue fu llness in the left pulmonary hilum. VASCULATURE: No aortic aneurysm. Scattered atherosclerosis of the arterial vasculature. MUSCULOSKELETAL: Scattered destructive osseous lesions including: * Right first rib medially measuring up to 3.5 cm. * Left scapula measuring up to 1.9 cm and more superiorly measuring up to 31 mm. * left sixth rib near complete destruction of the rib extending at least 8.7 cm. * Right rib 4 measuring 12 mm. * Right rib 8 measuring 12 mm. * Vertebrae 6 and 7 most pronounced in the posterior aspect of the vertebral bodies with loss of the posterior endplate measuring 21 mm in T7 and 20 mm and T8. These extend into the posterior elements. * T3 spinous process lesion measuring 17 mm. Remote appearing rib fractures involving right ribs 6, 8, 9. Acute left rib 2 fracture noted. SOFT TISSUES/LYMPH NODES: Soft tissue nodule in the anterior subcutaneous nodules on the left measuri ng up to 2.3 cm and the right measuring up to 15 mm LOWER NECK: No significant findings. UPPER ABDOMEN: Right adrenal nodule measuring 19 mm. IMPRESSION: 1. Left lower lung consolidation concerning for underlying malignancy with postobstructive atelectas is. 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 PET/CT is recommended. 2. Osseous metastatic disease particularly involving T6 and T7 vertebrae with loss of posterior vert ebral body wall endplate suspicious for impending fracture. 3. Anterior subcutaneous nodules suspicious for metastatic disease as well. These are new from prior . 4. Acute left-sided rib fracture. Chronic appearing right-sided rib fractures.
[2022-11-19] MEDS ORDERED: DEXTROSE 5% IN WATER 100 ML with AMIODARONE 150 MG IV ONE (00:01)
[2022-11-19] MEDS ORDERED: AMIODARONE 360 MG in DEXTROSE 5% IN WATER 200 ML IV ONE ×2 (00:05)
--- NOTE | 2022-11-19 03:12 | P.CNPUL ---
History of Present Illness Consult date: 11/19/22 Requesting physician: Dragan Martin Reason for consult: abnormal CXR/CT Chief complaint: Left sided chest pain and hip pain History of present illness: I am seeing this patient in new consultation today 11/19/2022 after the patient presented yesterday evening complaining of left lateral chest pain and left hip pain. Patient is a 62-year-old male with past medical history significant for paroxysmal atrial fibrillation anticoagulated on Xarelto, nonischemic cardiomyopathy with an ejection fraction of 20 %, diabetes mellitus type 2, hypertension, osteoarthritis, and obstructive sleep apnea. He admits to chronic cigar smoking. He says that he has lost approximately 40 pounds since the beginning of the year. Patient was recently admitted and treated for left lower lobe pneumonia, A. fib RVR, subsequent GI bleed, and was COVID 19 positive back in August,. He did have a left-sided pleural effusion, and a thoracentesis was performed on 09/15/2022. A total of 1.5 L was removed at that time, and appeared to be a transudate based on protein and LDH analysis. No cytology report to review. The patient was ultimately discharged on September 15, and did reportedly follow up with Dr. Fair in the office. Patient arrived to the emergency room last night with complaints of left lateral chest pain and left hip pain. Denies any trauma. Chest x-ray redemonstrated a small left pleural effusion with patchy left basilar air space opacities indicating atelectasis versus infiltrate. A follow-up chest CT with contrast demonstrated an increased sized left lower lung consolidation, and it is concerning for underlying malignancy with postobstructive atelectasis. There was also evidence of metastatic disease throughout the mediastinum, multiple osseous structures, and right adrenal gland. There are enlarged mediastinal lymph nodes including a subcarinal lymph node measuring 3.6 x 2.4 cm and an enlarged right lower articular lymph node measuring 1.9 cm. Multiple noted lytic lesions involving the ribs, including possible pathological fractures of the left second rib and remote right sided fractures of ribs 6, 8, 9. 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 Left-sided femur x-ray does not show any acute fracture, but does show an irregular lytic lesion involving the distal left femur and mild osteoarthritic changes of the left hip. Patient is currently sitting up in the recliner, on room air, in no acute distress. He has been reportedly experiencing progressively worsening back pain over the past few months. He can no longer lay flat on his back because of this. He denies any shortness of breath, fever, chills, cough, hemoptysis. Patient is currently in atrial fibrillation with rapid ventricular rate with a heart rate of 170 beats per minute, and he was just switched from Cardizem to amiodarone. Amiodarone is currently infusing at 1 mg/m. Blood pressure is holding and normotensive. Cardiology is managing the patient's atrial fibrillation. CBC shows a WBC count of 11, hemoglobin 11.2, hematocrit 35.7, platelets 532. BMP shows a sodium of 134, potassium 3.6, chloride 89, serum CO2 36, BUN 21, creatinine 0.75, glucose 169. There is hypercalcemia. Troponin is negative 3. NT proBNP was elevated at 2210. There is extensive bilateral lower extremity edema. Lasix was restarted. The patient's condition is guarded, and he will be admitted to the cardiac stepdown unit for closer monitoring. Review of Systems REVIEW OF SYSTEMS: CONSTITUTIONAL: Admits about a 40 pound weight loss beginning of the year. EYES: Denies change in vision. EARS, NOSE, MOUTH, THROAT: Denies headaches, denies sore throat. CARDIOVASCULAR: Denies radiating chest pain, palpitations or syncopal episodes. RESPIRATORY: Denies shortness of breath, cough, congestion or hemoptysis. GASTROINTESTINAL: Denies change in appetite, abdominal pain, nausea and vomiting, or diarrhea GENITOURINARY: Denies hematuria, denies infections. MUSKULOSKELETAL: Denies pain, Admits bilateral lower extremity swelling INTEGUMENTARY: Denies rash, denies eczema. NEUROLOGICAL: Denies recent memory loss, no recent seizure activity. PSYCHIATRIC: Denies anxiety, denies depression. HEMATOLOGIC/LYMPHATIC: Denies anemia, denies enlarged lymph node Past Medical History Past Medical History: Atrial Fibrillation, Diabetes Mellitus, Hypertension, Osteoarthritis (OA), Sleep Apnea/CPAP/BIPAP Additional Past Medical History / Comment(s): NIDDM., PAST HX OF HTN BUT NOW HAS LOW BLOODPRESSURE., COLON POLYPS, CHRONIC BACK PAIN., HOSPITALIZED AT [facility] AUGUST/SEPTEMBER WITH POSITIVE COVID, TINNITUS, DIZZINESS, BLURRED VISION WITH GI BLEED, PNEUMONIA , THORACENTESIS DONE , EGD AND COLONOSCOPY SHOWED MILD GASTRITIS, COLITIS DIVERTICULITIS., PT STATES SLEEP APNEA BUT HAS NOT BEEN ABLE TO START USING MACHINE YET., SEE CARDIOLOGY H & P. History of Any Multi-Drug Resistant Organisms: None Reported Past Surgical History: Adenoidectomy, Tonsillectomy Additional Past Surgical History / Comment(s): Tailbone Cystectomy. Vasectomy. COLONOSCOPY EGD (09/11/22) ., CARDIOVERSION, THORACENTESIS 09/15/22 Past Anesthesia/Blood Transfusion Reactions: No Reported Reaction Additional Past Anesthesia/Blood Transfusion Reaction / Comment(s): NO HX OF BLOOD TRANSFUSION Past Psychological History: No Psychological Hx Reported Smoking Status: Former smoker Past Alcohol Use History: None Reported Past Drug Use History: None Reported - Past Family History Father Family Medical History: Congestive Heart Failure (CHF) Additional Family Medical History / Comment(s): Father of CHF Mother Additional Family Medical History / Comment(s): Mother had cirrhosis of the liver. Medications and Allergies Home Medications Medication Instructions Recorded Confirmed Type Atorvastatin [Lipitor] 20 mg PO HS 08/13/22 11/18/22 History Spironolactone [Aldactone] 12.5 mg PO DAILY 30 Days #30 tab 08/29/22 11/18/22 Rx Tamsulosin [Flomax] 0.4 mg PO DAILY 09/04/22 11/18/22 History Furosemide [Lasix] 40 mg PO DAILY #30 tab 09/15/22 11/18/22 Rx Amiodarone [Cordarone] 200 mg PO DAILY 10/17/22 11/18/22 History Metoprolol Succinate [Toprol XL] 100 mg PO DAILY 10/17/22 11/18/22 History Rivaroxaban [Xarelto] 20 mg PO DAILY 10/17/22 11/18/22 History Dapagliflozin Propanediol [Farxiga] 10 mg PO DAILY 11/18/22 11/18/22 History Gabapentin [Neurontin] 400 mg PO TID 11/18/22 11/18/22 History HYDROcodone/APAP 7.5-325MG [[place] 1 tab PO Q6H PRN 11/18/22 11/18/22 History 7.5-325] Metoprolol Succinate (ER) [Toprol 50 mg PO HS@1800 11/18/22 11/18/22 History Xl] Semaglutide [Ozempic] 0.25 mg SQ SA 11/18/22 11/18/22 History Allergies Allergy/AdvReac Type Severity Reaction Status Date / Time clarithromycin [From Biaxin] Allergy Severe Rash/Hives Verified 11/18/22 19:39 Physical Exam Vitals: Vital Signs Temp Pulse Resp BP Pulse Ox 11/19/22 01:30 165 H 18 91/70 94 L 11/19/22 01:20 165 H 16 84/68 94 L 11/19/22 01:10 156 H 15 101/73 92 L 11/19/22 01:00 161 H 17 114/81 94 L 11/19/22 00:50 160 H 18 99/59 95 11/19/22 00:40 170 H 16 106/75 95 11/19/22 00:31 149 H 17 102/74 95 11/19/22 00:28 142 H 20 99/72 95 11/19/22 00:26 165 H 17 99/72 93 L 11/19/22 00:24 172 H 17 96/71 94 L 11/19/22 00:22 174 H 20 84/63 93 L 11/19/22 00:20 168 H 21 84/63 95 11/19/22 00:10 160 H 17 84/63 94 L 11/19/22 00:00 156 H 18 84/70 95 11/18/22 23:50 165 H 16 84/70 95 11/18/22 23:40 16 84/70 92 L 11/18/22 23:33 176 H 21 88/71 95 11/18/22 23:30 19 97/62 93 L 11/18/22 23:20 16 97/62 96 11/18/22 23:10 9 L 97/62 97 11/18/22 23:08 174 H 18 97/62 95 11/18/22 23:00 179 H 20 114/89 95 11/18/22 22:30 92/65 11/18/22 22:20 154 H 27 H 96/69 96 11/18/22 22:10 160 H 13 96/69 95 11/18/22 22:00 163 H 19 88/62 94 L 11/18/22 21:50 158 H 16 88/62 93 L 11/18/22 21:44 165 H 18 88/62 95 11/18/22 21:40 172 H 15 110/47 94 L 11/18/22 21:30 163 H 18 110/47 95 11/18/22 21:20 156 H 17 102/81 94 L 11/18/22 21:11 165 H 20 102/81 95 11/18/22 21:10 170 H 14 92 L 11/18/22 21:00 83/39 11/18/22 20:50 83/39 11/18/22 20:40 147 H 16 89/75 96 11/18/22 20:30 161 H 17 89/75 97 11/18/22 20:20 163 H 15 93/77 96 11/18/22 20:18 98.7 F 170 H 17 93/77 95 11/18/22 20:10 144 H 18 86/48 97 11/18/22 20:00 172 H 17 79/66 94 L 11/18/22 19:50 165 H 12 79/66 94 L 11/18/22 19:40 174 H 15 88/73 95 11/18/22 19:30 174 H 24 88/73 96 11/18/22 19:20 160 H 16 105/69 94 L 11/18/22 19:17 160 H 19 105/69 95 11/18/22 19:10 98.8 F 168 H 15 90/73 95 11/18/22 19:00 170 H 11 L 81/48 95 11/18/22 18:50 163 H 17 81/48 93 L 11/18/22 18:40 174 H 27 H 94 L 11/18/22 18:38 144 H 14 95 11/18/22 16:27 98.9 F 161 H 20 92/61 95 Intake and Output 11/18/22 11/18/22 11/19/22 14:59 22:59 06:59 Other: Weight 100.244 kg GENERAL EXAM: Alert, morbidly obese 62-year-old white male, comfortable in no apparent distress. HEAD: Normocephalic and atraumatic EYES: Normal reaction of pupils, equal size. NOSE: Clear with pink turbinates. THROAT: No erythema or exudates. NECK: No masses, no JVD. CHEST: No chest wall deformity. Facial grimacing with palpation of left lateral chest LUNGS: Equal air entry with no crackles, wheeze, rhonchi or dullness. On room air. No conversational dyspnea or accessory muscle use.. CVS: S1 and S2 normal with no audible murmur, irregular rhythm. No extra heart sounds. Heart rate is accelerated at 170 bpm. ABDOMEN: Obese abdomen. No hepatosplenomegaly, active bowel sounds, no guarding or rigidity. SPINE: No scoliosis or deformity SKIN: No rashes CENTRAL NERVOUS SYSTEM: No focal deficits, tone is normal in all 4 extremities. EXTREMITIES: There is 2-3+ bilateral lower extremity edema. no clubbing, or cyanosis. Peripheral pulses are intact. Results - Laboratory Findings CBC and BMP: 11/18/22 17:41 11/18/22 17:41 PT/INR, D-dimer PT 14.0 sec (9.0-12.0) H 11/18/22 17:41 INR 1.4 (<1.2) H 11/18/22 17:41 Abnormal lab findings: Abnormal Labs 11/18/22 11/18/22 11/18/22 17:41 17:41 17:41 WBC 11.0 H RBC 3.96 L Hgb 11.2 L Hct 35.7 L RDW 16.8 H Plt Count 532 H Neutrophils # 8.6 H PT 14.0 H INR 1.4 H Sodium 134 L Chloride 89 L Carbon Dioxide 36 H BUN 21 H Glucose 169 H Calcium 10.6 H Albumin 3.4 L Urine Glucose (UA) 11/18/22 18:15 WBC RBC Hgb Hct RDW Plt Count Neutrophils # PT INR Sodium Chloride Carbon Dioxide BUN Glucose Calcium Albumin Urine Glucose (UA) 4+ H - Diagnostic Findings Chest x-ray: image reviewed CT scan - chest: image reviewed Assessment and Plan Assessment: Enlarged left lower masslike lung consolidation concerning for underlying malignancy with postobstructive atelectasis. There was also redemonstration of small left-sided pleural effusion. There is CT evidence of metastatic disease throughout the mediastinum, multiple osseous structures, and right adrenal gland. Left-sided femur x-ray also showed an irregular lytic lesion involving the distal left femur. Back pain, presumably related to destructive osseous metastasis throughout the thoracic spine Left-sided chest pain, with an acute pathologic left-sided second rib fracture demonstrated on CT. There were also multiple remote right rib fractures including 6, 8, 9. Atrial fibrillation with rapid ventricular rate, currently being managed with amiodarone infusion Suspect mild exacerbation of systolic congestive heart failure History of nonischemic cardiomyopathy with an ejection fraction of 20% Hypercalcemia History of recent Covid 19 infection History of left-sided pleural effusion with thoracentesis performed on 09/15/2022. A total of 1.5 L was removed at that time, and appeared to be a transudate based on protein and LDH analysis. No cytology report to review. Diabetes mellitus type 2, [id number] Hypertension Osteoporosis Obstructive sleep apnea Ex-smoker, admits to smoking cigars only Plan: Patient's medications, labs, chest x-ray, chest CT reviewed On room air The patient will need biopsy. I will discuss the case with Dr. Todd in the morning, I'm unsure if the patient is stable enough for diagnostic bronchoscopy at this point, may benefit from interventional radiology consult. Consult oncology Cardiology is following for management of the patient's A. fib RVR Continue amiodarone infusion Anticoagulated on Xarelto Restart Lasix Pain control The patient will be monitored in the cardiac stepdown unit We will continue to follow I have personally seen and examined the patient, performed the documentation and the assessment and plan as written. Number of minutes spent on the visit:20 Time with Patient: Greater than 30
[2022-11-19] MEDS: HYDROcodone/APAP 7.5-325MG 1 EACH TAB PO PRN ×2 (05:22→13:01)
[2022-11-19] MEDS: AMIODARONE 450 MG in DEXTROSE 5% IN WATER 250 ML IV SCH ×4 (07:06→21:11)
[2022-11-19] MEDS: TAMSULOSIN 0.4 MG CAP.ER.24H PO SCH (08:21)
[2022-11-19] MEDS: SPIRONOLACTONE 25 MG TAB PO SCH (08:22)
[2022-11-19] MEDS: METOPROLOL SUCCINATE (ER) 100 MG TAB.ER.24H PO SCH ×2 (08:22→17:43)
[2022-11-19] MEDS: FUROSEMIDE 40 MG TAB PO SCH (08:22)
[2022-11-19] MEDS: PANTOPRAZOLE 40 MG/10 ML VIAL IV SCH (08:23)
[2022-11-19] MEDS: ACETAMINOPHEN TAB 325 MG TAB PO PRN ×2 (08:30→17:42)
[2022-11-19] MEDS: DAPAGLIFLOZIN PROPANEDIOL 10 MG TABLET PO SCH (08:36)
[2022-11-19] MEDS ORDERED: AMIODARONE 200 MG TAB PO SCH (09:00)
[2022-11-19] MEDS ORDERED: RIVAROXABAN 20 MG TAB PO SCH (09:00)
[2022-11-19] MEDS: GABAPENTIN 400 MG CAP PO SCH ×3 (09:35→21:10)
[2022-11-19] MEDS ORDERED: DIGOXIN 250 MCG/ML 2 ML AMP IVP STA (09:51)
[2022-11-19] MEDS: HEPARIN SOD,PORK IN 0.45% NACL 25,000 UNIT in 0.45% NACL 1 250ML.BAG IV SCH (10:14)
--- NOTE | 2022-11-19 10:46 | CA ---
Transthoracic Echo Report Name: Kaylen Majano Age: 62 Gender: M : 1960 Exam Date: 11/19/2022 08:49 Exam Location: [facility] Ht (in): 70 Wt (lb): 221 Ordering Physician: Dragan Martin DO Attending/Referring Phys: [id number], Veronica Fountain [employer] Jc Beltran Procedure CPT: Indications: sob Cardiac Hx: Technical Quality: Technically difficult study Contrast 1: Total Dose (mL): Contrast 2: Total Dose (mL): MEASUREMENTS (Male / Female) Normal Values 2D ECHO LV Diastolic Diameter PLAX 5.6 cm 4.2 - 5.9 / 3.9 - 5.3 cm LV Systolic Diameter PLAX 4.2 cm IVS Diastolic Thickness 1.5 cm 0.6 - 1.0 / 0.6 - 0.9 cm LVPW Diastolic Thickness 1.2 cm 0.6 - 1.0 / 0.6 - 0.9 cm LV Relative Wall Thickness 0.5 RV Internal Dim ED PLAX 2.9 cm LVOT Diameter 2.2 cm Aortic Root Diameter 3.5 cm LA Systolic Diameter LX 3.0 cm 3.0 - 4.0 / 2.7 - 3.8 cm LV Diastolic Volume MOD BP 69.5 cm??? 67 - 155 / 56 - 104 cm??? LV Systolic Volume MOD BP 48.6 cm??? 22 - 58 / 19 - 49 cm??? LV Ejection Fraction MOD BP 30.2 % >= 55 % LV Diastolic Volume MOD 4C 46.5 cm??? LV Systolic Volume MOD 4C 30.9 cm??? LV Ejection Fraction MOD 4C 33.6 % LV Diastolic Length 4C 6.1 cm LV Systolic Length 4C 5.6 cm LV Diastolic Volume MOD 2C 93.9 cm??? LV Systolic Volume MOD 2C 66.7 cm??? LV Ejection Fraction MOD 2C 29.0 % LV Diastolic Length 2C 6.8 cm LV Systolic Length 2C 6.5 cm LA Volume 77.3 cm??? 18 - 58 / 22 - 52 cm??? DOPPLER AV Peak Velocity 136.3 cm/s AV Peak Gradient 7.4 mmHg MV Peak Velocity 114.4 cm/s MV Peak Gradient 5.2 mmHg MV Mean Velocity 62.7 cm/s MV Mean Gradient 2.0 mmHg MV Velocity Time Integral 27.1 cm MV E' Velocity 7.9 cm/s TR Peak Velocity 121.5 cm/s TR Peak Gradient 5.9 mmHg Right Ventricular Systolic Press 10.9 mmHg FINDINGS Left Ventricle Left ventricular ejection fraction is estimated at 30-35 %. Right Ventricle Right ventricle not well visualized. Right Atrium Normal right atrial size. Left Atrium Normal left atrial size. Mitral Valve Structurally normal mitral valve. No mitral regurgitation. Aortic Valve Not well visualized. No aortic valve stenosis or regurgitation. Tricuspid Valve Tricuspid valve not well visualized. Trace TR. Pulmonic Valve Pulmonic valve not well visualized. No pulmonic regurgitation. Pericardium Normal pericardium. Aorta Normal size aortic root and proximal ascending aorta. CONCLUSIONS Technically difficult study for interpretation. Poorly visualized endocardial an intracardiac valves The LV systolic function appeared to be impaired with EF between 30-35% Previewed by: Dr. Phillip Lau MD (Electronically Signed) Final Date: 19 November 2022 10:46
--- NOTE | 2022-11-19 11:52 | P.CRDCN ---
History of Present Illness Consult date: 11/19/22 Consult reason: atrial fibrillation (With RVR) History of present illness: HISTORY OF PRESENT ILLNESS: This is a 62-year-old male patient of Dr. Lau with a past medical history significant for paroxysmal atrial fibrillation, hyperlipidemia, hypertension, and diabetes. Patient was recently hospitalized in September which time he was treated for paroxysmal atrial fibrillation and underwent cardioversion on 08/13, cardiomyopathy with known EF of 30-35% possibly tachycardic-induced, acute kidney injury. Patient has follow-up in the office with Dr. Bernstein regarding persistent atrial fibrillation with cardiomyopathy and severe heart failure on 11/12 due to difficulty controlling her heart rate and failure off amiodarone and electrical cardioversion. Dr. Bernstein recommended A. fib ablation. Patient came into [facility] due to pain on his left side in the hip pelvis area. He states he has not been eating much with no appetite and has lost 42 pounds since July. He is complaining of lower extremity edema. His blood pressure has been low since admission. He denies lightheadedness or dizziness. He was found to be in A. fib with RVR and started on heparin drip and amiodarone drip. Heart rate remains elevated. Patient also states that he was informed about results of CAT scan report. * EKG reveals atrial fibrillation with RVR with heart rate of 134 * CT of the chest revealed left lower lobe consolidation underlying malignancy with postobstructive atelectasis. Metastatic disease to the mediastinum, right adrenal gland and throughout the osseous structures with distractive changes. Osseous metastasis involving T6 and T7. Anterior subcutaneous nodules suspicious for metastatic disease. Acute left-sided rib fracture and chronic. Right-sided rib fracture. * WBC 11, hemoglobin 11.2, platelet count 532. INR 1.4. Sodium 134, potassium 3.6, chloride 89, CO2 36, BUN 21 creatinine 0.75. Troponin negative 3. ProBNP 2210. TSH 4.61. Urinalysis clear with 4+ glucose. * Left femur x-ray: Irregular lytic lesion involving the distal left femur. Etiologies include primary bone tumor versus infection. * Current home cardiac medications include amiodarone 200 mg daily, atorvastatin 20 mg at bedtime, Farxiga 10 mg daily, Lasix 40 mg daily, Toprol-XL 100 mg in the morning and 50 mg in the evening, Xarelto 29 g daily, Ozempic or 0.25 mg on Thursday, Aldactone 12.5 mg daily * Most recent echocardiogram obtained in August 2022 revealed ejection fraction 30-35% * Echocardiogram 11/19/2022 reveals EF of 30-35%, technically difficult study. * Cardiac catheterization with Dr. Lau on 10/21 revealed mild coronary artery disease. Elevated left-sided filling pressure REVIEW OF SYSTEMS: At the time of my exam: CONSTITUTIONAL: Denies fever or chills. HEENT: Denies blurred vision, vision changes, or eye pain. Denies hemoptysis CARDIOVASCULAR: Denies chest pain. Denies orthopnea. Denies PND. Denies palpitations RESPIRATORY: Denies shortness of breath. GASTROINTESTINAL: Denies abdominal pain. Denies nausea or vomiting. Reports decreased appetite. HEMATOLOGIC: Denies bleeding disorders. GENITOURINARY: Denies any blood in urine. SKIN: Denies pruitis. Denies rash. PHYSICAL EXAM: VITAL SIGNS: Reviewed. GENERAL: Well-developed in no acute distress. HEENT: Head is normocephalic. Pupils are equal, round. Sclerae anicteric. Mucous membranes of the mouth are somewhat dry. Neck supple. No JVD or thyromegaly LUNGS: Respirations even and unlabored. Lungs essentially clear to auscultation bilaterally. HEART: Irregular rate and rhythm. S1 and S2 heard. ABDOMEN: Soft. Nondistended. Nontender. EXTREMITIES: Normal range of motion. No clubbing or cyanosis. Peripheral pulses intact. Trace bilateral lower extremity edema NEUROLOGIC: Awake and alert. Oriented x 3. ASSESSMENT: Hip pain with metastatic disease Paroxysmal atrial fibrillation with RVR Recent A. fib cardioversion, 08/13/2022 Cardiomyopathy, ejection fraction 30-35%, possibly tachycardia induced Chronic systolic heart failure with reduced EF Hypertension Hyperlipidemia Diabetes PLAN: Continue patient on metoprolol tartrate once in the evening Continue IV amiodarone Continue telemetry monitoring Continue heparin drip with anticipation of biopsy, hold Xarelto Further recommendations pending patient's course Nurse practitioner note has been reviewed by physician. Signing provider agrees with the documented findings, assessment, and plan of care. Past Medical History Past Medical History: Atrial Fibrillation, Diabetes Mellitus, Hypertension, Osteoarthritis (OA), Sleep Apnea/CPAP/BIPAP Additional Past Medical History / Comment(s): NIDDM., PAST HX OF HTN BUT NOW HAS LOW BLOODPRESSURE., COLON POLYPS, CHRONIC BACK PAIN., HOSPITALIZED AT [facility] WITH POSITIVE COVID, TINNITUS, DIZZINESS, BLURRED VISION WITH GI BLEED, PNEUMONIA , THORACENTESIS DONE , EGD AND COLONOSCOPY SHOWED MILD GASTRITIS, COLITIS DIVERTICULITIS., PT STATES SLEEP APNEA BUT HAS NOT BEEN ABLE TO START USING MACHINE YET., SEE CARDIOLOGY H & P. History of Any Multi-Drug Resistant Organisms: None Reported Past Surgical History: Adenoidectomy, Tonsillectomy Additional Past Surgical History / Comment(s): Tailbone Cystectomy. Vasectomy. COLONOSCOPY EGD (09/11/22) ., CARDIOVERSION, THORACENTESIS 09/15/22 Past Anesthesia/Blood Transfusion Reactions: No Reported Reaction Additional Past Anesthesia/Blood Transfusion Reaction / Comment(s): NO HX OF BLOOD TRANSFUSION Past Psychological History: No Psychological Hx Reported Smoking Status: Former smoker Past Alcohol Use History: None Reported Past Drug Use History: None Reported - Past Family History Father Family Medical History: Congestive Heart Failure (CHF) Additional Family Medical History / Comment(s): Father of CHF Mother Additional Family Medical History / Comment(s): Mother had cirrhosis of the liver. Medications and Allergies Home Medications Medication Instructions Recorded Confirmed Type Atorvastatin [Lipitor] 20 mg PO HS 08/13/22 11/18/22 History Spironolactone [Aldactone] 12.5 mg PO DAILY 30 Days #30 tab 08/29/22 11/18/22 Rx Tamsulosin [Flomax] 0.4 mg PO DAILY 09/04/22 11/18/22 History Furosemide [Lasix] 40 mg PO DAILY #30 tab 09/15/22 11/18/22 Rx Amiodarone [Cordarone] 200 mg PO DAILY 10/17/22 11/18/22 History Metoprolol Succinate [Toprol XL] 100 mg PO DAILY 10/17/22 11/18/22 History Rivaroxaban [Xarelto] 20 mg PO DAILY 10/17/22 11/18/22 History Dapagliflozin Propanediol [Farxiga] 10 mg PO DAILY 11/18/22 11/18/22 History Gabapentin [Neurontin] 400 mg PO TID 11/18/22 11/18/22 History HYDROcodone/APAP 7.5-325MG [[place] 1 tab PO Q6H PRN 11/18/22 11/18/22 History 7.5-325] Metoprolol Succinate (ER) [Toprol 50 mg PO HS@1800 11/18/22 11/18/22 History Xl] Semaglutide [Ozempic] 0.25 mg SQ SA 11/18/22 11/18/22 History Allergies Allergy/AdvReac Type Severity Reaction Status Date / Time clarithromycin [From Biaxin] Allergy Severe Rash/Hives Verified 11/18/22 19:39 Physical Exam Vitals: Vital Signs Temp Pulse Resp BP Pulse Ox 11/19/22 06:40 141 H 20 116/78 11/19/22 06:20 141 H 18 94 L 11/19/22 06:00 163 H 18 116/84 11/19/22 05:40 156 H 14 101/91 11/19/22 05:35 147 H 15 101/91 11/19/22 05:30 147 H 16 101/91 11/19/22 05:25 151 H 22 101/91 11/19/22 05:00 142 H 18 11/19/22 04:55 165 H 19 89/73 11/19/22 04:50 151 H 27 H 89/73 11/19/22 04:45 151 H 9 L 89/73 11/19/22 04:40 163 H 15 100/76 11/19/22 04:35 160 H 7 L 100/76 11/19/22 04:30 18 100/76 11/19/22 04:25 151 H 18 100/76 94 L 11/19/22 04:20 160 H 17 11/19/22 04:15 161 H 18 93 L 11/19/22 04:10 138 H 18 92 L 11/19/22 04:05 144 H 17 112/74 92 L 11/19/22 04:00 147 H 19 93 L 11/19/22 03:50 144 H 16 115/77 94 L 11/19/22 03:40 134 H 16 82/67 93 L 11/19/22 03:30 151 H 17 91/54 92 L 11/19/22 03:25 156 H 18 91/54 94 L 11/19/22 03:10 165 H 19 104/65 92 L 11/19/22 03:00 17 111/91 94 L 11/19/22 02:50 17 92/66 94 L 11/19/22 02:30 152 H 16 106/66 93 L 11/19/22 02:20 163 H 17 115/93 94 L 11/19/22 02:10 151 H 16 96/54 95 11/19/22 01:40 154 H 18 93/59 93 L 11/19/22 01:30 165 H 18 91/70 94 L 11/19/22 01:20 165 H 16 84/68 94 L 11/19/22 01:10 156 H 15 101/73 92 L 11/19/22 01:00 161 H 17 114/81 94 L 11/19/22 00:50 160 H 18 99/59 95 11/19/22 00:40 170 H 16 106/75 95 11/19/22 00:31 149 H 17 102/74 95 11/19/22 00:28 142 H 20 99/72 95 11/19/22 00:26 165 H 17 99/72 93 L 11/19/22 00:24 172 H 17 96/71 94 L 11/19/22 00:22 174 H 20 84/63 93 L 11/19/22 00:20 168 H 21 84/63 95 11/19/22 00:10 160 H 17 84/63 94 L 11/19/22 00:00 156 H 18 84/70 95 11/18/22 23:50 165 H 16 84/70 95 11/18/22 23:40 16 84/70 92 L 11/18/22 23:33 176 H 21 88/71 95 11/18/22 23:30 19 97/62 93 L 11/18/22 23:20 16 97/62 96 11/18/22 23:10 9 L 97/62 97 11/18/22 23:08 174 H 18 97/62 95 11/18/22 23:00 179 H 20 114/89 95 11/18/22 22:30 92/65 11/18/22 22:20 154 H 27 H 96/69 96 11/18/22 22:10 160 H 13 96/69 95 11/18/22 22:00 163 H 19 88/62 94 L 11/18/22 21:50 158 H 16 88/62 93 L 11/18/22 21:44 165 H 18 88/62 95 11/18/22 21:40 172 H 15 110/47 94 L 11/18/22 21:30 163 H 18 110/47 95 11/18/22 21:20 156 H 17 102/81 94 L 11/18/22 21:11 165 H 20 102/81 95 11/18/22 21:10 170 H 14 92 L 11/18/22 21:00 83/39 11/18/22 20:50 83/39 11/18/22 20:40 147 H 16 89/75 96 11/18/22 20:30 161 H 17 89/75 97 11/18/22 20:20 163 H 15 93/77 96 11/18/22 20:18 98.7 F 170 H 17 93/77 95 11/18/22 20:10 144 H 18 86/48 97 11/18/22 20:00 172 H 17 79/66 94 L 11/18/22 19:50 165 H 12 79/66 94 L 11/18/22 19:40 174 H 15 88/73 95 11/18/22 19:30 174 H 24 88/73 96 11/18/22 19:20 160 H 16 105/69 94 L 11/18/22 19:17 160 H 19 105/69 95 11/18/22 19:10 98.8 F 168 H 15 90/73 95 11/18/22 19:00 170 H 11 L 81/48 95 11/18/22 18:50 163 H 17 81/48 93 L 11/18/22 18:40 174 H 27 H 94 L 11/18/22 18:38 144 H 14 95 11/18/22 16:27 98.9 F 161 H 20 92/61 95 Intake and Output 11/18/22 11/19/22 11/19/22 22:59 06:59 14:59 Other: Weight 100.244 kg Results 11/18/22 17:41 11/18/22 17:41 Cardiac Enzymes 11/18/22 11/18/22 11/18/22 Range/Units 17:41 17:41 22:02 AST 33 (17-59) U/L Troponin I <0.012 <0.012 (0.000-0.034) ng/mL 11/18/22 Range/Units 23:51 AST (17-59) U/L Troponin I <0.012 (0.000-0.034) ng/mL Coagulation 11/18/22 Range/Units 17:41 PT 14.0 H (9.0-12.0) sec APTT 29.4 (22.0-30.0) sec CBC 11/18/22 Range/Units 17:41 WBC 11.0 H (3.8-10.6) k/uL RBC 3.96 L (4.30-5.90) m/uL Hgb 11.2 L (13.0-17.5) gm/dL Hct 35.7 L (39.0-53.0) % Plt Count 532 H (150-450) k/uL Comprehensive Metabolic Panel 11/18/22 Range/Units 17:41 Sodium 134 L (137-145) mmol/L Potassium 3.6 (3.5-5.1) mmol/L Chloride 89 L (98-107) mmol/L Carbon Dioxide 36 H (22-30) mmol/L BUN 21 H (9-20) mg/dL Creatinine 0.75 (0.66-1.25) mg/dL Glucose 169 H (74-99) mg/dL Calcium 10.6 H (8.4-10.2) mg/dL AST 33 (17-59) U/L ALT 29 (4-49) U/L Alkaline Phosphatase 116 (38-126) U/L Total Protein 6.9 (6.3-8.2) g/dL Albumin 3.4 L (3.5-5.0) g/dL Current Medications Generic Name Dose Route Start Last Admin Trade Name Freq PRN Reason Stop Dose Admin Acetaminophen 650 mg 11/18/22 19:42 11/19/22 08:30 Acetaminophen Tab 325 Mg Tab PO 650 mg Q6HR PRN Administration Mild Pain or Fever > 100.5 Hydrocodone Bitart/Acetaminophen 1 each 11/18/22 20:22 11/19/22 05:22 Hydrocodone/Apap 7.5-325mg 1 Each Tab PO 1 each Q6H PRN Administration Pain Atorvastatin Calcium 20 mg 11/18/22 21:00 11/18/22 21:08 Atorvastatin 20 Mg Tab PO 20 mg HS ALVARO Administration Dapagliflozin 10 mg 11/19/22 09:00 11/19/22 08:36 Dapagliflozin Propanediol 10 Mg Tablet PO 10 mg DAILY ALVARO Administration Furosemide 40 mg 11/19/22 09:00 11/19/22 08:22 Furosemide 40 Mg Tab PO 40 mg DAILY ALVARO Administration Gabapentin 400 mg 11/18/22 22:00 11/18/22 21:08 Gabapentin 400 Mg Cap PO 400 mg TID ALVARO Administration Amiodarone HCl 450 mg/ 250 mls @ 16.667 mls/hr 11/19/22 06:05 11/19/22 07:06 Dextrose/Water IV 11/20/22 00:04 0.5 mg/min .Q15H ALVARO 16.667 mls/hr Administration Protocol 0.5 MG/MIN Heparin Sodium/Sodium Chloride 250 mls @ 10.024 mls/hr 11/19/22 09:15 25,000 unit/ Sodium Chloride IV .Q24H ALVARO Protocol 10 UNITS/KG/HR Metoprolol Succinate 100 mg 11/19/22 09:00 11/19/22 08:22 Metoprolol Succinate (Er) 100 Mg Tab.Er.24h PO 100 mg DAILY ALVARO Administration Metoprolol Succinate 50 mg 11/19/22 18:00 Metoprolol Succinate (Er) 100 Mg Tab.Er.24h PO HS@1800 [facility] Miscellaneous Information 1 each 11/18/22 20:32 Rx Info: Iv Contrast Was Given 1 Each Misc MISCELLANE 11/20/22 20:32 DAILY PRN Per Protocol Morphine Sulfate 4 mg 11/18/22 19:42 Morphine Sulfate 4 Mg/Ml Syringe IV Q4HR PRN Severe Pain (Scale 7 to 10) Naloxone HCl 0.2 mg 11/18/22 19:42 Naloxone 0.4 Mg/Ml 1 Ml Vial IV Q2M PRN Opioid Reversal Non-Formulary Medication 0.25 mg 11/22/22 09:00 Semaglutide [Ozempic] SQ SA [facility] Ondansetron HCl 4 mg 11/18/22 19:42 Ondansetron 4 Mg/2 Ml Vial IVP Q8HR PRN Nausea And Vomiting Pantoprazole Sodium 40 mg 11/19/22 09:00 11/19/22 08:23 Pantoprazole 40 Mg/10 Ml Vial IV 40 mg DAILY ALVARO Administration Spironolactone 12.5 mg 11/19/22 09:00 11/19/22 08:22 Spironolactone 25 Mg Tab PO 12.5 mg DAILY ALVARO Administration Tamsulosin HCl 0.4 mg 11/19/22 09:00 11/19/22 08:21 Tamsulosin 0.4 Mg Cap.Er.24h PO 0.4 mg DAILY ALVARO Administration Intake and Output 11/18/22 11/19/22 11/19/22 22:59 06:59 14:59 Other: Weight 100.244 kg 11/18/22 17:41 11/18/22 17:41
[2022-11-19] MEDS ORDERED: IOPAMIDOL CONTRAST (ORAL USE) VIAL PO PRN (12:41)
--- NOTE | 2022-11-19 13:17 | HP ---
HISTORY AND PHYSICAL CHIEF COMPLAINT: Weakness. HISTORY OF PRESENT ILLNESS: This is a 62-year-old gentleman with a past medical history of multiple medical issues, also recently admitted with CHF acute exacerbation. The patient also had GI bleed at that time. Please refer to the previous chart for further details. Currently, the patient has noted to have left-sided consolidation, which was thought to be postobstructive. CT scan showed multiple abnormalities including mets to the mediastinum and bony mets also. There is no history of any fever, rigors, or chills at this time. The patient also has atrial fibrillation with fast ventricular rate and amiodarone and Cardizem drip is being initiated. PAST MEDICAL HISTORY: Reviewed, includes CHF, GI bleed, rest of the history and rest of the chart is also reviewed. HOME MEDICATIONS: Flomax, rest of the chart and medications reviewed. ALLERGIES: Biaxin. FAMILY HISTORY: History of CHF. SOCIAL HISTORY: Previous history of smoking. REVIEW OF SYSTEMS: A 14-point review is negative except as mentioned earlier. PHYSICAL EXAMINATION: VITAL SIGNS: Pulse is 135, blood pressure 93/74, respirations 18. HEENT: Conjunctivae normal. NECK: No jugular venous distention. CARDIOVASCULAR: S1, S2 muffled. RESPIRATIONS: Bilateral scattered rhonchi and crackles. ABDOMEN: Soft. LEGS: No edema. No swelling. NERVOUS SYSTEM: Diffusely weak. SKIN: No ulcer, rash, bleeding. JOINTS: No active deforming arthropathy. LABORATORY DATA: Noted. ASSESSMENT: 1. Atrial fibrillation with fast ventricular rate. 2. Possible left lower lobe atelectasis with lung cancer with possibly multiple mets to the mediastinum and bones. 3. Weakness. 4. History of diabetes mellitus type 2. 5. Multiple medical issues. RECOMMENDATIONS AND DISCUSSION: This 62-year-old gentleman presented with multiple complex medical issues, we will monitor the patient closely. Recommended to continue current medications, continue symptomatic treatment. Otherwise continue with amiodarone drip and closely follow with Cardiology. Pulmonary will be consulted as well as Hematology Oncology. Overall prognosis extremely guarded. The patient will require further testing including fine- needle aspiration biopsy or a bronchoscopic biopsy to elucidate the primary origin of the malignancy. We will also order CAT scan of the abdomen and pelvis also. Prognosis guarded. Further recommendations to follow. See orders. MMODL / IJN: [id number] /
[2022-11-19] MEDS ORDERED: ALBUMIN HUMAN 25% 50 ML in EMPTY BAG 1 BAG IVPB SCH (13:45)
[2022-11-19] MEDS ORDERED: DIGOXIN 250 MCG/ML 2 ML AMP IVP ONE (15:00)
--- NOTE | 2022-11-19 15:25 | CT ---
EXAMINATION TYPE: CT abdomen pelvis wo con DATE OF EXAM: 11/19/2022 HISTORY: c/o increased weakness. CT DLP: 967.9 mGycm. Automated Exposure Control for Dose Reduction was Utilized. TECHNIQUE: CT scan of the abdomen and pelvis is performed with oral or IV contrast. COMPARISON: CT chest and abdomen September 04, 2022. Chest CT from yesterday FINDINGS: Within the limitations of a non-contrast study, the following observations are made. LUNG BASES: Mass like consolidation in the left lung base is redemonstrated. Tiny bilateral pleural e ffusions on current study.. LIVER/GB: No significant abnormality is appreciated. PANCREAS: No significant abnormality is seen. SPLEEN: No significant abnormality is seen. ADRENALS: No significant abnormality is seen. KIDNEYS: Contrast from recent contrast enhanced CT chest study filling urinary bladder. BOWEL: Oral contrast only reaches small bowel loops in the left abdomen making evaluation of distal b owel suboptimal. No suspicious small or large bowel dilatation. GENITAL ORGANS: No gross abnormality seen. LYMPH NODES: No greater than 1cm abdominal or pelvic lymph nodes are appreciated. OSSEOUS STRUCTURES: Scattered lytic destructive lesions are seen involving the right iliac bone axial image 58 where there is soft tissue mass noted. There are is sclerosis along the sacroiliac joints bilaterally. Scattered small lytic lesions through out the proximal femurs bilaterally. Small lytic lesions throughout the lumbar vertebra are now prese nt for reference posterior L5 level sagittal image 73. OTHER: No significant additional abnormality is seen. IMPRESSION: Osseous metastatic disease is seen correlating with recent chest CT study. Persistent nohemi picious left lower lobe masslike consolidation partially imaged. No obvious suspicious mass in the ab domen or pelvis.
--- NOTE | 2022-11-19 16:58 | P.CONS ---
History of Present Illness - Reason for Consult Consult date: 11/19/22 CT findings concerning for malignancy Requesting physician: John Hou - Chief Complaint hip pain - History of Present Illness Mr Majano is a 62-year-old man with a PMH of HTN, a-fib on xarelto, hyperlipidemia, DMII, daily ETOH use, recent smoking cessation, we've been asked to see because of concerning findings on a CT scan. Patient presented to the hospital for complaints of hip pain, states pain has been going on "since this all started"- from his statements, it sounds like he started having symptoms about 4 months ago, because he stopped smoking 4 mo ago "when all this started". The pain in the leg has been persistent and progressive to the point where he was having difficulty walking. He was inpt twice in August, c/o left should/chest pain, he was worked up for cardiac cause, had cardioversion and LALA. He was back about 1 week later for same symptoms. CT CA showed LLL consolidation and pl effusion. He had CT head without that was neg, EGD and colonoscopy were neg. he had a thora on 09/15, no cytology found in this medical record. Pt is uncomfortable during exam, denies fevers, sweats, he felt the lumps in his neck recently and thinks they have gotten larger, denies any trouble swallowing, no hemoptysis, palpitation, abd pain, N,V, he felt a lump next to his srernum on the left, no acute changes in bowel or bladder habits. CT chest on admit showing LLL consolidation, mediastinal LAD, rt adrenal mass and multiple bone mets. X rays confirm lytic bone lesion. Ca++ increased at 10.6, Review of Systems 10 point ROS is neg except as stated in HPI Past Medical History Past Medical History: Atrial Fibrillation, Diabetes Mellitus, Hypertension, Osteoarthritis (OA), Sleep Apnea/CPAP/BIPAP Additional Past Medical History / Comment(s): NIDDM., PAST HX OF HTN BUT NOW HAS LOW BLOODPRESSURE., COLON POLYPS, CHRONIC BACK PAIN., HOSPITALIZED AT [facility] AUGUST/SEPTEMBER WITH POSITIVE COVID, TINNITUS, DIZZINESS, BLURRED VISION WITH GI BLEED, PNEUMONIA , THORACENTESIS DONE , EGD AND COLONOSCOPY SHOWED MILD GASTRITIS, COLITIS DIVERTICULITIS., PT STATES SLEEP APNEA BUT HAS NOT BEEN ABLE TO START USING MACHINE YET., SEE CARDIOLOGY H & P. History of Any Multi-Drug Resistant Organisms: None Reported Past Surgical History: Adenoidectomy, Tonsillectomy Additional Past Surgical History / Comment(s): Tailbone Cystectomy. Vasectomy. COLONOSCOPY EGD (09/11/22) ., CARDIOVERSION, THORACENTESIS 09/15/22 Past Anesthesia/Blood Transfusion Reactions: No Reported Reaction Additional Past Anesthesia/Blood Transfusion Reaction / Comm: NO HX OF BLOOD TRANSFUSION Past Psychological History: No Psychological Hx Reported Smoking Status: Former smoker Past Alcohol Use History: None Reported Past Drug Use History: None Reported - Past Family History Father Family Medical History: Congestive Heart Failure (CHF) Additional Family Medical History / Comment(s): Father of CHF Mother Additional Family Medical History / Comment(s): Mother had cirrhosis of the liver. Medications and Allergies Home Medications Medication Instructions Recorded Confirmed Type Atorvastatin [Lipitor] 20 mg PO HS 08/13/22 11/18/22 History Spironolactone [Aldactone] 12.5 mg PO DAILY 30 Days #30 tab 08/29/22 11/18/22 Rx Tamsulosin [Flomax] 0.4 mg PO DAILY 09/04/22 11/18/22 History Furosemide [Lasix] 40 mg PO DAILY #30 tab 09/15/22 11/18/22 Rx Amiodarone [Cordarone] 200 mg PO DAILY 10/17/22 11/18/22 History Metoprolol Succinate [Toprol XL] 100 mg PO DAILY 10/17/22 11/18/22 History Rivaroxaban [Xarelto] 20 mg PO DAILY 10/17/22 11/18/22 History Dapagliflozin Propanediol [Farxiga] 10 mg PO DAILY 11/18/22 11/18/22 History Gabapentin [Neurontin] 400 mg PO TID 11/18/22 11/18/22 History HYDROcodone/APAP 7.5-325MG [Dwight 1 tab PO Q6H PRN 11/18/22 11/18/22 History 7.5-325] Metoprolol Succinate (ER) [Toprol 50 mg PO HS@1800 11/18/22 11/18/22 History Xl] Semaglutide [Ozempic] 0.25 mg SQ SA 11/18/22 11/18/22 History Allergies Allergy/AdvReac Type Severity Reaction Status Date / Time clarithromycin [From Biaxin] Allergy Severe Rash/Hives Verified 11/18/22 19:39 Physical Exam Vitals: Vital Signs Temp Pulse Resp BP Pulse Ox 11/19/22 13:15 120 H 16 98/70 95 11/19/22 12:20 122 H 16 106/75 95 11/19/22 11:20 135 H 18 93/74 95 11/19/22 11:00 80/58 11/19/22 10:40 89/73 11/19/22 10:20 108/70 11/19/22 10:00 124 H 18 94/73 95 11/19/22 06:40 141 H 20 116/78 11/19/22 06:20 141 H 18 94 L 11/19/22 06:00 163 H 18 116/84 11/19/22 05:40 156 H 14 101/91 11/19/22 05:35 147 H 15 101/91 11/19/22 05:30 147 H 16 101/91 11/19/22 05:25 151 H 22 101/91 11/19/22 05:00 142 H 18 11/19/22 04:55 165 H 19 89/73 11/19/22 04:50 151 H 27 H 89/73 11/19/22 04:45 151 H 9 L 89/73 11/19/22 04:40 163 H 15 100/76 11/19/22 04:35 160 H 7 L 100/76 11/19/22 04:30 18 100/76 11/19/22 04:25 151 H 18 100/76 94 L 11/19/22 04:20 160 H 17 11/19/22 04:15 161 H 18 93 L 11/19/22 04:10 138 H 18 92 L 11/19/22 04:05 144 H 17 112/74 92 L 11/19/22 04:00 147 H 19 93 L 11/19/22 03:50 144 H 16 115/77 94 L 11/19/22 03:40 134 H 16 82/67 93 L 11/19/22 03:30 151 H 17 91/54 92 L 11/19/22 03:25 156 H 18 91/54 94 L 11/19/22 03:10 165 H 19 104/65 92 L 11/19/22 03:00 17 111/91 94 L 11/19/22 02:50 17 92/66 94 L 11/19/22 02:30 152 H 16 106/66 93 L 11/19/22 02:20 163 H 17 115/93 94 L 11/19/22 02:10 151 H 16 96/54 95 11/19/22 01:40 154 H 18 93/59 93 L 11/19/22 01:30 165 H 18 91/70 94 L 11/19/22 01:20 165 H 16 84/68 94 L 11/19/22 01:10 156 H 15 101/73 92 L 11/19/22 01:00 161 H 17 114/81 94 L 11/19/22 00:50 160 H 18 99/59 95 11/19/22 00:40 170 H 16 106/75 95 11/19/22 00:31 149 H 17 102/74 95 11/19/22 00:28 142 H 20 99/72 95 11/19/22 00:26 165 H 17 99/72 93 L 11/19/22 00:24 172 H 17 96/71 94 L 11/19/22 00:22 174 H 20 84/63 93 L 11/19/22 00:20 168 H 21 84/63 95 11/19/22 00:10 160 H 17 84/63 94 L 11/19/22 00:00 156 H 18 84/70 95 11/18/22 23:50 165 H 16 84/70 95 11/18/22 23:40 16 84/70 92 L 11/18/22 23:33 176 H 21 88/71 95 11/18/22 23:30 19 97/62 93 L 11/18/22 23:20 16 97/62 96 11/18/22 23:10 9 L 97/62 97 11/18/22 23:08 174 H 18 97/62 95 11/18/22 23:00 179 H 20 114/89 95 11/18/22 22:30 92/65 11/18/22 22:20 154 H 27 H 96/69 96 11/18/22 22:10 160 H 13 96/69 95 11/18/22 22:00 163 H 19 88/62 94 L 11/18/22 21:50 158 H 16 88/62 93 L 11/18/22 21:44 165 H 18 88/62 95 11/18/22 21:40 172 H 15 110/47 94 L 11/18/22 21:30 163 H 18 110/47 95 11/18/22 21:20 156 H 17 102/81 94 L 11/18/22 21:11 165 H 20 102/81 95 11/18/22 21:10 170 H 14 92 L 11/18/22 21:00 83/39 11/18/22 20:50 83/39 11/18/22 20:40 147 H 16 89/75 96 11/18/22 20:30 161 H 17 89/75 97 11/18/22 20:20 163 H 15 93/77 96 11/18/22 20:18 98.7 F 170 H 17 93/77 95 11/18/22 20:10 144 H 18 86/48 97 11/18/22 20:00 172 H 17 79/66 94 L 11/18/22 19:50 165 H 12 79/66 94 L 11/18/22 19:40 174 H 15 88/73 95 11/18/22 19:30 174 H 24 88/73 96 11/18/22 19:20 160 H 16 105/69 94 L 11/18/22 19:17 160 H 19 105/69 95 11/18/22 19:10 98.8 F 168 H 15 90/73 95 11/18/22 19:00 170 H 11 L 81/48 95 11/18/22 18:50 163 H 17 81/48 93 L 11/18/22 18:40 174 H 27 H 94 L 11/18/22 18:38 144 H 14 95 11/18/22 16:27 98.9 F 161 H 20 92/61 95 Intake and Output 11/18/22 11/19/22 11/19/22 22:59 06:59 14:59 Other: Weight 100.244 kg - Constitutional General appearance: cooperative, mild distress, obese - EENT Eyes: anicteric sclerae, EOMI ENT: hearing grossly normal, normal oropharynx - Neck Neck: no lymphadenopathy (left anterior cervical LAD, 2-3 nodes, 2.5-3cm, hard, fixed) - Respiratory Respiratory: bilateral: CTA, diminished - Cardiovascular Rhythm: regular Heart sounds: normal: S1, S2 Abnormal Heart Sounds: no systolic murmur, no diastolic murmur, no rub, no S3 Gallop, no S4 Gallop, no click, no other leg Peripheral Edema: bilateral: 1+ - Gastrointestinal General gastrointestinal: no absent bowel sounds, no decreased bowel sounds, no distended, no hepatomegaly, no hyperactive bowel sounds, normal bowel sounds, no organomegaly, no rigid, no scaphoid, soft, no splenomegaly, no tenderness, no umbilical hernia, no ventral hernia - Integumentary ? sq lesion in inferior sternal area - Neurologic Neurologic: CNII-XII intact (grossly) - Musculoskeletal pain superior to left knee Musculoskeletal: generalized weakness - Psychiatric Psychiatric: A&O x's 3, appropriate affect Results CBC & Chem 7: 11/18/22 17:41 11/18/22 17:41 Labs: Abnormal Lab Results - Last 24 Hours (Table) 11/18/22 11/18/22 11/18/22 Range/Units 17:41 17:41 17:41 WBC 11.0 H (3.8-10.6) k/uL RBC 3.96 L (4.30-5.90) m/uL Hgb 11.2 L (13.0-17.5) gm/dL Hct 35.7 L (39.0-53.0) % RDW 16.8 H (11.5-15.5) % Plt Count 532 H (150-450) k/uL Neutrophils # 8.6 H (1.3-7.7) k/uL PT 14.0 H (9.0-12.0) sec INR 1.4 H (<1.2) Sodium 134 L (137-145) mmol/L Chloride 89 L (98-107) mmol/L Carbon Dioxide 36 H (22-30) mmol/L BUN 21 H (9-20) mg/dL Glucose 169 H (74-99) mg/dL Calcium 10.6 H (8.4-10.2) mg/dL Albumin 3.4 L (3.5-5.0) g/dL Urine Glucose (UA) (Negative) 11/18/22 Range/Units 18:15 WBC (3.8-10.6) k/uL RBC (4.30-5.90) m/uL Hgb (13.0-17.5) gm/dL Hct (39.0-53.0) % RDW (11.5-15.5) % Plt Count (150-450) k/uL Neutrophils # (1.3-7.7) k/uL PT (9.0-12.0) sec INR (<1.2) Sodium (137-145) mmol/L Chloride (98-107) mmol/L Carbon Dioxide (22-30) mmol/L BUN (9-20) mg/dL Glucose (74-99) mg/dL Calcium (8.4-10.2) mg/dL Albumin (3.5-5.0) g/dL Urine Glucose (UA) 4+ H (Negative) Comments: x ray reports reviewed ECHO report reviewed LVEF ONLY 30-35% CT scan - chest: report reviewed Assessment and Plan (1) Left leg pain Current Visit: Yes Status: Acute Priority: High Code(s): M79.605 - PAIN IN LEFT LEG SNOMED Code(s): 843738848 (2) Lytic bone lesion of femur Current Visit: Yes Status: Acute Priority: High Code(s): M89.9 - DISORDER OF BONE, UNSPECIFIED SNOMED Code(s): 296896529 (3) Lymphadenopathy Current Visit: Yes Status: Acute Priority: High Code(s): R59.1 - GENERALIZED ENLARGED LYMPH NODES SNOMED Code(s): 20884417 (4) Lung mass Current Visit: Yes Status: Acute Priority: High Code(s): R91.8 - OTHER NONSPECIFIC ABNORMAL FINDING OF LUNG FIELD SNOMED Code(s): 059282936 (5) Hypercalcemia Current Visit: Yes Status: Acute Priority: High Code(s): E83.52 - HYPERCALCEMIA SNOMED Code(s): 17548553 Plan: Lt leg pain, lytic lesion of lt femur -Orthopedic consult to assess if concern for impending fracture. If so, and surgery is recommended then, can obtain biopsy at that time -Consult Rad Onc for painful bone lesions after Orthopedics has made their recommendations -Pt is receiving pain meds -Meds for prevention narcotic induced constipation ordered Cervical LAD, SQ chest nodules and lt lung mass -Discussed with pt clinical picture most consistent with malignancy -Reviewed need for biopsy to identify primary and for molecular testing -Discussed having Orthopedics assess pt 1st because if the femur is at high risk for fracture and needs to be stabilized with surgery then, biopsy can be obtained that time. If no plans for surgery there is large LN in neck that core biopsy is likely possible -CT AP and MRI brain to complete staging Hypercalcemia 2/2 malignancy -Ca++ 10.6, slightly above normal -pt is receiving fluids, will recheck level in AM -hold off on any bisphosphonates until Ortho has had a chance to see pt attests: I have seen and examined pt, performed H&P, developed impression and plan of care. Discussed with dictator. Agree with documentation, dictated as a scribe.
[2022-11-19] MEDS: HEPARIN SODIUM 1,000 UN/ML (10ML VL) IV PRN (17:51)
[2022-11-19] MEDS: ATORVASTATIN 20 MG TAB PO SCH (21:10)
[2022-11-19] MEDS: SENNOSIDES-DOCUSATE SODIUM 1 EACH TAB PO SCH (21:11)
--- NOTE | 2022-11-20 00:19 | MR ---
EXAMINATION TYPE: MR brain wo/w con DATE OF EXAM: 11/19/2022 4:52 PM CLINICAL INDICATION:Male, 62 years old with history of staging; Cancer staging. COMPARISON: 09/06/2022 TECHNIQUE: Multi planar, multi sequence imaging was performed through the brain including: T1, T2, In version recovery, susceptibility weighted imaging and gradient echo imaging and Diffusion weighted im aging. The patient was then given intravenous contrast and multi planar, T1 fat-saturation images wer e obtained. IV Contrast: 10 cc Gadavist FINDINGS: There are enhancing dural based lesions including near the right occipital lobe 16 x 8 mm series 801 image 17 with impression upon the right occipital lobe and heterogenous postcontrast enhancement and is located along the falx cerebri posteriorly. The right posterior skull demonstrates mild dural thickening up to 3 mm that extends into the calvari um and erodes the inner plate measuring 18 x 7 mm series 901 image 38. An additional area more inferi disha measuring 12.0 x 0.7 cm is also present is a less aggressive appearance and is near the right tr ansverse sinus but does not not definitively communicate with the transverse sinus. The anterior skull also demonstrates an area of some asymmetric enhancement series 801 image 8 could represent normal bone marrow as it has some ill-defined borders. An enhancing lesion in the left key sander space measuring 2.8 x 2.1 x 2.6 cm is present. Left temporal lobe high T2 signal focus measuring 9 mm. There is some blooming artifact within the le ft lateral aspect compatible with calcification versus microhemorrhage. No obvious enhancement on pos tcontrast imaging. A vessel that closely approximates this cyst. The olivas-white junctions, ventricular system, basal cisterns appear unremarkable. Diffusion-weighted imaging shows no evidence of restricted diffusion to suggest acute/subacute infarct. The lesions ment ioned above within the skull and along the falx cerebra do demonstrate some Intracranial arterial axel w voids are maintained. Midline structures show no abnormality. Scattered foci of high T2 signal inte nsity are seen within the periventricular white matter. The bone marrow signal is within normal limits. Paranasal sinuses and mastoid air cells: No significant paranasal sinus disease. Visualized orbits: Orbital contents are intact. IMPRESSION: 1. There are at least 3 areas of dural thickening with extension into the skull on the right for 2 o f them and another impressing upon the right occipital lobe. The more superior lesion extending into the the calvarium appears more aggressive compared to the inferior osseous lesion. The inferior lesio n may represent arachnoid granulation. The superior lesion is highly suspicious for dural metastases with extension into the skull. The falx cerebri lesion is also highly suspicious. 2. Left key sander space enhancing mass best appreciated on sagittal imaging. Is concerning for meta static disease. 3. Nonspecific white matter changes.
[2022-11-20] MEDS: HYDROcodone/APAP 7.5-325MG 1 EACH TAB PO PRN ×2 (00:51→08:46)
[2022-11-20] MEDS: HEPARIN SODIUM 1,000 UN/ML (10ML VL) IV PRN (01:13)
[2022-11-20] MEDS: AMIODARONE 450 MG in DEXTROSE 5% IN WATER 250 ML IV SCH ×4 (03:47→10:03)
[2022-11-20 08:29] LABS: ALT 24 U/L (4-49); AST 29 U/L (17-59); African American GFR (CKD) >90 (>60 ml/min/1.73 sqM); Albumin 2.9 g/dL (3.5-5.0); Alkaline Phosphatase 105 U/L (38-126); Anion Gap 8 mmol/L; Blood Urea Nitrogen 18 mg/dL (9-20); Calcium 10.1 mg/dL (8.4-10.2); Carbon Dioxide 35 mmol/L (22-30); Chloride 93 mmol/L (98-107); Glucose 139 mg/dL (74-99); Non-African American GFR(CKD) >90 (>60 ml/min/1.73 sqM); Potassium 3.2 mmol/L (3.5-5.1); Sodium 136 mmol/L (137-145); Total Bilirubin 1.1 mg/dL (0.2-1.3); Total Protein 6.1 g/dL (6.3-8.2)
[2022-11-20] MEDS ORDERED: Potassium Replacement Protocol 1 EACH MISC MISCELLANE PRN (08:38)
[2022-11-20] MEDS: SENNOSIDES-DOCUSATE SODIUM 1 EACH TAB PO SCH ×2 (08:49→20:41)
[2022-11-20] MEDS: SPIRONOLACTONE 25 MG TAB PO SCH (08:49)
[2022-11-20] MEDS: DAPAGLIFLOZIN PROPANEDIOL 10 MG TABLET PO SCH (08:49)
[2022-11-20] MEDS: GABAPENTIN 400 MG CAP PO SCH ×3 (08:49→20:41)
[2022-11-20] MEDS: TAMSULOSIN 0.4 MG CAP.ER.24H PO SCH (08:49)
[2022-11-20] MEDS: METOPROLOL SUCCINATE (ER) 100 MG TAB.ER.24H PO SCH ×2 (08:49→17:09)
[2022-11-20] MEDS: FUROSEMIDE 40 MG TAB PO SCH (08:49)
[2022-11-20] MEDS: DIGOXIN 250 MCG TAB PO SCH (08:49)
[2022-11-20] MEDS: PANTOPRAZOLE 40 MG/10 ML VIAL IV SCH (08:50)
[2022-11-20] MEDS: POTASSIUM CHLORIDE ER 20 MEQ TAB.ER PO SCH ×2 (08:50→10:03)
[2022-11-20] MEDS: HEPARIN SOD,PORK IN 0.45% NACL 25,000 UNIT in 0.45% NACL 1 250ML.BAG IV SCH (08:50)
[2022-11-20] MEDS: MORPHINE SULFATE 4 MG/ML SYRINGE IV PRN ×3 (10:03→23:19)
--- NOTE | 2022-11-20 11:43 | PN ---
PROGRESS NOTE DATE OF SERVICE: 11/20/2022 SUBJECTIVE: This is a 62-year-old gentleman who was admitted with atrial fibrillation, fast ventricular rate, also had bilateral leg edema. The patient was also noted to have possible lung mass with mediastinal mass. Abdominal pelvis CAT scan showed possibly osseous metastatic disease. No chest pain. No palpitations. PAST MEDICAL HISTORY: Reviewed. REVIEW OF SYSTEMS: A 14-point review of systems is negative except as mentioned earlier. CURRENT MEDICATIONS: Reviewed include Lipitor. Dose and rest of medications reviewed. PHYSICAL EXAMINATION: VITAL SIGNS: Pulse is 113, blood pressure n respirations 20. HEENT: Conjunctivae normal. NECK: No jugular venous distention. CARDIOVASCULAR: S1 and S2 ABDOMEN: Soft, nontender. LEGS: Minimal edema. NERVOUS SYSTEM: Diffusely weak. LABORATORY DATA: Labs are reviewed. ASSESSMENT: 1. Atrial fibrillation with fast ventricular rate. 2. Possible left lower lobe atelectasis, lung cancer, possibly metastases, with multiple metastases in the mediastinum and bones. 3. Weakness. 4. Diabetes mellitus, type 2. 5. Congestive heart failure acute exacerbation. 6. Multiple medical issues. RECOMMENDATIONS: Recommend to continue symptomatic treatment. Otherwise at this time closely follow with Cardiology and Pulmonology as well as Hematology/Oncology. The patient need a biopsy to confirm the origin of the metastasis. I would also recommend PSA. MMODL / IJN: [id number] / MTDD
--- NOTE | 2022-11-20 12:54 | P.PN ---
Subjective Progress Note Date: 11/20/22 Principal diagnosis: Admitted with leg pain. Bone lesions, lung mass, LAD In follow-up today patient is more comfortable, the pain in his right leg is still pretty severe, he reports that he absolutely is not able to walk at this time because of the pain in both legs. He denies any headaches, dizziness, vision changes, personality changes, nausea or vomiting, chest pain or shortness of breath. He is feeling weak. His daughter is at the bedside. Objective - Vital Signs Vital signs: Vital Signs Temp 97.5 F L 11/20/22 11:43 Pulse 115 H 11/20/22 11:43 Resp 18 11/20/22 11:43 BP 123/69 11/20/22 11:43 Pulse Ox 93 L 11/20/22 11:43 FiO2 Intake & Output 11/19/22 11/20/22 11/20/22 18:59 06:59 18:59 Intake Total 76.851 342.138 703.046 Output Total 1150 700 Balance 76.851 -807.862 3.046 Weight 100.244 kg Intake: IV 20 Invasive Line 3 10 Invasive Line 4 10 Intake, IV Titration 76.851 322.138 243.046 Amount Amiodarone 450 mg In 234.727 Dextrose 5% in Water 250 ml @ 0.5 MG/MIN 16.667 mls/hr IV .Q15H ALVARO Rx#: [id number] Amiodarone 450 mg In 104.447 Dextrose 5% in Water 250 ml @ 0.5 MG/MIN 16.667 mls/hr IV .Q15H ALVARO Rx#: [id number] Heparin Sod,Pork in 0.45% 76.851 87.411 138.599 NaCl 25,000 unit In 0.45 % NaCl 1 250ml.bag @ 10 UNITS/KG/HR 10.024 mls/hr IV .Q24H ALVARO Rx#: [id number] Oral 460 Output: Urine 1150 700 Uretheral (Lin) 1150 Other: Voiding Method Urinal Urinal - Constitutional General appearance: Present: average body habitus, cooperative, mild distress - EENT Eyes: Present: anicteric sclerae, EOMI ENT: Present: hearing grossly normal - Neck Neck: Present: lymphadenopathy (Left neck) - Respiratory Details: Respirations even and unlabored at rest - Cardiovascular Details: Skin warm and dry to the touch, pedal pulses 2+, swelling in the bilateral lower extremities improved from yesterday and today is 0 - Peripheral edema leg Peripheral Edema: bilateral: None - Neurologic Neurologic: Present: CNII-XII intact (Grossly) - Psychiatric Psychiatric: Present: A&O x's 3, appropriate affect, intact judgment & insight - Labs CBC & Chem 7: 11/18/22 17:41 11/20/22 06:57 Labs: Abnormal Lab Results - Last 24 Hours (Table) 11/19/22 11/20/22 11/20/22 Range/Units 15:46 00:25 06:57 APTT 40.8 H 40.1 H (22.0-30.0) sec Sodium 136 L (137-145) mmol/L Potassium 3.2 L (3.5-5.1) mmol/L Chloride 93 L (98-107) mmol/L Carbon Dioxide 35 H (22-30) mmol/L Glucose 139 H (74-99) mg/dL Total Protein 6.1 L (6.3-8.2) g/dL Albumin 2.9 L (3.5-5.0) g/dL 11/20/22 Range/Units 06:57 APTT 56.4 H (22.0-30.0) sec Sodium (137-145) mmol/L Potassium (3.5-5.1) mmol/L Chloride (98-107) mmol/L Carbon Dioxide (22-30) mmol/L Glucose (74-99) mg/dL Total Protein (6.3-8.2) g/dL Albumin (3.5-5.0) g/dL - Imaging and Cardiology CT scan - abdomen: report reviewed CT scan - pelvis: report reviewed MRI - head: report reviewed Assessment and Plan (1) Left leg pain Current Visit: Yes Status: Acute Priority: High Code(s): M79.605 - PAIN IN LEFT LEG SNOMED Code(s): 508714430 (2) Lytic bone lesion of femur Current Visit: Yes Status: Acute Priority: High Code(s): M89.9 - DISORDER OF BONE, UNSPECIFIED SNOMED Code(s): 969853525 (3) Lymphadenopathy Current Visit: Yes Status: Acute Priority: High Code(s): R59.1 - GENERALIZED ENLARGED LYMPH NODES SNOMED Code(s): 62136861 (4) Lung mass Current Visit: Yes Status: Acute Priority: High Code(s): R91.8 - OTHER NONSPECIFIC ABNORMAL FINDING OF LUNG FIELD SNOMED Code(s): 999465439 (5) Hypercalcemia Current Visit: Yes Status: Acute Priority: High Code(s): E83.52 - HYPERCALCEMIA SNOMED Code(s): 53094793 Plan: Lt leg pain, lytic lesion of lt femur -Orthopedic consult pending to assess if concern for impending fracture. -Pt is receiving pain meds, titrate for comfort -Meds for prevention narcotic induced constipation ordered Cervical LAD, SQ chest nodules and lt lung mass -Discussed with pt and his daughter at the bedside clinical picture most consistent with malignancy -Reviewed need for biopsy to identify primary and for molecular testing -We reviewed multiple options for biopsy. We were going to await Orthopedic assessment to see if the femur is suspicious for impending fracture and orthop edic intervention was recommended then, would be able to obtain substantial tissue from surgical procedure. Surgical planning and intervention may take several days so, patient is on the schedule for Interventional Radiology to do bone biopsy today. Case was discussed with Interventional Radiologist. Core biopsy of the adenopathy in the neck is more desirable for adequate tissue specimen that can be sent for NGS testing. Orders been placed for LN bx. -CT AP did not show any evidence of disease in the abdomen or pelvis. MRI of the brain showing some suspicious areas, but patient and family know that I be discussed with Radiation Oncologist, who will likely meet with them in the next day or so to discuss. Radiation oncology consulted. -Discussed the case with Radiation Oncologist. Once tissue diagnosis obtained, they will consider SRS to suspicious lesions in the brain. Hypercalcemia 2/2 malignancy -Ca++ 10.1 today. No intervention other than hydration. -hold off on any bisphosphonates until Ortho has had a chance to assess patient. We discussed cancer as the cause for all of the abnormal findings. Reinforced that biopsy is needed to confirm primary source. We discussed the importance of next generation sequencing/molecular testing on the tumor to assess as targeted therapies aren't an option for treatment. We discussed that likely patient has a spread malignancy, not curable but, treatable. They asked about prognosis. Knowing the primary is necessary because malignancies-including different types of lung cancer- have different prognoses and lines of treatment available. Goal of any treatment though, is palliation of symptoms, improve quality of life and quantity of life. All of the patient and his family's questions were answered to the best of my ability at this time. Greater than 60 minutes spent counseling patient and family, collaborating with multiple specialties and coordinating care
--- NOTE | 2022-11-20 13:23 | P.PN ---
Subjective Progress Note Date: 11/20/22 I am seeing this patient in new consultation today 11/19/2022 after the patient presented yesterday evening complaining of left lateral chest pain and left hip pain. Patient is a 62-year-old male with past medical history significant for paroxysmal atrial fibrillation anticoagulated on Xarelto, nonischemic cardiomyopathy with an ejection fraction of 20 %, diabetes mellitus type 2, hypertension, osteoarthritis, and obstructive sleep apnea. He admits to chronic cigar smoking. He says that he has lost approximately 40 pounds since the beginning of the year. Patient was recently admitted and treated for left lower lobe pneumonia, A. fib RVR, subsequent GI bleed, and was COVID 19 positive back in August,. He did have a left-sided pleural effusion, and a thoracentesis was performed on 09/15/2022. A total of 1.5 L was removed at that time, and appeared to be a transudate based on protein and LDH analysis. No cytology report to review. The patient was ultimately discharged on September 15, and did reportedly follow up with Dr. Fair in the office. Patient arrived to the emergency room last night with complaints of left lateral chest pain and left hip pain. Denies any trauma. Chest x-ray redemonstrated a small left pleural effusion with patchy left basilar air space opacities indicating atelectasis versus infiltrate. A follow-up chest CT with contrast demonstrated an increased sized left lower lung consolidation, and it is concerning for underlying malignancy with postobstructive atelectasis. There was also evidence of metastatic disease throughout the mediastinum, multiple osseous structures, and right adrenal gland. There are enlarged mediastinal lymph nodes including a subcarinal lymph node measuring 3.6 x 2.4 cm and an enlarged right lower articular lymph node measuring 1.9 cm. Multiple noted lytic lesions involving the ribs, including possible pathological fractures of the left second rib and remote right sided fractures of ribs 6, 8, 9. 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 Left-sided femur x-ray does not show any acute fracture, but does show an irregular lytic lesion involving the distal left femur and mild osteoarthritic changes of the left hip. Patient is currently sitting up in the recliner, on room air, in no acute distress. He has been reportedly experiencing progressively worsening back pain over the past few months. He can no longer lay flat on his back because of this. He denies any shortness of breath, fever, chills, cough, hemoptysis. Patient is currently in atrial fibrillation with rapid ventricular rate with a heart rate of 170 beats per minute, and he was just switched from Cardizem to amiodarone. Amiodarone is currently infusing at 1 mg/m. Blood pressure is holding and normotensive. Cardiology is managing the patient's atrial fibrillation. CBC shows a WBC count of 11, hemoglobin 11.2, hematocrit 35.7, platelets 532. BMP shows a sodium of 134, potassium 3.6, chlo ride 89, serum CO2 36, BUN 21, creatinine 0.75, glucose 169. There is hypercalcemia. Troponin is negative 3. NT proBNP was elevated at 2210. There is extensive bilateral lower extremity edema. Lasix was restarted. The patient's condition is guarded, and he will be admitted to the cardiac stepdown unit for closer monitoring. The patient is seen today 11/20/2022 in follow-up on the regular medical floor. He is currently resting fairly comfortably in bed. Still with a lot of hot bone pain more so in this left chest, left hip and lower back. No worsening shortness of breath, cough or congestion. No hemoptysis. Maintaining O2 saturations in the 90s on room air. He's afebrile. Hemodynamically stable. Computed tomography scan of the abdomen and pelvis revealed osseous metastatic d isease seen correlating with recent CT study. Persistent suspicious left lower lobe masslike consolidation. No obvious suspicious mass in the abdomen or pelvis. Scattered lytic destructive lesions are seen in multiple areas. MRI of the brain revealed at least 3 areas of dural thickening with extension into the skull on the right for 2 of them and another impressing on the right occipital lobe. The more superior lesion extending in the calvarium appears more aggressive compared to the inferior osseous lesion. This. Lesion is highly suspicious for dural metastasis with extension into the skull. The falx cerebri lesion is also highly suspicious. Left linen supervisor space enhancing mass con cerning for metastatic disease. He is currently on a heparin drip. Continue to amiodarone drip at 0.5 mg/m. Sodium 136. Potassium 3.2. Bicarb 35. BUN 18. Creatinine 0.73. Glucose 139. Echocardiogram reveals impaired left ventricular systolic function with ejection fraction of 35%. The plan is for a core biopsy of the adenopathy in the neck to obtain adequate tissue specimen that could be sent for NGS testing. Objective - Vital Signs Vital signs: Vital Signs Temp 97.5 F L 11/20/22 11:43 Pulse 115 H 11/20/22 11:43 Resp 18 11/20/22 11:43 BP 123/69 11/20/22 11:43 Pulse Ox 93 L 11/20/22 11:43 FiO2 Intake & Output 11/19/22 11/20/22 11/20/22 18:59 06:59 18:59 Intake Total 76.851 342.138 703.046 Output Total 1150 700 Balance 76.851 -807.862 3.046 Weight 100.244 kg Intake: IV 20 Invasive Line 3 10 Invasive Line 4 10 Intake, IV Titration 76.851 322.138 243.046 Amount Amiodarone 450 mg In 234.727 Dextrose 5% in Water 250 ml @ 0.5 MG/MIN 16.667 mls/hr IV .Q15H [facility] Rx#: [id number] Amiodarone 450 mg In 104.447 Dextrose 5% in Water 250 ml @ 0.5 MG/MIN 16.667 mls/hr IV .Q15H [facility] Rx#: [id number] Heparin Sod,Pork in 0.45% 76.851 87.411 138.599 NaCl 25,000 unit In 0.45 % NaCl 1 250ml.bag @ 10 UNITS/KG/HR 10.024 mls/hr IV .Q24H [facility] Rx#: [id number] Oral 460 Output: Urine 1150 700 Uretheral (Lin) 1150 Other: Voiding Method Urinal Urinal - Exam GENERAL EXAM: Alert, morbidly obese 62-year-old male, comfortable in no apparent distress. HEAD: Normocephalic and atraumatic EYES: Normal reaction of pupils, equal size. NOSE: Clear with pink turbinates. THROAT: No erythema or exudates. NECK: Lymphadenopathy of the left neck. CHEST: No chest wall deformity. Facial grimacing with palpation of left lateral chest LUNGS: Equal air entry with no crackles, wheeze, rhonchi or dullness. On room air. No conversational dyspnea or accessory muscle use.. CVS: S1 and S2 normal with no audible murmur, irregular rhythm. No extra heart sounds. Heart rate is accelerated at 115 bpm. ABDOMEN: Obese abdomen. No hepatosplenomegaly, active bowel sounds, no guarding or rigidity. SPINE: No scoliosis or deformity SKIN: No rashes CENTRAL NERVOUS SYSTEM: No focal deficits, tone is normal in all 4 extremities. EXTREMITIES: There is 2-3+ bilateral lower extremity edema. no clubbing, or cyanosis. Peripheral pulses are intact. - Labs CBC & Chem 7: 11/18/22 17:41 11/20/22 06:57 Labs: Abnormal Lab Results - Last 24 Hours (Table) 11/19/22 11/20/22 11/20/22 Range/Units 15:46 00:25 06:57 APTT 40.8 H 40.1 H (22.0-30.0) sec Sodium 136 L (137-145) mmol/L Potassium 3.2 L (3.5-5.1) mmol/L Chloride 93 L (98-107) mmol/L Carbon Dioxide 35 H (22-30) mmol/L Glucose 139 H (74-99) mg/dL Total Protein 6.1 L (6.3-8.2) g/dL Albumin 2.9 L (3.5-5.0) g/dL 11/20/22 Range/Units 06:57 APTT 56.4 H (22.0-30.0) sec Sodium (137-145) mmol/L Potassium (3.5-5.1) mmol/L Chloride (98-107) mmol/L Carbon Dioxide (22-30) mmol/L Glucose (74-99) mg/dL Total Protein (6.3-8.2) g/dL Albumin (3.5-5.0) g/dL Assessment and Plan Assessment: Enlarged left lower masslike lung consolidation concerning for underlying malignancy with postobstructive atelectasis. There was also redemonstration of small left-sided pleural effusion. There is CT evidence of metastatic disease throughout the mediastinum, multiple osseous structures, and right adrenal gland. Left-sided femur x-ray also showed an irregular lytic lesion involving the distal left femur. Computed tomography scan of the abdomen and pelvis revealed osseous metastatic disease seen correlating with recent CT study. Persistent suspicious left lower lobe masslike consolidation. No obvious suspicious mass in the abdomen or pelvis. Scattered lytic destructive lesions are seen in multiple areas. MRI of the brain revealed at least 3 areas of dural thickening with extension into the skull on the right for 2 of them and another impressing on the right occipital lobe. The more superior lesion extending in the calvarium appears more aggressive compared to the inferior osseous lesion. This lesion is highly suspicious for dural metastasis with extension into the skull. The falx cerebri lesion is also highly suspicious. Left linen supervisor space enhancing mass concerning for metastatic disease. Lymphadenopathy of the left neck. Plan is for a core biopsy possibly today 11/20/2022 Back pain, presumably related to destructive osseous metastasis throughout the thoracic spine Left-sided chest pain, with an acute pathologic left-sided second rib fracture demonstrated on CT. There were also multiple remote right rib fractures including 6, 8, 9. Atrial fibrillation with rapid ventricular rate, currently being managed with amiodarone infusion Suspect mild exacerbation of systolic congestive heart failure History of nonischemic cardiomyopathy with an ejection fraction of 20% Hypercalcemia History of recent Covid 19 infection History of left-sided pleural effusion with thoracentesis performed on 09/15/2022. A total of 1.5 L was removed at that time, and appeared to be a transudate based on protein and LDH analysis. No cytology report to review. Diabetes mellitus type 2, [id number] Hypertension Osteoporosis Obstructive sleep apnea Ex-smoker, admits to smoking cigars only Plan: The patient was seen and evaluated MRI of the brain, CAT scan of the abdomen and pelvis, labs and medications reviewed Plan is for core biopsy of the left neck adenopathy by interventional radiology Radiation and medical oncology are consulted Currently stable and on room air Adequate pain control We will continue to follow I have personally seen and examined the patient, performed the documentation and the assessment and plan as written. Number of minutes spent on the visit: 10.
[2022-11-20 14:37] VITALS: BMI 31.7
--- NOTE | 2022-11-20 15:26 | P.PN ---
Subjective Progress Note Date: 11/20/22 HISTORY OF PRESENT ILLNESS: This is a 62-year-old male patient of Dr. Lau with a past medical history significant for paroxysmal atrial fibrillation, hyperlipidemia, hypertension, and diabetes. Patient was recently hospitalized in September which time he was treated for paroxysmal atrial fibrillation and underwent cardioversion on 08/13, cardiomyopathy with known EF of 30-35% possibly tachycardic-induced, acute kidney injury. Patient has follow-up in the office with Dr. Bernstein regarding persistent atrial fibrillation with cardiomyopathy and severe heart failure on 11/12 due to difficulty controlling her heart rate and failure off amiodarone and electrical cardioversion. Dr. Bernstein recommended A. fib ablation. Patient came into [facility] due to pain on his left side in the hip pe lvis area. He states he has not been eating much with no appetite and has lost 42 pounds since July. He is complaining of lower extremity edema. His blood pressure has been low since admission. He denies lightheadedness or dizziness. He was found to be in A. fib with RVR and started on heparin drip and amiodarone drip. Heart rate remains elevated. Patient also states that he was informed about results of CAT scan report. * EKG reveals atrial fibrillation with RVR with heart rate of 134 * CT of the chest revealed left lower lobe consolidation underlying malignancy with postobstructive atelectasis. Metastatic disease to the mediastinum, right adrenal gland and throughout the osseous structures with distractive changes. Osseous metastasis involving T6 and T7. Anterior subcutaneous nodules suspicious for metastatic disease. Acute left-sided rib fracture and chronic. Right-sided rib fracture. * WBC 11, hemoglobin 11.2, platelet count 532. INR 1.4. Sodium 134, potassium 3.6, chloride 89, CO2 36, BUN 21 creatinine 0.75. Troponin negative 3. ProBNP 2210. TSH 4.61. Urinalysis clear with 4+ glucose. * Left femur x-ray: Irregular lytic lesion involving the distal left femur. Etiologies include primary bone tumor versus infection. * Current home cardiac medications include amiodarone 200 mg daily, atorvastatin 20 mg at bedtime, Farxiga 10 mg daily, Lasix 40 mg daily, Toprol-XL 100 mg in the morning and 50 mg in the evening, Xarelto 29 g daily, Ozempic or 0.25 mg on Thursday, Aldactone 12.5 mg daily * Most recent echocardiogram obtained in August 2022 revealed ejection fraction 30-35% * Echocardiogram 11/19/2022 reveals EF of 30-35%, technically difficult study. * Cardiac catheterization with Dr. Lau on 10/21 revealed mild coronary artery disease. Elevated left-sided filling pressure 11/20 Patient is seen today on the cardiac stepdown unit. He denies having any chest pain, lower extremity edema is improved. He is scheduled for core biopsy today. Yesterday we started him on IV dig followed by oral dig daily starting today. He has been on amiodarone drip. PHYSICAL EXAM: VITAL SIGNS: Reviewed. GENERAL: Well-developed in no acute distress. HEENT: Head is normocephalic. Pupils are equal, round. Sclerae anicteric. Mucous membranes of the mouth are somewhat dry. Neck supple. No JVD or thyromegaly LUNGS: Respirations even and unlabored. Lungs essentially clear to auscultation bilaterally. HEART: Irregular rate and rhythm. S1 and S2 heard. ABDOMEN: Soft. Nondistended. Nontender. EXTREMITIES: Normal range of motion. No clubbing or cyanosis. Peripheral pu lses intact. Trace bilateral lower extremity edema NEUROLOGIC: Awake and alert. Oriented x 3. ASSESSMENT: Hip pain with metastatic disease Paroxysmal atrial fibrillation with RVR Recent A. fib cardioversion, 08/13/2022 Cardiomyopathy, ejection fraction 30-35%, possibly tachycardia induced Chronic systolic heart failure with reduced EF Hypertension Hyperlipidemia Diabetes PLAN: Continue patient on metoprolol tartrate 100 mg in the morning and 50 mg in the evening Discontinue IV amiodarone and start patient back on home dose 200 mg daily Continue heparin drip with anticipation of biopsy, resume following procedure if okay with oncology Further recommendations pending patient's course Nurse practitioner note has been reviewed by physician. Signing provider agrees with the documented findings, assessment, and plan of care. Objective - Vital Signs Vital signs: Vital Signs Temp 97.5 F L 11/20/22 11:43 Pulse 115 H 11/20/22 11:43 Resp 18 11/20/22 11:43 BP 123/69 11/20/22 11:43 Pulse Ox 93 L 11/20/22 11:43 FiO2 Intake & Output 11/19/22 11/20/22 11/20/22 18:59 06:59 18:59 Intake Total 76.851 342.138 703.046 Output Total 1150 700 Balance 76.851 -807.862 3.046 Weight 100.244 kg Intake: IV 20 Invasive Line 3 10 Invasive Line 4 10 Intake, IV Titration 76.851 322.138 243.046 Amount Amiodarone 450 mg In 234.727 Dextrose 5% in Water 250 ml @ 0.5 MG/MIN 16.667 mls/hr IV .Q15H [facility] Rx#: [id number] Amiodarone 450 mg In 104.447 Dextrose 5% in Water 250 ml @ 0.5 MG/MIN 16.667 mls/hr IV .Q15H [facility] Rx#: [id number] Heparin Sod,Pork in 0.45% 76.851 87.411 138.599 NaCl 25,000 unit In 0.45 % NaCl 1 250ml.bag @ 10 UNITS/KG/HR 10.024 mls/hr IV .Q24H [facility] Rx#: [id number] Oral 460 Output: Urine 1150 700 Uretheral (Lin) 1150 Other: Voiding Method Urinal Urinal - Labs CBC & Chem 7: 11/18/22 17:41 11/20/22 06:57 Labs: Abnormal Lab Results - Last 24 Hours (Table) 11/19/22 11/20/22 11/20/22 Range/Units 15:46 00:25 06:57 APTT 40.8 H 40.1 H (22.0-30.0) sec Sodium 136 L (137-145) mmol/L Potassium 3.2 L (3.5-5.1) mmol/L Chloride 93 L (98-107) mmol/L Carbon Dioxide 35 H (22-30) mmol/L Glucose 139 H (74-99) mg/dL Total Protein 6.1 L (6.3-8.2) g/dL Albumin 2.9 L (3.5-5.0) g/dL 11/20/22 Range/Units 06:57 APTT 56.4 H (22.0-30.0) sec Sodium (137-145) mmol/L Potassium (3.5-5.1) mmol/L Chloride (98-107) mmol/L Carbon Dioxide (22-30) mmol/L Glucose (74-99) mg/dL Total Protein (6.3-8.2) g/dL Albumin (3.5-5.0) g/dL
--- NOTE | 2022-11-20 15:30 | US ---
ULTRASOUND GUIDED CORE BIOPSY LEFT NECK MASS: CLINICAL HISTORY: Left neck mass FINDINGS: The procedure was explained to the patient. The risks, complications, benefits and alternatives were discussed and any questions were answered. Informed consent was obtained. Patient was placed supin e on the ultrasound table and prepped and draped in the usual sterile fashion. Utilizing a 18 gauge core biopsy needle, three passes were made into the left neck mass. Patient was stable throughout the procedure. Pathology is pending. All elements of maximal barrier and sterile technique were utilized. IMPRESSION: 1. Successful ultrasound guided core biopsy left neck mass.
[2022-11-20] MEDS: ATORVASTATIN 20 MG TAB PO SCH (20:41)
[2022-11-21] MEDS: HYDROcodone/APAP 7.5-325MG 1 EACH TAB PO PRN ×2 (06:42→15:31)
[2022-11-21] MEDS: METOPROLOL SUCCINATE (ER) 100 MG TAB.ER.24H PO SCH ×2 (07:47→20:21)
[2022-11-21] MEDS: DAPAGLIFLOZIN PROPANEDIOL 10 MG TABLET PO SCH (07:47)
[2022-11-21] MEDS: FUROSEMIDE 40 MG TAB PO SCH (07:47)
[2022-11-21] MEDS: SENNOSIDES-DOCUSATE SODIUM 1 EACH TAB PO SCH ×2 (07:47→20:21)
[2022-11-21] MEDS: TAMSULOSIN 0.4 MG CAP.ER.24H PO SCH (07:47)
[2022-11-21] MEDS: GABAPENTIN 400 MG CAP PO SCH ×3 (07:47→20:21)
[2022-11-21] MEDS: DIGOXIN 250 MCG TAB PO SCH (07:47)
[2022-11-21] MEDS: AMIODARONE 200 MG TAB PO SCH (07:47)
[2022-11-21] MEDS: PANTOPRAZOLE 40 MG/10 ML VIAL IV SCH (07:47)
[2022-11-21] MEDS: SPIRONOLACTONE 25 MG TAB PO SCH (07:48)
[2022-11-21] MEDS: HEPARIN SOD,PORK IN 0.45% NACL 25,000 UNIT in 0.45% NACL 1 250ML.BAG IV SCH ×2 (07:51→15:35)
[2022-11-21 09:10] LABS: Anisocytosis Slight; Basophils # (A) 0.1 k/uL (0-0.2); Basophils % (A) 0 %; Eosinophils % (A) 0 %; HCT 36.2 % (39.0-53.0); HGB 10.7 gm/dL (13.0-17.5); Hypochromasia Slight; Lymphocytes # (A) 1.2 k/uL (1.0-4.8); Lymphocytes % (A) 11 %; MCH 27.2 pg (25.0-35.0); MCHC 29.5 g/dL (31.0-37.0); MCV 91.9 fL (80.0-100.0); Mean Platelet Volume 8.2; Monocytes # (A) 0.7 k/uL (0-1.0); Monocytes % (A) 6 %; Neutrophils # (A) 9.3 k/uL (1.3-7.7); Neutrophils % (A) 81 %; Platelet Count 467 k/uL (150-450); RBC 3.94 m/uL (4.30-5.90); RDW 16.7 % (11.5-15.5); WBC 11.4 k/uL (3.8-10.6)
[2022-11-21 09:32] LABS: ALT 20 U/L (4-49); AST 25 U/L (17-59); African American GFR (CKD) >90 (>60 ml/min/1.73 sqM); Albumin 2.9 g/dL (3.5-5.0); Alkaline Phosphatase 108 U/L (38-126); Anion Gap 5 mmol/L; Blood Urea Nitrogen 14 mg/dL (9-20); Calcium 10.2 mg/dL (8.4-10.2); Carbon Dioxide 37 mmol/L (22-30); Chloride 93 mmol/L (98-107); Glucose 128 mg/dL (74-99); Non-African American GFR(CKD) >90 (>60 ml/min/1.73 sqM); Sodium 135 mmol/L (137-145); Total Bilirubin 1.1 mg/dL (0.2-1.3)
--- NOTE | 2022-11-21 10:12 | P.CONS ---
History of Present Illness - Reason for Consult Consult date: 11/20/22 Concern for metastatic disease Requesting physician: Avi Lazaro - History of Present Illness Mr. Majano is a 62-year-old who presents with bilateral hip and lower back pain in the setting of clinical concern for diffusely metastatic cancer. He presented to the with progressively worsening hip pain on both sides but worse on the left. This has been subacute in nature. Left femur/hip film on 11/18/2022 demonstrated an irregular lytic lesion in the distal left femur. CT chest demonstrated a left lower lobe consolidation with postobstructive atelectasis, mediastinal adenopathy, adrenal mass, and diffuse osseous metastatic disease including vertebral disease in T6 and T7. There were also s ubcutaneous nodules in the chest wall. 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 Today, he notes he is doing okay but continues to note 8/10 hip pain. He is undergoing an ultrasound-guided biopsy of the left neck later today. He denies history of cancer. He has never had radiation therapy. He does not have a pacemaker. Review of Systems All systems: negative (hip pain, lower back pain) Past Medical History Past Medical History: Atrial Fibrillation, Diabetes Mellitus, Hypertension, Osteoarthritis (OA), Sleep Apnea/CPAP/BIPAP Additional Past Medical History / Comment(s): NIDDM., PAST HX OF HTN BUT NOW HAS LOW BLOODPRESSURE., COLON POLYPS, CHRONIC BACK PAIN., HOSPITALIZED AT [facility] AUGUST/SEPTEMBER WITH POSITIVE COVID, TINNITUS, DIZZINESS, BLURRED VISION WITH GI BLEED, PNEUMONIA , THORACENTESIS DONE , EGD AND COLONOSCOPY SHOWED MILD GAS TRITIS, COLITIS DIVERTICULITIS., PT STATES SLEEP APNEA BUT HAS NOT BEEN ABLE TO START USING MACHINE YET., SEE CARDIOLOGY H & P. History of Any Multi-Drug Resistant Organisms: None Reported Past Surgical History: Adenoidectomy, Tonsillectomy Additional Past Surgical History / Comment(s): Tailbone Cystectomy. Vasectomy. COLONOSCOPY EGD (09/11/22) ., CARDIOVERSION, THORACENTESIS 09/15/22 Past Anesthesia/Blood Transfusion Reactions: No Reported Reaction Additional Past Anesthesia/Blood Transfusion Reaction / Comm: NO HX OF BLOOD TRANSFUSION Past Psychological History: No Psychological Hx Reported Additional Psychological History / Comment(s): . Smoking Status: Former smoker Past Alcohol Use History: None Reported Additional Past Alcohol Use History / Comment(s): SMOKED TEEN AND THEN OCCASIONAL CIGAR-NONE IN 3-4 MONTHS. Past Drug Use History: None Reported - Past Family History Father Family Medical History: Congestive Heart Failure (CHF) Additional Family Medical History / Comment(s): Father of CHF Mother Additional Family Medical History / Comment(s): Mother had cirrhosis of the liver. Medications and Allergies Home Medications Medication Instructions Recorded Confirmed Type Atorvastatin [Lipitor] 20 mg PO HS 08/13/22 11/18/22 History Spironolactone [Aldactone] 12.5 mg PO DAILY 30 Days #30 tab 08/29/22 11/18/22 Rx Tamsulosin [Flomax] 0.4 mg PO DAILY 09/04/22 11/18/22 History Furosemide [Lasix] 40 mg PO DAILY #30 tab 09/15/22 11/18/22 Rx Amiodarone [Cordarone] 200 mg PO DAILY 10/17/22 11/18/22 History Metoprolol Succinate [Toprol XL] 100 mg PO DAILY 10/17/22 11/18/22 History Rivaroxaban [Xarelto] 20 mg PO DAILY 10/17/22 11/18/22 History Dapagliflozin Propanediol [Farxiga] 10 mg PO DAILY 11/18/22 11/18/22 History Gabapentin [Neurontin] 400 mg PO TID 11/18/22 11/18/22 History HYDROcodone/APAP 7.5-325MG [[place] 1 tab PO Q6H PRN 11/18/22 11/18/22 History 7.5-325] Metoprolol Succinate (ER) [Toprol 50 mg PO HS@1800 11/18/22 11/18/22 History Xl] Semaglutide [Ozempic] 0.25 mg SQ SA 11/18/22 11/18/22 History Allergies Allergy/AdvReac Type Severity Reaction Status Date / Time clarithromycin [From Biaxin] Allergy Severe Rash/Hives Verified 11/18/22 19:39 Physical Exam Vitals: Vital Signs Temp Pulse Resp BP Pulse Ox 11/21/22 04:28 98.3 F 76 20 116/65 93 L 11/21/22 02:49 20 11/20/22 23:17 98.1 F 126 H 20 112/71 93 L 11/20/22 20:39 99.5 F 121 H 20 135/78 93 L 11/20/22 16:00 97.9 F 118 H 20 116/70 93 L 11/20/22 14:52 110 H 18 138/76 97 11/20/22 14:46 111 H 18 139/80 97 11/20/22 14:44 101 H 18 138/76 97 11/20/22 11:43 97.5 F L 115 H 18 123/69 93 L Intake and Output 11/20/22 11/21/22 11/21/22 22:59 06:59 14:59 Intake Total 0 Output Total 600 500 Balance -600 -500 Intake: Intake, IV Titration 0 Amount Heparin Sod,Pork in 0.45% 0 NaCl 25,000 unit In 0.45 % NaCl 1 250ml.bag @ 10 UNITS/KG/HR 10.024 mls/hr IV .Q24H [facility] Rx#: [id number] Output: Urine 600 500 Other: Voiding Method Urinal Urinal # Voids 1 - Constitutional General appearance: average body habitus, no acute distress - Neck Neck: lymphadenopathy - Respiratory Respiratory: negative: prolonged expiration, prolonged inspiration Results CBC & Chem 7: 11/21/22 07:59 11/21/22 07:59 Labs: Abnormal Lab Results - Last 24 Hours (Table) 11/21/22 11/21/22 Range/Units 07:59 07:59 WBC 11.4 H (3.8-10.6) k/uL RBC 3.94 L (4.30-5.90) m/uL Hgb 10.7 L (13.0-17.5) gm/dL Hct 36.2 L (39.0-53.0) % MCHC 29.5 L (31.0-37.0) g/dL RDW 16.7 H (11.5-15.5) % Plt Count 467 H (150-450) k/uL Neutrophils # 9.3 H (1.3-7.7) k/uL Sodium 135 L (137-145) mmol/L Chloride 93 L (98-107) mmol/L Carbon Dioxide 37 H (22-30) mmol/L Glucose 128 H (74-99) mg/dL Total Protein 6.0 L (6.3-8.2) g/dL Albumin 2.9 L (3.5-5.0) g/dL Assessment and Plan Assessment: Mr. Majano is a 62-year-old who presents with bilateral hip and lower back pain in the setting of clinical concern for diffusely metastatic cancer. Plan: The patient has clinical concern for diffusely metastatic cancer. I am in agreement with tissue sampling of his neck. Once pathologic confirmation of cancer is achieved, I would recommend a course of palliative radiation therapy to the bilateral hips. I will await orthopedic input regarding his femur lesion. I will consider treatment to this area as well if operative management is not pursued. I recommend MRI thoracic spine as the T6 and T7 lesions appear to be encroaching on the spinal canal (though the patient is asymptomatic at this site). He will also require stereotactic radiosurgery to his dural-based lesions once discharged. I will follow-up and review radiation in greater detail with him once a cancer diagnosis is established. Tyrell Parr MD Radiation Oncology Time with Patient: Greater than 30
[2022-11-21] MEDS: ACETAMINOPHEN TAB 325 MG TAB PO PRN (10:28)
--- NOTE | 2022-11-21 10:55 | P.CNOR ---
History of Present Illness - [facility] Consult date: 11/21/22 History of present illness: This is a 62 year old male who is admitted for symptoms of weakness and left leg pain. Orthopedics is consulted due to a lesion noted on a left femur x-ray. Patient states that he is currently being worked up for metastatic cancer. Patient states that he was admitted in August for cardiac and lung issues. Patie nt states that he had significant swelling in both legs in August and this is resolving. Patient states that since August or September of this year he has had progressive weakness in bilateral lower extremities to the point where he now is bed/chair bound or wheelchair bound. Patient states that he has pain in the back, left hip, left groin and left thigh with any attempts to move or get out of bed. Patient states that he had similar pain in the right thigh, but this is no longer noticeable compared to the pain in the left thigh. Patient was treated for Covid, pneumonia, pleural effusion and atrial fibrillation when he was admitted in August and evidence for metastatic disease was subsequently revealed. Patient is now undergoing biposies to determine the primary cause for metastatic disease. Patient states that he also has symptoms of neuropathy in both legs. Patient's past medical history is significant for diabetes mellitus, hypertension, atrial fibrillation and sleep apnea. Patient denies fever/chills, swelling or erythema. Review of Systems Constitutional: Reports as per [facility] Past Medical History Past Medical History: Atrial Fibrillation, Diabetes Mellitus, Hypertension, Osteoarthritis (OA), Sleep Apnea/CPAP/BIPAP Additional Past Medical History / Comment(s): NIDDM., PAST HX OF HTN BUT NOW HAS LOW BLOODPRESSURE., COLON POLYPS, CHRONIC BACK PAIN., HOSPITALIZED AT [facility] WITH POSITIVE COVID, TINNITUS, DIZZINESS, BLURRED VISION WITH GI BLEED, PNEUMONIA , THORACENTESIS DONE , EGD AND COLONOSCOPY SHOWED MILD GASTRITIS, COLITIS DIVERTICULITIS., PT STATES SLEEP APNEA BUT HAS NOT BEEN ABLE TO START USING MACHINE YET., SEE CARDIOLOGY H & P. History of Any Multi-Drug Resistant Organisms: None Reported Past Surgical History: Adenoidectomy, Tonsillectomy Additional Past Surgical History / Comment(s): Tailbone Cystectomy. Vasectomy. COLONOSCOPY EGD (09/11/22) ., CARDIOVERSION, THORACENTESIS 09/15/22 Past Anesthesia/Blood Transfusion Reactions: No Reported Reaction Additional Past Anesthesia/Blood Transfusion Reaction / Comm: NO HX OF BLOOD TRANSFUSION Past Psychological History: No Psychological Hx Reported Additional Psychological History / Comment(s): . Smoking Status: Former smoker Past Alcohol Use History: None Reported Additional Past Alcohol Use History / Comment(s): SMOKED TEEN AND THEN OCCASIONAL CIGAR-NONE IN 3-4 MONTHS. Past Drug Use History: None Reported - Past Family History Father Family Medical History: Congestive Heart Failure (CHF) Additional Family Medical History / Comment(s): Father of CHF Mother Additional Family Medical History / Comment(s): Mother had cirrhosis of the liver. Medications and Allergies Home Medications Medication Instructions Recorded Confirmed Type Atorvastatin [Lipitor] 20 mg PO HS 08/13/22 11/18/22 History Spironolactone [Aldactone] 12.5 mg PO DAILY 30 Days #30 tab 08/29/22 11/18/22 Rx Tamsulosin [Flomax] 0.4 mg PO DAILY 09/04/22 11/18/22 History Furosemide [Lasix] 40 mg PO DAILY #30 tab 09/15/22 11/18/22 Rx Amiodarone [Cordarone] 200 mg PO DAILY 10/17/22 11/18/22 History Metoprolol Succinate [Toprol XL] 100 mg PO DAILY 10/17/22 11/18/22 History Rivaroxaban [Xarelto] 20 mg PO DAILY 10/17/22 11/18/22 History Dapagliflozin Propanediol [Farxiga] 10 mg PO DAILY 11/18/22 11/18/22 History Gabapentin [Neurontin] 400 mg PO TID 11/18/22 11/18/22 History HYDROcodone/APAP 7.5-325MG [[place] 1 tab PO Q6H PRN 11/18/22 11/18/22 History 7.5-325] Metoprolol Succinate (ER) [Toprol 50 mg PO HS@1800 11/18/22 11/18/22 History Xl] Semaglutide [Ozempic] 0.25 mg SQ SA 11/18/22 11/18/22 History Allergies Allergy/AdvReac Type Severity Reaction Status Date / Time clarithromycin [From Biaxin] Allergy Severe Rash/Hives Verified 11/18/22 19:39 Physical Examination On exam patient is sitting up in bed in no acute distress. Patient is alert and oriented x3. There is pain with any attempts to move the left leg. There is tenderness to palpation over the distal left thigh. No tenderness to palpation over the left greater trochanter. Patient has full motion of bilateral feet and ankles. Sensation intact to bilateral lower extremities with some sensitivity to light touch. There is mild swelling in bilateral lower extremities. Neurovascular status and circulatory status are intact bilaterally. Results X-rays of the left femur are reviewed showing a lesion of the distal aspect of the left femur. - Labs Labs: Abnormal Lab Results - Last 24 Hours (Table) 11/21/22 11/21/22 Range/Units 07:59 07:59 WBC 11.4 H (3.8-10.6) k/uL RBC 3.94 L (4.30-5.90) m/uL Hgb 10.7 L (13.0-17.5) gm/dL Hct 36.2 L (39.0-53.0) % MCHC 29.5 L (31.0-37.0) g/dL RDW 16.7 H (11.5-15.5) % Plt Count 467 H (150-450) k/uL Neutrophils # 9.3 H (1.3-7.7) k/uL Sodium 135 L (137-145) mmol/L Chloride 93 L (98-107) mmol/L Carbon Dioxide 37 H (22-30) mmol/L Glucose 128 H (74-99) mg/dL Total Protein 6.0 L (6.3-8.2) g/dL Albumin 2.9 L (3.5-5.0) g/dL H & H 11/18/22 11/21/22 Range/Units 17:41 07:59 Hgb 11.2 L 10.7 L (13.0-17.5) gm/dL Hct 35.7 L 36.2 L (39.0-53.0) % Coagulation 11/18/22 Range/Units 17:41 INR 1.4 H (<1.2) Result Diagrams: 11/21/22 07:59 11/21/22 07:59 Assessment and Plan (1) Lesion of left femur Current Visit: Yes Status: Acute Code(s): M89.9 - DISORDER OF BONE, UNSPECIFIED SNOMED Code(s): 27812914870900446 (2) Left thigh pain Current Visit: Yes Status: Acute Code(s): M79.652 - PAIN IN LEFT THIGH SNOMED Code(s): 16246565 Plan: 1. Recommend an MRI of the left femur. 2. X-rays are reviewed with Dr. Burt Ramires and at this time no surgical intervention is planned. We will await MRI results and continue to follow.
[2022-11-21] MEDS: MORPHINE SULFATE 4 MG/ML SYRINGE IV PRN (11:53)
--- NOTE | 2022-11-21 12:01 | P.PN ---
Subjective Progress Note Date: 11/21/22 HISTORY OF PRESENT ILLNESS: This is a 62-year-old male patient of Dr. Lau with a past medical history significant for paroxysmal atrial fibrillation, hyperlipidemia, hypertension, and diabetes. Patient was recently hospitalized in September which time he was treated for paroxysmal atrial fibrillation and underwent cardioversion on 08/13, cardiomyopathy with known EF of 30-35% possibly tachycardic-induced, acute kidney injury. Patient has follow-up in the office with Dr. Bernstein regarding persistent atrial fibrillation with cardiomyopathy and severe heart failure on 11/12 due to difficulty controlling her heart rate and failure off amiodarone and electrical cardioversion. Dr. Bernstein recommended A. fib ablation. Patient came into [facility] due to pain on his left side in the hip pe lvis area. He states he has not been eating much with no appetite and has lost 42 pounds since July. He is complaining of lower extremity edema. His blood pressure has been low since admission. He denies lightheadedness or dizziness. He was found to be in A. fib with RVR and started on heparin drip and amiodarone drip. Heart rate remains elevated. Patient also states that he was informed about results of CAT scan report. * EKG reveals atrial fibrillation with RVR with heart rate of 134 * CT of the chest revealed left lower lobe consolidation underlying malignancy with postobstructive atelectasis. Metastatic disease to the mediastinum, right adrenal gland and throughout the osseous structures with distractive changes. Osseous metastasis involving T6 and T7. Anterior subcutaneous nodules suspicious for metastatic disease. Acute left-sided rib fracture and chronic. Right-sided rib fracture. * WBC 11, hemoglobin 11.2, platelet count 532. INR 1.4. Sodium 134, potassium 3.6, chloride 89, CO2 36, BUN 21 creatinine 0.75. Troponin negative 3. ProBNP 2210. TSH 4.61. Urinalysis clear with 4+ glucose. * Left femur x-ray: Irregular lytic lesion involving the distal left femur. Etiologies include primary bone tumor versus infection. * Current home cardiac medications include amiodarone 200 mg daily, atorvastatin 20 mg at bedtime, Farxiga 10 mg daily, Lasix 40 mg daily, Toprol-XL 100 mg in the morning and 50 mg in the evening, Xarelto 20 mg daily, Ozempic or 0.25 mg on Thursday, Aldactone 12.5 mg daily * Most recent echocardiogram obtained in August 2022 revealed ejection fraction 30-35% * Echocardiogram 11/19/2022 reveals EF of 30-35%, technically difficult study. * Cardiac catheterization with Dr. Lau on 10/21 revealed mild coronary artery disease. Elevated left-sided filling pressure 11/20 Patient is seen today on the cardiac stepdown unit. He denies having any chest pain, lower extremity edema is improved. He is scheduled for core biopsy today. Yesterday we started him on IV dig followed by oral dig daily starting today. He has been on amiodarone drip. 11/21 Patient is currently on heparin drip. We started digoxin and resume patient on home dose of amiodarone yesterday. Heart rate is 120s, blood pressure 116/65. Patient denies feeling any heart palpitations, no shortness of breath, no chest pain and no lower extremity edema is has resolved. He denies any chest pressure. He is status post lymph node biopsy performed yesterday. Oncology is waiting for biopsy report and plan is for palliative radiation to the bilateral hips and orthopedic input. PHYSICAL EXAM: VITAL SIGNS: Reviewed. GENERAL: Well-developed in no acute distress. HEENT: Head is normocephalic. Pupils are equal, round. Sclerae anicteric. Mucous membranes of the mouth are somewhat dry. Neck supple. No JVD or thyromegaly LUNGS: Respirations even and unlabored. Lungs essentially clear to auscultation bilaterally. HEART: Irregular rate and rhythm. S1 and S2 heard. ABDOMEN: Soft. Nondistended. Nontender. EXTREMITIES: Normal range of motion. No clubbing or cyanosis. Peripheral pulses intact. No extremity edema NEUROLOGIC: Awake and alert. Oriented x 3. ASSESSMENT: Hip pain with metastatic disease Paroxysmal atrial fibrillation with RVR Recent A. fib cardioversion, 08/13/2022 Cardiomyopathy, ejection fraction 30-35%, possibly tachycardia induced Chronic systolic heart failure with reduced EF Hypertension Hyperlipidemia Diabetes PLAN: Increase metoprolol to 100 mg twice daily Continue oral amiodarone 200 mg daily, digoxin 250 g daily Discontinue heparin and resume patient on Xarelto if no other surgical intervention is planned. Further recommendations pending patient's course Nurse practitioner note has been reviewed by physician. Signing provider agrees with the documented findings, assessment, and plan of care. Objective - Vital Signs Vital signs: Vital Signs Temp 98 F 11/21/22 08:00 Pulse 103 H 11/21/22 08:00 Resp 20 11/21/22 08:00 BP 123/65 11/21/22 08:00 Pulse Ox 91 L 11/21/22 08:00 FiO2 Intake & Output 11/20/22 11/21/22 11/21/22 18:59 06:59 18:59 Intake Total 703.046 0 240 Output Total 1200 1100 425 Balance -496.954 -1100 -185 Weight 100.244 kg Intake: Intake, IV Titration 243.046 0 Amount Amiodarone 450 mg In 104.447 Dextrose 5% in Water 250 ml @ 0.5 MG/MIN 16.667 mls/hr IV .Q15H ALVARO Rx#: [id number] Heparin Sod,Pork in 0.45% 138.599 0 NaCl 25,000 unit In 0.45 % NaCl 1 250ml.bag @ 10 UNITS/KG/HR 10.024 mls/hr IV .Q24H ALVARO Rx#: [id number] Oral 460 240 Output: Urine 1200 1100 425 Other: Voiding Method Urinal Urinal Urinal # Voids 1 1 1 - Labs CBC & Chem 7: 11/21/22 07:59 11/21/22 07:59 Labs: Abnormal Lab Results - Last 24 Hours (Table) 11/21/22 11/21/22 Range/Units 07:59 07:59 WBC 11.4 H (3.8-10.6) k/uL RBC 3.94 L (4.30-5.90) m/uL Hgb 10.7 L (13.0-17.5) gm/dL Hct 36.2 L (39.0-53.0) % MCHC 29.5 L (31.0-37.0) g/dL RDW 16.7 H (11.5-15.5) % Plt Count 467 H (150-450) k/uL Neutrophils # 9.3 H (1.3-7.7) k/uL Sodium 135 L (137-145) mmol/L Chloride 93 L (98-107) mmol/L Carbon Dioxide 37 H (22-30) mmol/L Glucose 128 H (74-99) mg/dL Total Protein 6.0 L (6.3-8.2) g/dL Albumin 2.9 L (3.5-5.0) g/dL
--- NOTE | 2022-11-21 15:59 | P.PN ---
Subjective Progress Note Date: 11/21/22 I am seeing this patient in new consultation today 11/19/2022 after the patient presented yesterday evening complaining of left lateral chest pain and left hip pain. Patient is a 62-year-old male with past medical history significant for paroxysmal atrial fibrillation anticoagulated on Xarelto, nonischemic cardiomyopathy with an ejection fraction of 20 %, diabetes mellitus type 2, hypertension, osteoarthritis, and obstructive sleep apnea. He admits to chronic cigar smoking. He says that he has lost approximately 40 pounds since the beginning of the year. Patient was recently admitted and treated for left lower lobe pneumonia, A. fib RVR, subsequent GI bleed, and was COVID 19 positive back in August,. He did have a left-sided pleural effusion, and a thoracentesis was performed on 09/15/2022. A total of 1.5 L was removed at that time, and appeared to be a transudate based on protein and LDH analysis. No cytology report to review. The patient was ultimately discharged on September 15, and did reportedly follow up with Dr. Fair in the office. Patient arrived to the emergency room last night with complaints of left lateral chest pain and left hip pain. Denies any trauma. Chest x-ray redemonstrated a small left pleural effusion with patchy left basilar air space opacities indicating atelectasis versus infiltrate. A follow-up chest CT with contrast demonstrated an increased sized left lower lung consolidation, and it is concerning for underlying malignancy with postobstructive atelectasis. There was also evidence of metastatic disease throughout the mediastinum, multiple osseous structures, and right adrenal gland. There are enlarged mediastinal lymph nodes including a subcarinal lymph node measuring 3.6 x 2.4 cm and an enlarged right lower articular lymph node measuring 1.9 cm. Multiple noted lytic lesions involving the ribs, including possible pathological fractures of the left second rib and remote right sided fractures of ribs 6, 8, 9. 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 Left-sided femur x-ray does not show any acute fracture, but does show an irregular lytic lesion involving the distal left femur and mild osteoarthritic changes of the left hip. Patient is currently sitting up in the recliner, on room air, in no acute distress. He has been reportedly experiencing progressively worsening back pain over the past few months. He can no longer lay flat on his back because of this. He denies any shortness of breath, fever, chills, cough, hemoptysis. Patient is currently in atrial fibrillation with rapid ventricular rate with a heart rate of 170 beats per minute, and he was just switched from Cardizem to amiodarone. Amiodarone is currently infusing at 1 mg/m. Blood pressure is holding and normotensive. Cardiology is managing the patient's atrial fibrillation. CBC shows a WBC count of 11, hemoglobin 11.2, hematocrit 35.7, platelets 532. BMP shows a sodium of 134, potassium 3.6, chlo ride 89, serum CO2 36, BUN 21, creatinine 0.75, glucose 169. There is hypercalcemia. Troponin is negative 3. NT proBNP was elevated at 2210. There is extensive bilateral lower extremity edema. Lasix was restarted. The patient's condition is guarded, and he will be admitted to the cardiac stepdown unit for closer monitoring. The patient is seen today 11/20/2022 in follow-up on the regular medical floor. He is currently resting fairly comfortably in bed. Still with a lot of hot bone pain more so in this left chest, left hip and lower back. No worsening shortness of breath, cough or congestion. No hemoptysis. Maintaining O2 saturations in the 90s on room air. He's afebrile. Hemodynamically stable. Computed tomography scan of the abdomen and pelvis revealed osseous metastatic d isease seen correlating with recent CT study. Persistent suspicious left lower lobe masslike consolidation. No obvious suspicious mass in the abdomen or pelvis. Scattered lytic destructive lesions are seen in multiple areas. MRI of the brain revealed at least 3 areas of dural thickening with extension into the skull on the right for 2 of them and another impressing on the right occipital lobe. The more superior lesion extending in the calvarium appears more aggressive compared to the inferior osseous lesion. This. Lesion is highly suspicious for dural metastasis with extension into the skull. The falx cerebri lesion is also highly suspicious. Left blasting clay miner space enhancing mass con cerning for metastatic disease. He is currently on a heparin drip. Continue to amiodarone drip at 0.5 mg/m. Sodium 136. Potassium 3.2. Bicarb 35. BUN 18. Creatinine 0.73. Glucose 139. Echocardiogram reveals impaired left ventricular systolic function with ejection fraction of 35%. The plan is for a core biopsy of the adenopathy in the neck to obtain adequate tissue specimen that could be sent for NGS testing. The patient is seen today 11/21/2022 in follow-up on the regular medical floor. He is awake and alert in no acute distress. He sitting up in bed. Maintaining good O2 saturations in the 90s on room air. His pain is better controlled. He did undergo a core biopsy of the left neck lymph node yesterday. Pathology pending. He has been seen and evaluated by radiation oncology and orthopedics regarding his multiple lytic lesion pains. White count 11.4. Hemoglobin 10.7. Sodium 135. Potassium 4.0. Bicarb 37. BUN 14. Creatinine 0.87. Glucose 128. Calcium 10.2. He is continued on a heparin drip. He remains in atrial fibrillation with a better controlled ventricular response. Objective - Vital Signs Vital signs: Vital Signs Temp 98 F 11/21/22 11:41 Pulse 106 H 11/21/22 11:41 Resp 18 11/21/22 11:41 BP 118/61 11/21/22 11:41 Pulse Ox 92 L 11/21/22 11:41 FiO2 Intake & Output 11/20/22 11/21/22 11/21/22 18:59 06:59 18:59 Intake Total 703.046 0 501.716 Output Total 1200 1100 1175 Balance -496.954 -1100 -673.284 Weight 100.244 kg Intake: Intake, IV Titration 243.046 0 141.716 Amount Amiodarone 450 mg In 104.447 Dextrose 5% in Water 250 ml @ 0.5 MG/MIN 16.667 mls/hr IV .Q15H ALVARO Rx#: [id number] Heparin Sod,Pork in 0.45% 138.599 0 141.716 NaCl 25,000 unit In 0.45 % NaCl 1 250ml.bag @ 10 UNITS/KG/HR 10.024 mls/hr IV .Q24H ALVARO Rx#: [id number] Oral 460 360 Output: Urine 1200 1100 1175 Other: Voiding Method Urinal Urinal Urinal # Voids 1 1 1 - Exam GENERAL EXAM: Alert, very pleasant, 62-year-old male, on room air, comfortable in no apparent distress. HEAD: Normocephalic and atraumatic EYES: Normal reaction of pupils, equal size. NOSE: Clear with pink turbinates. THROAT: No erythema or exudates. NECK: Lymphadenopathy of the left neck. CHEST: No chest wall deformity. Facial grimacing with palpation of left lateral chest LUNGS: Equal air entry with no crackles, wheeze, rhonchi or dullness. No conversational dyspnea or accessory muscle use.. CVS: S1 and S2 normal with no audible murmur, irregular rhythm. No extra heart sounds. Heart rate is accelerated at 115 bpm. ABDOMEN: Obese abdomen. No hepatosplenomegaly, active bowel sounds, no guarding or rigidity. SPINE: No scoliosis or deformity SKIN: No rashes CENTRAL NERVOUS SYSTEM: No focal deficits, tone is normal in all 4 extremities. EXTREMITIES: There is 2-3+ bilateral lower extremity edema. no clubbing, or cyanosis. Peripheral pulses are intact. - Labs CBC & Chem 7: 11/21/22 07:59 11/21/22 07:59 Labs: Abnormal Lab Results - Last 24 Hours (Table) 11/21/22 11/21/22 11/21/22 Range/Units 07:59 07:59 12:13 WBC 11.4 H (3.8-10.6) k/uL RBC 3.94 L (4.30-5.90) m/uL Hgb 10.7 L (13.0-17.5) gm/dL Hct 36.2 L (39.0-53.0) % MCHC 29.5 L (31.0-37.0) g/dL RDW 16.7 H (11.5-15.5) % Plt Count 467 H (150-450) k/uL Neutrophils # 9.3 H (1.3-7.7) k/uL APTT 40.7 H (22.0-30.0) sec Sodium 135 L (137-145) mmol/L Chloride 93 L (98-107) mmol/L Carbon Dioxide 37 H (22-30) mmol/L Glucose 128 H (74-99) mg/dL Total Protein 6.0 L (6.3-8.2) g/dL Albumin 2.9 L (3.5-5.0) g/dL Assessment and Plan Assessment: Enlarged left lower masslike lung consolidation concerning for underlying malignancy with postobstructive atelectasis. There was also redemonstration of small left-sided pleural effusion. There is CT evidence of metastatic disease throughout the mediastinum, multiple osseous structures, and right adrenal gland. Left-sided femur x-ray also showed an irregular lytic lesion involving the distal left femur. Computed tomography scan of the abdomen and pelvis revealed osseous metastatic disease seen correlating with recent CT study. Persistent suspicious left lower lobe masslike consolidation. No obvious suspicious mass in the abdomen or pelvis. Scattered lytic destructive lesions are seen in multiple areas. MRI of the brain revealed at least 3 areas of dural thickening with extension into the skull on the right for 2 of them and another impressing on the right occipital lobe. The more superior lesion extending in the calvarium appears more aggressive compared to the inferior osseous lesion. This lesion is highly suspicious for dural metastasis with extension into the skull. The falx cerebri lesion is also highly suspicious. Left blasting clay miner space enhancing mass concerning for metastatic disease. Lymphadenopathy of the left neck. Core biopsy performed 11/20/2022. 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 There were also multiple remote right rib fractures including 6, 8, 9. Atrial fibrillation with rapid ventricular rate, currently being managed with amiodarone infusion Suspect mild exacerbation of systolic congestive heart failure History of nonischemic cardiomyopathy with an ejection fraction of 20% Hypercalcemia History of recent Covid 19 infection History of left-sided pleural effusion with thoracentesis performed on 09/15/2022. A total of 1.5 L was removed at that time, and appeared to be a transudate based on protein and LDH analysis. No cytology report to review. Diabetes mellitus type 2, [id number] Hypertension Osteoporosis Obstructive sleep apnea Ex-smoker, admits to smoking cigars only Plan: The patient was seen and evaluated Labs and medications reviewed Core biopsy of the left neck adenopathy performed with pathology pending Awaiting MRI of the left hip, femur and spine No plans for surgical intervention at this time Discontinue heparin drip, resume Xarelto Currently stable and on room air Assure adequate pain control We will continue to follow I have personally seen and examined the patient, performed the documentation and the assessment and plan as written. Number of minutes spent on the visit: 10.
--- NOTE | 2022-11-21 16:06 | P.PN ---
Subjective Progress Note Date: 11/21/22 62-year-old male patient of Dr. Lau with a past medical history significant for paroxysmal atrial fibrillation, hyperlipidemia, hypertension, and diabetes. Patient was recently hospitalized in September which time he was treated for paroxysmal atrial fibrillation and underwent cardioversion on 08/13, cardiomyo cheryl with known EF of 30-35% possibly tachycardic-induced, acute kidney injury. Patient has follow-up in the office with Dr. Bernstein regarding persistent atrial fibrillation with cardiomyopathy and severe heart failure on 11/12 due to difficulty controlling her heart rate and failure off amiodarone and electrical cardioversion. Dr. Bernstein recommended A. fib ablation. Patient came into [facility] in [facility] due to pain on his left side in the hip pelvis area. He states he has not been eating much with no appetite and has lost 42 pounds since July. He is complaining of lower extremity edema. His blood pressure has been low since admission. He denies lightheadedness or dizziness. He was found to be in A. fib with RVR and started on heparin drip and amiodarone drip. Heart rate remains elevated. Patient also states that he was informed about results of CAT scan report. Objective - Vital Signs Vital signs: Vital Signs Temp 98.3 F 11/21/22 04:28 Pulse 76 11/21/22 04:28 Resp 20 11/21/22 04:28 BP 116/65 11/21/22 04:28 Pulse Ox 93 L 11/21/22 04:28 FiO2 Intake & Output 11/20/22 11/21/22 11/21/22 18:59 06:59 18:59 Intake Total 703.046 0 Output Total 1200 1100 Balance -496.954 -1100 Weight 100.244 kg Intake: Intake, IV Titration 243.046 0 Amount Amiodarone 450 mg In 104.447 Dextrose 5% in Water 250 ml @ 0.5 MG/MIN 16.667 mls/hr IV .Q15H [facility]VARO Rx#: [id number] Heparin Sod,Pork in 0.45% 138.599 0 NaCl 25,000 unit In 0.45 % NaCl 1 250ml.bag @ 10 UNITS/KG/HR 10.024 mls/hr IV .Q24H [facility]VARO Rx#: [id number] Oral 460 Output: Urine 1200 1100 Other: Voiding Method Urinal Urinal # Voids 1 1 - Exam GENERAL EXAM: Alert, very pleasant, 62-year-old male, on room air, comfortable in no apparent distress. HEAD: Normocephalic and atraumatic EYES: Normal reaction of pupils, equal size. NECK: Lymphadenopathy of the left neck. LUNGS: Equal air entry with no crackles, wheeze, rhonchi or dullness. No conver sational dyspnea or accessory muscle use.. CVS: S1 and S2 normal with no audible murmur, irregular rhythm. No extra heart sounds. Heart rate is accelerated at 115 bpm. ABDOMEN: Obese abdomen. No hepatosplenomegaly, active bowel sounds, no guarding or rigidity. CENTRAL NERVOUS SYSTEM: No focal deficits, tone is normal in all 4 extremities. EXTREMITIES: There is 2-3+ bilateral lower extremity edema. no clubbing, or cyanosis. Peripheral pulses are intact. - Labs CBC & Chem 7: 11/21/22 07:59 11/21/22 07:59 Labs: Abnormal Lab Results - Last 24 Hours (Table) 11/21/22 11/21/22 Range/Units 07:59 07:59 WBC 11.4 H (3.8-10.6) k/uL RBC 3.94 L (4.30-5.90) m/uL Hgb 10.7 L (13.0-17.5) gm/dL Hct 36.2 L (39.0-53.0) % MCHC 29.5 L (31.0-37.0) g/dL RDW 16.7 H (11.5-15.5) % Plt Count 467 H (150-450) k/uL Neutrophils # 9.3 H (1.3-7.7) k/uL Sodium 135 L (137-145) mmol/L Chloride 93 L (98-107) mmol/L Carbon Dioxide 37 H (22-30) mmol/L Glucose 128 H (74-99) mg/dL Total Protein 6.0 L (6.3-8.2) g/dL Albumin 2.9 L (3.5-5.0) g/dL Assessment and Plan Assessment: Enlarged left lower masslike lung consolidation concerning for underlying malignancy with postobstructive atelectasis. There was also redemonstration of small left-sided pleural effusion. There is CT evidence of metastatic disease throughout the mediastinum, multiple osseous structures, and right adrenal gland. Left-sided femur x-ray also showed an irregular lytic lesion involving the distal left femur. Computed tomography scan of the abdomen and pelvis revealed osseous metastatic disease seen correlating with recent CT study. Pe rsistent suspicious left lower lobe masslike consolidation. No obvious suspicious mass in the abdomen or pelvis. Scattered lytic destructive lesions are seen in multiple areas. MRI of the brain revealed at least 3 areas of dural thickening with extension into the skull on the right for 2 of them and another impressing on the right occipital lobe. The more superior lesion extending in the calvarium appears more aggressive compared to the inferior osseous lesion. This lesion is highly suspicious for dural metastasis with extension into the skull. The falx cerebri lesion is also highly suspicious. 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 Lymphadenopathy of the left neck. 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 There were also multiple remote right rib fractures including 6, 8, 9. Atrial fibrillation with rapid ventricular rate, currently being managed with amiodarone infusion Suspect mild exacerbation of systolic congestive heart failure History of nonischemic cardiomyopathy with an ejection fraction of 20% Hypercalcemia History of left-sided pleural effusion with thoracentesis performed on 09/15/2022. A total of 1.5 L was removed at that time, and appeared to be a transudate based on protein and LDH analysis. No cytology report to review. Diabetes mellitus type 2, [id number] Hypertension Patient is seen and evaluated in room at bedside; plan of care discussed with family present in the room - Patient is status post needle biopsy of left sided cervical lymph nodes - Has been evaluated by orthopedic surgery and recommended MRI of the left hip, femur and spine; no surgical intervention recommended at this time - Patient is recommended to continue with IV heparin for atrial fibrillation and will be transitioned to oral Xarelto was no further interventions are recommended -- Per patient he was unable to lay flat for MRI due to uncontrolled pain; patient is currently on IV morphine - We will switch to IV Dilaudid 1 mg every 3 hours when necessary DVT prophylaxis- SCDs/IV heparin CODE STATUS; full code
[2022-11-21] MEDS: RIVAROXABAN 20 MG TAB PO SCH (16:08)
--- NOTE | 2022-11-21 17:27 | P.PN ---
Subjective Progress Note Date: 11/21/22 Principal diagnosis: pleural effusion, lung mass At today's visit patient is resting comfortably in bed. He reports left lower extremity pain. Breathing is even and unlabored area are since saturation 93% on 3L nasal cannula Objective - Vital Signs Vital signs: Vital Signs Temp 98 F 11/21/22 11:41 Pulse 106 H 11/21/22 11:41 Resp 18 11/21/22 11:41 BP 118/61 11/21/22 11:41 Pulse Ox 92 L 11/21/22 11:41 FiO2 Intake & Output 11/20/22 11/21/22 11/21/22 18:59 06:59 18:59 Intake Total 703.046 0 1241.716 Output Total 1200 1100 1175 Balance -496.954 -1100 66.716 Weight 100.244 kg Intake: Intake, IV Titration 243.046 0 141.716 Amount Amiodarone 450 mg In 104.447 Dextrose 5% in Water 250 ml @ 0.5 MG/MIN 16.667 mls/hr IV .Q15H [facility]VARO Rx#: [id number] Heparin Sod,Pork in 0.45% 138.599 0 141.716 NaCl 25,000 unit In 0.45 % NaCl 1 250ml.bag @ 10 UNITS/KG/HR 10.024 mls/hr IV .Q24H [facility]VARO Rx#: [id number] Oral 460 1100 Output: Urine 1200 1100 1175 Other: Voiding Method Urinal Urinal Urinal # Voids 1 1 1 - Constitutional General appearance: Present: average body habitus, no acute distress - EENT Eyes: Present: anicteric sclerae, EOMI ENT: Present: hearing grossly normal - Neck Details: bilateral cervical adenopathy, left>right Neck: Present: lymphadenopathy - Respiratory Details: breathing is even and unlabored - Cardiovascular Details: skin warm and dry - Integumentary Integumentary: Absent: cyanotic - Musculoskeletal Musculoskeletal Comment(s): decreased range of motion of bilateral lower extremities - Psychiatric Psychiatric: Present: A&O x's 3 - Labs CBC & Chem 7: 11/21/22 07:59 11/21/22 07:59 Labs: Abnormal Lab Results - Last 24 Hours (Table) 11/21/22 11/21/22 11/21/22 Range/Units 07:59 07:59 12:13 WBC 11.4 H (3.8-10.6) k/uL RBC 3.94 L (4.30-5.90) m/uL Hgb 10.7 L (13.0-17.5) gm/dL Hct 36.2 L (39.0-53.0) % MCHC 29.5 L (31.0-37.0) g/dL RDW 16.7 H (11.5-15.5) % Plt Count 467 H (150-450) k/uL Neutrophils # 9.3 H (1.3-7.7) k/uL APTT 40.7 H (22.0-30.0) sec Sodium 135 L (137-145) mmol/L Chloride 93 L (98-107) mmol/L Carbon Dioxide 37 H (22-30) mmol/L Glucose 128 H (74-99) mg/dL Total Protein 6.0 L (6.3-8.2) g/dL Albumin 2.9 L (3.5-5.0) g/dL Assessment and Plan (1) Hypercalcemia Current Visit: Yes Status: Acute Priority: High Code(s): E83.52 - HYPERCALCEMIA SNOMED Code(s): 06004918 (2) Lesion of left femur Current Visit: Yes Status: Acute Priority: High Code(s): M89.9 - DISORDER OF BONE, UNSPECIFIED SNOMED Code(s): 61390756719594820 (3) Lung mass Current Visit: Yes Status: Acute Priority: High Code(s): R91.8 - OTHER NON SPECIFIC ABNORMAL FINDING OF LUNG FIELD SNOMED Code(s): 708439079 Plan: Lt leg pain, lytic lesion of lt femur -Orthopedic consulted. no plan for surgical intervention at this time. Awaiting left femur MRI. -Pt is receiving pain meds, titrate for comfort -Meds for prevention narcotic induced constipation ordered Cervical LAD, SQ chest nodules and lt lung mass -Discussed with pt and his daughter at the bedside clinical picture most c onsistent with malignancy -Reviewed need for biopsy to identify primary and for molecular testing -We reviewed multiple options for biopsy. We were going to await Orthopedic assessment to see if the femur is suspicious for impending fracture and orthopedic intervention was recommended then, would be able to obtain substantial tissue from surgical procedure. Surgical planning and intervention may take several days so, patient is on the schedule for Interventional Radiology to do bone biopsy today. Case was discussed with Interventional Radiologist. Core biopsy of the adenopathy in the neck is more desirable for adequate tissue specimen that can be sent for NGS testing. LN bx obtained, res ults pending -CT AP did not show any evidence of disease in the abdomen or pelvis. MRI of the brain showing some suspicious areas, but patient and family know that I be discussed with Radiation Oncologist, who will likely meet with them in the next day or so to discuss. Radiation oncology consulted. Spoke with rad onc, plan for palliative radiation of bilateral hips and possibly left femur if no surgical intervention is planned. Stereotactic radiosurgery also planned for dural lesions once tissue diagnosis obtained. Hypercalcemia 2/2 malignancy -Ca++ 10.2 today. No intervention other than hydration. -Hold off on any bisphosphonates until Ortho has r/o surgical intervention We discussed cancer as the cause for all of the abnormal findings. Reinforced that biopsy is needed to confirm primary source. We discussed the importance of next generation sequencing/molecular testing on the tumor to assess as targeted therapies aren't an option for treatment. We discussed that likely patient has a spread malignancy, not curable but, treatable. They asked about prognosis. Knowing the primary is necessary because malignancies-including different types of lung cancer- have different prognoses and lines of treatment available. Goal of any treatment though, is palliation of symptoms, improve quality of life and quantity of life. All of the patient and his family's questions were answered to the best of my ability at this time. Dr sinests: I performed a history and physical examination of this patient, developed impression and plan of care. Discussed with dictator. I agree with dictators note, documented as a scribe.
[2022-11-21] MEDS: ATORVASTATIN 20 MG TAB PO SCH (20:21)
[2022-11-21] MEDS: HYDROmorphone 1 MG/ML 1 ML SYRINGE IVP PRN ×2 (20:26→23:27)
[2022-11-22] MEDS: HYDROmorphone 1 MG/ML 1 ML SYRINGE IVP PRN ×2 (04:00→09:37)
--- NOTE | 2022-11-22 08:58 | P.PN ---
Subjective Progress Note Date: 11/22/22 This is a 62-year-old male who is being followed by orthopedics for lesion of the left femur. Patient is currently being worked up for metastatic cancer. Patient states that he tried to do the MRI for his left femur yesterday, but was in too much pain. Patient states that they are going to try to do the MRI today with different pain medication. Patient denies any new complaints today. Objective - Vital Signs Vital signs: Vital Signs Temp 98.4 F 11/22/22 03:25 Pulse 120 H 11/22/22 03:25 Resp 19 11/22/22 03:25 BP 104/81 11/22/22 03:25 Pulse Ox 97 11/22/22 03:25 FiO2 Intake & Output 11/21/22 11/22/22 11/22/22 18:59 06:59 18:59 Intake Total 1241.716 Output Total 1600 2200 Balance -358.284 -2200 Intake: Intake, IV Titration 141.716 Amount Heparin Sod,Pork in 0.45% 141.716 NaCl 25,000 unit In 0.45 % NaCl 1 250ml.bag @ 10 UNITS/KG/HR 10.024 mls/hr IV .Q24H [facility] Rx#: [id number] Oral 1100 Output: Urine 1600 2200 Straight 775 Other: Voiding Method Urinal Urinal # Voids 1 - Exam On exam patient is sitting up in bed in no acute distress. Patient is alert and oriented x3. There is pain with any attempts to move the left leg. There is tenderness to palpation over the distal left thigh. No tenderness to palpation over the left greater trochanter. Patient has full motion of bilateral feet and ankles. Sensation intact to bilateral lower extremities with some sensitivity to light touch. There is mild swelling in bilateral lower extremities. Neur ovascular status and circulatory status are intact bilaterally. - Labs CBC & Chem 7: 11/21/22 07:59 11/21/22 07:59 Labs: Abnormal Lab Results - Last 24 Hours (Table) 11/21/22 11/21/22 11/21/22 Range/Units 07:59 07:59 12:13 WBC 11.4 H (3.8-10.6) k/uL RBC 3.94 L (4.30-5.90) m/uL Hgb 10.7 L (13.0-17.5) gm/dL Hct 36.2 L (39.0-53.0) % MCHC 29.5 L (31.0-37.0) g/dL RDW 16.7 H (11.5-15.5) % Plt Count 467 H (150-450) k/uL Neutrophils # 9.3 H (1.3-7.7) k/uL APTT 40.7 H (22.0-30.0) sec Sodium 135 L (137-145) mmol/L Chloride 93 L (98-107) mmol/L Carbon Dioxide 37 H (22-30) mmol/L Glucose 128 H (74-99) mg/dL Total Protein 6.0 L (6.3-8.2) g/dL Albumin 2.9 L (3.5-5.0) g/dL Assessment and Plan (1) Lesion of left femur Current Visit: Yes Status: Acute Priority: High Code(s): M89.9 - DISORDER OF BONE, UNSPECIFIED SNOMED Code(s): 63747789043106936 (2) Left thigh pain Current Visit: Yes Status: Acute Code(s): M79.652 - PAIN IN LEFT THIGH SNOMED Code(s): 46662413 Plan: 1. Recommend an MRI of the left femur. 2. X-rays are reviewed with Dr. Burt Ramires and at this time no surgical intervention is planned. We will await MRI results and continue to follow.
[2022-11-22] MEDS ORDERED: NON FORMULARY DRUG (Semaglutide [Ozempic] 0.25 MG/0.2 ML Each) SQ SCH (09:00)
[2022-11-22] MEDS: PANTOPRAZOLE 40 MG/10 ML VIAL IV SCH (09:28)
[2022-11-22] MEDS: SPIRONOLACTONE 25 MG TAB PO SCH (09:29)
[2022-11-22] MEDS: TAMSULOSIN 0.4 MG CAP.ER.24H PO SCH (09:29)
[2022-11-22] MEDS: GABAPENTIN 400 MG CAP PO SCH ×3 (09:29→21:11)
[2022-11-22] MEDS: METOPROLOL SUCCINATE (ER) 100 MG TAB.ER.24H PO SCH ×2 (09:29→21:12)
[2022-11-22] MEDS: FUROSEMIDE 40 MG TAB PO SCH (09:30)
[2022-11-22] MEDS: SENNOSIDES-DOCUSATE SODIUM 1 EACH TAB PO SCH ×2 (09:30→21:11)
[2022-11-22] MEDS: AMIODARONE 200 MG TAB PO SCH (09:30)
[2022-11-22] MEDS: DAPAGLIFLOZIN PROPANEDIOL 10 MG TABLET PO SCH (09:38)
[2022-11-22] MEDS: DIGOXIN 250 MCG TAB PO SCH (09:38)
--- NOTE | 2022-11-22 13:53 | P.PN ---
Subjective Progress Note Date: 11/22/22 I am seeing this patient in new consultation today 11/19/2022 after the patient presented yesterday evening complaining of left lateral chest pain and left hip pain. Patient is a 62-year-old male with past medical history significant for paroxysmal atrial fibrillation anticoagulated on Xarelto, nonischemic cardiomyopathy with an ejection fraction of 20 %, diabetes mellitus type 2, hypertension, osteoarthritis, and obstructive sleep apnea. He admits to chronic cigar smoking. He says that he has lost approximately 40 pounds since the beginning of the year. Patient was recently admitted and treated for left lower lobe pneumonia, A. fib RVR, subsequent GI bleed, and was COVID 19 positive back in August,. He did have a left-sided pleural effusion, and a thoracentesis was performed on 09/15/2022. A total of 1.5 L was removed at that time, and appeared to be a transudate based on protein and LDH analysis. No cytology report to review. The patient was ultimately discharged on September 15, and did reportedly follow up with Dr. Fair in the office. Patient arrived to the emergency room last night with complaints of left lateral chest pain and left hip pain. Denies any trauma. Chest x-ray redemonstrated a small left pleural effusion with patchy left basilar air space opacities indicating atelectasis versus infiltrate. A follow-up chest CT with contrast demonstrated an increased sized left lower lung consolidation, and it is concerning for underlying malignancy with postobstructive atelectasis. There was also evidence of metastatic disease throughout the mediastinum, multiple osseous structures, and right adrenal gland. There are enlarged mediastinal lymph nodes including a subcarinal lymph node measuring 3.6 x 2.4 cm and an enlarged right lower articular lymph node measuring 1.9 cm. Multiple noted lytic lesions involving the ribs, including possible pathological fractures of the left second rib and remote right sided fractures of ribs 6, 8, 9. 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 Left-sided femur x-ray does not show any acute fracture, but does show an irregular lytic lesion involving the distal left femur and mild osteoarthritic changes of the left hip. Patient is currently sitting up in the recliner, on room air, in no acute distress. He has been reportedly experiencing progressively worsening back pain over the past few months. He can no longer lay flat on his back because of this. He denies any shortness of breath, fever, chills, cough, hemoptysis. Patient is currently in atrial fibrillation with rapid ventricular rate with a heart rate of 170 beats per minute, and he was just switched from Cardizem to amiodarone. Amiodarone is currently infusing at 1 mg/m. Blood pressure is holding and normotensive. Cardiology is managing the patient's atrial fibrillation. CBC shows a WBC count of 11, hemoglobin 11.2, hematocrit 35.7, platelets 532. BMP shows a sodium of 134, potassium 3.6, chlo ride 89, serum CO2 36, BUN 21, creatinine 0.75, glucose 169. There is hypercalcemia. Troponin is negative 3. NT proBNP was elevated at 2210. There is extensive bilateral lower extremity edema. Lasix was restarted. The patient's condition is guarded, and he will be admitted to the cardiac stepdown unit for closer monitoring. The patient is seen today 11/20/2022 in follow-up on the regular medical floor. He is currently resting fairly comfortably in bed. Still with a lot of hot bone pain more so in this left chest, left hip and lower back. No worsening shortness of breath, cough or congestion. No hemoptysis. Maintaining O2 saturations in the 90s on room air. He's afebrile. Hemodynamically stable. Computed tomography scan of the abdomen and pelvis revealed osseous metastatic d isease seen correlating with recent CT study. Persistent suspicious left lower lobe masslike consolidation. No obvious suspicious mass in the abdomen or pelvis. Scattered lytic destructive lesions are seen in multiple areas. MRI of the brain revealed at least 3 areas of dural thickening with extension into the skull on the right for 2 of them and another impressing on the right occipital lobe. The more superior lesion extending in the calvarium appears more aggressive compared to the inferior osseous lesion. This. Lesion is highly suspicious for dural metastasis with extension into the skull. The falx cerebri lesion is also highly suspicious. 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 He is currently on a heparin drip. Continue to amiodarone drip at 0.5 mg/m. Sodium 136. Potassium 3.2. Bicarb 35. BUN 18. Creatinine 0.73. Glucose 139. Echocardiogram reveals impaired left ventricular systolic function with ejection fraction of 35%. The plan is for a core biopsy of the adenopathy in the neck to obtain adequate tissue specimen that could be sent for NGS testing. The patient is seen today 11/21/2022 in follow-up on the regular medical floor. He is awake and alert in no acute distress. He sitting up in bed. Maintaining good O2 saturations in the 90s on room air. His pain is better controlled. He did undergo a core biopsy of the left neck lymph node yesterday. Pathology pending. He has been seen and evaluated by radiation oncology and orthopedics regarding his multiple lytic lesion pains. White count 11.4. Hemoglobin 10.7. Sodium 135. Potassium 4.0. Bicarb 37. BUN 14. Creatinine 0.87. Glucose 128. Calcium 10.2. He is continued on a heparin drip. He remains in atrial fibrillation with a better controlled ventricular response. The patient is seen today 11/22/2022 in follow-up on the regular medical floor. He is currently resting comfortably in bed. Awake and alert in no acute distress. Stating his pain is well controlled. He is currently maintaining O2 saturations in the 90s on room air. He's been afebrile. Hemodynamically stable. Pathology is pending of the core biopsy of the left neck mass. He was unable to complete the MRI of the left femur yesterday due to pain. Working with different pain medications to try and get the MRI done today. He does remain in atrial fibrillation. Transitioned back to his Xarelto. Continues on oral diuretics. Currently in a -2.5 L balance. Objective - Vital Signs Vital signs: Vital Signs Temp 98.4 F 11/22/22 03:25 Pulse 102 H 11/22/22 12:00 Resp 16 11/22/22 12:00 BP 129/80 11/22/22 12:00 Pulse Ox 92 L 11/22/22 12:00 FiO2 Intake & Output 11/21/22 11/22/22 11/22/22 18:59 06:59 18:59 Intake Total 1241.716 Output Total 1600 2200 Balance -358.284 -2200 Intake: Intake, IV Titration 141.716 Amount Heparin Sod,Pork in 0.45% 141.716 NaCl 25,000 unit In 0.45 % NaCl 1 250ml.bag @ 10 UNITS/KG/HR 10.024 mls/hr IV .Q24H [facility] Rx#: [id number] Oral 1100 Output: Urine 1600 2200 Straight 775 Other: Voiding Method Urinal Urinal Urinal # Voids 1 - Exam GENERAL EXAM: Alert, very pleasant, 62-year-old male, resting in bed, on room air, fairly comfortable in no apparent distress. HEAD: Normocephalic and atraumatic EYES: Normal reaction of pupils, equal size. NOSE: Clear with pink turbinates. THROAT: No erythema or exudates. NECK: Lymphadenopathy of the left neck. CHEST: No chest wall deformity. LUNGS: Equal air entry with no crackles, wheeze, rhonchi or dullness. No conversational dyspnea or accessory muscle use.. CVS: S1 and S2 normal with no audible murmur, irregular rhythm. No extra heart sounds. Heart rate is accelerated at 115 bpm. ABDOMEN: Obese abdomen. No hepatosplenomegaly, active bowel sounds, no guarding or rigidity. SPINE: No scoliosis or deformity SKIN: No rashes CENTRAL NERVOUS SYSTEM: No focal deficits, tone is normal in all 4 extremities. EXTREMITIES: There is 2-3+ bilateral lower extremity edema. no clubbing, or cyanosis. Peripheral pulses are intact. - Labs CBC & Chem 7: 11/21/22 07:59 11/21/22 07:59 Assessment and Plan Assessment: Enlarged left lower masslike lung consolidation concerning for underlying malignancy with postobstructive atelectasis. There was also redemonstration of small left-sided pleural effusion. There is CT evidence of metastatic disease throughout the mediastinum, multiple osseous structures, and right adrenal gland. Left-sided femur x-ray also showed an irregular lytic lesion involving the distal left femur. Computed tomography scan of the abdomen and pelvis revealed osseous metastatic disease seen correlating with recent CT study. Persistent suspicious left lower lobe masslike consolidation. No obvious suspicious mass in the abdomen or pelvis. Scattered lytic destructive lesions are seen in multiple areas. MRI of the brain revealed at least 3 areas of dural thickening with extension into the skull on the right for 2 of them and another impressing on the right occipital lobe. The more superior lesion extending in the calvarium appears more aggressive compared to the inferior osseous lesion. This lesion is highly suspicious for dural metastasis with extension into the skull. The falx cerebri lesion is also highly suspicious. 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 Lymphadenopathy of the left neck. Core biopsy performed 11/20/2022. 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 There were also multiple remote right rib fractures including 6, 8, 9. Atrial fibrillation with rapid ventricular rate, currently being managed with amiodarone infusion Suspect mild exacerbation of systolic congestive heart failure History of nonischemic cardiomyopathy with an ejection fraction of 20% Hypercalcemia History of recent Covid 19 infection History of left-sided pleural effusion with thoracentesis performed on 09/15/2022. A total of 1.5 L was removed at that time, and appeared to be a transudate based on protein and LDH analysis. No cytology report to review. Diabetes mellitus type 2, [id number] Hypertension Osteoporosis Obstructive sleep apnea Ex-smoker, admits to smoking cigars only Plan: The patient was seen and evaluated Medications reviewed Currently stable and on room air Assure adequate pain control Further testing still pending Transitioned back to Xarelto We will continue to follow I have personally seen and examined the patient, performed the documentation and the assessment and plan as written. Number of minutes spent on the visit: 10.
[2022-11-22] MEDS: HYDROcodone/APAP 7.5-325MG 1 EACH TAB PO PRN ×2 (16:24→23:20)
[2022-11-22] MEDS: RIVAROXABAN 20 MG TAB PO SCH (16:25)
--- NOTE | 2022-11-22 16:56 | P.PN ---
Subjective Progress Note Date: 11/22/22 HISTORY OF PRESENT ILLNESS: This is a 62-year-old male patient of Dr. Lau with a past medical history significant for paroxysmal atrial fibrillation, hyperlipidemia, hypertension, and diabetes. Patient was recently hospitalized in September which time he was treated for paroxysmal atrial fibrillation and underwent cardioversion on 08/13, cardiomyopathy with known EF of 30-35% possibly tachycardic-induced, acute kidney injury. Patient has follow-up in the office with Dr. Bernstein regarding persistent atrial fibrillation with cardiomyopathy and severe heart failure on 11/12 due to difficulty controlling her heart rate and failure off amiodarone and electrical cardioversion. Dr. Bernstein recommended A. fib ablation. Patient came into [facility] in [facility] due to pain on his left side in the hip p [place] area. He states he has not been eating much with no appetite and has lost 42 pounds since July. He is complaining of lower extremity edema. His blood pressure has been low since admission. He denies lightheadedness or dizziness. He was found to be in A. fib with RVR and started on heparin drip and amiodarone drip. Heart rate remains elevated. Patient also states that he was informed about results of CAT scan report. * EKG reveals atrial fibrillation with RVR with heart rate of 134 * CT of the chest revealed left lower lobe consolidation underlying malignancy with postobstructive atelectasis. Metastatic disease to the mediastinum, right adrenal gland and throughout the osseous structures with distractive changes. Osseous metastasis involving T6 and T7. Anterior subcutaneous nodules suspicious for metastatic disease. Acute left-sided rib fracture and chronic. Right-sided rib fracture. * WBC 11, hemoglobin 11.2, platelet count 532. INR 1.4. Sodium 134, potassium 3.6, chloride 89, CO2 36, BUN 21 creatinine 0.75. Troponin negative 3. ProBNP 2210. TSH 4.61. Urinalysis clear with 4+ glucose. * Left femur x-ray: Irregular lytic lesion involving the distal left femur. Etiologies include primary bone tumor versus infection. * Current home cardiac medications include amiodarone 200 mg daily, atorvastatin 20 mg at bedtime, Farxiga 10 mg daily, Lasix 40 mg daily, Toprol-XL 100 mg in the morning and 50 mg in the evening, Xarelto 20 mg daily, Ozempic or 0.25 mg on Thursday, Aldactone 12.5 mg daily * Most recent echocardiogram obtained in August 2022 revealed ejection fraction 30-35% * Echocardiogram 11/19/2022 reveals EF of 30-35%, technically difficult study. * Cardiac catheterization with Dr. Lau on 10/21 revealed mild coronary artery disease. Elevated left-sided filling pressure 11/20 Patient is seen today on the cardiac stepdown unit. He denies having any chest pain, lower extremity edema is improved. He is scheduled for core biopsy today. Yesterday we started him on IV dig followed by oral dig daily starting today. He has been on amiodarone drip. 11/21 Patient is currently on heparin drip. We started digoxin and resume patient on home dose of amiodarone yesterday. Heart rate is 120s, blood pressure 116/65. Patient denies feeling any heart palpitations, no shortness of breath, no chest pain and no lower extremity edema is has resolved. He denies any chest pressure. He is status post lymph node biopsy performed yesterday. Oncology is waiting for biopsy report and plan is for palliative radiation to the bilateral hips and orthopedic input. 11/22 Patient seen and examined. He reports just feeling tired today. Denies any chest pain or shortness of breath. No swelling. Tele shows a-fib rate 110's.He is on xarelto now. PHYSICAL EXAM: VITAL SIGNS: Reviewed. GENERAL: Well-developed in no acute distress. HEENT: Head is normocephalic. Pupils are equal, round. Sclerae anicteric. Mucous membranes of the mouth are somewhat dry. Neck supple. No JVD or thyromegaly LUNGS: Respirations even and unlabored. Lungs essentially clear to auscultation bilaterally. HEART: Irregular rate and rhythm. S1 and S2 heard. ABDOMEN: Soft. Nondistended. Nontender. EXTREMITIES: Normal range of motion. No clubbing or cyanosis. Peripheral pulses intact. No extremity edema NEUROLOGIC: Awake and alert. Oriented x 3. ASSESSMENT: Hip pain with metastatic disease Paroxysmal atrial fibrillation with RVR Recent A. fib cardioversion, 08/13/2022 Cardiomyopathy, ejection fraction 30-35%, possibly tachycardia induced Chronic systolic heart failure with reduced EF Hypertension Hyperlipidemia Diabetes PLAN: Continue metoprolol 100 mg twice daily, continue oral amiodarone 200 mg daily, digoxin 250 g daily. Continue Xarelto. Will monitor heart rates. Further recommendations pending patient's course Nurse practitioner note has been reviewed by physician. Signing provider agrees with the documented findings, assessment, and plan of care. Objective - Vital Signs Vital signs: Vital Signs Temp 98.4 F 11/22/22 03:25 Pulse 102 H 11/22/22 12:00 Resp 16 11/22/22 12:00 BP 129/80 11/22/22 12:00 Pulse Ox 92 L 11/22/22 12:00 FiO2 Intake & Output 11/21/22 11/22/22 11/22/22 18:59 06:59 18:59 Intake Total 1241.716 0 Output Total 1600 2200 1100 Balance -358.284 -2200 -1100 Intake: Intake, IV Titration 141.716 Amount Heparin Sod,Pork in 0.45% 141.716 NaCl 25,000 unit In 0.45 % NaCl 1 250ml.bag @ 10 UNITS/KG/HR 10.024 mls/hr IV .Q24H [facility] Rx#: [id number] Oral 1100 0 Output: Urine 1600 2200 1100 Straight 775 Other: Voiding Method Urinal Urinal Urinal # Voids 1 - Labs CBC & Chem 7: 11/21/22 07:59 11/21/22 07:59
[2022-11-22] MEDS: ACETAMINOPHEN TAB 325 MG TAB PO PRN (21:12)
[2022-11-22] MEDS: ATORVASTATIN 20 MG TAB PO SCH (21:12)
[2022-11-23] MEDS: HYDROcodone/APAP 7.5-325MG 1 EACH TAB PO PRN ×3 (05:18→22:10)
[2022-11-23] MEDS: PANTOPRAZOLE 40 MG/10 ML VIAL IV SCH (08:09)
[2022-11-23] MEDS: MORPHINE SULFATE 4 MG/ML SYRINGE IV PRN ×2 (08:09→18:32)
[2022-11-23] MEDS: DIGOXIN 250 MCG TAB PO SCH (08:10)
[2022-11-23] MEDS: FUROSEMIDE 40 MG TAB PO SCH (08:10)
[2022-11-23] MEDS: AMIODARONE 200 MG TAB PO SCH (08:10)
[2022-11-23] MEDS: TAMSULOSIN 0.4 MG CAP.ER.24H PO SCH (08:10)
[2022-11-23] MEDS: GABAPENTIN 400 MG CAP PO SCH ×3 (08:10→22:11)
[2022-11-23] MEDS: SENNOSIDES-DOCUSATE SODIUM 1 EACH TAB PO SCH ×2 (08:10→22:10)
[2022-11-23] MEDS: DAPAGLIFLOZIN PROPANEDIOL 10 MG TABLET PO SCH (08:10)
[2022-11-23] MEDS: SPIRONOLACTONE 25 MG TAB PO SCH (08:10)
[2022-11-23] MEDS: METOPROLOL SUCCINATE (ER) 100 MG TAB.ER.24H PO SCH ×2 (08:11→22:11)
--- NOTE | 2022-11-23 09:48 | P.PN ---
Subjective Progress Note Date: 11/23/22 This is a 62-year-old male who is being followed by orthopedics for lesion of the left femur. Patient is currently being worked up for metastatic cancer. Patient complains of continued pain in his back and hip. Patient denies any new complaints today. Objective - Vital Signs Vital signs: Vital Signs Temp 98.1 F 11/23/22 03:35 Pulse 102 H 11/23/22 08:00 Resp 16 11/23/22 08:00 BP 134/65 11/23/22 08:00 Pulse Ox 93 L 11/23/22 08:00 FiO2 Intake & Output 11/22/22 11/23/22 11/23/22 18:59 06:59 18:59 Intake Total 180 180 Output Total 1925 1575 Balance -1745 -1575 180 Intake: Oral 180 180 Output: Urine 1924 1575 Other: Voiding Method Urinal Urinal - Exam On exam patient is sitting up in bed in no acute distress. Patient is alert and oriented x3. There is pain with any attempts to move the left leg. There is tenderness to palpation over the distal left thigh. No tenderness to palpation over the left greater trochanter. Patient has full motion of bilateral feet and ankles. Sensation intact to bilateral lower extremities with some sensitivity to light touch. There is mild swelling in bilateral lower extremities. Neurovascula r status and circulatory status are intact bilaterally. - Labs CBC & Chem 7: 11/21/22 07:59 11/21/22 07:59 Assessment and Plan (1) Lesion of left femur Current Visit: Yes Status: Acute Priority: High Code(s): M89.9 - DISORDER OF BONE, UNSPECIFIED SNOMED Code(s): 52193036457323872 (2) Left thigh pain Current Visit: Yes Status: Acute Code(s): M79.652 - PAIN IN LEFT THIGH SNOMED Code(s): 99607797 Plan: 1. Recommend an MRI of the left femur. 2. X-rays are reviewed with Dr. Burt Ramires and at this time no surgical intervention is planned. We will await MRI results and continue to follow.
--- NOTE | 2022-11-23 12:21 | P.PN ---
Subjective Progress Note Date: 11/23/22 I am seeing this patient in new consultation today 11/19/2022 after the patient presented yesterday evening complaining of left lateral chest pain and left hip pain. Patient is a 62-year-old male with past medical history significant for paroxysmal atrial fibrillation anticoagulated on Xarelto, nonischemic cardiomyopathy with an ejection fraction of 20 %, diabetes mellitus type 2, hypertension, osteoarthritis, and obstructive sleep apnea. He admits to chronic cigar smoking. He says that he has lost approximately 40 pounds since the beginning of the year. Patient was recently admitted and treated for left lower lobe pneumonia, A. fib RVR, subsequent GI bleed, and was COVID 19 positive back in August,. He did have a left-sided pleural effusion, and a thoracentesis was performed on 09/15/2022. A total of 1.5 L was removed at that time, and appeared to be a transudate based on protein and LDH analysis. No cytology report to review. The patient was ultimately discharged on September 15, and did reportedly follow up with Dr. Fair in the office. Patient arrived to the emergency room last night with complaints of left lateral chest pain and left hip pain. Denies any trauma. Chest x-ray redemonstrated a small left pleural effusion with patchy left basilar air space opacities indicating atelectasis versus infiltrate. A follow-up chest CT with contrast demonstrated an increased sized left lower lung consolidation, and it is concerning for underlying malignancy with postobstructive atelectasis. There was also evidence of metastatic disease throughout the mediastinum, multiple osseous structures, and right adrenal gland. There are enlarged mediastinal lymph nodes including a subcarinal lymph node measuring 3.6 x 2.4 cm and an enlarged right lower articular lymph node measuring 1.9 cm. Multiple noted lytic lesions involving the ribs, including possible pathological fractures of the left second rib and remote right sided fractures of ribs 6, 8, 9. 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 Left-sided femur x-ray does not show any acute fracture, but does show an irregular lytic lesion involving the distal left femur and mild osteoarthritic changes of the left hip. Patient is currently sitting up in the recliner, on room air, in no acute distress. He has been reportedly experiencing progressively worsening back pain over the past few months. He can no longer lay flat on his back because of this. He denies any shortness of breath, fever, chills, cough, hemoptysis. Patient is currently in atrial fibrillation with rapid ventricular rate with a heart rate of 170 beats per minute, and he was just switched from Cardizem to amiodarone. Amiodarone is currently infusing at 1 mg/m. Blood pressure is holding and normotensive. Cardiology is managing the patient's atrial fibrillation. CBC shows a WBC count of 11, hemoglobin 11.2, hematocrit 35.7, platelets 532. BMP shows a sodium of 134, potassium 3.6, chlo ride 89, serum CO2 36, BUN 21, creatinine 0.75, glucose 169. There is hypercalcemia. Troponin is negative 3. NT proBNP was elevated at 2210. There is extensive bilateral lower extremity edema. Lasix was restarted. The patient's condition is guarded, and he will be admitted to the cardiac stepdown unit for closer monitoring. The patient is seen today 11/20/2022 in follow-up on the regular medical floor. He is currently resting fairly comfortably in bed. Still with a lot of hot bone pain more so in this left chest, left hip and lower back. No worsening shortness of breath, cough or congestion. No hemoptysis. Maintaining O2 saturations in the 90s on room air. He's afebrile. Hemodynamically stable. Computed tomography scan of the abdomen and pelvis revealed osseous metastatic d isease seen correlating with recent CT study. Persistent suspicious left lower lobe masslike consolidation. No obvious suspicious mass in the abdomen or pelvis. Scattered lytic destructive lesions are seen in multiple areas. MRI of the brain revealed at least 3 areas of dural thickening with extension into the skull on the right for 2 of them and another impressing on the right occipital lobe. The more superior lesion extending in the calvarium appears more aggressive compared to the inferior osseous lesion. This. Lesion is highly suspicious for dural metastasis with extension into the skull. The falx cerebri lesion is also highly suspicious. Left bus assistant space enhancing mass con cerning for metastatic disease. He is currently on a heparin drip. Continue to amiodarone drip at 0.5 mg/m. Sodium 136. Potassium 3.2. Bicarb 35. BUN 18. Creatinine 0.73. Glucose 139. Echocardiogram reveals impaired left ventricular systolic function with ejection fraction of 35%. The plan is for a core biopsy of the adenopathy in the neck to obtain adequate tissue specimen that could be sent for NGS testing. The patient is seen today 11/21/2022 in follow-up on the regular medical floor. He is awake and alert in no acute distress. He sitting up in bed. Maintaining good O2 saturations in the 90s on room air. His pain is better controlled. He did undergo a core biopsy of the left neck lymph node yesterday. Pathology pending. He has been seen and evaluated by radiation oncology and orthopedics regarding his multiple lytic lesion pains. White count 11.4. Hemoglobin 10.7. Sodium 135. Potassium 4.0. Bicarb 37. BUN 14. Creatinine 0.87. Glucose 128. Calcium 10.2. He is continued on a heparin drip. He remains in atrial fibrillation with a better controlled ventricular response. The patient is seen today 11/22/2022 in follow-up on the regular medical floor. He is currently resting comfortably in bed. Awake and alert in no acute distress. Stating his pain is well controlled. He is currently maintaining O2 saturations in the 90s on room air. He's been afebrile. Hemodynamically stable. Pathology is pending of the core biopsy of the left neck mass. He was unable to complete the MRI of the left femur yesterday due to pain. Working with different pain medications to try and get the MRI done today. He does remain in atrial fibrillation. Transitioned back to his Xarelto. Continues on oral diuretics. Currently in a -2.5 L balance. The patient is seen today 11/23/2022 in follow-up on the regular medical floor. He is currently resting fairly comfortably in bed. His pain is better controlled today. Still some lingering back pain. He denies any shortness of breath, cough or congestion. No hemoptysis. Good O2 saturations in the 90s on room air. He remains in atrial fibrillation, anticoagulated with Xarelto. Continued on diuretics. Currently in a -3.3 L balance. Objective - Vital Signs Vital signs: Vital Signs Temp 98.1 F 11/23/22 03:35 Pulse 90 11/23/22 12:00 Resp 16 11/23/22 12:00 BP 128/68 11/23/22 12:00 Pulse Ox 94 L 11/23/22 12:00 FiO2 Intake & Output 11/22/22 11/23/22 11/23/22 18:59 06:59 18:59 Intake Total 180 180 Output Total 1924 1575 Balance -1745 -1575 180 Intake: Oral 180 180 Output: Urine 1924 1574 Other: Voiding Method Urinal Urinal Urinal - Exam GENERAL EXAM: Alert, 62-year-old male, resting in bed, fairly comfortable in no apparent distress. HEAD: Normocephalic and atraumatic EYES: Normal reaction of pupils, equal size. NOSE: Clear with pink turbinates. THROAT: No erythema or exudates. NECK: Lymphadenopathy of the left neck. CHEST: No chest wall deformity. LUNGS: Equal air entry with no crackles, wheeze, rhonchi or dullness. On room air. No conversational dyspnea. CVS: S1 and S2 normal with no audible murmur, irregular rhythm. No extra heart sounds. ABDOMEN: Obese abdomen. No hepatosplenomegaly, active bowel sounds, no guarding or rigidity. SPINE: No scoliosis or deformity SKIN: No rashes CENTRAL NERVOUS SYSTEM: No focal deficits, tone is normal in all 4 extremities. EXTREMITIES: There is 1 to 2+ bilateral lower extremity edema. no clubbing, or cyanosis. Peripheral pulses are intact. - Labs CBC & Chem 7: 11/21/22 07:59 11/21/22 07:59 Assessment and Plan Assessment: Enlarged left lower masslike lung consolidation concerning for underlying malignancy with postobstructive atelectasis. There was also redemonstration of small left-sided pleural effusion. There is CT evidence of metastatic disease throughout the mediastinum, multiple osseous structures, and right adrenal gland. Left-sided femur x-ray also showed an irregular lytic lesion involving the distal left femur. Computed tomography scan of the abdomen and pelvis revealed osseous metastatic disease seen correlating with recent CT study. Persistent suspicious left lower lobe masslike consolidation. No obvious suspicious mass in the abdomen or pelvis. Scattered lytic destructive lesions are seen in multiple areas. MRI of the brain revealed at least 3 areas of dural thickening with extension into the skull on the right for 2 of them and another impressing on the right occipital lobe. The more superior lesion extending in the calvarium appears more aggressive compared to the inferior osseous lesion. This lesion is highly suspicious for dural metastasis with extension into the skull. The falx cerebri lesion is also highly suspicious. Left bus assistant space enhancing mass concerning for metastatic disease. Lymphadenopathy of the left neck. Core biopsy performed 11/20/2022. 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 There were also multiple remote right rib fractures including 6, 8, 9. Atrial fibrillation with currently controlled ventricular rate, anticoagulated with Xarelto Suspect mild exacerbation of systolic congestive heart failure History of nonischemic cardiomyopathy with an ejection fraction of 20% Hypercalcemia History of recent Covid 19 infection History of left-sided pleural effusion with thoracentesis performed on 09/15/2022. A total of 1.5 L was removed at that time, and appeared to be a transudate based on protein and LDH analysis. No cytology report to review. Diabetes mellitus type 2, [id number] Hypertension Osteoporosis Obstructive sleep apnea Ex-smoker, admits to smoking cigars only Plan: The patient was seen and evaluated Medications reviewed Currently stable and on room air Core biopsy pathology pending Plan is for MRI of the left femur and spine tomorrow We will continue to follow I have personally seen and examined the patient, performed the documentation and the assessment and plan as written. Number of minutes spent on the visit: 10.
--- NOTE | 2022-11-23 12:42 | P.PN ---
Subjective Progress Note Date: 11/23/22 HISTORY OF PRESENT ILLNESS: This is a 62-year-old male patient of Dr. Lau with a past medical history significant for paroxysmal atrial fibrillation, hyperlipidemia, hypertension, and diabetes. Patient was recently hospitalized in September which time he was treated for paroxysmal atrial fibrillation and underwent cardioversion on 08/13, cardiomyopathy with known EF of 30-35% possibly tachycardic-induced, acute kidney injury. Patient has follow-up in the office with Dr. Bernstein regarding persistent atrial fibrillation with cardiomyopathy and severe heart failure on 11/12 due to difficulty controlling her heart rate and failure off amiodarone and electrical cardioversion. Dr. Bernstein recommended A. fib ablation. Patient came into [facility] in Hospital due to pain on his left side in the hip p [place] area. He states he has not been eating much with no appetite and has lost 42 pounds since July. He is complaining of lower extremity edema. His blood pressure has been low since admission. He denies lightheadedness or dizziness. He was found to be in A. fib with RVR and started on heparin drip and amiodarone drip. Heart rate remains elevated. Patient also states that he was informed about results of CAT scan report. * EKG reveals atrial fibrillation with RVR with heart rate of 134 * CT of the chest revealed left lower lobe consolidation underlying malignancy with postobstructive atelectasis. Metastatic disease to the mediastinum, right adrenal gland and throughout the osseous structures with distractive changes. Osseous metastasis involving T6 and T7. Anterior subcutaneous nodules suspicious for metastatic disease. Acute left-sided rib fracture and chronic. Right-sided rib fracture. * WBC 11, hemoglobin 11.2, platelet count 532. INR 1.4. Sodium 134, potassium 3.6, chloride 89, CO2 36, BUN 21 creatinine 0.75. Troponin negative 3. ProBNP 2210. TSH 4.61. Urinalysis clear with 4+ glucose. * Left femur x-ray: Irregular lytic lesion involving the distal left femur. Etiologies include primary bone tumor versus infection. * Current home cardiac medications include amiodarone 200 mg daily, atorvastatin 20 mg at bedtime, Farxiga 10 mg daily, Lasix 40 mg daily, Toprol-XL 100 mg in the morning and 50 mg in the evening, Xarelto 20 mg daily, Ozempic or 0.25 mg on Thursday, Aldactone 12.5 mg daily * Most recent echocardiogram obtained in August 2022 revealed ejection fraction 30-35% * Echocardiogram 11/19/2022 reveals EF of 30-35%, technically difficult study. * Cardiac catheterization with Dr. Lau on 10/21 revealed mild coronary artery disease. Elevated left-sided filling pressure 11/20 Patient is seen today on the cardiac stepdown unit. He denies having any chest pain, lower extremity edema is improved. He is scheduled for core biopsy today. Yesterday we started him on IV dig followed by oral dig daily starting today. He has been on amiodarone drip. 11/21 Patient is currently on heparin drip. We started digoxin and resume patient on home dose of amiodarone yesterday. Heart rate is 120s, blood pressure 116/65. Patient denies feeling any heart palpitations, no shortness of breath, no chest pain and no lower extremity edema is has resolved. He denies any chest pressure. He is status post lymph node biopsy performed yesterday. Oncology is waiting for biopsy report and plan is for palliative radiation to the bilateral hips and orthopedic input. 11/22 Patient seen and examined. He reports just feeling tired today. Denies any chest pain or shortness of breath. No swelling. Tele shows a-fib rate 110's.He is on xarelto now. 11/23 He is doing well, complains of being uncomfortable from having to lay in bed. No chest pain or pressure. Heart rates are better controlled with a-fib in 90- 100's. PHYSICAL EXAM: VITAL SIGNS: Reviewed. GENERAL: Well-developed in no acute distress. HEENT: Head is normocephalic. Pupils are equal, round. Sclerae anicteric. Mucous membranes of the mouth are somewhat dry. Neck supple. No JVD or thyromegaly LUNGS: Respirations even and unlabored. Lungs essentially clear to auscultation bilaterally. HEART: Irregular rate and rhythm. S1 and S2 heard. ABDOMEN: Soft. Nondistended. Nontender. EXTREMITIES: Normal range of motion. No clubbing or cyanosis. Peripheral pulses intact. No extremity edema NEUROLOGIC: Awake and alert. Oriented x 3. ASSESSMENT: Hip pain with metastatic disease Paroxysmal atrial fibrillation with RVR Recent A. fib cardioversion, 08/13/2022 Cardiomyopathy, ejection fraction 30-35%, possibly tachycardia induced Chronic systolic heart failure with reduced EF Hypertension Hyperlipidemia Diabetes PLAN: Heart rates are better controlled. Continue metoprolol 100 mg twice daily, co ntinue oral amiodarone 200 mg daily, digoxin 250 g daily. Continue Xarelto. He is awaiting MRI as per ortho. Further recommendations pending patient's course. Nurse practitioner note has been reviewed by physician. Signing provider agrees with the documented findings, assessment, and plan of care. Objective - Vital Signs Vital signs: Vital Signs Temp 98.1 F 11/23/22 03:35 Pulse 102 H 11/23/22 08:00 Resp 16 11/23/22 08:00 BP 134/65 11/23/22 08:00 Pulse Ox 93 L 11/23/22 08:00 FiO2 Intake & Output 11/22/22 11/23/22 11/23/22 18:59 06:59 18:59 Intake Total 180 180 Output Total 1925 1575 Balance -1745 -1575 180 Intake: Oral 180 180 Output: Urine 1925 1575 Other: Voiding Method Urinal Urinal - Labs CBC & Chem 7: 11/21/22 07:59 11/21/22 07:59
--- NOTE | 2022-11-23 15:14 | P.PN ---
Subjective Progress Note Date: 11/22/22 62-year-old male patient of Dr. Lau with a past medical history significant for paroxysmal atrial fibrillation, hyperlipidemia, hypertension, and diabetes. Patient was recently hospitalized in September which time he was treated for paroxysmal atrial fibrillation and underwent cardioversion on 08/13, cardiomyo cheryl with known EF of 30-35% possibly tachycardic-induced, acute kidney injury. Patient has follow-up in the office with Dr. Bernstein regarding persistent atrial fibrillation with cardiomyopathy and severe heart failure on 11/12 due to difficulty controlling her heart rate and failure off amiodarone and electrical cardioversion. Dr. Bernstein recommended A. fib ablation. Patient came into [facility] in Hospital due to pain on his left side in the hip pelvis area. He states he has not been eating much with no appetite and has lost 42 pounds since July. He is complaining of lower extremity edema. His blood pressure has been low since admission. He denies lightheadedness or dizziness. He was found to be in A. fib with RVR and started on heparin drip and amiodarone drip. Heart rate remains elevated. Patient also states that he was informed about results of CAT scan report. 11/22/2022 Patient is seen and evaluated in follow-up on the regular medical floor. He is currently resting comfortably in bed. Awake and alert in no acute distress. Stating his pain is well controlled. He is currently maintaining O2 saturations in the 90s on room air. He's been afebrile. Hemodynamically stable. Pathology is pending of the core biopsy of the left neck mass. He was unable to complete the MRI of the left femur yesterday due to pain. Working with different pain medications to try and get the MRI done today. He does remain in atrial fibrillation. Transitioned back to his Xarelto. Continues on oral diuretics. Currently in a -2.5 L balance. Pulmonary service on board and recommending to continue current management; patient has been transitioned back to Xarelto MRI is completed but results are pending Objective - Vital Signs Vital signs: Vital Signs Temp 98.4 F 11/22/22 03:25 Pulse 102 H 11/22/22 12:00 Resp 16 11/22/22 12:00 BP 129/80 11/22/22 12:00 Pulse Ox 92 L 11/22/22 12:00 FiO2 Intake & Output 11/21/22 11/22/22 11/22/22 18:59 06:59 18:59 Intake Total 1241.716 0 Output Total 1600 2200 1100 Balance -358.284 -2200 -1100 Intake: Intake, IV Titration 141.716 Amount Heparin Sod,Pork in 0.45% 141.716 NaCl 25,000 unit In 0.45 % NaCl 1 250ml.bag @ 10 UNITS/KG/HR 10.024 mls/hr IV .Q24H ALVARO Rx#: [id number] Oral 1100 0 Output: Urine 1600 2200 1100 Straight 775 Other: Voiding Method Urinal Urinal Urinal # Voids 1 - Exam GENERAL EXAM: Alert, very pleasant, 62-year-old male, on room air, comfortable in no apparent distress. HEAD: Normocephalic and atraumatic EYES: Normal reaction of pupils, equal size. NECK: Lymphadenopathy of the left neck. LUNGS: Equal air entry with no crackles, wheeze, rhonchi or dullness. No conversational dyspnea or accessory muscle use.. CVS: S1 and S2 normal with no audible murmur, irregular rhythm. No extra heart sounds. Heart rate is accelerated at 115 bpm. ABDOMEN: Obese abdomen. No hepatosplenomegaly, active bowel sounds, no guarding or rigidity. CENTRAL NERVOUS SYSTEM: No focal deficits, tone is normal in all 4 extremities. EXTREMITIES: There is 2-3+ bilateral lower extremity edema. no clubbing, or cyanosis. Peripheral pulses are intact. - Labs CBC & Chem 7: 11/21/22 07:59 11/21/22 07:59 Assessment and Plan Assessment: Enlarged left lower masslike lung consolidation concerning for underlying malignancy with postobstructive atelectasis. There was also redemonstration of small left-sided pleural effusion. There is CT evidence of metastatic disease throughout the mediastinum, multiple osseous structures, and right adrenal gland. Left-sided femur x-ray also showed an irregular lytic lesion involving the distal left femur. Computed tomography scan of the abdomen and pelvis revealed osseous metastatic disease seen correlating with recent CT study. Pers istent suspicious left lower lobe masslike consolidation. No obvious suspicious mass in the abdomen or pelvis. Scattered lytic destructive lesions are seen in multiple areas. MRI of the brain revealed at least 3 areas of dural thickening with extension into the skull on the right for 2 of them and another impressing on the right occipital lobe. The more superior lesion extending in the calvari um appears more aggressive compared to the inferior osseous lesion. This lesion is highly suspicious for dural metastasis with extension into the skull. The falx cerebri lesion is also highly suspicious. Left heater mechanic space enhancing mass concerning for metastatic disease. Lymphadenopathy of the left neck. 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 There were also multiple remote right rib fractures including 6, 8, 9. Atrial fibrillation with rapid ventricular rate, currently being managed with amiodarone infusion Suspect mild exacerbation of systolic congestive heart failure History of nonischemic cardiomyopathy with an ejection fraction of 20% Hypercalcemia History of left-sided pleural effusion with thoracentesis performed on 09/15/2022. A total of 1.5 L was removed at that time, and appeared to be a transudate based on protein and LDH analysis. No cytology report to review. Diabetes mellitus type 2, [id number] Hypertension Patient is seen and evaluated in room at bedside; plan of care discussed with family present in the room - Patient is status post needle biopsy of left sided cervical lymph nodes - Has been evaluated by orthopedic surgery and recommended MRI of the left hip, femur and spine; no surgical intervention recommended at this time - Patient is recommended to continue with IV heparin for atrial fibrillation and will be transitioned to oral Xarelto was no further interventions are recommended -- Per patient he was unable to lay flat for MRI due to uncontrolled pain; patient is currently on IV morphine - We will switch to IV Dilaudid 1 mg every 3 hours when necessary DVT prophylaxis- SCDs/IV heparin CODE STATUS; full code
--- NOTE | 2022-11-23 15:17 | P.PN ---
Subjective Progress Note Date: 11/23/22 62-year-old male patient of Dr. Lua with a past medical history significant for paroxysmal atrial fibrillation, hyperlipidemia, hypertension, and diabetes. Patient was recently hospitalized in September which time he was treated for paroxysmal atrial fibrillation and underwent cardioversion on 08/13, cardiomyo cheryl with known EF of 30-35% possibly tachycardic-induced, acute kidney injury. Patient has follow-up in the office with Dr. Bernstein regarding persistent atrial fibrillation with cardiomyopathy and severe heart failure on 11/12 due to difficulty controlling her heart rate and failure off amiodarone and electrical cardioversion. Dr. Bernstein recommended A. fib ablation. Patient came into [facility] due to pain on his left side in the hip pelvis area. He states he has not been eating much with no appetite and has lost 42 pounds since July. He is complaining of lower extremity edema. His blood pressure has been low since admission. He denies lightheadedness or dizziness. He was found to be in A. fib with RVR and started on heparin drip and amiodarone drip. Heart rate remains elevated. Patient also states that he was informed about results of CAT scan report. 11/22/2022 Patient is seen and evaluated in follow-up on the regular medical floor. He is currently resting comfortably in bed. Awake and alert in no acute distress. Stating his pain is well controlled. He is currently maintaining O2 saturations in the 90s on room air. He's been afebrile. Hemodynamically stable. Pathology is pending of the core biopsy of the left neck mass. He was unable to complete the MRI of the left femur yesterday due to pain. Working with different pain medications to try and get the MRI done today. He does remain in atrial fibrillation. Transitioned back to his Xarelto. Continues on oral diuretics. Currently in a -2.5 L balance. Pulmonary service on board and recommending to continue current management; patient has been transitioned back to Xarelto 11/23/2022 Patient is seen and evaluated in follow-up on the regular medical floor. He is currently resting fairly comfortably in bed. His pain is better controlled today. Still some lingering back pain. He denies any shortness of breath, cough or congestion. No hemoptysis. Good O2 saturations in the 90s on room air. He remains in atrial fibrillation, anticoagulated with Xarelto. Continued on diuretics. Currently in a -3.3 L balance. MRI of the left femur and spine is ordered and is to be completed tomorrow Core biopsy of left cervical lymph node is completed and results are pending Objective - Vital Signs Vital signs: Vital Signs Temp 98.1 F 11/23/22 03:35 Pulse 90 11/23/22 12:00 Resp 16 11/23/22 12:00 BP 128/68 11/23/22 12:00 Pulse Ox 94 L 11/23/22 12:00 FiO2 Intake & Output 11/22/22 11/23/22 11/23/22 18:59 06:59 18:59 Intake Total 180 360 Output Total 1924 1575 Balance -1745 -157 360 Intake: Oral 180 360 Output: Urine 1924 1574 Other: Voiding Method Urinal Urinal Urinal - Exam GENERAL EXAM: Alert, very pleasant, 62-year-old male, on room air, comfortable in no apparent distress. HEAD: Normocephalic and atraumatic EYES: Normal reaction of pupils, equal size. NECK: Lymphadenopathy of the left neck. LUNGS: Equal air entry with no crackles, wheeze, rhonchi or dullness. No conversational dyspnea or accessory muscle use.. CVS: S1 and S2 normal with no audible murmur, irregular rhythm. No extra heart sounds. Heart rate is accelerated at 115 bpm. ABDOMEN: Obese abdomen. No hepatosplenomegaly, active bowel sounds, no guarding or rigidity. CENTRAL NERVOUS SYSTEM: No focal deficits, tone is normal in all 4 extremities. EXTREMITIES: There is 2-3+ bilateral lower extremity edema. no clubbing, or cyanosis. Peripheral pulses are intact. - Labs CBC & Chem 7: 11/21/22 07:59 11/21/22 07:59 Assessment and Plan Assessment: Enlarged left lower masslike lung consolidation concerning for underlying malignancy with postobstructive atelectasis. There was also redemonstration of small left-sided pleural effusion. There is CT evidence of metastatic disease throughout the mediastinum, multiple osseous structures, and right adrenal gland. Left-sided femur x-ray also showed an irregular lytic lesion involving the distal left femur. Computed tomography scan of the abdomen and pelvis revealed osseous metastatic disease seen correlating with recent CT study. Persistent suspicious left lower lobe masslike consolidation. No obvious suspicious mass in the abdomen or pelvis. Scattered lytic destructive lesions are seen in multiple areas. MRI of the brain revealed at least 3 areas of dural thickening with extension into the skull on the right for 2 of them and another impressing on the right occipital lobe. The more superior lesion extending in the calvarium appears more aggressive compared to the inferior osseous lesion. This lesion is highly suspicious for dural metastasis with extension into the skull. The falx cerebri lesion is also highly suspicious. Left desk attendant space enhancing mass concerning for metastatic disease. Lymphadenopathy of the left neck. 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 There were also multiple remote right rib fractures including 6, 8, 9. Atrial fibrillation with rapid ventricular rate, currently being managed with amiodarone infusion Suspect mild exacerbation of systolic congestive heart failure History of nonischemic cardiomyopathy with an ejection fraction of 20% Hypercalcemia History of left-sided pleural effusion with thoracentesis performed on 09/15/2022. A total of 1.5 L was removed at that time, and appeared to be a t ransudate based on protein and LDH analysis. No cytology report to review. Diabetes mellitus type 2, [id number] Hypertension Patient is seen and evaluated in room at bedside; plan of care discussed with family present in the room - Patient is status post needle biopsy of left sided cervical lymph nodes - Has been evaluated by orthopedic surgery and recommended MRI of the left hip, femur and spine; no surgical intervention recommended at this time - Patient is recommended to continue with IV heparin for atrial fibrillation and will be transitioned to oral Xarelto was no further interventions are recommended -- Per patient he was unable to lay flat for MRI due to uncontrolled pain; patient is currently on IV morphine - We will switch to IV Dilaudid 1 mg every 3 hours when necessary DVT prophylaxis- SCDs/IV heparin CODE STATUS; full code
[2022-11-23] MEDS: RIVAROXABAN 20 MG TAB PO SCH (16:06)
[2022-11-23] MEDS: ATORVASTATIN 20 MG TAB PO SCH (22:10)
[2022-11-24] MEDS: HYDROcodone/APAP 7.5-325MG 1 EACH TAB PO PRN (05:01)
[2022-11-24] MEDS: TAMSULOSIN 0.4 MG CAP.ER.24H PO SCH (09:53)
[2022-11-24] MEDS: GABAPENTIN 400 MG CAP PO SCH ×4 (09:53→23:27)
[2022-11-24] MEDS: FUROSEMIDE 40 MG TAB PO SCH (09:53)
[2022-11-24] MEDS: SENNOSIDES-DOCUSATE SODIUM 1 EACH TAB PO SCH ×2 (09:53→20:16)
[2022-11-24] MEDS: METOPROLOL SUCCINATE (ER) 100 MG TAB.ER.24H PO SCH ×2 (09:53→20:16)
[2022-11-24] MEDS: AMIODARONE 200 MG TAB PO SCH (09:53)
[2022-11-24] MEDS: SPIRONOLACTONE 25 MG TAB PO SCH (09:53)
[2022-11-24] MEDS: DIGOXIN 250 MCG TAB PO SCH (09:53)
[2022-11-24] MEDS: DAPAGLIFLOZIN PROPANEDIOL 10 MG TABLET PO SCH (09:54)
[2022-11-24] MEDS: PANTOPRAZOLE 40 MG/10 ML VIAL IV SCH (09:54)
[2022-11-24] MEDS: MORPHINE SULFATE 4 MG/ML SYRINGE IV PRN (09:54)
--- NOTE | 2022-11-24 13:12 | P.PN ---
Subjective Progress Note Date: 11/24/22 HISTORY OF PRESENT ILLNESS: This is a 62-year-old male patient of Dr. Lau with a past medical history significant for paroxysmal atrial fibrillation, hyperlipidemia, hypertension, and diabetes. Patient was recently hospitalized in September which time he was treated for paroxysmal atrial fibrillation and underwent cardioversion on 08/13, cardiomyopathy with known EF of 30-35% possibly tachycardic-induced, acute kidney injury. Patient has follow-up in the office with Dr. Bernstein regarding persistent atrial fibrillation with cardiomyopathy and severe heart failure on 11/12 due to difficulty controlling her heart rate and failure off amiodarone and electrical cardioversion. Dr. Bernstein recommended A. fib ablation. Patient [facility] into [facility] due to pain on his left side in the hip pelvis area. He states he has not been eating much with no appetite and has los t 42 pounds since July. He is complaining of lower extremity edema. His blood pressure has been low since admission. He denies lightheadedness or dizziness. He was found to be in A. fib with RVR and started on heparin drip and amiodarone drip. Heart rate remains elevated. Patient also states that he was informed about results of CAT scan report. * EKG reveals atrial fibrillation with RVR with heart rate of 134 * CT of the chest revealed left lower lobe consolidation underlying malignancy with postobstructive atelectasis. Metastatic disease to the mediastinum, right adrenal gland and throughout the osseous structures with distractive changes. Osseous metastasis involving T6 and T7. Anterior subcutaneous nodules suspicious for metastatic disease. Acute left-sided rib fracture and chronic. Right-sided rib fracture. * WBC 11, hemoglobin 11.2, platelet count 532. INR 1.4. Sodium 134, potassium 3.6, chloride 89, CO2 36, BUN 21 creatinine 0.75. Troponin negative 3. ProBNP 2210. TSH 4.61. Urinalysis clear with 4+ glucose. * Left femur x-ray: Irregular lytic lesion involving the distal left femur. Etiologies include primary bone tumor versus infection. * Current home cardiac medications include amiodarone 200 mg daily, atorvastatin 20 mg at bedtime, Farxiga 10 mg daily, Lasix 40 mg daily, Toprol-XL 100 mg in the morning and 50 mg in the evening, Xarelto 20 mg daily, Ozempic or 0.25 mg on Thursday, Aldactone 12.5 mg daily * Most recent echocardiogram obtained in August 2022 revealed ejection fraction 30-35% * Echocardiogram 11/19/2022 reveals EF of 30-35%, technically difficult study. * Cardiac catheterization with Dr. Lau on 10/21 revealed mild coronary artery disease. Elevated left-sided filling pressure 11/20 Patient is seen today on the cardiac stepdown unit. He denies having any chest pain, lower extremity edema is improved. He is scheduled for core biopsy today. Yesterday we started him on IV dig followed by oral dig daily starting today. He has been on amiodarone drip. 11/21 Patient is currently on heparin drip. We started digoxin and resume patient on home dose of amiodarone yesterday. Heart rate is 120s, blood pressure 116/65. Patient denies feeling any heart palpitations, no shortness of breath, no chest pain and no lower extremity edema is has resolved. He denies any chest pressure. He is status post lymph node biopsy performed yesterday. Oncology is waiting for biopsy report and plan is for palliative radiation to the bilateral hips and orthopedic input. 11/22 Patient seen and examined. He reports just feeling tired today. Denies any chest pain or shortness of breath. No swelling. Tele shows a-fib rate 110's.He is on xarelto now. 11/23 He is doing well, complains of being uncomfortable from having to lay in bed. No chest pain or pressure. Heart rates are better controlled with a-fib in 90- 100's. 11/24/2022 Patient examined this morning at the bedside. Patient denies chest pain or pressure. He currently denies shortness of breath. Telemetry reveals atrial fibrillation with controlled heart rates in the 80s. Blood pressure stable with a recent reading of 115/58. PHYSICAL EXAM: VITAL SIGNS: Reviewed. GENERAL: Well-developed in no acute distress. NECK: Supple. No JVD or thyromegaly LUNGS: Respirations even and unlabored. Lungs essentially clear to auscultation bilaterally. HEART: Irregular rate and rhythm. S1 and S2 heard. EXTREMITIES: Normal range of motion. No clubbing or cyanosis. Peripheral pulses intact. No lower extremity edema ASSESSMENT: Hip pain with metastatic disease Paroxysmal atrial fibrillation with RVR Recent A. fib cardioversion, 08/13/2022 Cardiomyopathy, ejection fraction 30-35%, possibly tachycardia induced Chronic systolic heart failure with reduced EF Hypertension Hyperlipidemia Diabetes PLAN: Continue current cardiac medications Patient is currently stable from a cardiac standpoint We will sign off. Please reconsult if needed. Nurse practitioner note has been reviewed by physician. Signing provider agrees with the documented findings, assessment, and plan of care. Objective - Vital Signs Vital signs: Vital Signs Temp 96.0 F L 11/24/22 04:00 Pulse 102 H 11/24/22 08:00 Resp 16 11/24/22 08:00 BP 115/58 11/24/22 08:00 Pulse Ox 93 L 11/24/22 08:00 FiO2 Intake & Output 11/23/22 11/24/22 11/24/22 18:59 06:59 18:59 Intake Total 360 Output Total 1175 Balance 360 -1175 Intake: Oral 360 Output: Urine 1175 Other: Voiding Method Urinal Urinal Urinal - Labs CBC & Chem 7: 11/21/22 07:59 11/21/22 07:59
--- NOTE | 2022-11-24 13:48 | P.PN ---
Subjective Progress Note Date: 11/24/22 I am seeing this patient in new consultation today 11/19/2022 after the patient presented yesterday evening complaining of left lateral chest pain and left hip pain. Patient is a 62-year-old male with past medical history significant for paroxysmal atrial fibrillation anticoagulated on Xarelto, nonischemic cardiomyopathy with an ejection fraction of 20 %, diabetes mellitus type 2, hypertension, osteoarthritis, and obstructive sleep apnea. He admits to chronic cigar smoking. He says that he has lost approximately 40 pounds since the beginning of the year. Patient was recently admitted and treated for left lower lobe pneumonia, A. fib RVR, subsequent GI bleed, and was COVID 19 positive back in August,. He did have a left-sided pleural effusion, and a thoracentesis was performed on 09/15/2022. A total of 1.5 L was removed at that time, and appeared to be a transudate based on protein and LDH analysis. No cytology report to review. The patient was ultimately discharged on September 15, and did reportedly follow up with Dr. Fair in the office. Patient arrived to the emergency room last night with complaints of left lateral chest pain and left hip pain. Denies any trauma. Chest x-ray redemonstrated a small left pleural effusion with patchy left basilar air space opacities indicating atelectasis versus infiltrate. A follow-up chest CT with contrast demonstrated an increased sized left lower lung consolidation, and it is concerning for underlying malignancy with postobstructive atelectasis. There was also evidence of metastatic disease throughout the mediastinum, multiple osseous structures, and right adrenal gland. There are enlarged mediastinal lymph nodes including a subcarinal lymph node measuring 3.6 x 2.4 cm and an enlarged right lower articular lymph node measuring 1.9 cm. Multiple noted lytic lesions involving the ribs, including possible pathological fractures of the left second rib and remote right sided fractures of ribs 6, 8, 9. 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 Left-sided femur x-ray does not show any acute fracture, but does show an irregular lytic lesion involving the distal left femur and mild osteoarthritic changes of the left hip. Patient is currently sitting up in the recliner, on room air, in no acute distress. He has been reportedly experiencing progressively worsening back pain over the past few months. He can no longer lay flat on his back because of this. He denies any shortness of breath, fever, chills, cough, hemoptysis. Patient is currently in atrial fibrillation with rapid ventricular rate with a heart rate of 170 beats per minute, and he was just switched from Cardizem to amiodarone. Amiodarone is currently infusing at 1 mg/m. Blood pressure is holding and normotensive. Cardiology is managing the patient's atrial fibrillation. CBC shows a WBC count of 11, hemoglobin 11.2, hematocrit 35.7, platelets 532. BMP shows a sodium of 134, potassium 3.6, chlo ride 89, serum CO2 36, BUN 21, creatinine 0.75, glucose 169. There is hypercalcemia. Troponin is negative 3. NT proBNP was elevated at 2210. There is extensive bilateral lower extremity edema. Lasix was restarted. The patient's condition is guarded, and he will be admitted to the cardiac stepdown unit for closer monitoring. The patient is seen today 11/20/2022 in follow-up on the regular medical floor. He is currently resting fairly comfortably in bed. Still with a lot of hot bone pain more so in this left chest, left hip and lower back. No worsening shortness of breath, cough or congestion. No hemoptysis. Maintaining O2 saturations in the 90s on room air. He's afebrile. Hemodynamically stable. Computed tomography scan of the abdomen and pelvis revealed osseous metastatic d isease seen correlating with recent CT study. Persistent suspicious left lower lobe masslike consolidation. No obvious suspicious mass in the abdomen or pelvis. Scattered lytic destructive lesions are seen in multiple areas. MRI of the brain revealed at least 3 areas of dural thickening with extension into the skull on the right for 2 of them and another impressing on the right occipital lobe. The more superior lesion extending in the calvarium appears more aggressive compared to the inferior osseous lesion. This. Lesion is highly suspicious for dural metastasis with extension into the skull. The falx cerebri lesion is also highly suspicious. Left sheet turner space enhancing mass con cerning for metastatic disease. He is currently on a heparin drip. Continue to amiodarone drip at 0.5 mg/m. Sodium 136. Potassium 3.2. Bicarb 35. BUN 18. Creatinine 0.73. Glucose 139. Echocardiogram reveals impaired left ventricular systolic function with ejection fraction of 35%. The plan is for a core biopsy of the adenopathy in the neck to obtain adequate tissue specimen that could be sent for NGS testing. The patient is seen today 11/21/2022 in follow-up on the regular medical floor. He is awake and alert in no acute distress. He sitting up in bed. Maintaining good O2 saturations in the 90s on room air. His pain is better controlled. He did undergo a core biopsy of the left neck lymph node yesterday. Pathology pending. He has been seen and evaluated by radiation oncology and orthopedics regarding his multiple lytic lesion pains. White count 11.4. Hemoglobin 10.7. Sodium 135. Potassium 4.0. Bicarb 37. BUN 14. Creatinine 0.87. Glucose 128. Calcium 10.2. He is continued on a heparin drip. He remains in atrial fibrillation with a better controlled ventricular response. The patient is seen today 11/22/2022 in follow-up on the regular medical floor. He is currently resting comfortably in bed. Awake and alert in no acute distress. Stating his pain is well controlled. He is currently maintaining O2 saturations in the 90s on room air. He's been afebrile. Hemodynamically stable. Pathology is pending of the core biopsy of the left neck mass. He was unable to complete the MRI of the left femur yesterday due to pain. Working with different pain medications to try and get the MRI done today. He does remain in atrial fibrillation. Transitioned back to his Xarelto. Continues on oral diuretics. Currently in a -2.5 L balance. The patient is seen today 11/23/2022 in follow-up on the regular medical floor. He is currently resting fairly comfortably in bed. His pain is better controlled today. Still some lingering back pain. He denies any shortness of breath, cough or congestion. No hemoptysis. Good O2 saturations in the 90s on room air. He remains in atrial fibrillation, anticoagulated with Xarelto. Continued on diuretics. Currently in a -3.3 L balance. Patient is seen today 11/24/2022 in follow-up on the regular medical floor. He is currently resting in bed. Awake and alert in no acute distress. Stating his pain is fairly well controlled currently. The plan is for possible MRI of the left femur/5 and thoracic spine today the patient can tolerate it. He denies any worsening shortness of breath, cough or congestion. No hemoptysis. Maintain O2 saturation in the 90s on room air. He is hemodynamically stable. Remains in atrial fibrillation with varying ventricular response. Anticoagulated with Xarelto. Remains on oral diuretics. Remains in a negative balance. Biopsy results still pending. Objective - Vital Signs Vital signs: Vital Signs Temp 96.0 F L 11/24/22 04:00 Pulse 102 H 11/24/22 08:00 Resp 16 11/24/22 08:00 BP 115/58 11/24/22 08:00 Pulse Ox 93 L 11/24/22 08:00 FiO2 Intake & Output 11/23/22 11/24/22 11/24/22 18:59 06:59 18:59 Intake Total 360 Output Total 1175 800 Balance 360 -1175 -800 Intake: Oral 360 Output: Urine 1175 800 Other: Voiding Method Urinal Urinal Urinal - Exam GENERAL EXAM: Alert, very pleasant 62-year-old male, resting in bed, on room air, fairly comfortable in no apparent distress. HEAD: Normocephalic and atraumatic EYES: Normal reaction of pupils, equal size. NOSE: Clear with pink turbinates. THROAT: No erythema or exudates. NECK: Lymphadenopathy of the left neck. CHEST: No chest wall deformity. LUNGS: Equal air entry with no crackles, wheeze, rhonchi or dullness. No conversational dyspnea. CVS: S1 and S2 normal with no audible murmur, irregular rhythm. No extra heart sounds. ABDOMEN: Obese abdomen. No hepatosplenomegaly, active bowel sounds, no guarding or rigidity. SPINE: No scoliosis or deformity SKIN: No rashes CENTRAL NERVOUS SYSTEM: No focal deficits, tone is normal in all 4 extremities. EXTREMITIES: There is 1 to 2+ bilateral lower extremity edema. no clubbing, or cyanosis. Peripheral pulses are intact. - Labs CBC & Chem 7: 11/21/22 07:59 11/21/22 07:59 Assessment and Plan Assessment: Enlarged left lower masslike lung consolidation concerning for underlying malignancy with postobstructive atelectasis. There was also redemonstration of small left-sided pleural effusion. There is CT evidence of metastatic disease throughout the mediastinum, multiple osseous structures, and right adrenal gland. Left-sided femur x-ray also showed an irregular lytic lesion involving the distal left femur. Computed tomography scan of the abdomen and pelvis revealed osseous metastatic disease seen correlating with recent CT study. Persistent suspicious left lower lobe masslike consolidation. No obvious suspicious mass in the abdomen or pelvis. Scattered lytic destructive lesions a re seen in multiple areas. MRI of the brain revealed at least 3 areas of dural thickening with extension into the skull on the right for 2 of them and another impressing on the right occipital lobe. The more superior lesion extending in the calvarium appears more aggressive compared to the inferior osseous lesion. This lesion is highly suspicious for dural metastasis with extension into the skull. The falx cerebri lesion is also highly suspicious. Left sheet turner space enhancing mass concerning for metastatic disease. Lymphadenopathy of the left neck. Core biopsy performed 11/20/2022. 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 There were also multiple remote right rib fractures including 6, 8, 9. Atrial fibrillation with currently controlled ventricular rate, anticoagulated with Xarelto Suspect mild exacerbation of systolic congestive heart failure History of nonischemic cardiomyopathy with an ejection fraction of 20% Hypercalcemia History of recent Covid 19 infection History of left-sided pleural effusion with thoracentesis performed on 09/15/2022. A total of 1.5 L was removed at that time, and appeared to be a transudate based on protein and LDH analysis. No cytology report to review. Diabetes mellitus type 2, [id number] Hypertension Osteoporosis Obstructive sleep apnea Ex-smoker, admits to smoking cigars only Plan: The patient was seen and evaluated Medications reviewed Plan is for MRI of the left femur and spine today if tolerated Currently stable and on room air Core biopsy pathology pending We will continue to follow I have personally seen and examined the patient, performed the documentation and the assessment and plan as written. Number of minutes spent on the visit: 10.
--- NOTE | 2022-11-24 14:46 | P.PN ---
Subjective Progress Note Date: 11/24/22 This is a 62-year-old male who is being followed by orthopedics for lesion of the left femur. Patient is currently being worked up for metastatic cancer. Patient complains of continued pain in his back and hip. Patient denies any new complaints today. Objective - Vital Signs Vital signs: Vital Signs Temp 96.0 F L 11/24/22 04:00 Pulse 102 H 11/24/22 08:00 Resp 16 11/24/22 08:00 BP 115/58 11/24/22 08:00 Pulse Ox 93 L 11/24/22 08:00 FiO2 Intake & Output 11/23/22 11/24/22 11/24/22 18:59 06:59 18:59 Intake Total 360 Output Total 1175 800 Balance 360 -1175 -800 Weight 100.244 kg Intake: Oral 360 Output: Urine 1175 800 Other: Voiding Method Urinal Urinal Urinal - Exam On exam patient is sitting up in bed in no acute distress. Patient is alert and oriented x3. There is pain with any attempts to move the left leg. There is tenderness to palpation over the distal left thigh. No tenderness to palpation over the left greater trochanter. Patient has full motion of bilateral feet and ankles. Sensation intact to bilateral lower extremities with some sensitivity to light touch. There is mild swelling in bilateral lower extremities. Neurovascular status and circulatory status are intact bilaterally. - Labs CBC & Chem 7: 11/21/22 07:59 11/21/22 07:59 Assessment and Plan (1) Lesion of left femur Current Visit: Yes Status: Acute Priority: High Code(s): M89.9 - DISORDER OF BONE, UNSPECIFIED SNOMED Code(s): 06264919491575697 (2) Left thigh pain Current Visit: Yes Status: Acute Code(s): M79.652 - PAIN IN LEFT THIGH SNOMED Code(s): 07254813 Plan: 1. Recommend an MRI of the left femur which is planned for later today. 2. At this time no surgical intervention is planned. We will await MRI results and continue to follow.
[2022-11-24] MEDS ORDERED: LORazepam 2 MG/ML INJ IV STA (16:10)
[2022-11-24] MEDS: HYDROmorphone 1 MG/ML 1 ML SYRINGE IVP PRN (16:30)
[2022-11-24] MEDS ORDERED: MORPHINE SULFATE 4 MG/ML SYRINGE IVP PRN (16:44)
--- NOTE | 2022-11-24 16:45 | P.PN ---
Subjective Progress Note Date: 11/24/22 This is a 62 year old male admitted to the hospital for left pleural effusion and atrial fibrillation with RVR. Patient has complaints of left hip pain and difficulty ambulating for the last 4 months, imaging on admission reveals bony metastasis. There is also left lung mass. Patient underwent left neck mass u/s guided core biopsy on 11/20 with pending pathology. Brain MRI reveals atleast 3 areas of dural thickening with extension into the skull on the right for 2 of them and another impressing upon the right occipital lobe. Findings concerning for metastatic disease. Patient is scheduled to undergo MRI of the left femur and thoracic spine today for further evaluation of bone lesions. Orthopedics is following, patient will not be cleared for PT/OT evaluation and treatment until further evaluation of the osseous structures. Patient has been on IV dilaudid and IV morphone around the clock with oral norco as well and continues to report significant pain about 8-9/10 diffuse and generalized. Cardiology following and patient continues on toprol XL 100 mg BID and oral amiodarone heart rate is in the low 100s-90s and maintaining atrial fibrillation. Review of Systems Constitutional: Denied any fatigue denied any fever. Cardio vascular: denied any chest pain, palpitations Gastrointestinal: denied any nausea, vomiting, diarrhea Pulmonary: Denied any shortness of breath cough Neurologic denied any new focal deficits has continued hip and back pain. All inpatient medications were reviewed and appropriate changes in these medications as dictated in the interval history and assessment and plan PHYSICAL EXAMINATION: GENERAL: The patient is alert and oriented x3, not in any acute distress. Well developed, well nourished. Fatigued. HEENT: Pupils are round and equally reacting to light. EOMI. No scleral icterus. No conjunctival pallor. Normocephalic, atraumatic. No pharyngeal erythema. No thyromegaly. CARDIOVASCULAR: S1 and S2 present. No murmurs, rubs, or gallops. PULMONARY: Chest is clear to auscultation, no wheezing or crackles. ABDOMEN: Soft, nontender, nondistended, normoactive bowel sounds. No palpable organomegaly. MUSCULOSKELETAL: No joint swelling or deformity. EXTREMITIES: No cyanosis, clubbing, or pedal edema. NEUROLOGICAL: Gross neurological examination did not reveal any focal deficits. Generalized weakness. SKIN: No rashes. Assessment Left leg pain with difficulty ambulating, imaging reveals lytic lesion of left femur Left mass-like lung consolidation concerning for underlying malignancy with postobstructive atelectasis Multiple brain lesions suspicious for metastasis Pathological rib fracture on the left with right sided remote rib fractures as well Atrial fibrillation with RVR currently rate controlled anticoagulated with xarelto Hx of nonischemic cardiomyopathy with EF of 20% Hypercalcemia Hypertension Hyperlipidemia Diabetes Mellitus type 2 Chronic alcohol abuse Former smoker with recent smoking cessation GI prophylaxis DVT prophylaxis Full Code Plan MRI of the left femur and thoracic spine ordered Pending pathology from core lymph biopsy Oncology following pt. to be evaluated for possible palliative radiation Transitioned to xarelto and off IV heparin at this time Multiple consultations following Continue with pain management and bowel regimen. The impression and plan of care has been dictated by Lupis Epstein, Nurse Practitioner as directed. Dr. Terry MD I have performed a history and physical examination and medical decision making of this patient, discussed the same with the dictator, and agree with the dictators assessment and plan as written, documented as a scribe. Based on total visit time, I have performed more than 50% of this visit. Objective - Vital Signs Vital signs: Vital Signs Temp 96.0 F L 11/24/22 04:00 Pulse 102 H 11/24/22 04:00 Resp 16 11/24/22 04:00 BP 129/64 11/24/22 04:00 Pulse Ox 91 L 11/24/22 04:00 FiO2 Intake & Output 11/23/22 11/24/22 11/24/22 18:59 06:59 18:59 Intake Total 360 Output Total 1175 Balance 360 -1175 Intake: Oral 360 Output: Urine 1175 Other: Voiding Method Urinal Urinal - Labs CBC & Chem 7: 11/21/22 07:59 11/21/22 07:59 Assessment and Plan Time with Patient: Greater than 30
--- NOTE | 2022-11-24 16:54 | P.PN ---
Subjective Progress Note Date: 11/24/22 Principal diagnosis: Admitted with leg pain. Bone lesions, lung mass, LAD In follow-up today patient Continues to not be able to walk due to pain in the leg, he is not able to sit up due to back pain. Generalized weakness from not being able to move. He is status post lymph node core biopsy, pending results. 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 Orthopedics is seeing him in regards to concerns for possible impending malignant fracture. Objective - Vital Signs Vital signs: Vital Signs Temp 96.0 F L 11/24/22 04:00 Pulse 94 11/24/22 14:00 Resp 16 11/24/22 14:00 BP 127/66 11/24/22 12:00 Pulse Ox 92 L 11/24/22 12:00 FiO2 Intake & Output 11/23/22 11/24/22 11/24/22 18:59 06:59 18:59 Intake Total 360 Output Total 1175 800 Balance 360 -1175 -800 Weight 100.244 kg Intake: Oral 360 Output: Urine 1175 800 Other: Voiding Method Urinal Urinal Urinal - Constitutional General appearance: Present: average body habitus, cooperative, mild distress - EENT Eyes: Present: anicteric sclerae, EOMI ENT: Present: hearing grossly normal - Respiratory Respiratory: bilateral: CTA - Cardiovascular Rhythm: other (Tachycardia, regular rhythm) Heart sounds: normal: S1, S2 Abnormal Heart Sounds: Absent: systolic murmur, diastolic murmur, rub, S3 Gallop, S4 Gallop, click, other - Gastrointestinal General gastrointestinal: Present: soft - Neurologic Neurologic: Present: CNII-XII intact (Grossly) - Musculoskeletal Musculoskeletal: Present: generalized weakness - Psychiatric Psychiatric: Present: A&O x's 3, appropriate affect, intact judgment & insight - Labs CBC & Chem 7: 11/21/22 07:59 11/21/22 07:59 Assessment and Plan (1) Left leg pain Current Visit: Yes Status: Acute Priority: High Code(s): M79.605 - PAIN IN LEFT LEG SNOMED Code(s): 003857785 (2) Lytic bone lesion of femur Current Visit: Yes Status: Acute Priority: High Code(s): M89.9 - DISORDER OF BONE, UNSPECIFIED SNOMED Code(s): 945248232 (3) Lymphadenopathy Current Visit: Yes Status: Acute Priority: High Code(s): R59.1 - GENERALIZED ENLARGED LYMPH NODES SNOMED Code(s): 79458791 (4) Lung mass Current Visit: Yes Status: Acute Priority: High Code(s): R91.8 - OTHER NONSPECIFIC ABNORMAL FINDING OF LUNG FIELD SNOMED Code(s): 340742629 (5) Hypercalcemia Current Visit: Yes Status: Acute Priority: High Code(s): E83.52 - HYPERCALCEMIA SNOMED Code(s): 13382346 Plan: Lt leg pain, lytic lesion of lt femur -Orthopedic consulted, pending MRI to assess if concern for impending fracture. -Patient was unable to lay flat for MRI so, additional pain meds as well as anti-anxiety medicines are going to be given to attempt the MRI again -Pt is receiving pain meds, titrate for comfort -Meds for prevention narcotic induced constipation ordered -Discussed with Radiation Oncologist. Patient cannot walk or sit up due to pain. It will be impossible to rehabilitate uless pain in his leg and back are under control. Pending the MRI of the leg. This will be revisited daily until resolved. Cervical LAD, SQ chest nodules and lt lung mass -Status post left neck lymph node core biopsies, pathology pending -CT AP did not show any evidence of disease in the abdomen or pelvis. -MRI of the brain showing some suspicious areas. Radiation Oncology Has seen the patient. The lesion seemed to be dural in nature per Rad Onc. No plans for radiation to the brain just yet. Hypercalcemia 2/2 malignancy -Ca++ stable, in normal range fornow -hold off on any bisphosphonates for until certain there are no plans for surgery. All of the patient and his family's questions were answered to the best of my ability at this time.
[2022-11-24] MEDS: RIVAROXABAN 20 MG TAB PO SCH (20:16)
[2022-11-24] MEDS: ATORVASTATIN 20 MG TAB PO SCH (20:16)
[2022-11-24] MEDS: oxyCODONE-APAP 10-325MG 1 EACH TAB PO PRN (23:27)
[2022-11-25] MEDS: oxyCODONE-APAP 10-325MG 1 EACH TAB PO PRN ×3 (03:35→21:10)
[2022-11-25 09:48] LABS: Anisocytosis Slight; Basophils # (A) 0.1 k/uL (0-0.2); Basophils % (A) 0 %; Eosinophils # (A) 0.1 k/uL (0-0.7); Eosinophils % (A) 1 %; HCT 37.8 % (39.0-53.0); HGB 11.8 gm/dL (13.0-17.5); Hypochromasia Slight; Lymphocytes # (A) 1.2 k/uL (1.0-4.8); Lymphocytes % (A) 9 %; MCH 28.5 pg (25.0-35.0); MCHC 31.3 g/dL (31.0-37.0); Mean Platelet Volume 8.1; Monocytes # (A) 0.7 k/uL (0-1.0); Monocytes % (A) 5 %; Neutrophils # (A) 10.8 k/uL (1.3-7.7); Neutrophils % (A) 83 %; Platelet Count 428 k/uL (150-450); RBC 4.15 m/uL (4.30-5.90); RDW 16.2 % (11.5-15.5); WBC 13.1 k/uL (3.8-10.6)
[2022-11-25] MEDS: PANTOPRAZOLE 40 MG/10 ML VIAL IV SCH (09:59)
[2022-11-25] MEDS: SPIRONOLACTONE 25 MG TAB PO SCH (10:00)
[2022-11-25] MEDS: GABAPENTIN 400 MG CAP PO SCH ×3 (10:00→21:10)
[2022-11-25] MEDS: DAPAGLIFLOZIN PROPANEDIOL 10 MG TABLET PO SCH (10:00)
[2022-11-25] MEDS: AMIODARONE 200 MG TAB PO SCH (10:00)
[2022-11-25] MEDS: METOPROLOL SUCCINATE (ER) 100 MG TAB.ER.24H PO SCH ×2 (10:00→21:11)
[2022-11-25] MEDS: FUROSEMIDE 40 MG TAB PO SCH (10:00)
[2022-11-25] MEDS: SENNOSIDES-DOCUSATE SODIUM 1 EACH TAB PO SCH ×2 (10:00→21:11)
[2022-11-25] MEDS: TAMSULOSIN 0.4 MG CAP.ER.24H PO SCH (10:00)
[2022-11-25] MEDS: DIGOXIN 250 MCG TAB PO SCH (10:00)
[2022-11-25 10:15] LABS: African American GFR (CKD) >90 (>60 ml/min/1.73 sqM); Anion Gap 4 mmol/L; Blood Urea Nitrogen 21 mg/dL (9-20); Calcium 10.5 mg/dL (8.4-10.2); Carbon Dioxide 38 mmol/L (22-30); Chloride 94 mmol/L (98-107); Glucose 117 mg/dL (74-99); Magnesium 1.7 mg/dL (1.6-2.3); Non-African American GFR(CKD) >90 (>60 ml/min/1.73 sqM); Potassium 3.3 mmol/L (3.5-5.1); Sodium 136 mmol/L (137-145)
--- NOTE | 2022-11-25 10:55 | P.PN ---
Subjective Progress Note Date: 11/25/22 This is a 62-year-old male who is being followed by orthopedics for lesion of the left femur. Patient is currently being worked up for metastatic cancer. Patient complains of continued pain in his back and hip. Patient denies any new complaints today. Objective - Vital Signs Vital signs: Vital Signs Temp 98.4 F 11/25/22 04:20 Pulse 100 11/25/22 04:20 Resp 18 11/25/22 04:20 BP 133/64 11/25/22 04:20 Pulse Ox 93 L 11/25/22 07:44 FiO2 Intake & Output 11/24/22 11/25/22 11/25/22 18:59 06:59 18:59 Intake Total 240 Output Total 1550 1250 550 Balance -1550 -1250 -310 Weight 100.244 kg Intake: Oral 240 Output: Urine 1550 1250 550 Other: Voiding Method Urinal Indwelling Catheter - Exam On exam patient is sitting up in bed in no acute distress. Patient is alert and oriented x3. There is pain with any attempts to move the left leg. There is tenderness to palpation over the distal left thigh. No tenderness to palpation over the left greater trochanter. Patient has full motion of bilateral feet and ankles. Sensation intact to bilateral lower extremities with some sensitivity to light touch. There is mild swelling in bilateral lower extremities. Neurovascular status and circulatory status are intact bilaterally. - Labs CBC & Chem 7: 11/25/22 09:24 11/25/22 09:24 Labs: Abnormal Lab Results - Last 24 Hours (Table) 11/25/22 11/25/22 Range/Units 09:24 09:24 WBC 13.1 H (3.8-10.6) k/uL RBC 4.15 L (4.30-5.90) m/uL Hgb 11.8 L (13.0-17.5) gm/dL Hct 37.8 L (39.0-53.0) % RDW 16.2 H (11.5-15.5) % Neutrophils # 10.8 H (1.3-7.7) k/uL Sodium 136 L (137-145) mmol/L Potassium 3.3 L (3.5-5.1) mmol/L Chloride 94 L (98-107) mmol/L Carbon Dioxide 38 H (22-30) mmol/L BUN 21 H (9-20) mg/dL Glucose 117 H (74-99) mg/dL Calcium 10.5 H (8.4-10.2) mg/dL Assessment and Plan (1) Lesion of left femur Current Visit: Yes Status: Acute Priority: High Code(s): M89.9 - DISORDER OF BONE, UNSPECIFIED SNOMED Code(s): 29624444026373356 (2) Left thigh pain Current Visit: Yes Status: Acute Code(s): M79.652 - PAIN IN LEFT THIGH SNOMED Code(s): 20952704 Plan: 1. An MRI of the left femur is pending. Patient has been unable to have his MRI done because of pain. 2. At this time there is no surgical intervention planned. We will continue to follow peripherally and make recommendations as needed.
--- NOTE | 2022-11-25 11:49 | P.PN ---
Subjective Progress Note Date: 11/25/22 I am seeing this patient in new consultation today 11/19/2022 after the patient presented yesterday evening complaining of left lateral chest pain and left hip pain. Patient is a 62-year-old male with past medical history significant for paroxysmal atrial fibrillation anticoagulated on Xarelto, nonischemic cardiomyopathy with an ejection fraction of 20 %, diabetes mellitus type 2, hypertension, osteoarthritis, and obstructive sleep apnea. He admits to chronic cigar smoking. He says that he has lost approximately 40 pounds since the beginning of the year. Patient was recently admitted and treated for left lower lobe pneumonia, A. fib RVR, subsequent GI bleed, and was COVID 19 positive back in August,. He did have a left-sided pleural effusion, and a thoracentesis was performed on 09/15/2022. A total of 1.5 L was removed at that time, and appeared to be a transudate based on protein and LDH analysis. No cytology report to review. The patient was ultimately discharged on September 15, and did reportedly follow up with Dr. Fair in the office. Patient arrived to the emergency room last night with complaints of left lateral chest pain and left hip pain. Denies any trauma. Chest x-ray redemonstrated a small left pleural effusion with patchy left basilar air space opacities indicating atelectasis versus infiltrate. A follow-up chest CT with contrast demonstrated an increased sized left lower lung consolidation, and it is concerning for underlying malignancy with postobstructive atelectasis. There was also evidence of metastatic disease throughout the mediastinum, multiple osseous structures, and right adrenal gland. There are enlarged mediastinal lymph nodes including a subcarinal lymph node measuring 3.6 x 2.4 cm and an enlarged right lower articular lymph node measuring 1.9 cm. Multiple noted lytic lesions involving the ribs, including possible pathological fractures of the left second rib and remote right sided fractures of ribs 6, 8, 9. 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 Left-sided femur x-ray does not show any acute fracture, but does show an irregular lytic lesion involving the distal left femur and mild osteoarthritic changes of the left hip. Patient is currently sitting up in the recliner, on room air, in no acute distress. He has been reportedly experiencing progressively worsening back pain over the past few months. He can no longer lay flat on his back because of this. He denies any shortness of breath, fever, chills, cough, hemoptysis. Patient is currently in atrial fibrillation with rapid ventricular rate with a heart rate of 170 beats per minute, and he was just switched from Cardizem to amiodarone. Amiodarone is currently infusing at 1 mg/m. Blood pressure is holding and normotensive. Cardiology is managing the patient's atrial fibrillation. CBC shows a WBC count of 11, hemoglobin 11.2, hematocrit 35.7, platelets 532. BMP shows a sodium of 134, potassium 3.6, chlo ride 89, serum CO2 36, BUN 21, creatinine 0.75, glucose 169. There is hypercalcemia. Troponin is negative 3. NT proBNP was elevated at 2210. There is extensive bilateral lower extremity edema. Lasix was restarted. The patient's condition is guarded, and he will be admitted to the cardiac stepdown unit for closer monitoring. The patient is seen today 11/20/2022 in follow-up on the regular medical floor. He is currently resting fairly comfortably in bed. Still with a lot of hot bone pain more so in this left chest, left hip and lower back. No worsening shortness of breath, cough or congestion. No hemoptysis. Maintaining O2 saturations in the 90s on room air. He's afebrile. Hemodynamically stable. Computed tomography scan of the abdomen and pelvis revealed osseous metastatic d isease seen correlating with recent CT study. Persistent suspicious left lower lobe masslike consolidation. No obvious suspicious mass in the abdomen or pelvis. Scattered lytic destructive lesions are seen in multiple areas. MRI of the brain revealed at least 3 areas of dural thickening with extension into the skull on the right for 2 of them and another impressing on the right occipital lobe. The more superior lesion extending in the calvarium appears more aggressive compared to the inferior osseous lesion. This. Lesion is highly suspicious for dural metastasis with extension into the skull. The falx cerebri lesion is also highly suspicious. Left zone manager space enhancing mass con cerning for metastatic disease. He is currently on a heparin drip. Continue to amiodarone drip at 0.5 mg/m. Sodium 136. Potassium 3.2. Bicarb 35. BUN 18. Creatinine 0.73. Glucose 139. Echocardiogram reveals impaired left ventricular systolic function with ejection fraction of 35%. The plan is for a core biopsy of the adenopathy in the neck to obtain adequate tissue specimen that could be sent for NGS testing. The patient is seen today 11/21/2022 in follow-up on the regular medical floor. He is awake and alert in no acute distress. He sitting up in bed. Maintaining good O2 saturations in the 90s on room air. His pain is better controlled. He did undergo a core biopsy of the left neck lymph node yesterday. Pathology pending. He has been seen and evaluated by radiation oncology and orthopedics regarding his multiple lytic lesion pains. White count 11.4. Hemoglobin 10.7. Sodium 135. Potassium 4.0. Bicarb 37. BUN 14. Creatinine 0.87. Glucose 128. Calcium 10.2. He is continued on a heparin drip. He remains in atrial fibrillation with a better controlled ventricular response. The patient is seen today 11/22/2022 in follow-up on the regular medical floor. He is currently resting comfortably in bed. Awake and alert in no acute distress. Stating his pain is well controlled. He is currently maintaining O2 saturations in the 90s on room air. He's been afebrile. Hemodynamically stable. Pathology is pending of the core biopsy of the left neck mass. He was unable to complete the MRI of the left femur yesterday due to pain. Working with different pain medications to try and get the MRI done today. He does remain in atrial fibrillation. Transitioned back to his Xarelto. Continues on oral diuretics. Currently in a -2.5 L balance. The patient is seen today 11/23/2022 in follow-up on the regular medical floor. He is currently resting fairly comfortably in bed. His pain is better controlled today. Still some lingering back pain. He denies any shortness of breath, cough or congestion. No hemoptysis. Good O2 saturations in the 90s on room air. He remains in atrial fibrillation, anticoagulated with Xarelto. Continued on diuretics. Currently in a -3.3 L balance. Patient is seen today 11/24/2022 in follow-up on the regular medical floor. He is currently resting in bed. Awake and alert in no acute distress. Stating his pain is fairly well controlled currently. The plan is for possible MRI of the left femur/5 and thoracic spine today the patient can tolerate it. He denies any worsening shortness of breath, cough or congestion. No hemoptysis. Maintain O2 saturation in the 90s on room air. He is hemodynamically stable. Remains in atrial fibrillation with varying ventricular response. Anticoagulated with Xarelto. Remains on oral diuretics. Remains in a negative balance. Biopsy results still pending. The patient is seen today 11/25/2022 in follow-up on the regular medical floor. He is currently resting comfortably in bed. Awake and alert in no acute distress. The patient did have adequate pain medication however still is unable to tolerate MRI of the left femur and spine yesterday. Currently maintaining O2 saturations in the low 90s on room air. He remains in atrial fibrillation with a controlled ventricular rate. Afebrile. Hemodynamically stable. Pathology from the core biopsy of the left neck lymph node still pending. Objective - Vital Signs Vital signs: Vital Signs Temp 98.4 F 11/25/22 04:20 Pulse 92 11/25/22 09:00 Resp 18 11/25/22 08:00 BP 128/62 11/25/22 09:00 Pulse Ox 91 L 11/25/22 09:00 FiO2 Intake & Output 11/24/22 11/25/22 11/25/22 18:59 06:59 18:59 Intake Total 240 Output Total 1550 1250 550 Balance -1550 -1250 -310 Weight 100.244 kg Intake: Oral 240 Output: Urine 1550 1250 550 Other: Voiding Method Urinal Indwelling Catheter Indwelling Catheter - Exam GENERAL EXAM: Alert, 62-year-old male,on room air, fairly comfortable in no apparent distress. HEAD: Normocephalic and atraumatic EYES: Normal reaction of pupils, equal size. NOSE: Clear with pink turbinates. THROAT: No erythema or exudates. NECK: Lymphadenopathy of the left neck. CHEST: No chest wall deformity. LUNGS: Equal air entry with no crackles, wheeze, rhonchi or dullness. No conversational dyspnea. CVS: S1 and S2 normal with no audible murmur, irregular rhythm. No extra heart sounds. ABDOMEN: Obese abdomen. No hepatosplenomegaly, active bowel sounds, no guarding or rigidity. SPINE: No scoliosis or deformity SKIN: No rashes CENTRAL NERVOUS SYSTEM: No focal deficits, tone is normal in all 4 extremities. EXTREMITIES: There is 1 to 2+ bilateral lower extremity edema. no clubbing, or cyanosis. Peripheral pulses are intact. - Labs CBC & Chem 7: 11/25/22 09:24 11/25/22 09:24 Labs: Abnormal Lab Results - Last 24 Hours (Table) 11/25/22 11/25/22 Range/Units 09:24 09:24 WBC 13.1 H (3.8-10.6) k/uL RBC 4.15 L (4.30-5.90) m/uL Hgb 11.8 L (13.0-17.5) gm/dL Hct 37.8 L (39.0-53.0) % RDW 16.2 H (11.5-15.5) % Neutrophils # 10.8 H (1.3-7.7) k/uL Sodium 136 L (137-145) mmol/L Potassium 3.3 L (3.5-5.1) mmol/L Chloride 94 L (98-107) mmol/L Carbon Dioxide 38 H (22-30) mmol/L BUN 21 H (9-20) mg/dL Glucose 117 H (74-99) mg/dL Calcium 10.5 H (8.4-10.2) mg/dL Assessment and Plan Assessment: Enlarged left lower masslike lung consolidation concerning for underlying malignancy with postobstructive atelectasis. There was also redemonstration of small left-sided pleural effusion. There is CT evidence of metastatic disease throughout the mediastinum, multiple osseous structures, and right adrenal gland. Left-sided femur x-ray also showed an irregular lytic lesion involving the distal left femur. Computed tomography scan of the abdomen and pelvis revealed osseous metastatic disease seen correlating with recent CT study. P ersistent suspicious left lower lobe masslike consolidation. No obvious suspicious mass in the abdomen or pelvis. Scattered lytic destructive lesions are seen in multiple areas. MRI of the brain revealed at least 3 areas of dural thickening with extension into the skull on the right for 2 of them and another impressing on the right occipital lobe. The more superior lesion extending in the calvarium appears more aggressive compared to the inferior osseous lesion. This lesion is highly suspicious for dural metastasis with extension into the skull. The falx cerebri lesion is also highly suspicious. Left zone manager space enhancing mass concerning for metastatic disease. Lymphadenopathy of the left neck. Core biopsy performed 11/20/2022. 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 There were also multiple remote right rib fractures including 6, 8, 9. Atrial fibrillation with currently controlled ventricular rate, anticoagulated with Xarelto Suspect mild exacerbation of systolic congestive heart failure History of nonischemic cardiomyopathy with an ejection fraction of 20% Hypercalcemia History of recent Covid 19 infection History of left-sided pleural effusion with thoracentesis performed on 2022. A total of 1.5 L was removed at that time, and appeared to be a transudate based on protein and LDH analysis. No cytology report to review. Diabetes mellitus type 2, [id number] Hypertension Osteoporosis Obstructive sleep apnea Ex-smoker, admits to smoking cigars only Plan: The patient was seen and evaluated Medications reviewed Currently stable and on room air Core biopsy pathology pending We will continue to follow I have personally seen and examined the patient, performed the documentation and the assessment and plan as written. Number of minutes spent on the visit: 10.
--- NOTE | 2022-11-25 13:05 | P.PN ---
Subjective Progress Note Date: 11/25/22 Principal diagnosis: pleural effusion, lung mass At today's visit patient is resting comfortably in bed. He reports back, hip and left lower extremity pain. patient reports pain improved with pain medications but reports pain is still at 6/10. Fentanyl patch has been ordered a nd Percocet as needed for breakthrough pain, will continue to follow. Patient has been unable to tolerate MRI's despite premedications. Plan for simulation today or tomorrow with rad/onc. Objective - Vital Signs Vital signs: Vital Signs Temp 98.4 F 11/25/22 04:20 Pulse 93 11/25/22 12:00 Resp 18 11/25/22 08:00 BP 127/63 11/25/22 12:00 Pulse Ox 96 11/25/22 12:00 FiO2 Intake & Output 11/24/22 11/25/22 11/25/22 18:59 06:59 18:59 Intake Total 240 Output Total 1550 1250 550 Balance -1550 -1250 -310 Weight 100.244 kg Intake: Oral 240 Output: Urine 1550 1250 550 Other: Voiding Method Urinal Indwelling Catheter Indwelling Catheter - Constitutional General appearance: Present: average body habitus, no acute distress - EENT Eyes: Present: anicteric sclerae, EOMI ENT: Present: hearing grossly normal - Respiratory Details: breathing is even and unlabored - Cardiovascular Details: skin warm and dry - Integumentary Integumentary: Absent: cyanotic, rash - Musculoskeletal Musculoskeletal Comment(s): decreased range of motion of bilateral lower extremities - Psychiatric Psychiatric: Present: A&O x's 3, appropriate affect, intact judgment & insight - Labs CBC & Chem 7: 11/25/22 09:24 11/25/22 09:24 Labs: Abnormal Lab Results - Last 24 Hours (Table) 11/25/22 11/25/22 Range/Units 09:24 09:24 WBC 13.1 H (3.8-10.6) k/uL RBC 4.15 L (4.30-5.90) m/uL Hgb 11.8 L (13.0-17.5) gm/dL Hct 37.8 L (39.0-53.0) % RDW 16.2 H (11.5-15.5) % Neutrophils # 10.8 H (1.3-7.7) k/uL Sodium 136 L (137-145) mmol/L Potassium 3.3 L (3.5-5.1) mmol/L Chloride 94 L (98-107) mmol/L Carbon Dioxide 38 H (22-30) mmol/L BUN 21 H (9-20) mg/dL Glucose 117 H (74-99) mg/dL Calcium 10.5 H (8.4-10.2) mg/dL Assessment and Plan (1) Hypercalcemia Current Visit: Yes Status: Acute Priority: High Code(s): E83.52 - HYPERCALCEMIA SNOMED Code(s): 56250045 (2) Lesion of left femur Current Visit: Yes Status: Acute Priority: High Code(s): M89.9 - DISORDER OF BONE, UNSPECIFIED SNOMED Code(s): 09499685990915482 (3) Lung mass Current Visit: Yes Status: Acute Priority: High Code(s): R91.8 - OTHER NONSPECIFIC ABNORMAL FINDING OF LUNG FIELD SNOMED Code(s): 101358874 Plan: Lt leg pain, lytic lesion of lt femur -Orthopedic consulted. no plan for surgical intervention at this time. Awaiting left femur MRI and Thoracic MRI. Patient has not been able to tolerate MRIs despite receiving premedications prior to procedure. -Pt is receiving pain meds. Fentanyl started today, with percocet for breakthrough pain, will continue to monitor and adjust as needed -Meds for prevention narcotic induced constipation ordered -Spoke with Dr. Parr, plan for simulation today or tomorrow Cervical LAD, SQ chest nodules and lt lung mass -Discussed with pt and his daughter clinical picture most consistent with malignancy -Reviewed need for biopsy to identify primary and for molecular testing -Left neck mass biopsy obtained, results pending -CT AP did not show any evidence of disease in the abdomen or pelvis. MRI of the brain showing some suspicious areas. Rad/onc consulted. Spoke with rad onc, plan for palliative radiation of bilateral hips and possibly left femur if no surgical intervention is planned. Stereotactic radiosurgery also planned for dural lesions once tissue diagnosis obtained. Hypercalcemia 2/2 malignancy -Ca++ 10.5 today. No intervention other than hydration. -Hold off on any bisphosphonates until Ortho has r/o surgical intervention We discussed cancer is likely cause for abnormal findings. Reinforced that biopsy is needed to confirm primary source. We discussed the importance of next generation sequencing/molecular testing on the tumor to assess as targeted therapies aren't an option for treatment. We discussed that likely patient has a spread malignancy, not curable but, treatable. They asked about prognosis. Knowing the primary is necessary because malignancies-including different types of lung cancer- have different prognoses and lines of treatment available. Goal of any treatment though, is palliation of symptoms, improve quality of life and quantity of life.
[2022-11-25] MEDS ORDERED: Magnesium Replacement Protocol 1 EACH MISC MISCELLANE PRN (15:29)
[2022-11-25] MEDS ORDERED: MAGNESIUM SULFATE-D5W PMX 1 GM in DEXTROSE/WATER 1 100ML.BAG IVPB ONE (15:29)
--- NOTE | 2022-11-25 15:31 | P.PN ---
Subjective Progress Note Date: 11/25/22 This is a 62 year old male admitted to the hospital for left pleural effusion and atrial fibrillation with RVR. Patient has complaints of left hip pain and difficulty ambulating for the last 4 months, imaging on admission reveals bony metastasis. There is also left lung mass. Patient underwent left neck mass u/s guided core biopsy on 11/20 with pending pathology. Brain MRI reveals atleast 3 areas of dural thickening with extension into the skull on the right for 2 of them and another impressing upon the right occipital lobe. Findings concerning for metastatic disease. Patient is scheduled to undergo MRI of the left femur and thoracic spine today for further evaluation of bone lesions. Orthopedics is following, patient will not be cleared for PT/OT evaluation and treatment until further evaluation of the osseous structures. Patient has been on IV dilaudid and IV morphone around the clock with oral norco as well and continues to report significant pain about 8-9/10 diffuse and generalized. Cardiology following and patient continues on toprol XL 100 mg BID and oral amiodarone heart rate is in the low 100s-90s and maintaining atrial fibrillation. 11/25/2022 Patient evaluated today resting in bed. Continues to report pain 5-6/10 mid back and left thigh. Patient was pre medicated for the MRI but was unable to tolerate lying flat due to pain and MRI was unable to be performed. Patient has been started on fentanyl patch and oxycodone with dilaudid as needed for breakthrough pain. Patient to start radiation tomorrow. White count 13.1 today. Heart rate remains controlled in the 90s. Review of Systems Constitutional: Denied any fatigue denied any fever. Cardio vascular: denied any chest pain, palpitations Gastrointestinal: denied any nausea, vomiting, diarrhea Pulmonary: Denied any shortness of breath cough Neurologic denied any new focal deficits has continued hip and back pain. All inpatient medications were reviewed and appropriate changes in these medications as dictated in the interval history and assessment and plan PHYSICAL EXAMINATION: GENERAL: The patient is alert and oriented x3, not in any acute distress. Well developed, well nourished. Fatigued. HEENT: Pupils are round and equally reacting to light. EOMI. No scleral icterus. No conjunctival pallor. Normocephalic, atraumatic. No pharyngeal erythema. No thyromegaly. CARDIOVASCULAR: S1 and S2 present. No murmurs, rubs, or gallops. PULMONARY: Chest is clear to auscultation, no wheezing or crackles. ABDOMEN: Soft, nontender, nondistended, normoactive bowel sounds. No palpable organomegaly. MUSCULOSKELETAL: No joint swelling or deformity. EXTREMITIES: No cyanosis, clubbing, or pedal edema. NEUROLOGICAL: Gross neurological examination did not reveal any focal deficits. Generalized weakness. SKIN: No rashes. Assessment Left leg pain with difficulty ambulating, imaging reveals lytic lesion of left femur Left mass-like lung consolidation concerning for underlying malignancy with postobstructive atelectasis Multiple brain lesions suspicious for metastasis Pathological rib fracture on the left with right sided remote rib fractures as well Atrial fibrillation with RVR currently rate controlled anticoagulated with xarelto Hx of nonischemic cardiomyopathy with EF of 20% Hypercalcemia Hypertension Hyperlipidemia Diabetes Mellitus type 2 Chronic alcohol abuse Former smoker with recent smoking cessation GI prophylaxis DVT prophylaxis Full Code Plan MRI of the left femur and thoracic spine ordered Pending pathology from core lymph biopsy Oncology following pt. to be evaluated for possible palliative radiation Transitioned to xarelto and off IV heparin at this time Multiple consultations following Continue with pain management and bowel regimen. Patient to start radiation tomorrow Pending clearance to begin PT/OT The impression and plan of care has been dictated by Lupis Epstein Nurse Practitioner as directed. Dr. Terry MD I have performed a history and physical examination and medical decision making of this patient, discussed the same with the dictator, and agree with the dictators assessment and plan as written, documented as a scribe. Based on total visit time, I have performed more than 50% of this visit. Objective - Vital Signs Vital signs: Vital Signs Temp 98.4 F 11/25/22 04:20 Pulse 93 11/25/22 14:00 Resp 18 11/25/22 14:00 BP 127/63 11/25/22 12:00 Pulse Ox 96 11/25/22 12:00 FiO2 Intake & Output 11/24/22 11/25/22 11/25/22 18:59 06:59 18:59 Intake Total 420 Output Total 1550 1250 550 Balance -1550 -1250 -130 Weight 100.244 kg Intake: Oral 420 Output: Urine 1550 1250 550 Other: Voiding Method Urinal Indwelling Catheter Indwelling Catheter - Labs CBC & Chem 7: 11/25/22 09:24 11/25/22 09:24 Labs: Abnormal Lab Results - Last 24 Hours (Table) 11/25/22 11/25/22 Range/Units 09:24 09:24 WBC 13.1 H (3.8-10.6) k/uL RBC 4.15 L (4.30-5.90) m/uL Hgb 11.8 L (13.0-17.5) gm/dL Hct 37.8 L (39.0-53.0) % RDW 16.2 H (11.5-15.5) % Neutrophils # 10.8 H (1.3-7.7) k/uL Sodium 136 L (137-145) mmol/L Potassium 3.3 L (3.5-5.1) mmol/L Chloride 94 L (98-107) mmol/L Carbon Dioxide 38 H (22-30) mmol/L BUN 21 H (9-20) mg/dL Glucose 117 H (74-99) mg/dL Calcium 10.5 H (8.4-10.2) mg/dL Assessment and Plan Time with Patient: Less than 30
[2022-11-25] MEDS: RIVAROXABAN 20 MG TAB PO SCH (17:42)
[2022-11-25] MEDS: POTASSIUM CHLORIDE ER 10 MEQ TAB.ER.PRT PO SCH ×2 (17:42→21:10)
[2022-11-25] MEDS: ATORVASTATIN 20 MG TAB PO SCH (21:10)
[2022-11-26] MEDS: oxyCODONE-APAP 10-325MG 1 EACH TAB PO PRN ×3 (04:36→19:05)
[2022-11-26] MEDS: DIGOXIN 250 MCG TAB PO SCH (10:20)
[2022-11-26] MEDS: FUROSEMIDE 40 MG TAB PO SCH (10:20)
[2022-11-26] MEDS: PANTOPRAZOLE 40 MG/10 ML VIAL IV SCH (10:20)
[2022-11-26] MEDS: GABAPENTIN 400 MG CAP PO SCH ×3 (10:21→21:00)
[2022-11-26] MEDS: AMIODARONE 200 MG TAB PO SCH (10:21)
[2022-11-26] MEDS: DAPAGLIFLOZIN PROPANEDIOL 10 MG TABLET PO SCH (10:21)
[2022-11-26] MEDS: SENNOSIDES-DOCUSATE SODIUM 1 EACH TAB PO SCH ×2 (10:21→21:00)
[2022-11-26] MEDS: TAMSULOSIN 0.4 MG CAP.ER.24H PO SCH (10:21)
[2022-11-26] MEDS: SPIRONOLACTONE 25 MG TAB PO SCH (10:22)
[2022-11-26] MEDS: METOPROLOL SUCCINATE (ER) 100 MG TAB.ER.24H PO SCH ×2 (10:22→21:00)
[2022-11-26] MEDS: HYDROmorphone 1 MG/ML 1 ML SYRINGE IVP PRN (10:22)
--- NOTE | 2022-11-26 11:11 | P.PN ---
Subjective Progress Note Date: 11/26/22 I am seeing this patient in new consultation today 11/19/2022 after the patient presented yesterday evening complaining of left lateral chest pain and left hip pain. Patient is a 62-year-old male with past medical history significant for paroxysmal atrial fibrillation anticoagulated on Xarelto, nonischemic cardiomyopathy with an ejection fraction of 20 %, diabetes mellitus type 2, hypertension, osteoarthritis, and obstructive sleep apnea. He admits to chronic cigar smoking. He says that he has lost approximately 40 pounds since the beginning of the year. Patient was recently admitted and treated for left lower lobe pneumonia, A. fib RVR, subsequent GI bleed, and was COVID 19 positive back in August,. He did have a left-sided pleural effusion, and a thoracentesis was performed on 09/15/2022. A total of 1.5 L was removed at that time, and appeared to be a transudate based on protein and LDH analysis. No cytology report to review. The patient was ultimately discharged on September 15, and did reportedly follow up with Dr. Fair in the office. Patient arrived to the emergency room last night with complaints of left lateral chest pain and left hip pain. Denies any trauma. Chest x-ray redemonstrated a small left pleural effusion with patchy left basilar air space opacities indicating atelectasis versus infiltrate. A follow-up chest CT with contrast demonstrated an increased sized left lower lung consolidation, and it is concerning for underlying malignancy with postobstructive atelectasis. There was also evidence of metastatic disease throughout the mediastinum, multiple osseous structures, and right adrenal gland. There are enlarged mediastinal lymph nodes including a subcarinal lymph node measuring 3.6 x 2.4 cm and an enlarged right lower articular lymph node measuring 1.9 cm. Multiple noted lytic lesions involving the ribs, including possible pathological fractures of the left second rib and remote right sided fractures of ribs 6, 8, 9. 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 Left-sided femur x-ray does not show any acute fracture, but does show an irregular lytic lesion involving the distal left femur and mild osteoarthritic changes of the left hip. Patient is currently sitting up in the recliner, on room air, in no acute distress. He has been reportedly experiencing progressively worsening back pain over the past few months. He can no longer lay flat on his back because of this. He denies any shortness of breath, fever, chills, cough, hemoptysis. Patient is currently in atrial fibrillation with rapid ventricular rate with a heart rate of 170 beats per minute, and he was just switched from Cardizem to amiodarone. Amiodarone is currently infusing at 1 mg/m. Blood pressure is holding and normotensive. Cardiology is managing the patient's atrial fibrillation. CBC shows a WBC count of 11, hemoglobin 11.2, hematocrit 35.7, platelets 532. BMP shows a sodium of 134, potassium 3.6, chlo ride 89, serum CO2 36, BUN 21, creatinine 0.75, glucose 169. There is hypercalcemia. Troponin is negative 3. NT proBNP was elevated at 2210. There is extensive bilateral lower extremity edema. Lasix was restarted. The patient's condition is guarded, and he will be admitted to the cardiac stepdown unit for closer monitoring. The patient is seen today 11/20/2022 in follow-up on the regular medical floor. He is currently resting fairly comfortably in bed. Still with a lot of hot bone pain more so in this left chest, left hip and lower back. No worsening shortness of breath, cough or congestion. No hemoptysis. Maintaining O2 saturations in the 90s on room air. He's afebrile. Hemodynamically stable. Computed tomography scan of the abdomen and pelvis revealed osseous metastatic d isease seen correlating with recent CT study. Persistent suspicious left lower lobe masslike consolidation. No obvious suspicious mass in the abdomen or pelvis. Scattered lytic destructive lesions are seen in multiple areas. MRI of the brain revealed at least 3 areas of dural thickening with extension into the skull on the right for 2 of them and another impressing on the right occipital lobe. The more superior lesion extending in the calvarium appears more aggressive compared to the inferior osseous lesion. This. Lesion is highly suspicious for dural metastasis with extension into the skull. The falx cerebri lesion is also highly suspicious. Left inseam leveler space enhancing mass con cerning for metastatic disease. He is currently on a heparin drip. Continue to amiodarone drip at 0.5 mg/m. Sodium 136. Potassium 3.2. Bicarb 35. BUN 18. Creatinine 0.73. Glucose 139. Echocardiogram reveals impaired left ventricular systolic function with ejection fraction of 35%. The plan is for a core biopsy of the adenopathy in the neck to obtain adequate tissue specimen that could be sent for NGS testing. The patient is seen today 11/21/2022 in follow-up on the regular medical floor. He is awake and alert in no acute distress. He sitting up in bed. Maintaining good O2 saturations in the 90s on room air. His pain is better controlled. He did undergo a core biopsy of the left neck lymph node yesterday. Pathology pending. He has been seen and evaluated by radiation oncology and orthopedics regarding his multiple lytic lesion pains. White count 11.4. Hemoglobin 10.7. Sodium 135. Potassium 4.0. Bicarb 37. BUN 14. Creatinine 0.87. Glucose 128. Calcium 10.2. He is continued on a heparin drip. He remains in atrial fibrillation with a better controlled ventricular response. The patient is seen today 11/22/2022 in follow-up on the regular medical floor. He is currently resting comfortably in bed. Awake and alert in no acute distress. Stating his pain is well controlled. He is currently maintaining O2 saturations in the 90s on room air. He's been afebrile. Hemodynamically stable. Pathology is pending of the core biopsy of the left neck mass. He was unable to complete the MRI of the left femur yesterday due to pain. Working with different pain medications to try and get the MRI done today. He does remain in atrial fibrillation. Transitioned back to his Xarelto. Continues on oral diuretics. Currently in a -2.5 L balance. The patient is seen today 11/23/2022 in follow-up on the regular medical floor. He is currently resting fairly comfortably in bed. His pain is better controlled today. Still some lingering back pain. He denies any shortness of breath, cough or congestion. No hemoptysis. Good O2 saturations in the 90s on room air. He remains in atrial fibrillation, anticoagulated with Xarelto. Continued on diuretics. Currently in a -3.3 L balance. Patient is seen today 11/24/2022 in follow-up on the regular medical floor. He is currently resting in bed. Awake and alert in no acute distress. Stating his pain is fairly well controlled currently. The plan is for possible MRI of the left femur/5 and thoracic spine today the patient can tolerate it. He denies any worsening shortness of breath, cough or congestion. No hemoptysis. Maintain O2 saturation in the 90s on room air. He is hemodynamically stable. Remains in atrial fibrillation with varying ventricular response. Anticoagulated with Xarelto. Remains on oral diuretics. Remains in a negative balance. Biopsy results still pending. The patient is seen today 11/25/2022 in follow-up on the regular medical floor. He is currently resting comfortably in bed. Awake and alert in no acute distress. The patient did have adequate pain medication however still is unable to tolerate MRI of the left femur and spine yesterday. Currently maintaining O2 saturations in the low 90s on room air. He remains in atrial fibrillation with a controlled ventricular rate. Afebrile. Hemodynamically stable. Pathology from the core biopsy of the left neck lymph node still pending. The patient is seen today 11/26/2022 in follow-up on the regular medical floor. He is awake and alert in no acute distress. Resting fairly comfortably in bed. He was still unable to see with MRI inability to lay flat. The patient's pathology did come back positive for adenocarcinoma with mucinous features and gastrointestinal primary adenocarcinoma or a pancreaticobiliary primary adenocarcinoma both within the differential. Medical oncology and radiation oncology are following the case. He currently remains stable and on room air. Afebrile. Anticoagulated with Xarelto. Objective - Vital Signs Vital signs: Vital Signs Temp 97.8 F 11/26/22 08:00 Pulse 95 11/26/22 08:00 Resp 18 11/26/22 08:00 BP 140/79 11/26/22 08:00 Pulse Ox 92 L 11/26/22 08:00 FiO2 Intake & Output 11/25/22 11/26/22 11/26/22 18:59 06:59 18:59 Intake Total 420 540 Output Total 1250 1000 Balance -830 -460 Intake: Oral 420 540 Output: Urine 1250 1000 Uretheral (Lin) 725 Other: Voiding Method Indwelling Catheter Indwelling Catheter Indwelling Catheter - Exam GENERAL EXAM: Alert, pleasant 62-year-old male, fairly comfortable in no apparent distress. HEAD: Normocephalic and atraumatic EYES: Normal reaction of pupils, equal size. NOSE: Clear with pink turbinates. THROAT: No erythema or exudates. NECK: Lymphadenopathy of the left neck. CHEST: No chest wall deformity. LUNGS: Equal air entry with no crackles, wheeze, rhonchi or dullness. No conversational dyspnea. CVS: S1 and S2 normal with no audible murmur, irregular rhythm. No extra heart sounds. ABDOMEN: Obese abdomen. No hepatosplenomegaly, active bowel sounds, no guarding or rigidity. SPINE: No scoliosis or deformity SKIN: No rashes CENTRAL NERVOUS SYSTEM: No focal deficits, tone is normal in all 4 extremities. EXTREMITIES: There is 1 to 2+ bilateral lower extremity edema. no clubbing, or cyanosis. Peripheral pulses are intact. - Labs CBC & Chem 7: 11/25/22 09:24 11/25/22 09:24 Assessment and Plan Assessment: Enlarged left lower masslike lung consolidation concerning for underlying malignancy with postobstructive atelectasis. There was also redemonstration of small left-sided pleural effusion. There is CT evidence of metastatic disease throughout the mediastinum, multiple osseous structures, and right adrenal gland. Left-sided femur x-ray also showed an irregular lytic lesion involving the distal left femur. Computed tomography scan of the abdomen and pelvis revealed osseous metastatic disease seen correlating with recent CT study. Persistent suspicious left lower lobe masslike consolidation. No obvious suspicious mass in the abdomen or pelvis. Scattered lytic destructive lesions are seen in multiple areas. MRI of the brain revealed at least 3 areas of dural thickening with extension into the skull on the right for 2 of them and another impressing on the right occipital lobe. The more superior lesion extending in t he calvarium appears more aggressive compared to the inferior osseous lesion. This lesion is highly suspicious for dural metastasis with extension into the skull. The falx cerebri lesion is also highly suspicious. Left inseam leveler space enhancing mass concerning for metastatic disease. Lymphadenopathy of the left neck. Core biopsy performed 11/20/2022. 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 The differential includes, but is not limited to, a GI primary adenocarcinoma and a pancreaticobiliary primary adenocarcinoma. Back pain, presumably related to destructive osseous metastasis throughout the thoracic spine Left-sided chest pain, with an acute pathologic left-sided second rib fracture demonstrated on CT. There were also multiple remote right rib fractures including 6, 8, 9. Atrial fibrillation with currently controlled ventricular rate, anticoagulated w ith Xarelto Suspect mild exacerbation of systolic congestive heart failure History of nonischemic cardiomyopathy with an ejection fraction of 20% Hypercalcemia History of recent Covid 19 infection History of left-sided pleural effusion with thoracentesis performed on 09/15/2022. A total of 1.5 L was removed at that time, and appeared to be a transudate based on protein and LDH analysis. No cytology report to review. Diabetes mellitus type 2, [id number] Hypertension Osteoporosis Obstructive sleep apnea Ex-smoker, admits to smoking cigars only Plan: The patient was seen and evaluated Pathology results reviewed Medications reviewed Medical and radiation oncology following I have personally seen and examined the patient, performed the documentation and the assessment and plan as written. Number of minutes spent on the visit: 10.
[2022-11-26 11:54] LABS: Glucose,Whole Blood 105 mg/dL (70-110)
[2022-11-26 12:04] LABS: African American GFR (CKD) >90 (>60 ml/min/1.73 sqM); Anion Gap 10 mmol/L; Blood Urea Nitrogen 24 mg/dL (9-20); Calcium 10.9 mg/dL (8.4-10.2); Carbon Dioxide 32 mmol/L (22-30); Chloride 95 mmol/L (98-107); Glucose 91 mg/dL (74-99); Non-African American GFR(CKD) >90 (>60 ml/min/1.73 sqM); Potassium 3.9 mmol/L (3.5-5.1); Sodium 137 mmol/L (137-145)
[2022-11-26] MEDS ORDERED: bisacodyL 10 MG SUPP RECTAL STA (12:45)
[2022-11-26] MEDS ORDERED: HYDROmorphone 0.5 MG/0.5 ML SYRINGE IVP PRN (12:45)
--- NOTE | 2022-11-26 14:23 | P.PN ---
Subjective Progress Note Date: 11/26/22 Principal diagnosis: pleural effusion, lung mass At today's visit patient is resting comfortably in bed. He reports pain is worse today s/p simulation with rad/onc. He continues on Fentanyl patch and diluadid and Percocet as needed for breakthrough pain, will continue to follow. Patient has been unable to tolerate MRI's despite premedications. Objective - Vital Signs Vital signs: Vital Signs Temp 97.8 F 11/26/22 08:00 Pulse 95 11/26/22 08:00 Resp 18 11/26/22 08:00 BP 140/79 11/26/22 08:00 Pulse Ox 92 L 11/26/22 08:00 FiO2 Intake & Output 11/25/22 11/26/22 11/26/22 18:59 06:59 18:59 Intake Total 420 540 Output Total 1250 1000 Balance -830 -460 Intake: Oral 420 540 Output: Urine 1250 1000 Uretheral (Lin) 725 Other: Voiding Method Indwelling Catheter Indwelling Catheter Indwelling Catheter - Constitutional General appearance: Present: average body habitus, no acute distress - EENT Eyes: Present: anicteric sclerae, EOMI ENT: Present: hearing grossly normal - Respiratory Details: breathing is even and unlabored - Cardiovascular Details: skin warm and dry - Integumentary Integumentary: Absent: cyanotic, rash - Neurologic Neurologic Comment(s): decreased range of motion of lower extremities - Psychiatric Psychiatric: Present: A&O x's 3, appropriate affect, intact judgment & insight - Labs CBC & Chem 7: 11/25/22 09:24 11/26/22 07:44 Labs: Abnormal Lab Results - Last 24 Hours (Table) 11/26/22 Range/Units 07:44 Chloride 95 L (98-107) mmol/L Carbon Dioxide 32 H (22-30) mmol/L BUN 24 H (9-20) mg/dL Calcium 10.9 H (8.4-10.2) mg/dL Assessment and Plan (1) Hypercalcemia Current Visit: Yes Status: Acute Priority: High Code(s): E83.52 - HYPERCALCEMIA SNOMED Code(s): 45165155 (2) Lesion of left femur Current Visit: Yes Status: Acute Priority: High Code(s): M89.9 - DISORDER OF BONE, UNSPECIFIED SNOMED Code(s): 37386051295803837 (3) Lung mass Current Visit: Yes Status: Acute Priority: High Code(s): R91.8 - OTHER NONSPECIFIC ABNORMAL FINDING OF LUNG FIELD SNOMED Code(s): 235247340 Plan: Lt leg pain, lytic lesion of lt femur -Orthopedic consulted. No plan for surgical intervention at this time. Awaiting left femur MRI and Thoracic MRI. Patient has not been able to tolerate MRIs despite receiving premedications prior to procedure. -Pt is receiving pain meds. Continues on Fentanyl, with diluadid and percocet for breakthrough pain, will continue to monitor and adjust as needed -Meds for prevention narcotic induced constipation ordered -S/p simulation today with rad onc Cervical LAD, SQ chest nodules and lt lung mass -Discussed with pt and his daughter clinical picture most consistent with malignancy -Left neck mass biopsy obtained -CT AP did not show any evidence of disease in the abdomen or pelvis. MRI of the brain showing some suspicious areas. Rad/onc following. Spoke with rad onc, plan for palliative radiation of bilateral hips and possibly left femur if no surgical intervention is planned. Stereotactic radiosurgery also planned for dural lesions once tissue diagnosis obtained. Simulation complete. After visit today, biopsy resulted. 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 However, CT abdomen and pelvis revealed no suspicious mass in the abdomen or pelvis, with no greater than 1 cm abdominal or pelvic lymph nodes appreciated. Will order NGS, PDL 1, and guardant testing on pathology. MRCP will also be considered once patient is able to t olerate MRI. EGD and colonoscopy was performed on 09/11/[address] Hylton. No neoplastic or polypoid lesions were noted on scopes. Colonoscopy revealed in the left colon patchy erythema with a few superficial plaque-like erosions. Biopsy revealed acute colitis with ischemic-type features. Gastric antrum biopsy revealed mild chronic gastritis. Spoke in depth with daughter today regarding results and plan for further workup. Will hold family meeting in the morning with Dr. Amin Hypercalcemia 2/2 malignancy -Ca++ 10.9 today. No intervention at this time other than hydration. -Hold off on any bisphosphonates until Ortho has r/o surgical intervention
[2022-11-26] MEDS ORDERED: SODIUM CHLORIDE 0.9% 1,000 ML IV SCH (16:00)
[2022-11-26] MEDS ORDERED: LACTULOSE 20 GM/30 ML CUP PO ONE (16:01)
--- NOTE | 2022-11-26 16:02 | P.PN ---
Subjective Progress Note Date: 11/26/22 This is a 62 year old male admitted to the hospital for left pleural effusion and atrial fibrillation with RVR. Patient has complaints of left hip pain and difficulty ambulating for the last 4 months, imaging on admission reveals bony metastasis. There is also left lung mass. Patient underwent left neck mass u/s guided core biopsy on 11/20 with pending pathology. Brain MRI reveals atleast 3 areas of dural thickening with extension into the skull on the right for 2 of them and another impressing upon the right occipital lobe. Findings concerning for metastatic disease. Patient is scheduled to undergo MRI of the left femur and thoracic spine today for further evaluation of bone lesions. Orthopedics is following, patient will not be cleared for PT/OT evaluation and treatment until further evaluation of the osseous structures. Patient has been on IV dilaudid and IV morphone around the clock with oral norco as well and continues to report significant pain about 8-9/10 diffuse and generalized. Cardiology following and patient continues on toprol XL 100 mg BID and oral amiodarone heart rate is in the low 100s-90s and maintaining atrial fibrillation. 11/25/2022 Patient evaluated today resting in bed. Continues to report pain 5-6/10 mid back and left thigh. Patient was pre medicated for the MRI but was unable to tolerate lying flat due to pain and MRI was unable to be performed. Patient has been started on fentanyl patch and oxycodone with dilaudid as needed for breakthrough pain. Patient to start radiation tomorrow. White count 13.1 today. Heart rate remains controlled in the 90s. 11/26/2022 Patient evaluated today resting in bed. Continues to report significant pain about 8/10 and has been started on fentanyl patch and oxycodone. Patient is using dilaudid 1 mg as needed and encouraged to try the oral medication. Dilaudid 0.5 mg every 3 hrs will be offered as well patient can opt for the lesser dose. MRI remains on hold. Patient has been evaluated by radiology and underwent mapping today and plans to start radiation therapy. Lymph biopsy pathology is resulted revealing adenocarcinoma with mucinous features differentials include a GI primary adenocarcinoma/pancreaticobiliary. Oncology planning family meeting for tomorrow. Review of Systems Constitutional: Reports fatigue denied any fever. Cardio vascular: denied any chest pain, palpitations Gastrointestinal: denied any nausea, vomiting, diarrhea Pulmonary: Denied any shortness of breath cough Neurologic denied any new focal deficits has continued hip and back pain. All inpatient medications were reviewed and appropriate changes in these medications as dictated in the interval history and assessment and plan PHYSICAL EXAMINATION: GENERAL: The patient is alert and oriented x3, not in any acute distress. Well developed, well nourished. Fatigued. HEENT: Pupils are round and equally reacting to light. EOMI. No scleral icterus. No conjunctival pallor. Normocephalic, atraumatic. No pharyngeal erythema. No t hyromegaly. CARDIOVASCULAR: S1 and S2 present. No murmurs, rubs, or gallops. PULMONARY: Chest is clear to auscultation, no wheezing or crackles. ABDOMEN: Soft, nontender, LLQ distention and dullness to percussion, hypoactive bowel sounds. No palpable organomegaly. MUSCULOSKELETAL: No joint swelling or deformity. EXTREMITIES: No cyanosis, clubbing, or pedal edema. NEUROLOGICAL: Gross neurological examination did not reveal any focal deficits. Generalized weakness. SKIN: No rashes. 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 Atrial fibrillation with RVR currently rate controlled anticoagulated with xarelto Hx of nonischemic cardiomyopathy with EF of 20% Hypercalcemia Hypertension Hyperlipidemia Diabetes Mellitus type 2 Chronic alcohol abuse Former smoker with recent smoking cessation GI prophylaxis DVT prophylaxis Full Code Plan MRI of the left femur and thoracic spine ordered and held for now due to paints pain and unable to tolerate procedure Patient to begin radiation Transitioned to xarelto and off IV heparin at this time Continue with pain management and bowel regimen. Pending clearance to begin PT/OT orthopedics following. The impression and plan of care has been dictated by Lupis Epstein, Nurse Practitioner as directed. Dr. Terry MD I have performed a history and physical examination and medical decision making of this patient, discussed the same with the dictator, and agree with the dictators assessment and plan as written, documented as a scribe. Based on total visit time, I have performed more than 50% of this visit. Objective - Vital Signs Vital signs: Vital Signs Temp 97.8 F 11/26/22 08:00 Pulse 95 11/26/22 08:00 Resp 18 11/26/22 08:00 BP 140/79 11/26/22 08:00 Pulse Ox 92 L 11/26/22 08:00 FiO2 Intake & Output 11/25/22 11/26/22 11/26/22 18:59 06:59 18:59 Intake Total 420 540 Output Total 1250 1000 Balance -830 -460 Intake: Oral 420 540 Output: Urine 1250 1000 Uretheral (Lin) 725 Other: Voiding Method Indwelling Catheter Indwelling Catheter Indwelling Catheter - Labs CBC & Chem 7: 11/25/22 09:24 11/26/22 07:44 Labs: Abnormal Lab Results - Last 24 Hours (Table) 11/26/22 Range/Units 07:44 Chloride 95 L (98-107) mmol/L Carbon Dioxide 32 H (22-30) mmol/L BUN 24 H (9-20) mg/dL Calcium 10.9 H (8.4-10.2) mg/dL Assessment and Plan Time with Patient: Greater than 30
[2022-11-26 16:29] LABS: Glucose,Whole Blood 117 mg/dL (70-110)
--- NOTE | 2022-11-26 16:38 | XR ---
EXAMINATION TYPE: XR chest 1V portable DATE OF EXAM: 11/26/2022 4:29 PM COMPARISON: Chest radiographs from 11/18/2022 TECHNIQUE: XR chest 1V portable Frontal view of the chest. CLINICAL INDICATION:Male, 62 years old with history of hypoxia; FINDINGS: Lungs/Pleura: There is no evidence of pleural effusion, focal consolidation, or pneumothorax. Pulmonary vascularity: Unremarkable. Heart/mediastinum: Cardiomediastinal silhouette is unremarkable. Musculoskeletal: No acute osseous pathology. Remote right rib fractures. IMPRESSION: Similar left pleural effusion.
[2022-11-26] MEDS: RIVAROXABAN 20 MG TAB PO SCH (17:23)
[2022-11-26 20:04] LABS: Glucose,Whole Blood 118 mg/dL (70-110)
[2022-11-26] MEDS: ATORVASTATIN 20 MG TAB PO SCH (21:00)
[2022-11-27] MEDS: oxyCODONE-APAP 10-325MG 1 EACH TAB PO PRN ×4 (04:20→20:57)
[2022-11-27 06:26] LABS: Glucose,Whole Blood 113 mg/dL (70-110)
[2022-11-27 07:26] LABS: Anisocytosis Slight; Basophils % (A) 0 %; Eosinophils # (A) 0.1 k/uL (0-0.7); Eosinophils % (A) 0 %; HCT 39.4 % (39.0-53.0); HGB 12.2 gm/dL (13.0-17.5); Hypochromasia Slight; Lymphocytes # (A) 0.8 k/uL (1.0-4.8); Lymphocytes % (A) 7 %; MCH 28.6 pg (25.0-35.0); MCV 92.2 fL (80.0-100.0); Mean Platelet Volume 8.1; Monocytes # (A) 0.6 k/uL (0-1.0); Monocytes % (A) 5 %; Neutrophils # (A) 10.5 k/uL (1.3-7.7); Neutrophils % (A) 86 %; Platelet Count 437 k/uL (150-450); RBC 4.27 m/uL (4.30-5.90); RDW 16.3 % (11.5-15.5); WBC 12.1 k/uL (3.8-10.6)
[2022-11-27 07:51] LABS: African American GFR (CKD) >90 (>60 ml/min/1.73 sqM); Anion Gap 7 mmol/L; Blood Urea Nitrogen 22 mg/dL (9-20); Calcium 10.6 mg/dL (8.4-10.2); Carbon Dioxide 35 mmol/L (22-30); Chloride 95 mmol/L (98-107); Glucose 109 mg/dL (74-99); Magnesium 1.9 mg/dL (1.6-2.3); Non-African American GFR(CKD) >90 (>60 ml/min/1.73 sqM); Potassium 3.4 mmol/L (3.5-5.1); Sodium 137 mmol/L (137-145)
[2022-11-27] MEDS: PANTOPRAZOLE 40 MG/10 ML VIAL IV SCH (08:51)
[2022-11-27] MEDS: GABAPENTIN 400 MG CAP PO SCH ×3 (08:52→20:57)
[2022-11-27] MEDS: SPIRONOLACTONE 25 MG TAB PO SCH (08:52)
[2022-11-27] MEDS: DAPAGLIFLOZIN PROPANEDIOL 10 MG TABLET PO SCH (08:52)
[2022-11-27] MEDS: AMIODARONE 200 MG TAB PO SCH (08:52)
[2022-11-27] MEDS: SENNOSIDES-DOCUSATE SODIUM 1 EACH TAB PO SCH ×2 (08:52→20:57)
[2022-11-27] MEDS: METOPROLOL SUCCINATE (ER) 100 MG TAB.ER.24H PO SCH ×2 (08:52→20:57)
[2022-11-27] MEDS: DIGOXIN 250 MCG TAB PO SCH (08:53)
[2022-11-27] MEDS: FUROSEMIDE 40 MG TAB PO SCH (08:53)
[2022-11-27] MEDS: TAMSULOSIN 0.4 MG CAP.ER.24H PO SCH (08:53)
[2022-11-27] MEDS ORDERED: POTASSIUM CHLORIDE ER 20 MEQ TAB.ER PO STA (09:22)
--- NOTE | 2022-11-27 10:47 | P.PN ---
Subjective Progress Note Date: 11/27/22 I am seeing this patient in new consultation today 11/19/2022 after the patient presented yesterday evening complaining of left lateral chest pain and left hip pain. Patient is a 62-year-old male with past medical history significant for paroxysmal atrial fibrillation anticoagulated on Xarelto, nonischemic cardiomyopathy with an ejection fraction of 20 %, diabetes mellitus type 2, hypertension, osteoarthritis, and obstructive sleep apnea. He admits to chronic cigar smoking. He says that he has lost approximately 40 pounds since the beginning of the year. Patient was recently admitted and treated for left lower lobe pneumonia, A. fib RVR, subsequent GI bleed, and was COVID 19 positive back in August,. He did have a left-sided pleural effusion, and a thoracentesis was performed on 09/15/2022. A total of 1.5 L was removed at that time, and appeared to be a transudate based on protein and LDH analysis. No cytology report to review. The patient was ultimately discharged on September 15, and did reportedly follow up with Dr. Fair in the office. Patient arrived to the emergency room last night with complaints of left lateral chest pain and left hip pain. Denies any trauma. Chest x-ray redemonstrated a small left pleural effusion with patchy left basilar air space opacities indicating atelectasis versus infiltrate. A follow-up chest CT with contrast demonstrated an increased sized left lower lung consolidation, and it is concerning for underlying malignancy with postobstructive atelectasis. There was also evidence of metastatic disease throughout the mediastinum, multiple osseous structures, and right adrenal gland. There are enlarged mediastinal lymph nodes including a subcarinal lymph node measuring 3.6 x 2.4 cm and an enlarged right lower articular lymph node measuring 1.9 cm. Multiple noted lytic lesions involving the ribs, including possible pathological fractures of the left second rib and remote right sided fractures of ribs 6, 8, 9. 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 Left-sided femur x-ray does not show any acute fracture, but does show an irregular lytic lesion involving the distal left femur and mild osteoarthritic changes of the left hip. Patient is currently sitting up in the recliner, on room air, in no acute distress. He has been reportedly experiencing progressively worsening back pain over the past few months. He can no longer lay flat on his back because of this. He denies any shortness of breath, fever, chills, cough, hemoptysis. Patient is currently in atrial fibrillation with rapid ventricular rate with a heart rate of 170 beats per minute, and he was just switched from Cardizem to amiodarone. Amiodarone is currently infusing at 1 mg/m. Blood pressure is holding and normotensive. Cardiology is managing the patient's atrial fibrillation. CBC shows a WBC count of 11, hemoglobin 11.2, hematocrit 35.7, platelets 532. BMP shows a sodium of 134, potassium 3.6, chlo ride 89, serum CO2 36, BUN 21, creatinine 0.75, glucose 169. There is hypercalcemia. Troponin is negative 3. NT proBNP was elevated at 2210. There is extensive bilateral lower extremity edema. Lasix was restarted. The patient's condition is guarded, and he will be admitted to the cardiac stepdown unit for closer monitoring. The patient is seen today 11/20/2022 in follow-up on the regular medical floor. He is currently resting fairly comfortably in bed. Still with a lot of hot bone pain more so in this left chest, left hip and lower back. No worsening shortness of breath, cough or congestion. No hemoptysis. Maintaining O2 saturations in the 90s on room air. He's afebrile. Hemodynamically stable. Computed tomography scan of the abdomen and pelvis revealed osseous metastatic d isease seen correlating with recent CT study. Persistent suspicious left lower lobe masslike consolidation. No obvious suspicious mass in the abdomen or pelvis. Scattered lytic destructive lesions are seen in multiple areas. MRI of the brain revealed at least 3 areas of dural thickening with extension into the skull on the right for 2 of them and another impressing on the right occipital lobe. The more superior lesion extending in the calvarium appears more aggressive compared to the inferior osseous lesion. This. Lesion is highly suspicious for dural metastasis with extension into the skull. The falx cerebri lesion is also highly suspicious. 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 He is currently on a heparin drip. Continue to amiodarone drip at 0.5 mg/m. Sodium 136. Potassium 3.2. Bicarb 35. BUN 18. Creatinine 0.73. Glucose 139. Echocardiogram reveals impaired left ventricular systolic function with ejection fraction of 35%. The plan is for a core biopsy of the adenopathy in the neck to obtain adequate tissue specimen that could be sent for NGS testing. The patient is seen today 11/21/2022 in follow-up on the regular medical floor. He is awake and alert in no acute distress. He sitting up in bed. Maintaining good O2 saturations in the 90s on room air. His pain is better controlled. He did undergo a core biopsy of the left neck lymph node yesterday. Pathology pending. He has been seen and evaluated by radiation oncology and orthopedics regarding his multiple lytic lesion pains. White count 11.4. Hemoglobin 10.7. Sodium 135. Potassium 4.0. Bicarb 37. BUN 14. Creatinine 0.87. Glucose 128. Calcium 10.2. He is continued on a heparin drip. He remains in atrial fibrillation with a better controlled ventricular response. The patient is seen today 11/22/2022 in follow-up on the regular medical floor. He is currently resting comfortably in bed. Awake and alert in no acute distress. Stating his pain is well controlled. He is currently maintaining O2 saturations in the 90s on room air. He's been afebrile. Hemodynamically stable. Pathology is pending of the core biopsy of the left neck mass. He was unable to complete the MRI of the left femur yesterday due to pain. Working with different pain medications to try and get the MRI done today. He does remain in atrial fibrillation. Transitioned back to his Xarelto. Continues on oral diuretics. Currently in a -2.5 L balance. The patient is seen today 11/23/2022 in follow-up on the regular medical floor. He is currently resting fairly comfortably in bed. His pain is better controlled today. Still some lingering back pain. He denies any shortness of breath, cough or congestion. No hemoptysis. Good O2 saturations in the 90s on room air. He remains in atrial fibrillation, anticoagulated with Xarelto. Continued on diuretics. Currently in a -3.3 L balance. Patient is seen today 11/24/2022 in follow-up on the regular medical floor. He is currently resting in bed. Awake and alert in no acute distress. Stating his pain is fairly well controlled currently. The plan is for possible MRI of the left femur/5 and thoracic spine today the patient can tolerate it. He denies any worsening shortness of breath, cough or congestion. No hemoptysis. Maintain O2 saturation in the 90s on room air. He is hemodynamically stable. Remains in atrial fibrillation with varying ventricular response. Anticoagulated with Xarelto. Remains on oral diuretics. Remains in a negative balance. Biopsy results still pending. The patient is seen today 11/25/2022 in follow-up on the regular medical floor. He is currently resting comfortably in bed. Awake and alert in no acute distress. The patient did have adequate pain medication however still is unable to tolerate MRI of the left femur and spine yesterday. Currently maintaining O2 saturations in the low 90s on room air. He remains in atrial fibrillation with a controlled ventricular rate. Afebrile. Hemodynamically stable. Pathology from the core biopsy of the left neck lymph node still pending. The patient is seen today 11/26/2022 in follow-up on the regular medical floor. He is awake and alert in no acute distress. Resting fairly comfortably in bed. He was still unable to see with MRI inability to lay flat. The patient's pathology did come back positive for adenocarcinoma with mucinous features and gastrointestinal primary adenocarcinoma or a pancreaticobiliary primary adenocarcinoma both within the differential. Medical oncology and radiation oncology are following the case. He currently remains stable and on room air. Afebrile. Anticoagulated with Xarelto. The patient is seen today 11/27/2022 in follow-up on the regular medical floor. He remains awake and alert. Resting fairly comfortably in bed. His pain is still difficult to control. The plan is for palliative radiation the bilateral hips and possible left femur. The plan is also for radiation treatments to the brain lesions. White count 12.1. Hemoglobin 12.2. Platelet count 437. Sodium 137. Potassium 3.4. Bicarb 35. BUN 22. Creatinine 0.81. Glucose 109. Chest x-ray reveals small left pleural effusion. No focal consolidation or pneumothorax. Objective - Vital Signs Vital signs: Vital Signs Temp 97.3 F L 11/27/22 08:00 Pulse 93 11/27/22 08:00 Resp 18 11/27/22 08:00 BP 132/71 11/27/22 08:00 Pulse Ox 93 L 11/27/22 08:01 FiO2 21 11/27/22 08:01 Intake & Output 11/26/22 11/27/22 11/27/22 18:59 06:59 18:59 Intake Total 110 Output Total 800 1550 Balance -690 -1550 Intake: Oral 110 Output: Urine 800 1550 Uretheral (Lin) 750 Other: Voiding Method Indwelling Catheter Indwelling Catheter # Bowel Movements 1 - Exam GENERAL EXAM: Alert, 62-year-old male, on room air, fairly comfortable in no apparent distress. HEAD: Normocephalic and atraumatic EYES: Normal reaction of pupils, equal size. NOSE: Clear with pink turbinates. THROAT: No erythema or exudates. NECK: Lymphadenopathy of the left neck. CHEST: No chest wall deformity. LUNGS: Equal air entry with no crackles, wheeze, rhonchi or dullness. No conversational dyspnea. CVS: S1 and S2 normal with no audible murmur, irregular rhythm. No extra heart sounds. ABDOMEN: Obese abdomen. No hepatosplenomegaly, active bowel sounds, no guarding or rigidity. SPINE: No scoliosis or deformity SKIN: No rashes CENTRAL NERVOUS SYSTEM: No focal deficits, tone is normal in all 4 extremities. EXTREMITIES: There is 1 to 2+ bilateral lower extremity edema. no clubbing, or cyanosis. Peripheral pulses are intact. - Labs CBC & Chem 7: 11/27/22 06:35 11/27/22 06:35 Labs: Abnormal Lab Results - Last 24 Hours (Table) 11/26/22 11/26/22 11/26/22 Range/Units 07:44 16:26 20:00 WBC (3.8-10.6) k/uL RBC (4.30-5.90) m/uL Hgb (13.0-17.5) gm/dL RDW (11.5-15.5) % Neutrophils # (1.3-7.7) k/uL Lymphocytes # (1.0-4.8) k/uL Potassium (3.5-5.1) mmol/L Chloride 95 L (98-107) mmol/L Carbon Dioxide 32 H (22-30) mmol/L BUN 24 H (9-20) mg/dL Glucose (74-99) mg/dL POC Glucose (mg/dL) 117 H 118 H (70-110) mg/dL Calcium 10.9 H (8.4-10.2) mg/dL 11/27/22 11/27/22 11/27/22 Range/Units 06:25 06:35 06:35 WBC 12.1 H (3.8-10.6) k/uL RBC 4.27 L (4.30-5.90) m/uL Hgb 12.2 L (13.0-17.5) gm/dL RDW 16.3 H (11.5-15.5) % Neutrophils # 10.5 H (1.3-7.7) k/uL Lymphocytes # 0.8 L (1.0-4.8) k/uL Potassium 3.4 L (3.5-5.1) mmol/L Chloride 95 L (98-107) mmol/L Carbon Dioxide 35 H (22-30) mmol/L BUN 22 H (9-20) mg/dL Glucose 109 H (74-99) mg/dL POC Glucose (mg/dL) 113 H (70-110) mg/dL Calcium 10.6 H (8.4-10.2) mg/dL Assessment and Plan Assessment: Enlarged left lower masslike lung consolidation concerning for underlying malignancy with postobstructive atelectasis. There was also redemonstration of small left-sided pleural effusion. There is CT evidence of metastatic disease throughout the mediastinum, multiple osseous structures, and right adrenal gland. Left-sided femur x-ray also showed an irregular lytic lesion involving the distal left femur. Computed tomography scan of the abdomen and pelvis revealed osseous metastatic disease seen correlating with recent CT study. Persistent suspicious left lower lobe masslike consolidation. No obvious suspicious mass in the abdomen or pelvis. Scattered lytic destructive lesions are seen in multiple areas. MRI of the brain revealed at least 3 areas of dural thickening with extension into the skull on the right for 2 of them and another impressing on the right occipital lobe. The more superior lesion extending in the calvarium appears more aggressive compared to the inferior osseous lesion. This lesion is highly suspicious for dural metastasis with extension into the skull. The falx cerebri lesion is also highly suspicious. 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 Lymphadenopathy of the left neck. Core biopsy performed 11/20/2022. 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 The differential includes, but is not limited to, a GI primary adenocarcinoma and a pancreaticobiliary primary adenocarcinoma. Back pain, presumably related to destructive osseous metastasis throughout the thoracic spine Left-sided chest pain, with an acute pathologic left-sided second rib fracture demonstrated on CT. There were also multiple remote right rib fractures including 6, 8, 9. Atrial fibrillation with currently controlled ventricular rate, anticoagulated with Xarelto Suspect mild exacerbation of systolic congestive heart failure History of nonischemic cardiomyopathy with an ejection fraction of 20% Hypercalcemia History of recent Covid 19 infection History of left-sided pleural effusion with thoracentesis performed on 09/15/2022. A total of 1.5 L was removed at that time, and appeared to be a transudate based on protein and LDH analysis. No cytology report to review. Diabetes mellitus type 2, [id number] Hypertension Osteoporosis Obstructive sleep apnea Ex-smoker, admits to smoking cigars only Plan: The patient was seen and evaluated Labs and medications reviewed Currently stable and on room air Medical and radiation oncology following Case management working on discharge planning I have personally seen and examined the patient, performed the documentation and the assessment and plan as written. Number of minutes spent on the visit: 10.
[2022-11-27 11:58] LABS: Glucose,Whole Blood 133 mg/dL (70-110)
[2022-11-27] MEDS ORDERED: LACTULOSE 20 GM/30 ML CUP PO ONE (14:26)
--- NOTE | 2022-11-27 15:13 | P.PN ---
Subjective Progress Note Date: 11/27/22 This is a 62 year old male admitted to the hospital for left pleural effusion and atrial fibrillation with RVR. Patient has complaints of left hip pain and difficulty ambulating for the last 4 months, imaging on admission reveals bony metastasis. There is also left lung mass. Patient underwent left neck mass u/s guided core biopsy on 11/20 with pending pathology. Brain MRI reveals atleast 3 areas of dural thickening with extension into the skull on the right for 2 of them and another impressing upon the right occipital lobe. Findings concerning for metastatic disease. Patient is scheduled to undergo MRI of the left femur and thoracic spine today for further evaluation of bone lesions. Orthopedics is following, patient will not be cleared for PT/OT evaluation and treatment until further evaluation of the osseous structures. Patient has been on IV dilaudid and IV morphone around the clock with oral norco as well and continues to report significant pain about 8-9/10 diffuse and generalized. Cardiology following and patient continues on toprol XL 100 mg BID and oral amiodarone heart rate is in the low 100s-90s and maintaining atrial fibrillation. 11/25/2022 Patient evaluated today resting in bed. Continues to report pain 5-6/10 mid back and left thigh. Patient was pre medicated for the MRI but was unable to tolerate lying flat due to pain and MRI was unable to be performed. Patient has been started on fentanyl patch and oxycodone with dilaudid as needed for breakthrough pain. Patient to start radiation tomorrow. White count 13.1 today. Heart rate remains controlled in the 90s. 11/26/2022 Patient evaluated today resting in bed. Continues to report significant pain about 8/10 and has been started on fentanyl patch and oxycodone. Patient is using dilaudid 1 mg as needed and encouraged to try the oral medication. Dilaudid 0.5 mg every 3 hrs will be offered as well patient can opt for the lesser dose. MRI remains on hold. Patient has been evaluated by radiology and underwent mapping today and plans to start radiation therapy. Lymph biopsy pathology is resulted revealing adenocarcinoma with mucinous features differentials include a GI primary adenocarcinoma/pancreaticobiliary. Oncology planning family meeting for tomorrow. 11/27/2022 Patient evaluated today resting in bed. More awake than yesterday. Unable to tolerate MRI and unable to tolerate mapping and planning to begin palliative radiation, this has been placed on hold at this point. Patient requires MRI of the thoracic spine and the left femur for further evaluation and he has been unable to tolerate lying flat due to increased pain and discomfort. He has been maintained on bedrest and orthopedics has been following and PT/OT evaluation has been placed on hold at this time. The initial chest CT shows lesions T6 and T7 with endplate loss and impending fracture. Patient has moments of confusion and neurology has been consulted. Pain medication has been adjusted with fentanyl 25 mcg Q72 hours patch with percocet as needed and IV dilaudid for breakthrough pain which does make the patient more drowsy. Abdomen is less distended and increased bowel sounds today had lactulose x 1 and will repeat lactulose. Patient refused the suppository yesterday. Recommendations have been made by oncology for patient to be transferred to tertiary care center for MRI with sedation and further evaluation by oncology-digital marketing specialist. Patient reports low appetite. Encouraged to increase oral intake. Review of Systems Constitutional: Reports fatigue denied any fever. Cardio vascular: denied any chest pain, palpitations Gastrointestinal: denied any nausea, vomiting, diarrhea Pulmonary: Denied any shortness of breath cough Neurologic denied any new focal deficits has continued hip and back pain. All inpatient medications were reviewed and appropriate changes in these medications as dictated in the interval history and assessment and plan PHYSICAL EXAMINATION: GENERAL: The patient is alert and oriented x3, not in any acute distress. Well developed, well nourished. Fatigued. HEENT: Pupils are round and equally reacting to light. EOMI. No scleral icterus. No conjunctival pallor. Normocephalic, atraumatic. No pharyngeal erythema. No thyromegaly. CARDIOVASCULAR: S1 and S2 present. No murmurs, rubs, or gallops. PULMONARY: Chest is clear to auscultation, no wheezing or crackles. ABDOMEN: Soft, nontender, LLQ distention and dullness to percussion, hypoactive bowel sounds. No palpable organomegaly. MUSCULOSKELETAL: No joint swelling or deformity. EXTREMITIES: No cyanosis, clubbing, or pedal edema. NEUROLOGICAL: Gross neurological examination did not reveal any focal deficits. Generalized weakness. SKIN: No rashes. 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 Hx of nonischemic cardiomyopathy with EF of 20% Hypercalcemia Hypertension Hyperlipidemia Diabetes Mellitus type 2 Chronic alcohol abuse Former smoker with recent smoking cessation GI prophylaxis DVT prophylaxis Full Code Plan Oncology recommending transfer to tertiary care center for MRI with sedation and oncology digital marketing specialist Transfer has been initiated patient has been accepted at [facility] by hospitalist Dr. Ella Bundy pending a bed assignment at this time. MRI of the left femur and thoracic spine ordered and held for now due to paints pain and unable to tolerate procedure Pending clearance to begin PT/OT orthopedics following, patient is at risk for pathological bone fracture based on imaging and unable to tolerate the thoracic MRI for further evaluation. Currently bedrest. Radiation has also been placed on hold at this time. Continue with pain management and bowel regimen. The impression and plan of care has been dictated by Lupis Epstein, Nurse Practitioner as directed. Dr. Terry MD I have performed a history and physical examination and medical decision making of this patient, discussed the same with the dictator, and agree with the dictators assessment and plan as written, documented as a scribe. Based on total visit time, I have performed more than 50% of this visit. Objective - Vital Signs Vital signs: Vital Signs Temp 97.3 F L 11/27/22 08:00 Pulse 83 11/27/22 12:00 Resp 18 11/27/22 12:00 BP 130/63 11/27/22 12:00 Pulse Ox 95 11/27/22 12:00 FiO2 21 11/27/22 08:01 Intake & Output 11/26/22 11/27/22 11/27/22 18:59 06:59 18:59 Intake Total 110 Output Total 800 1550 425 Balance -690 -1550 -425 Weight 100.244 kg Intake: Oral 110 Output: Urine 800 1550 425 Uretheral (Lin) 750 Other: Voiding Method Indwelling Catheter Indwelling Catheter Indwelling Catheter # Bowel Movements 1 - Labs CBC & Chem 7: 11/27/22 06:35 11/27/22 06:35 Labs: Abnormal Lab Results - Last 24 Hours (Table) 11/26/22 11/26/22 11/27/22 Range/Units 16:26 20:00 06:25 WBC (3.8-10.6) k/uL RBC (4.30-5.90) m/uL Hgb (13.0-17.5) gm/dL RDW (11.5-15.5) % Neutrophils # (1.3-7.7) k/uL Lymphocytes # (1.0-4.8) k/uL Potassium (3.5-5.1) mmol/L Chloride (98-107) mmol/L Carbon Dioxide (22-30) mmol/L BUN (9-20) mg/dL Glucose (74-99) mg/dL POC Glucose (mg/dL) 117 H 118 H 113 H (70-110) mg/dL Calcium (8.4-10.2) mg/dL 11/27/22 11/27/22 11/27/22 Range/Units 06:35 06:35 11:57 WBC 12.1 H (3.8-10.6) k/uL RBC 4.27 L (4.30-5.90) m/uL Hgb 12.2 L (13.0-17.5) gm/dL RDW 16.3 H (11.5-15.5) % Neutrophils # 10.5 H (1.3-7.7) k/uL Lymphocytes # 0.8 L (1.0-4.8) k/uL Potassium 3.4 L (3.5-5.1) mmol/L Chloride 95 L (98-107) mmol/L Carbon Dioxide 35 H (22-30) mmol/L BUN 22 H (9-20) mg/dL Glucose 109 H (74-99) mg/dL POC Glucose (mg/dL) 133 H (70-110) mg/dL Calcium 10.6 H (8.4-10.2) mg/dL Assessment and Plan Time with Patient: Less than 30
--- NOTE | 2022-11-27 16:42 | P.PN ---
Subjective Progress Note Date: 11/27/22 Principal diagnosis: pleural effusion, lung mass At today's visit patient is resting comfortably in bed. He reports pain is persisting in left hip/lower back, worse with movement. Pt was scheduled for simulation yesterday but was unable to tolerate exam. He continues on Fentanyl patch and diluadid and Percocet as needed for breakthrough pain, will continue to follow. Patient has also been unable to tolerate MRI's despite premedications. Objective - Vital Signs Vital signs: Vital Signs Temp 97.3 F L 11/27/22 08:00 Pulse 83 11/27/22 12:00 Resp 18 11/27/22 12:00 BP 130/63 11/27/22 12:00 Pulse Ox 95 11/27/22 12:00 FiO2 21 11/27/22 08:01 Intake & Output 11/26/22 11/27/22 11/27/22 18:59 06:59 18:59 Intake Total 110 Output Total 800 1550 425 Balance -690 -1550 -425 Weight 100.244 kg Intake: Oral 110 Output: Urine 800 1550 425 Uretheral (Lin) 750 Other: Voiding Method Indwelling Catheter Indwelling Catheter Indwelling Catheter # Bowel Movements 1 - Constitutional General appearance: Present: average body habitus, no acute distress - EENT Eyes: Present: anicteric sclerae, EOMI ENT: Present: hearing grossly normal - Respiratory Details: breathing even and unlabored - Cardiovascular Details: skin warm and dry - Integumentary Integumentary: Absent: cyanotic, rash - Musculoskeletal Musculoskeletal Comment(s): decreased ROM of BLE Musculoskeletal: Present: generalized weakness - Psychiatric Psychiatric: Present: A&O x's 3 - Labs CBC & Chem 7: 11/27/22 06:35 11/27/22 06:35 Labs: Abnormal Lab Results - Last 24 Hours (Table) 11/26/22 11/26/22 11/27/22 Range/Units 16:26 20:00 06:25 WBC (3.8-10.6) k/uL RBC (4.30-5.90) m/uL Hgb (13.0-17.5) gm/dL RDW (11.5-15.5) % Neutrophils # (1.3-7.7) k/uL Lymphocytes # (1.0-4.8) k/uL Potassium (3.5-5.1) mmol/L Chloride (98-107) mmol/L Carbon Dioxide (22-30) mmol/L BUN (9-20) mg/dL Glucose (74-99) mg/dL POC Glucose (mg/dL) 117 H 118 H 113 H (70-110) mg/dL Calcium (8.4-10.2) mg/dL 11/27/22 11/27/22 11/27/22 Range/Units 06:35 06:35 11:57 WBC 12.1 H (3.8-10.6) k/uL RBC 4.27 L (4.30-5.90) m/uL Hgb 12.2 L (13.0-17.5) gm/dL RDW 16.3 H (11.5-15.5) % Neutrophils # 10.5 H (1.3-7.7) k/uL Lymphocytes # 0.8 L (1.0-4.8) k/uL Potassium 3.4 L (3.5-5.1) mmol/L Chloride 95 L (98-107) mmol/L Carbon Dioxide 35 H (22-30) mmol/L BUN 22 H (9-20) mg/dL Glucose 109 H (74-99) mg/dL POC Glucose (mg/dL) 133 H (70-110) mg/dL Calcium 10.6 H (8.4-10.2) mg/dL Assessment and Plan (1) Hypercalcemia Current Visit: Yes Status: Acute Priority: High Code(s): E83.52 - HYPERCALCEMIA SNOMED Code(s): 16095773 (2) Lesion of left femur Current Visit: Yes Status: Acute Priority: High Code(s): M89.9 - DISORDER OF BONE, UNSPECIFIED SNOMED Code(s): 12603262297560728 (3) Lung mass Current Visit: Yes Status: Acute Priority: High Code(s): R91.8 - OTHER NONSPECIFIC ABNORMAL FINDING OF LUNG FIELD SNOMED Code(s): 949682287 (4) Adenocarcinoma of unknown primary Current Visit: Yes Status: Acute Priority: High Code(s): C80.1 - MALIGNANT (PRIMARY) NEOPLASM, UNSPECIFIED SNOMED Code(s): 574012191 Plan: Lt leg pain, lytic lesion of lt femur -Orthopedic consulted. No plan for surgical intervention at this time. Awaiting left femur MRI and Thoracic MRI, however patient has not been able to tolerate MRIs despite receiving premedications prior to procedure. Pt was scheduled for simulation yesterday but was unable to tolerate exam due to pain. -Continues on Fentanyl, with diluadid and percocet for breakthrough pain, will continue to monitor and adjust as needed -Meds for prevention narcotic induced constipation ordered Metastatic adenocarcinoma of unknown primary: -Discussed with pt and his daughter clinical picture most consistent with malignancy -CT AP did not show any evidence of disease in the abdomen or pelvis. MRI of the brain showing some suspicious areas. Rad/onc following. Spoke with rad onc, plan for palliative radiation of bilateral hips and possibly left femur if no surgical intervention is planned. Stereotactic radiosurgery also planned for dural lesions once tissue diagnosis obtained. Simulation not compelted as described above -Left neck mass biopsy obtained. 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 However, CT abdomen and pelvis revealed no suspicious mass in the abdomen or pelvis, with no greater than 1 cm abdominal or pelvic lymph nodes appreciated. Lung primary is still in the dif ferential and patient will need additional workup. EGD and colonoscopy was performed on 09/11/[address] Hylton. No neoplastic or polypoid lesions were noted on scopes. Colonoscopy revealed in the left colon patchy erythema with a few superficial plaque-like erosions. Biopsy revealed acute colitis with ischemic-type features and gastric antrum biopsy revealed mild chronic gastritis. Making an upper GI primary less likely. Will need to pursue more advanced imaging with MRCP to r/o pancreatobiliary origin. -Due to progressing symptoms and pain and inability to proceed with further workup, we recommend patient be transferred to tertiary center for further evaluation. He will need MRI with sedation and consult to ortho oncology. -Discussed with patient and family that we will need to get pain better controlled with surgery if necessary based on MRI/ortho onc eval and palliative radiation before we can begin treatment, as patient will have to be able to tolerate getting to and from clinic appointments and treatments. Spoke in depth with patient, daughter and in regards to plan of care and the need to transfer to tertiary center for a higher level of care. Patient and agree able with plan Hypercalcemia 2/2 malignancy -Ca++ 10.6 today. No intervention at this time other than hydration. -Hold off on any bisphosphonates until Ortho has r/o surgical intervention
[2022-11-27 16:55] LABS: Glucose,Whole Blood 118 mg/dL (70-110)
[2022-11-27] MEDS: RIVAROXABAN 20 MG TAB PO SCH (18:14)
[2022-11-27 20:08] LABS: Glucose,Whole Blood 127 mg/dL (70-110)
--- NOTE | 2022-11-27 20:27 | P.CNNES ---
History of Present Illness Consult date: 11/27/22 Requesting physician: Lupis Epstein Reason for Consult: AMS/delirium, brain metastasis new History of Present Illness: Patient is a 62-year-old male with history of diabetes, atrial fibrillation came to the hospital 11/18/2022 because of worsening mobility. Patient's and daughter were present, who provided with a history. Patient was recently hospitalized for atrial fibrillation and was hospitalized for a month. He also suffered from acute COVID infection at that time. Patient had acute renal insufficiency, atrial fibrillation at that time. After prolonged hospitalization, patient was sent home. He was getting physical therapy, but apparently instead of improvement, he was progressively getting worse. On the day of admission, he could not stand up therefore he was brought to the hospital. While in the hospital, he has been somewhat forgetful, and slightly confused. Partly from his related to the use of pain medications including Dilaudid. Patient was saying that his brother came in port catheter on him, which is not correct. Patient was asking where his brothers Ace and Lucrecia were, although Ace has 20 years ago. Patient's mentation improved about 8 hours after Dilaudid was given after it was all metabolized. However is still slightly confused. He has received Dilaudid 3 times since in the hospital. At present patient is on fentanyl, oxycodone and [place]. Patient has been diagnosed with metastatic cancer with unknown primary. He has severe pain all the time. Brain MRI revealed at least 3 areas of dural thickening with extension into the skull on the right for 2 of them and another impressing upon the right occipital lobe. The more superior lesion extending into the calvarium appears more aggressive compared to the inferior osseous lesion. The inferior lesion may represent an arachnoid granulation. The superior lesion is highly suspicious for dural metastasis in extension into the skull. The falx cerebri lesion is also highly suspicious. 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 Nonspecific white matter changes. CT of the abdomen and pelvis revealed osseous metastatic disease is seen correlating with recent CT chest study. Persistent suspicious left lower lobe masslike consolidation partially imaged. No obvious suspicious mass in the abdomen or pelvis. CT of the chest revealed left lower lung consolidation concerning for underlying malignancy with postobstructive atelectasis. There is metastatic disease to the mediastinum, right adrenal gland and throughout the osseous structures with distractive changes. PET/CT is recommended. Patient had a lymph node biopsy, which was positive for mucinous adenocarcinoma. Patient has history of diabetes since an 83. Patient used to smoke cigars occasionally, quit completely 4 months ago. He takes 2-3 drinks of whiskey and beer a day. Review of Systems Constitutional: Reports malaise, Reports weakness, Reports weight loss, Denies chills, Denies fever Eyes: denies blurred vision, denies pain Ears: deny: ear discharge Ears, nose, mouth and throat: Denies headache, Denies sore throat Cardiovascular: Denies chest pain, Denies shortness of breath Respiratory: Denies cough, Denies excessive sputum Gastrointestinal: Denies abdominal pain, Denies diarrhea, Denies nausea, Denies vomiting Genitourinary: Denies dysuria, Denies flank pain Musculoskeletal: Reports low back pain, Reports neck pain, Denies myalgias Integumentary: Denies pruritus, Denies rash Neurological: Reports as per HPI Psychiatric: Reports depression, Denies anxiety Endocrine: Reports fatigue, Reports weight change, Denies palpitations Past Medical History Past Medical History: Atrial Fibrillation, Diabetes Mellitus, Hypertension, Osteoarthritis (OA), Sleep Apnea/CPAP/BIPAP Additional Past Medical History / Comment(s): NIDDM., PAST HX OF HTN BUT NOW HAS LOW BLOODPRESSURE., COLON POLYPS, CHRONIC BACK PAIN., HOSPITALIZED AT [facility] AUGUST/SEPTEMBER WITH POSITIVE COVID, TINNITUS, DIZZINESS, BLURRED VISION WITH GI BLEED, PNEUMONIA , THORACENTESIS DONE , EGD AND COLONOSCOPY SHOWED MILD GASTRITIS, COLITIS DIVERTICULITIS., PT STATES SLEEP APNEA BUT HAS NOT BEEN ABLE TO START USING MACHINE YET., SEE CARDIOLOGY H & P. History of Any Multi-Drug Resistant Organisms: None Reported Past Surgical History: Adenoidectomy, Tonsillectomy Additional Past Surgical History / Comment(s): Tailbone Cystectomy. Vasectomy. COLONOSCOPY EGD (09/11/22) ., CARDIOVERSION, THORACENTESIS 09/15/22 Past Anesthesia/Blood Transfusion Reactions: No Reported Reaction Additional Past Anesthesia/Blood Transfusion Reaction / Comment(s): NO HX OF BLOOD TRANSFUSION Past Psychological History: No Psychological Hx Reported Additional Psychological History / Comment(s): . Smoking Status: Former smoker Past Alcohol Use History: None Reported Additional Past Alcohol Use History / Comment(s): SMOKED TEEN AND THEN OCCASIONAL CIGAR-NONE IN 3-4 MONTHS. Past Drug Use History: None Reported - Past Family History Father Family Medical History: Congestive Heart Failure (CHF) Additional Family Medical History / Comment(s): Father of CHF Mother Additional Family Medical History / Comment(s): Mother had cirrhosis of the liver. Medications and Allergies Home Medications Medication Instructions Recorded Confirmed Type Atorvastatin [Lipitor] 20 mg PO HS 08/13/22 11/18/22 History Spironolactone [Aldactone] 12.5 mg PO DAILY 30 Days #30 tab 08/29/22 11/18/22 Rx Tamsulosin [Flomax] 0.4 mg PO DAILY 09/04/22 11/18/22 History Furosemide [Lasix] 40 mg PO DAILY #30 tab 09/15/22 11/18/22 Rx Amiodarone [Cordarone] 200 mg PO DAILY 10/17/22 11/18/22 History Metoprolol Succinate [Toprol XL] 100 mg PO DAILY 10/17/22 11/18/22 History Rivaroxaban [Xarelto] 20 mg PO DAILY 10/17/22 11/18/22 History Dapagliflozin Propanediol [Farxiga] 10 mg PO DAILY 11/18/22 11/18/22 History Gabapentin [Neurontin] 400 mg PO TID 11/18/22 11/18/22 History HYDROcodone/APAP 7.5-325MG [[place] 1 tab PO Q6H PRN 11/18/22 11/18/22 History 7.5-325] Metoprolol Succinate (ER) [Toprol 50 mg PO HS@1800 11/18/22 11/18/22 History Xl] Semaglutide [Ozempic] 0.25 mg SQ SA 11/18/22 11/18/22 History Allergies Allergy/AdvReac Type Severity Reaction Status Date / Time clarithromycin [From Biaxin] Allergy Severe Rash/Hives Verified 11/18/22 19:39 Physical Examination - Vital Signs Vital Signs: Vital Signs Temp Pulse Resp BP Pulse Ox FiO2 11/27/22 08:01 93 L 21 11/27/22 08:00 97.3 F L 93 18 132/71 92 L 11/27/22 04:00 86 18 124/63 94 L 11/27/22 02:00 94 11/27/22 00:00 94 18 109/62 93 L 11/26/22 20:00 98.2 F 89 18 118/60 93 L 11/26/22 16:00 100 18 123/61 90 L 11/26/22 14:14 97.8 F 102 H 20 156/72 92 L 11/26/22 14:00 102 H 20 Intake and Output 11/26/22 11/27/22 11/27/22 22:59 06:59 14:59 Output Total 1600 750 Balance -1600 -750 Output: Urine 1600 750 Uretheral (Lin) 350 400 Other: Voiding Method Indwelling Catheter Indwelling Catheter Patient is an elderly male, in no acute distress. Patient is alert awake oriented to time place and person. Patient knows it is November 2022 and that he is in [facility] in [place] in [facility]. He thinks Janak Vigil is the president but then he said he is not. He knows Jade possible last president. He could not come up with the current president. Speech and language functions are normal. Patient can name and repeat very well. No aphasia or dysarthria. Attention, concentration is s lightly impaired and fund of knowledge is limited. Detail cognitive function testing deferred. On cranial nerve examination, pupils are equal, round and reacting to light, visual jackson are full on confrontation, with no neglect on double simultaneous stimulation. Extraocular muscles are intact with no nystagmus. Face is symmetric, tongue protrudes to the midline. Palatal elevation and sensation normal, hearing and shoulder shrug normal, facial sensation normal. On muscle strength testing, there is no pronator drift and the strength is normal in arms and legs distally and proximally, except hip flexion, which is 4- bilaterally. Deep tendon reflexes are symmetric biceps 2, brachioradialis 1, trace at the knees, plantars are withdrawal bilaterally. Sensory to touch is equal with no neglect on double simultaneous stimulation. Cerebellar function showed no ataxia for [id number] testing. No dysdiadochokinesia. Tone and bulk of muscles normal. Patient has obvious weight loss, and loss of muscle mass. Gait deferred.. On general examination, there is no carotid bruit or murmur, S1-S2 audible. Chest is clear on consultation. Abdomen is soft nontender. No organomegaly, bowel sounds present. Peripheral pulses are present. Mild peripheral edema. Results - Laboratory Findings CBC and BMP: 11/27/22 06:35 11/27/22 06:35 Abnormal Lab Findings: Abnormal Labs 11/18/22 11/18/22 11/18/22 17:41 17:41 17:41 WBC 11.0 H RBC 3.96 L Hgb 11.2 L Hct 35.7 L MCHC RDW 16.8 H Plt Count 532 H Neutrophils # 8.6 H Lymphocytes # PT 14.0 H INR 1.4 H APTT Sodium 134 L Potassium Chloride 89 L Carbon Dioxide 36 H BUN 21 H Glucose 169 H POC Glucose (mg/dL) Calcium 10.6 H Total Protein Albumin 3.4 L Urine Glucose (UA) 11/18/22 11/19/22 11/20/22 18:15 15:46 00:25 WBC RBC Hgb Hct MCHC RDW Plt Count Neutrophils # Lymphocytes # PT INR APTT 40.8 H 40.1 H Sodium Potassium Chloride Carbon Dioxide BUN Glucose POC Glucose (mg/dL) Calcium Total Protein Albumin Urine Glucose (UA) 4+ H 11/20/22 11/20/22 11/21/22 06:57 06:57 07:59 WBC 11.4 H RBC 3.94 L Hgb 10.7 L Hct 36.2 L MCHC 29.5 L RDW 16.7 H Plt Count 467 H Neutrophils # 9.3 H Lymphocytes # PT INR APTT 56.4 H Sodium 136 L Potassium 3.2 L Chloride 93 L Carbon Dioxide 35 H BUN Glucose 139 H POC Glucose (mg/dL) Calcium Total Protein 6.1 L Albumin 2.9 L Urine Glucose (UA) 11/21/22 11/21/22 11/25/22 07:59 12:13 09:24 WBC 13.1 H RBC 4.15 L Hgb 11.8 L Hct 37.8 L MCHC RDW 16.2 H Plt Count Neutrophils # 10.8 H Lymphocytes # PT INR APTT 40.7 H Sodium 135 L Potassium Chloride 93 L Carbon Dioxide 37 H BUN Glucose 128 H POC Glucose (mg/dL) Calcium Total Protein 6.0 L Albumin 2.9 L Urine Glucose (UA) 11/25/22 11/26/22 11/26/22 09:24 07:44 16:26 WBC RBC Hgb Hct MCHC RDW Plt Count Neutrophils # Lymphocytes # PT INR APTT Sodium 136 L Potassium 3.3 L Chloride 94 L 95 L Carbon Dioxide 38 H 32 H BUN 21 H 24 H Glucose 117 H POC Glucose (mg/dL) 117 H Calcium 10.5 H 10.9 H Total Protein Albumin Urine Glucose (UA) 11/26/22 11/27/22 11/27/22 20:00 06:25 06:35 WBC RBC Hgb Hct MCHC RDW Plt Count Neutrophils # Lymphocytes # PT INR APTT Sodium Potassium 3.4 L Chloride 95 L Carbon Dioxide 35 H BUN 22 H Glucose 109 H POC Glucose (mg/dL) 118 H 113 H Calcium 10.6 H Total Protein Albumin Urine Glucose (UA) 11/27/22 06:35 WBC 12.1 H RBC 4.27 L Hgb 12.2 L Hct MCHC RDW 16.3 H Plt Count Neutrophils # 10.5 H Lymphocytes # 0.8 L PT INR APTT Sodium Potassium Chloride Carbon Dioxide BUN Glucose POC Glucose (mg/dL) Calcium Total Protein Albumin Urine Glucose (UA) Assessment and Plan Assessment: * Altered mental status, likely due to delirium/metabolic encephalopathy, with fluctuating mental status. Reasons multifactorial including hypercalcemia, other electrolyte imbalance, pain medications including opiates and extensive metastatic cancer. 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 * Diabetes * Hypertension * Hyperlipidemia * Chronic alcohol use * Cardiomyopathy Plan: * Patient needs MRI of the thoracic spine and the femur, but patient could not lay flat. Patient is being considered for transfer to higher level of care for MRI to be performed under sedation. * Limit the amount of opiates, sedative hypnotics and anticholinergics. * If the delirium worsens, may need low-dose Seroquel. * Treatment of electrolyte imbalance as per IM/oncology. * Supportive care. * Neurology will follow. Thank you for the consult. Time with Patient: Greater than 30
[2022-11-27] MEDS: ATORVASTATIN 20 MG TAB PO SCH (20:57)
[2022-11-28] MEDS: oxyCODONE-APAP 10-325MG 1 EACH TAB PO PRN ×3 (01:01→15:28)
[2022-11-28] MEDS: HYDROmorphone 1 MG/ML 1 ML SYRINGE IVP PRN (03:50)
[2022-11-28 06:18] LABS: Glucose,Whole Blood 138 mg/dL (70-110)
[2022-11-28] MEDS: METOPROLOL SUCCINATE (ER) 100 MG TAB.ER.24H PO SCH (07:44)
[2022-11-28] MEDS: SPIRONOLACTONE 25 MG TAB PO SCH (07:45)
[2022-11-28] MEDS: TAMSULOSIN 0.4 MG CAP.ER.24H PO SCH (07:45)
[2022-11-28] MEDS: GABAPENTIN 400 MG CAP PO SCH ×2 (07:45→15:30)
[2022-11-28] MEDS: SENNOSIDES-DOCUSATE SODIUM 1 EACH TAB PO SCH (07:45)
[2022-11-28] MEDS: AMIODARONE 200 MG TAB PO SCH (07:45)
[2022-11-28] MEDS: FUROSEMIDE 40 MG TAB PO SCH (07:46)
[2022-11-28] MEDS: PANTOPRAZOLE 40 MG/10 ML VIAL IV SCH (07:46)
[2022-11-28] MEDS: DIGOXIN 250 MCG TAB PO SCH (07:46)
[2022-11-28] MEDS: DAPAGLIFLOZIN PROPANEDIOL 10 MG TABLET PO SCH (07:46)
[2022-11-28 09:56] LABS: Anisocytosis Slight; HCT 39.4 % (39.0-53.0); HGB 12.4 gm/dL (13.0-17.5); Hypochromasia Slight; MCH 29.1 pg (25.0-35.0); MCHC 31.6 g/dL (31.0-37.0); MCV 92.1 fL (80.0-100.0); Mean Platelet Volume 8.1; Platelet Count 477 k/uL (150-450); RBC 4.28 m/uL (4.30-5.90); RDW 16.2 % (11.5-15.5); WBC 17.5 k/uL (3.8-10.6)
[2022-11-28 10:04] LABS: African American GFR (CKD) >90 (>60 ml/min/1.73 sqM); Anion Gap 7 mmol/L; Blood Urea Nitrogen 22 mg/dL (9-20); Calcium 10.8 mg/dL (8.4-10.2); Carbon Dioxide 33 mmol/L (22-30); Chloride 95 mmol/L (98-107); Glucose 146 mg/dL (74-99); Magnesium 1.8 mg/dL (1.6-2.3); Non-African American GFR(CKD) >90 (>60 ml/min/1.73 sqM); Potassium 3.6 mmol/L (3.5-5.1); Sodium 135 mmol/L (137-145)
[2022-11-28] MEDS ORDERED: MORPHINE SULFATE 2 MG/ML SYRINGE IVP PRN (10:08)
--- NOTE | 2022-11-28 11:17 | P.PN ---
Subjective Progress Note Date: 11/28/22 I am seeing this patient in new consultation today 11/19/2022 after the patient presented yesterday evening complaining of left lateral chest pain and left hip pain. Patient is a 62-year-old male with past medical history significant for paroxysmal atrial fibrillation anticoagulated on Xarelto, nonischemic cardiomyopathy with an ejection fraction of 20 %, diabetes mellitus type 2, hypertension, osteoarthritis, and obstructive sleep apnea. He admits to chronic cigar smoking. He says that he has lost approximately 40 pounds since the beginning of the year. Patient was recently admitted and treated for left lower lobe pneumonia, A. fib RVR, subsequent GI bleed, and was COVID 19 positive back in August,. He did have a left-sided pleural effusion, and a thoracentesis was performed on 09/15/2022. A total of 1.5 L was removed at that time, and appeared to be a transudate based on protein and LDH analysis. No cytology report to review. The patient was ultimately discharged on September 15, and did reportedly follow up with Dr. Fair in the office. Patient arrived to the emergency room last night with complaints of left lateral chest pain and left hip pain. Denies any trauma. Chest x-ray redemonstrated a small left pleural effusion with patchy left basilar air space opacities indicating atelectasis versus infiltrate. A follow-up chest CT with contrast demonstrated an increased sized left lower lung consolidation, and it is concerning for underlying malignancy with postobstructive atelectasis. There was also evidence of metastatic disease throughout the mediastinum, multiple osseous structures, and right adrenal gland. There are enlarged mediastinal lymph nodes including a subcarinal lymph node measuring 3.6 x 2.4 cm and an enlarged right lower articular lymph node measuring 1.9 cm. Multiple noted lytic lesions involving the ribs, including possible pathological fractures of the left second rib and remote right sided fractures of ribs 6, 8, 9. 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 Left-sided femur x-ray does not show any acute fracture, but does show an irregular lytic lesion involving the distal left femur and mild osteoarthritic changes of the left hip. Patient is currently sitting up in the recliner, on room air, in no acute distress. He has been reportedly experiencing progressively worsening back pain over the past few months. He can no longer lay flat on his back because of this. He denies any shortness of breath, fever, chills, cough, hemoptysis. Patient is currently in atrial fibrillation with rapid ventricular rate with a heart rate of 170 beats per minute, and he was just switched from Cardizem to amiodarone. Amiodarone is currently infusing at 1 mg/m. Blood pressure is holding and normotensive. Cardiology is managing the patient's atrial fibrillation. CBC shows a WBC count of 11, hemoglobin 11.2, hematocrit 35.7, platelets 532. BMP shows a sodium of 134, potassium 3.6, chlo ride 89, serum CO2 36, BUN 21, creatinine 0.75, glucose 169. There is hypercalcemia. Troponin is negative 3. NT proBNP was elevated at 2210. There is extensive bilateral lower extremity edema. Lasix was restarted. The patient's condition is guarded, and he will be admitted to the cardiac stepdown unit for closer monitoring. The patient is seen today 11/20/2022 in follow-up on the regular medical floor. He is currently resting fairly comfortably in bed. Still with a lot of hot bone pain more so in this left chest, left hip and lower back. No worsening shortness of breath, cough or congestion. No hemoptysis. Maintaining O2 saturations in the 90s on room air. He's afebrile. Hemodynamically stable. Computed tomography scan of the abdomen and pelvis revealed osseous metastatic d isease seen correlating with recent CT study. Persistent suspicious left lower lobe masslike consolidation. No obvious suspicious mass in the abdomen or pelvis. Scattered lytic destructive lesions are seen in multiple areas. MRI of the brain revealed at least 3 areas of dural thickening with extension into the skull on the right for 2 of them and another impressing on the right occipital lobe. The more superior lesion extending in the calvarium appears more aggressive compared to the inferior osseous lesion. This. Lesion is highly suspicious for dural metastasis with extension into the skull. The falx cerebri lesion is also highly suspicious. Left cabana attendant space enhancing mass con cerning for metastatic disease. He is currently on a heparin drip. Continue to amiodarone drip at 0.5 mg/m. Sodium 136. Potassium 3.2. Bicarb 35. BUN 18. Creatinine 0.73. Glucose 139. Echocardiogram reveals impaired left ventricular systolic function with ejection fraction of 35%. The plan is for a core biopsy of the adenopathy in the neck to obtain adequate tissue specimen that could be sent for NGS testing. The patient is seen today 11/21/2022 in follow-up on the regular medical floor. He is awake and alert in no acute distress. He sitting up in bed. Maintaining good O2 saturations in the 90s on room air. His pain is better controlled. He did undergo a core biopsy of the left neck lymph node yesterday. Pathology pending. He has been seen and evaluated by radiation oncology and orthopedics regarding his multiple lytic lesion pains. White count 11.4. Hemoglobin 10.7. Sodium 135. Potassium 4.0. Bicarb 37. BUN 14. Creatinine 0.87. Glucose 128. Calcium 10.2. He is continued on a heparin drip. He remains in atrial fibrillation with a better controlled ventricular response. The patient is seen today 11/22/2022 in follow-up on the regular medical floor. He is currently resting comfortably in bed. Awake and alert in no acute distress. Stating his pain is well controlled. He is currently maintaining O2 saturations in the 90s on room air. He's been afebrile. Hemodynamically stable. Pathology is pending of the core biopsy of the left neck mass. He was unable to complete the MRI of the left femur yesterday due to pain. Working with different pain medications to try and get the MRI done today. He does remain in atrial fibrillation. Transitioned back to his Xarelto. Continues on oral diuretics. Currently in a -2.5 L balance. The patient is seen today 11/23/2022 in follow-up on the regular medical floor. He is currently resting fairly comfortably in bed. His pain is better controlled today. Still some lingering back pain. He denies any shortness of breath, cough or congestion. No hemoptysis. Good O2 saturations in the 90s on room air. He remains in atrial fibrillation, anticoagulated with Xarelto. Continued on diuretics. Currently in a -3.3 L balance. Patient is seen today 11/24/2022 in follow-up on the regular medical floor. He is currently resting in bed. Awake and alert in no acute distress. Stating his pain is fairly well controlled currently. The plan is for possible MRI of the left femur/5 and thoracic spine today the patient can tolerate it. He denies any worsening shortness of breath, cough or congestion. No hemoptysis. Maintain O2 saturation in the 90s on room air. He is hemodynamically stable. Remains in atrial fibrillation with varying ventricular response. Anticoagulated with Xarelto. Remains on oral diuretics. Remains in a negative balance. Biopsy results still pending. The patient is seen today 11/25/2022 in follow-up on the regular medical floor. He is currently resting comfortably in bed. Awake and alert in no acute distress. The patient did have adequate pain medication however still is unable to tolerate MRI of the left femur and spine yesterday. Currently maintaining O2 saturations in the low 90s on room air. He remains in atrial fibrillation with a controlled ventricular rate. Afebrile. Hemodynamically stable. Pathology from the core biopsy of the left neck lymph node still pending. The patient is seen today 11/26/2022 in follow-up on the regular medical floor. He is awake and alert in no acute distress. Resting fairly comfortably in bed. He was still unable to see with MRI inability to lay flat. The patient's pathology did come back positive for adenocarcinoma with mucinous features and gastrointestinal primary adenocarcinoma or a pancreaticobiliary primary adenocarcinoma both within the differential. Medical oncology and radiation oncology are following the case. He currently remains stable and on room air. Afebrile. Anticoagulated with Xarelto. The patient is seen today 11/27/2022 in follow-up on the regular medical floor. He remains awake and alert. Resting fairly comfortably in bed. His pain is still difficult to control. The plan is for palliative radiation the bilateral hips and possible left femur. The plan is also for radiation treatments to the brain lesions. White count 12.1. Hemoglobin 12.2. Platelet count 437. Sodium 137. Potassium 3.4. Bicarb 35. BUN 22. Creatinine 0.81. Glucose 109. Chest x-ray reveals small left pleural effusion. No focal consolidation or pneumothorax. The patient is seen today 11/28/2022 in follow-up on the regular medical floor. He is resting in bed. Awake and alert. Continues to maintain good O2 saturations in the 90s on room air. Afebrile. Hemodynamically stable. Remains in atrial fibrillation with varying ventricular response. White count 17.5. Hemoglobin 12.4. Platelets 477. Sodium 135. Potassium 3.6. Bicarb 33. BUN 22. Creatinine 0.72. Glucose 146. Anticoagulated with Xarelto. The plan is for transfer to [facility] for orthopedic oncology and Sedative MRI that he has not been able to tolerate here. Objective - Vital Signs Vital signs: Vital Signs Temp 97.1 F L 11/28/22 07:40 Pulse 111 H 11/28/22 07:40 Resp 18 11/28/22 08:00 BP 138/85 11/28/22 07:40 Pulse Ox 93 L 11/28/22 07:40 FiO2 21 11/27/22 08:01 Intake & Output 11/27/22 11/28/22 11/28/22 18:59 06:59 18:59 Intake Total 180 Output Total 425 1300 Balance -245 -1300 Weight 100.244 kg Intake: Oral 180 Output: Urine 425 1300 Other: Voiding Method Indwelling Catheter Indwelling Catheter Indwelling Catheter - Exam GENERAL EXAM: Alert, very pleasant 62-year-old male, on room air, fairly comfortable in no apparent distress. HEAD: Normocephalic and atraumatic EYES: Normal reaction of pupils, equal size. NOSE: Clear with pink turbinates. THROAT: No erythema or exudates. NECK: Lymphadenopathy of the left neck. CHEST: No chest wall deformity. LUNGS: Equal air entry with no crackles, wheeze, rhonchi or dullness. No conversational dyspnea. CVS: S1 and S2 normal with no audible murmur, irregular rhythm. No extra heart sounds. ABDOMEN: Obese abdomen. No hepatosplenomegaly, active bowel sounds, no guarding or rigidity. SPINE: No scoliosis or deformity SKIN: No rashes CENTRAL NERVOUS SYSTEM: No focal deficits, tone is normal in all 4 extremities. EXTREMITIES: There is 1 to 2+ bilateral lower extremity edema. no clubbing, or cyanosis. Peripheral pulses are intact. - Labs CBC & Chem 7: 11/28/22 09:32 11/28/22 09:32 Labs: Abnormal Lab Results - Last 24 Hours (Table) 11/27/22 11/27/22 11/27/22 Range/Units 11:57 16:54 20:06 WBC (3.8-10.6) k/uL RBC (4.30-5.90) m/uL Hgb (13.0-17.5) gm/dL RDW (11.5-15.5) % Plt Count (150-450) k/uL Sodium (137-145) mmol/L Chloride (98-107) mmol/L Carbon Dioxide (22-30) mmol/L BUN (9-20) mg/dL Glucose (74-99) mg/dL POC Glucose (mg/dL) 133 H 118 H 127 H (70-110) mg/dL Calcium (8.4-10.2) mg/dL 11/28/22 11/28/22 11/28/22 Range/Units 06:16 09:32 09:32 WBC 17.5 H (3.8-10.6) k/uL RBC 4.28 L (4.30-5.90) m/uL Hgb 12.4 L (13.0-17.5) gm/dL RDW 16.2 H (11.5-15.5) % Plt Count 477 H (150-450) k/uL Sodium 135 L (137-145) mmol/L Chloride 95 L (98-107) mmol/L Carbon Dioxide 33 H (22-30) mmol/L BUN 22 H (9-20) mg/dL Glucose 146 H (74-99) mg/dL POC Glucose (mg/dL) 138 H (70-110) mg/dL Calcium 10.8 H (8.4-10.2) mg/dL Assessment and Plan Assessment: Enlarged left lower masslike lung consolidation concerning for underlying malignancy with postobstructive atelectasis. There was also redemonstration of small left-sided pleural effusion. There is CT evidence of metastatic disease throughout the mediastinum, multiple osseous structures, and right adrenal gland. Left-sided femur x-ray also showed an irregular lytic lesion involving the distal left femur. Computed tomography scan of the abdomen and pelvis revealed osseous metastatic disease seen correlating with recent CT study. Persistent suspicious left lower lobe masslike consolidation. No obvious suspi cious mass in the abdomen or pelvis. Scattered lytic destructive lesions are seen in multiple areas. MRI of the brain revealed at least 3 areas of dural thickening with extension into the skull on the right for 2 of them and another impressing on the right occipital lobe. The more superior lesion extending in the calvarium appears more aggressive compared to the inferior osseous lesion. This lesion is highly suspicious for dural metastasis with extension into the skull. The falx cerebri lesion is also highly suspicious. Left cabana attendant space enhancing mass concerning for metastatic disease. Lymphadenopathy of the left neck. Core biopsy performed 11/20/2022. 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 The differential includes, but is not limited to, a GI primary adenocarcinoma and a pancreaticobiliary primary adenocarcinoma. Back pain, presumably related to destructive osseous metastasis throughout the thoracic spine Left-sided chest pain, with an acute pathologic left-sided second rib fracture demonstrated on CT. There were also multiple remote right rib fractures including 6, 8, 9. Atrial fibrillation with currently controlled ventricular rate, anticoagulated with Xarelto Suspect mild exacerbation of systolic congestive heart failure History of nonischemic cardiomyopathy with an ejection fraction of 20% Hypercalcemia History of recent Covid 19 infection History of left-sided pleural effusion with thoracentesis performed on 09/15/2022. A total of 1.5 L was removed at that time, and appeared to be a transudate based on protein and LDH analysis. No cytology report to review. Diabetes mellitus type 2, [id number] Hypertension Osteoporosis Obstructive sleep apnea Ex-smoker, admits to smoking cigars only Plan: The patient was seen and evaluated Labs and medications reviewed Currently stable and on room air The plan is for transfer to [facility] for orthopedic oncology consultation and MRI with sedation We will see as needed I have personally seen and examined the patient, performed the documentation and the assessment and plan as written. Number of minutes spent on the visit: 10.
[2022-11-28 11:43] LABS: Glucose,Whole Blood 148 mg/dL (70-110)
[2022-11-28] MEDS: bisacodyL 10 MG SUPP RECTAL STA ×2 (13:52→15:36)
[2022-11-28] MEDS ORDERED: METOPROLOL TARTRATE 25 MG TAB PO STA (15:16)
[2022-11-28] MEDS ORDERED: FUROSEMIDE 10 MG/ML 2 ML VIAL IV ONE (15:23)
--- NOTE | 2022-11-28 15:26 | P.PN ---
Subjective Progress Note Date: 11/28/22 This is a 62 year old male admitted to the hospital for left pleural effusion and atrial fibrillation with RVR. Patient has complaints of left hip pain and difficulty ambulating for the last 4 months, imaging on admission reveals bony metastasis. There is also left lung mass. Patient underwent left neck mass u/s guided core biopsy on 11/20 with pending pathology. Brain MRI reveals atleast 3 areas of dural thickening with extension into the skull on the right for 2 of them and another impressing upon the right occipital lobe. Findings concerning for metastatic disease. Patient is scheduled to undergo MRI of the left femur and thoracic spine today for further evaluation of bone lesions. Orthopedics is following, patient will not be cleared for PT/OT evaluation and treatment until further evaluation of the osseous structures. Patient has been on IV dilaudid and IV morphone around the clock with oral norco as well and continues to report significant pain about 8-9/10 diffuse and generalized. Cardiology following and patient continues on toprol XL 100 mg BID and oral amiodarone heart rate is in the low 100s-90s and maintaining atrial fibrillation. 11/25/2022 Patient evaluated today resting in bed. Continues to report pain 5-6/10 mid back and left thigh. Patient was pre medicated for the MRI but was unable to tolerate lying flat due to pain and MRI was unable to be performed. Patient has been started on fentanyl patch and oxycodone with dilaudid as needed for breakthrough pain. Patient to start radiation tomorrow. White count 13.1 today. Heart rate remains controlled in the 90s. 11/26/2022 Patient evaluated today resting in bed. Continues to report significant pain about 8/10 and has been started on fentanyl patch and oxycodone. Patient is using dilaudid 1 mg as needed and encouraged to try the oral medication. Dilaudid 0.5 mg every 3 hrs will be offered as well patient can opt for the lesser dose. MRI remains on hold. Patient has been evaluated by radiology and underwent mapping today and plans to start radiation therapy. Lymph biopsy pathology is resulted revealing adenocarcinoma with mucinous features differentials include a GI primary adenocarcinoma/pancreaticobiliary. Oncology planning family meeting for tomorrow. 11/27/2022 Patient evaluated today resting in bed. More awake than yesterday. Unable to tolerate MRI and unable to tolerate mapping and planning to begin palliative radiation, this has been placed on hold at this point. Patient requires MRI of the thoracic spine and the left femur for further evaluation and he has been unable to tolerate lying flat due to increased pain and discomfort. He has been maintained on bedrest and orthopedics has been following and PT/OT evaluation has been placed on hold at this time. The initial chest CT shows lesions T6 and T7 with endplate loss and impending fracture. Patient has moments of confusion and neurology has been consulted. Pain medication has been adjusted with fentanyl 25 mcg Q72 hours patch with percocet as needed and IV dilaudid for breakthrough pain which does make the patient more drowsy. Abdomen is less distended and increased bowel sounds today had lactulose x 1 and will repeat lactulose. Patient refused the suppository yesterday. Recommendations have been made by oncology for patient to be transferred to tertiary care center for MRI with sedation and further evaluation by oncology-vaccine specialist. Patient reports low appetite. Encouraged to increase oral intake. 11/28/2022 Patient is evaluated today on the medical floor patient is more awake. Requested that dilaudid be changed over to IV morphine. Did have a small BM and received another suppository today. States appetite has improved and eating more today. Patient remains on the telemetry unit and continues on oral amiodarone and toprol xl twice a day. Patient has been recommended for higher level of care. [facility] has accepted and gave 24 hr update they will not be able to give patient a bed most likely. Transfer initiated to [place] and pending at this time. Review of Systems Constitutional: Reports fatigue denied any fever. Cardio vascular: denied any chest pain, palpitations Gastrointestinal: denied any nausea, vomiting, diarrhea Pulmonary: Denied any shortness of breath cough Neurologic denied any new focal deficits has continued hip and back pain. All inpatient medications were reviewed and appropriate changes in these medications as dictated in the interval history and assessment and plan PHYSICAL EXAMINATION: GENERAL: The patient is alert and oriented x3, not in any acute distress. Well developed, well nourished. Fatigued. HEENT: Pupils are round and equally reacting to light. EOMI. No scleral icterus. No conjunctival pallor. Normocephalic, atraumatic. No pharyngeal erythema. No thyromegaly. CARDIOVASCULAR: S1 and S2 present. No murmurs, rubs, or gallops. PULMONARY: Chest is clear to auscultation, no wheezing or crackles. ABDOMEN: Soft, nontender, no distention increased bowel sounds.. No palpable organomegaly. MUSCULOSKELETAL: No joint swelling or deformity. EXTREMITIES: No cyanosis, clubbing, or pedal edema. NEUROLOGICAL: Gross neurological examination did not reveal any focal deficits. Generalized weakness. SKIN: No rashes. 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 Hx of nonischemic cardiomyopathy with EF of 20% Hypercalcemia Hypertension Hyperlipidemia Diabetes Mellitus type 2 Chronic alcohol abuse Former smoker with recent smoking cessation GI prophylaxis DVT prophylaxis Full Code Plan Oncology recommending transfer to tertiary care center for MRI with sedation and oncology vaccine specialist Transfer has been initiated patient has been accepted at [facility] by hospitalist Dr. Ella Bundy, MM unable to accomodate patient at this time. Transfer initiated to [facility] and pending. MRI of the left femur and thoracic spine ordered and held for now due to paints pain and unable to tolerate procedure Pending clearance to begin PT/OT orthopedics following, patient is at risk for pathological bone fracture based on imaging and unable to tolerate the thoracic MRI for further evaluation. Currently bedrest. Radiation has also been placed on hold at this time. Continue with pain management and bowel regimen. The impression and plan of care has been dictated by Lupis Epstein Nurse Practitioner as directed. Dr. Terry MD I have performed a history and physical examination and medical decision making of this patient, discussed the same with the dictator, and agree with the dictators assessment and plan as written, documented as a scribe. Based on total visit time, I have performed more than 50% of this visit. Objective - Vital Signs Vital signs: Vital Signs Temp 97.9 F 11/28/22 11:40 Pulse 112 H 11/28/22 11:40 Resp 16 11/28/22 11:40 BP 152/81 11/28/22 11:40 Pulse Ox 92 L 11/28/22 11:40 FiO2 21 06/15/23 08:01 Intake & Output 11/27/22 11/28/22 11/28/22 18:59 06:59 18:59 Intake Total 180 180 Output Total 425 1300 450 Balance -245 -1300 -270 Weight 100.244 kg Intake: Oral 180 180 Output: Urine 425 1300 450 Other: Voiding Method Indwelling Catheter Indwelling Catheter Indwelling Catheter - Labs CBC & Chem 7: 11/28/22 09:32 11/28/22 09:32 Labs: Abnormal Lab Results - Last 24 Hours (Table) 11/27/22 11/27/22 11/28/22 Range/Units 16:54 20:06 06:16 WBC (3.8-10.6) k/uL RBC (4.30-5.90) m/uL Hgb (13.0-17.5) gm/dL RDW (11.5-15.5) % Plt Count (150-450) k/uL Sodium (137-145) mmol/L Chloride (98-107) mmol/L Carbon Dioxide (22-30) mmol/L BUN (9-20) mg/dL Glucose (74-99) mg/dL POC Glucose (mg/dL) 118 H 127 H 138 H (70-110) mg/dL Calcium (8.4-10.2) mg/dL 11/28/22 11/28/22 11/28/22 Range/Units 09:32 09:32 11:41 WBC 17.5 H (3.8-10.6) k/uL RBC 4.28 L (4.30-5.90) m/uL Hgb 12.4 L (13.0-17.5) gm/dL RDW 16.2 H (11.5-15.5) % Plt Count 477 H (150-450) k/uL Sodium 135 L (137-145) mmol/L Chloride 95 L (98-107) mmol/L Carbon Dioxide 33 H (22-30) mmol/L BUN 22 H (9-20) mg/dL Glucose 146 H (74-99) mg/dL POC Glucose (mg/dL) 148 H (70-110) mg/dL Calcium 10.8 H (8.4-10.2) mg/dL Assessment and Plan Time with Patient: Greater than 30
[2022-11-28 16:02] VITALS: BP 172/83; TEMP 96.9
[2022-11-28 16:24] LABS: Glucose,Whole Blood 142 mg/dL (70-110)
--- NOTE | 2022-11-28 16:29 | P.PN ---
Subjective Progress Note Date: 11/28/22 Principal diagnosis: Admitted with leg pain. Bone lesions, lung mass, LAD. Adenocarcinoma In follow-up today patient Has not been able to have any further diagnostics due to significant pain. He is going to require sedation for any further imaging. His family is very concerned for him. Patient is sleeping for only a few minutes at a time and then jolting himself awake. Objective - Vital Signs Vital signs: Vital Signs Temp 96.9 F L 11/28/22 15:40 Pulse 98 11/28/22 15:55 Resp 16 11/28/22 15:40 BP 172/83 11/28/22 15:40 Pulse Ox 92 L 11/28/22 15:40 FiO2 21 11/27/22 08:01 Intake & Output 11/27/22 11/28/22 11/28/22 18:59 06:59 18:59 Intake Total 180 180 Output Total 425 1300 450 Balance -245 -1300 -270 Weight 100.244 kg Intake: Oral 180 180 Output: Urine 425 1300 450 Other: Voiding Method Indwelling Catheter Indwelling Catheter Indwelling Catheter - Constitutional General appearance: Present: average body habitus, disheveled, severe distress - EENT Eyes: Present: anicteric sclerae ENT: Present: hearing grossly normal - Peripheral edema leg Peripheral Edema: bilateral: Trace - Musculoskeletal Musculoskeletal: Present: generalized weakness - Additional findings Additional findings: Patient is confused at times, even slightly delirious at times. He drifts off to sleep and arouses very quickly, pain is still significant, he is not able to move his body independently. When other people move his extremities he is pretty much writing in pain - Labs CBC & Chem 7: 11/28/22 09:32 11/28/22 09:32 Labs: Abnormal Lab Results - Last 24 Hours (Table) 11/27/22 11/27/22 11/28/22 Range/Units 16:54 20:06 06:16 WBC (3.8-10.6) k/uL RBC (4.30-5.90) m/uL Hgb (13.0-17.5) gm/dL RDW (11.5-15.5) % Plt Count (150-450) k/uL Sodium (137-145) mmol/L Chloride (98-107) mmol/L Carbon Dioxide (22-30) mmol/L BUN (9-20) mg/dL Glucose (74-99) mg/dL POC Glucose (mg/dL) 118 H 127 H 138 H (70-110) mg/dL Calcium (8.4-10.2) mg/dL 11/28/22 11/28/22 11/28/22 Range/Units 09:32 09:32 11:41 WBC 17.5 H (3.8-10.6) k/uL RBC 4.28 L (4.30-5.90) m/uL Hgb 12.4 L (13.0-17.5) gm/dL RDW 16.2 H (11.5-15.5) % Plt Count 477 H (150-450) k/uL Sodium 135 L (137-145) mmol/L Chloride 95 L (98-107) mmol/L Carbon Dioxide 33 H (22-30) mmol/L BUN 22 H (9-20) mg/dL Glucose 146 H (74-99) mg/dL POC Glucose (mg/dL) 148 H (70-110) mg/dL Calcium 10.8 H (8.4-10.2) mg/dL Assessment and Plan (1) Adenocarcinoma of unknown primary Current Visit: Yes Status: Acute Priority: High Code(s): C80.1 - MALIGNANT (PRIMARY) NEOPLASM, UNSPECIFIED SNOMED Code(s): 538714681 (2) Left leg pain Current Visit: Yes Status: Acute Priority: High Code(s): M79.605 - PAIN IN LEFT LEG SNOMED Code(s): 481195624 (3) Lytic bone lesion of femur Current Visit: Yes Status: Acute Priority: High Code(s): M89.9 - DISORDER OF BONE, UNSPECIFIED SNOMED Code(s): 466170310 (4) Lymphadenopathy Current Visit: Yes Status: Acute Priority: High Code(s): R59.1 - GENERALIZED ENLARGED LYMPH NODES SNOMED Code(s): 33217977 (5) Lung mass Current Visit: Yes Status: Acute Priority: High Code(s): R91.8 - OTHER NONSPECIFIC ABNORMAL FINDING OF LUNG FIELD SNOMED Code(s): 458889272 (6) Hypercalcemia Current Visit: Yes Status: Acute Priority: High Code(s): E83.52 - HYPERCALCEMIA SNOMED Code(s): 37930609 Plan: Lt leg pain, lytic lesion of lt femur -Pain management continues to be a challenge -Patient is been unable to tolerate MRI so, Orthopedics and Radiation Oncology have not been able to provide any treatment. Cervical LAD, SQ chest nodules and lt lung mass -Cervical lymph node core biopsy consistent with adenocarcinoma upper GI/pancreaticobiliary primary -CT AP did not show any evidence of disease in the abdomen or pelvis. -MRI of the brain showing some suspicious areas. Radiation Oncology has seen the patient. The lesion seemed to be dural in nature per Rad Onc. No plans for radiation to the brain just yet. -EGD and colonoscopy August/September of this year no unusual findings -Patient would benefit from MRCP to further assess the pancreas and biliary tract. Unfortunately, patient is unable to position for testing. Hypercalcemia 2/2 malignancy -Ca++ stable, in normal range fornow -hold off on any bisphosphonates for until certain there are no plans for surgery. Patient and friend in the family what the bedside. They had numerous questions, wanted to summary of everything that has happened, path and scan results. Reviewed all of this, all of their questions were answered to their satisfaction to the best of my ability. Case discussed with Internal Medicine [employer]NAGER Case discussed with Orthopedic Oncologist Dr. Joy Yu at [facility]. They have the ability to do MRI with sedation and Dr. Yu has graciously accepted admission of the patient, just pending a bed. 75 min spent counseling and coordinating care
[2022-11-28] MEDS ORDERED: Potassium Replacement Protocol 1 EACH MISC MISCELLANE PRN (16:36)
[2022-11-28] MEDS ORDERED: POTASSIUM CHLORIDE ER 20 MEQ TAB.ER PO SCH (17:00)
--- NOTE | 2022-11-28 17:11 | P.DS ---
Providers Date of admission: 11/18/22 19:45 Attending physician: Juan Stewart Consults: 11/18/22 19:42 Consult Physician Urgent Consulting Provider: Dragan Fair Consult Reason/Comments: Left pleural effusion Do you want consulting provider notified?: Yes 11/19/22 00:52 Consult Physician Routine Consulting Provider: Jose Amin Consult Reason/Comments: CT findings concerning for malignancy and metastasis Do you want consulting provider notified?: Yes, Notify in am 11/19/22 14:34 Consult Physician Routine Consulting Provider: Burt Ramires Consult Reason/Comments: assess lt femur, impending fracture? Surgery now? If yes, pls get biopsy Do you want consulting provider notified?: Yes 11/20/22 08:49 Consult Physician Routine Consulting Provider: Kedar Hanna Consult Reason/Comments: metastatic disease to brain Do you want consulting provider notified?: Already Contacted 11/26/22 16:35 Consult Physician Routine Consulting Provider: Kaitlin You Consult Reason/Comments: AMS/delirium, brain metastasis new Do you want consulting provider notified?: Yes Primary care physician: Vargas [facility] Course: Final Diagnosis Left leg pain with difficulty ambulating, imaging reveals lytic lesion of left femur Left mass-like lung consolidation concerning for underlying malignancy with postobstructive atelectasis Multiple brain lesions suspicious for metastasis Pathological rib fracture on the left with right sided remote rib fractures as well Lymph core Bx positive for adenocarcinomia with mucinous features suspicious for primary GI /pancreaticbiliary Atrial fibrillation with RVR on admission currently rate controlled anticoagulated with xarelto Constipation on bowel regimen, improved. Hx of nonischemic cardiomyopathy with EF of 20% with improved EF 30-35% this admission. Hypercalcemia Hypertension Hyperlipidemia Diabetes Mellitus type 2 Chronic alcohol abuse Stage 2 sacral decubitus ulcer hospital acquired with zinc past and sacral optifoam dressing applied. Former smoker with recent smoking cessation 4 months ago Full Code Discharge Disposition Patient is stable for transfer to [facility] has been accepted for admission under Dr. Joy Yu, oncology-urban redevelopment specialist with internal medicine consultation. Patient requires transfer to higher level of care as he requires MRI with sedation as well as orthopedic oncology evaluation. Patient may require GI services which will be unavailable at this facility after today. Patient to continue same cardiac medications and has been started on pain management regimen with fentanyl patch 25 mcg to change every 72 hours, as well as percocet 10 mg every 4 hours with IV morphine for breakthrough pain. Hospital Course This is a 62 year old male with medical history of hypertension, hyperlipidemia, diabetes mellitus type 2, chronic alcohol use and atrial fibrillation. Patient presents to the hospital with complaints of left hip pain and possible lytic bone lesion and also presents with atrial fibrillation with rapid ventricular rate. Patient has complaints of left hip pain and difficulty ambulating for the last 4 months, imaging on admission reveals irregular lytic lesion of the distal left femur etiology primary bone tumor vs. infection recommending MRI for further evaluation. Calcium level increased up to 10.6. Prior to this hospital stay patient underwent workup for cardiac causes of the left shoulder and chest pain and underwent multiple cardioversion for atrial fibrillation with RVR and LALA. He had a second admission and had CT of the chest abdomen showing LLL consolidation and pleural effusion found to have an EF of 20%. CT head negative and EGD colonoscopy that were negative. On 09/15 underwent thoracentesis no cytology available. Patient was admitted with consult placed to pulmonary, cardiology and oncology services. Chest CT reveals left lower lung consolidation concerning for underlying malignancy with postobstructive atelectasis, with metastatic disease to the mediastinum, right adrenal gland, and throughout the osseous structures with destructive changes. PET/CT scan recommended. There is osseous metastatic disease involving T6 and T7 vertebrase with loss of posterior vertebral wall endplate suspicious for impending fracture. There is acute left sided rib fracture. Chronic appearing right sided rib fractures. Patient underwent left neck mass u/s guided core biopsy on 11/20 revealing adenocarcinoma with mucinous features differentials include a GI primary adenocarcinoma/pancreaticobiliary. Brain MRI reveals atleast 3 areas of dural thickening with extension into the skull on the right for 2 of them and another impressing upon the right occipital lobe. Findings concerning for metastatic disease. Patient is scheduled to undergo MRI of the left femur and thoracic spine for further evaluation of bone lesions. Orthopedics is following for the impending malignant fracture, patient will not be cleared for PT/OT evaluation and treatment until further evaluation of the osseous structures. He has been unable to tolerate lying flat due to increased pain and discomfort and has been recommended for transfer to undergo MRI with sedation. He has been maintained on bedrest and orthopedics has been following and PT/OT evaluation has been placed on hold at this time. Pain medication has been adjusted with fentanyl 25 mcg Q72 hours patch with percocet as needed and IV dilaudid for breakthrough pain which does make the patient more drowsy. Family requested the dilaudid be changed to IV morphine as patient tolerates this better. Abdomen is less distended and increased bowel sounds today and patient is receiving bowel regimen and did have a small BM with increased appetite. Cardiology following and patient continues on toprol XL 100 mg BID, oral digoxin and oral amiodarone heart rate is in the low 100s-90s and maintaining atrial fibrillation. He has been rate controlled and cardiology has signed off at this time. Patient continues on xarelto for anticoagulation. Patient has an indwelling catheter in place. He has been afebrile and maintaining oxygen saturation on room air. Patient to be transferred to [facility] for further evaluation and treatment. 11/28/2022 Today the patient is resting in bed. He has increased bowel sounds and does admit to small bowel movement. He was given IV fluids for low appetite and sodium level had dropped with BNP of 1700 mildly elevated and IV fluids were already discontinued yesterday suspect mild volume overload as patient has known EF of 30%. Patient was given a small dose of IV lasix and continues on 40 mg of oral lasix daily. Patient has increased appetite today confirmed with family at the bedside and patient reports having fair appetite. He does continues with significant diffuse pain and is on pain regimen as well as bowel regimen. He denies any shortness of breath today, no chest pain reported. He has difficulty with turning and movement and noted to have increased heart rate and blood pressure with position changes. Currently heart rate is 94 blood pressure 139 /72, afebrile, and 94-95% on room air. Please see medication reconciliation for a list of current medication. Thank you for allowing us to participate in the care of this patient. The impression and plan of care has been dictated by Lupis Epstein Nurse Practitioner as directed. Dr. Terry MD I have performed a history and physical examination and medical decision making of this patient, discussed the same with the dictator, and agree with the dictators assessment and plan as written, documented as a scribe. Based on total visit time, I have performed more than 50% of this visit. Plan - Discharge Summary Discharge Rx Participant: No New Discharge Prescriptions: No Action Atorvastatin [Lipitor] 20 mg PO HS Spironolactone [Aldactone] 12.5 mg PO DAILY 30 Days #30 tab Tamsulosin [Flomax] 0.4 mg PO DAILY Furosemide [Lasix] 40 mg PO DAILY #30 tab Rivaroxaban [Xarelto] 20 mg PO DAILY Amiodarone [Cordarone] 200 mg PO DAILY Metoprolol Succinate (ER) [Toprol Xl] 50 mg PO HS@1800 Gabapentin [Neurontin] 400 mg PO TID Dapagliflozin Propanediol [Farxiga] 10 mg PO DAILY Metoprolol Succinate [Toprol XL] 100 mg PO DAILY HYDROcodone/APAP 7.5-325MG [[place] 7.5-325] 1 tab PO Q6H PRN PRN Reason: Pain Semaglutide [Ozempic] 0.25 mg SQ SA Discharge Medication List Atorvastatin [Lipitor] 20 mg PO HS 08/13/22 [History] Spironolactone [Aldactone] 12.5 mg PO DAILY 30 Days #30 tab 08/29/22 [Rx] Tamsulosin [Flomax] 0.4 mg PO DAILY 09/04/22 [History] Furosemide [Lasix] 40 mg PO DAILY #30 tab 09/15/22 [Rx] Amiodarone [Cordarone] 200 mg PO DAILY 10/17/22 [History] Metoprolol Succinate [Toprol XL] 100 mg PO DAILY 10/17/22 [History] Rivaroxaban [Xarelto] 20 mg PO DAILY 10/17/22 [History] Dapagliflozin Propanediol [Farxiga] 10 mg PO DAILY 11/18/22 [History] Gabapentin [Neurontin] 400 mg PO TID 11/18/22 [History] HYDROcodone/APAP 7.5-325MG [[place] 7.5-325] 1 tab PO Q6H PRN 11/18/22 [History] Metoprolol Succinate (ER) [Toprol Xl] 50 mg PO HS@1800 11/18/22 [History] Semaglutide [Ozempic] 0.25 mg SQ SA 11/18/22 [History] Follow up Appointment(s)/Referral(s): Jose Amin MD [STAFF PHYSICIAN] - 12/18/22 4:00 pm (This appointment at this at the [facility] office. Phone number [phone]) Edwar,Vargas, DO [Primary Care Provider] - 1-2 days Discharge/Stand Alone Forms: Who Do I Call?, Community Resources, Help In The Home, Personal Inbound Sales Consultant
[2022-11-28 17:31] VITALS: PULSE 111; RESP 18
[2022-11-28] MEDS: RIVAROXABAN 20 MG TAB PO SCH (18:08)
== END 2022-11-28 18:03 | disposition short-term general hospital (02) | DRG 515 ==
LOC: EC 16:08 → 3SCARD 19:45
PROVIDERS: ADMIT Internal Medicine; ATTEND Internal Medicine
PROC: 07B23ZX Excision of Left Neck Lymphatic, Percutaneous Approach, Diagnostic (ICD-10-PCS; principal; 2022-11-20)
DX: C79.51 Secondary malignant neoplasm of bone (principal); G93.41 Metabolic encephalopathy; I50.23 Acute on chronic systolic (congestive) heart failure; C77.0 Secondary and unspecified malignant neoplasm of lymph nodes of head, face and neck; C78.1 Secondary malignant neoplasm of mediastinum; I42.8 Other cardiomyopathies; C78.02 Secondary malignant neoplasm of left lung; I48.19 Other persistent atrial fibrillation; M84.48XA Pathological fracture, other site, initial encounter for fracture; C79.31 Secondary malignant neoplasm of brain; J98.11 Atelectasis; E83.52 Hypercalcemia; L89.152 Pressure ulcer of sacral region, stage 2; E27.8 Other specified disorders of adrenal gland; I11.0 Hypertensive heart disease with heart failure; E11.42 Type 2 diabetes mellitus with diabetic polyneuropathy; F10.10 Alcohol abuse, uncomplicated; G47.30 Sleep apnea, unspecified; G89.29 Other chronic pain; M54.50 Low back pain, unspecified; T40.2X5A Adverse effect of other opioids, initial encounter; I25.10 Atherosclerotic heart disease of native coronary artery without angina pectoris; I45.10 Unspecified right bundle-branch block; K59.00 Constipation, unspecified; E78.5 Hyperlipidemia, unspecified; M81.0 Age-related osteoporosis without current pathological fracture; M48.8X4 Other specified spondylopathies, thoracic region; G47.33 Obstructive sleep apnea (adult) (pediatric); Z99.3 Dependence on wheelchair; Z74.01 Bed confinement status; Z86.16 Personal history of COVID-19; Z87.01 Personal history of pneumonia (recurrent); Z87.19 Personal history of other diseases of the digestive system; Z87.891 Personal history of nicotine dependence; Z82.49 Family history of ischemic heart disease and other diseases of the circulatory system; Z83.79 Family history of other diseases of the digestive system; Z79.899 Other long term (current) drug therapy; Z79.84 Long term (current) use of oral hypoglycemic drugs; Z79.891 Long term (current) use of opiate analgesic; Z88.1 Allergy status to other antibiotic agents; S22.43XS Multiple fractures of ribs, bilateral, sequela
CPT/HCPCS: 36415; 38505; 70553; 71045; 71046; 71260; 73502; 74176; 76942; 80048; 80053; 81003; 83735; 83880; 84100; 84153; 84443; 84484; 85025; 85027; 85610; 85730; 87635; 88305; 88341; 88342; 93005; 93306; 94760; 96365; 96366; 96367; 96368; 96375; 96376; 99291